=== PATIENT | male | born 1930 | race Caucasian/White ===

== ENCOUNTER 2017-04-20 13:03 | Inpatient (IN) | payer OTHER ==
[~2017-04-20] VITALS: Ht 172.7 cm; Wt 77.1 kg
--- NOTE | 2017-04-20 13:03 | NUR ---
Patient BIBA ACLS from [facility], transferred to bed 11. RN evaluating patient at bedside.
[2017-04-20 13:06] VITALS: BP 107/57
[2017-04-20] MEDS ORDERED: NACL 0.9% 1,000 ML IV ONE ×2 (13:10→14:35)
--- NOTE | 2017-04-20 13:10 | NUR ---
86 M JUSTICE FROM [facility]; ACCORDING TO PRINCIPAL PRODUCT MANAGER, PT NOT RESPONSIVE TO STAFF, NO INJURY/TRAUMA PRIOR; AWAKE, FOLLOWS INSTRUCTIONS, ORIENTED TO NAME PLACE, MOVING ALL EXTREMITIES, NO FACIAL ASYMMETRY, PT DENIES ANY CHEST PAIN OR PAIN IN GENERAL; RR ARE EVEN AND UNLABORED; PT DENIES ANY N/V/D OR ABD PAIN; NAD AT THIS TIME; ER MD PATEL AWARE OF PT STATUS; PT CHANGED IN TO GOWN, POSITIONED FOR COMFORT, BED DOWN. WILL CONTINUE TO MONITOR.
--- NOTE | 2017-04-20 13:15 | NUR ---
Dr. Avery evaluating patient at bedside.
[2017-04-20] MEDS ORDERED: PANT40EC PO (13:33)
[2017-04-20] MEDS ORDERED: CALC-20 PO (13:33)
[2017-04-20] MEDS ORDERED: METO25TA PO (13:33)
[2017-04-20] MEDS ORDERED: ASPI81EC97 PO (13:33)
[2017-04-20] MEDS ORDERED: POTA10CE85 PO (13:33)
[2017-04-20] MEDS ORDERED: BISA-213 RC (13:33)
[2017-04-20] MEDS ORDERED: CAR30 PO (13:33)
[2017-04-20] MEDS ORDERED: FURO-570 PO (13:33)
[2017-04-20 13:37] LABS: BASOPHILS # (AUTO) 0.4 K/uL (0.00-0.22); BASOPHILS % (AUTO) 2.2 % (0.0-2.0); EOSINOPHILS # (AUTO) 0.1 K/uL (0-0.4); EOSINOPHILS % (AUTO) 0.6 % (0.0-4.0); HEMATOCRIT 49.1 % (36-52); LYMPHOCYTES # (AUTO) 0.9 K/uL (2.0-11.5); LYMPHOCYTES % (AUTO) 5.6 % (20.5-51.1); MEAN CORPUSCULAR HEMOGLOBIN 29 pg (27-31); MEAN CORPUSCULAR HGB CONC 33 g/dL (33-37); MEAN CORPUSCULAR VOLUME 88 fL (80-94); MONOCYTES # (AUTO) 1.2 K/uL (0.8-1.0); MONOCYTES % (AUTO) 7.2 % (1.7-9.3); NEUTROPHILS # (AUTO) 14.2 K/uL (1.8-7.7); NEUTROPHILS % (AUTO) 84.4 % (42.2-75.2); PLATELET COUNT (AUTO) 204 K/uL (140-450); RED BLOOD CELL COUNT(AUTO) 5.57 MIL/uL (4.20-6.10); WHITE BLOOD COUNT (AUTO) 16.9 K/uL (4.8-10.8)
[2017-04-20] MEDS ORDERED: WARF3TAB PO ×2 (13:37)
[2017-04-20] MEDS ORDERED: SLIDE SUBQ (13:37)
[2017-04-20 13:46] LABS: ANION GAP 14.9 (8-16); CHLORIDE 101 mmol/L (98-107); CREATININE 1.1 mg/dL (0.7-1.3); GLUCOSE 160 mg/dL (74-106); POTASSIUM 3.9 mmol/L (3.5-5.1); SODIUM SERUM 140 mmol/L (136-145); UREA NITROGEN, BLOOD 25 mg/dL (7-18)
[2017-04-20 13:51] LABS: ALBUMIN 3.1 g/dL (3.4-5.0); ASPARTATE AMINOTRANSFERASE 18 U/L (15-37); TOTAL BILIRUBIN 0.9 mg/dL (0.0-1.0)
[2017-04-20 13:52] LABS: ACETAMINOPHEN < 0.5 ug/ml (10-30); SALICYLATE < 2.8 mg/dL (2.8-20.0)
--- NOTE | 2017-04-20 14:05 | NUR ---
PT TO CT VIA JOSHUA ACCOMPANIED BY JOB TRAINER
--- NOTE | 2017-04-20 14:25 | NUR ---
PT RETURNED FROM CT VIA GURNEY ACCOMPANIED BY MIDDLE OR INTERMEDIATE SCHOOL PRINCIPAL.
[2017-04-20] MEDS ORDERED: VANCOMYCIN 1,000 MG in DEXTROSE 5% 250 ML IV ONE (14:40)
[2017-04-20] MEDS ORDERED: PIPERACILLIN/TAZOBACTAM 3.375 GM in DEXTROSE 5% 50 ML IV ONE (14:40)
[2017-04-20] MEDS ORDERED: PIPERACILLIN/TAZOBACTAM 3.375 GM VIAL IV ONE ×2 (14:53→21:39)
[2017-04-20] MEDS ORDERED: VANCOMYCIN 1,000 MG VIAL ONE (14:53)
[2017-04-20 15:09] LABS: APPEARANCE,URINE CLEAR (CLEAR); BILIRUBIN,URINE NEGATIVE (NEGATIVE); BLOOD, URINE 1+ (NEGATIVE); COLOR,URINE YELLOW (YELLOW); LEUKOCYTE ESTERASE ,URINE NEGATIVE (NEGATIVE); NITRITE, URINE NEGATIVE (NEGATIVE); UGLUCOSE NEGATIVE (NEGATIVE)
[2017-04-20 15:23] LABS: BARBITURATE, URINE NEG. ng/ml (NEG <=200); BENZODIAZEPINE, URINE NEG. ng/mL (NEG <=200); CANNABINOID, URINE NEG. ng/mL (NEG <=50); COCAINE, URINE NEG. ng/mL (NEG <=300); OPIATE, URINE NEG. ng/mL (NEG <=2000); PHENCYCLIDINE SCREEN,URINE NEG. ng/mL (NEG <=25)
[2017-04-20] MEDS ORDERED: NACL 0.9% 500 ML IV ONE (15:30)
[2017-04-20 15:32] LABS: RBC,URINE 3-10 (FEW) /HPF (0-5); WBC,URINE 0-5 (RARE) /HPF (0-5)
[2017-04-20] MEDS ORDERED: HYDROcodone/APAP 7.5/325 MG 1 TAB PO PRN (16:05)
[2017-04-20] MEDS ORDERED: ONDANSETRON 4 MG/2 ML VIAL IVP PRN (16:05)
--- NOTE | 2017-04-20 16:23 | NUR ---
Patient will be admitted to care of [place]. Admited to Tele. Will go to room 107B. Belongings list completed. Report to Carin DILLON.
--- NOTE | 2017-04-20 16:24 | NUR ---
RECEIVED REPORT FROM THE ER NURSE. WILL GET ROOM READY AND AWAIT PT'S ARRIVAL.
--- NOTE | 2017-04-20 16:40 | NUR ---
PT ARRIVED ON THE UNIT WITH 2 ER NURSES ON A GURNEY. PT IS ACCOMPANIED BY HIS GRANDDAUGHTER. PT IS AWAKE AND ORIENTED TO HIS NAME. PT'S SKIN IS INTACT. HAS AN IV ON LFA 22G. OWENS CATH IN PLACE, WITH 600ML PALE, CLEAR URINE. NC AT 3L O2. ADMINISTERED YELLOW GOWN, BAND AND SOCKS. YELLOW SIGN ON DOOR. MRSA SCREENING DONE. APPLIED TELE MONITOR. V/S: 98.3F, 96/49, 78, 96% 20 Addendum: 04/20/17 at 1708 by Carin Sparks RN DENIES PAIN. WILL START ADMISSIONS PROCESS.
[2017-04-20 16:52] LABS: PROTHROMBIN TIME 18.8 secs (10.8-13.4)
[2017-04-20 17:00] VITALS: BP 96/49
[2017-04-20 17:02] LABS: CHOL/HDL RATIO 3.8 (1-4.5); FREE T4 (FREE THYROXINE) 0.95 ng/dL (0.76-1.46); MAGNESIUM 2.2 mg/dL (1.8-2.4); PHOSPHORUS 3.3 mg/dL (2.5-4.9); THYROID STIMULATING HORMONE 2.3 uIU/mL (0.34-3.74)
[2017-04-20] MEDS: NACL 0.9% 1,000 ML IV SCH (18:02)
[2017-04-20] MEDS ORDERED: VANCOMYCIN PER PHARMACY MC PRN (18:30)
--- NOTE | 2017-04-20 19:15 | NUR ---
ENDORSED PT TO THE FREIGHT HUSTLER NURSE AT BEDSIDE FOR CONTINUITY OF CARE. PT IS STABLE. ORDERED DINNER FOR PT W/ SODA REQUESTED BY PT.
--- NOTE | 2017-04-20 19:16 | NUR ---
RECEIVED REPORT FROM DAY SHIFT RN. PT IS A/OX1, ON 3L O2 VIA NASAL CANNULA. PT HAS A LEFT FOREARM 22G IV, INFUSING NS@125ML/HR. SKIN INTACT. PT IS ON BEDREST. SAFETY PRECAUTIONS IN PLACE. UPDATED BOARD. DISCUSSED PLAN OF CARE WITH PT, PT VERBALIZED UNDERSTANDING. VITAL SIGNS WITHIN NORMAL LIMITS. VITAL SIGNS ARE WITHIN NORMAL LIMITS. PT IN STABLE CONDITION, NO SIGNS OF DISTRESS NOTED. BED IN LOW POSITION, CALL LIGHT WITHIN REACH. WILL CONTINUE TO MONITOR.
[2017-04-20] MEDS ORDERED: DEXTROSE 50% 50 ML SYR IVP PRN (19:40)
[2017-04-20] MEDS ORDERED: INSULIN LISPRO SLIDING SCALE 100 UNITS/ML VIAL SUBQ PRN (19:40)
[2017-04-20] MEDS ORDERED: ALBUTEROL SULFATE/IPRATROPIU 3 ML SOL IH PRN (19:40)
[2017-04-20 20:00] VITALS: BP 108/51
[2017-04-20] MEDS: DILTIAZEM 30 MG TAB PO SCH (20:59)
[2017-04-20] MEDS: PIPER/TAZO 3.375GM/D5W PREMIX 50 ML IV SCH (21:00)
[2017-04-20] MEDS: DOCUSATE SODIUM 100 MG GELCAP PO SCH (21:02)
[2017-04-20] MEDS: METOPROLOL 25 MG TAB PO SCH (21:02)
[2017-04-20] MEDS: CALCIUM CARB/VIT-D 500 MG/200 IU 1 TAB PO SCH (21:02)
[2017-04-20] MEDS: BLOOD GLUCOSE MONITORING 1 DEV DEV FS SCH (21:04)
[2017-04-21] VITALS: BP 111/51
[2017-04-21] MEDS: NACL 0.9% 1,000 ML IV SCH ×3 (00:02→15:24)
[2017-04-21 04:00] VITALS: BP 119/44
[2017-04-21] MEDS: PIPER/TAZO 3.375GM/D5W PREMIX 50 ML IV SCH ×3 (05:52→20:53)
[2017-04-21] MEDS: PANTOPRAZOLE 40 MG TABEC PO SCH (05:52)
[2017-04-21] MEDS: DILTIAZEM 30 MG TAB PO SCH ×3 (05:52→20:54)
[2017-04-21 06:43] LABS: HEMATOCRIT 40.1 % (36-52); MEAN CORPUSCULAR HEMOGLOBIN 29 pg (27-31); MEAN CORPUSCULAR HGB CONC 32 g/dL (33-37); MEAN CORPUSCULAR VOLUME 88 fL (80-94); PLATELET COUNT (AUTO) 147 K/uL (140-450); RED BLOOD CELL COUNT(AUTO) 4.54 MIL/uL (4.20-6.10); WHITE BLOOD COUNT (AUTO) 9.6 K/uL (4.8-10.8)
--- NOTE | 2017-04-21 07:09 | NUR ---
RECEIVED PT IN BED. AWAKE. ALERT ORIENTEDX1. NO SOB NOTED ON 02 AT 3LPM. DENIES ANY PAIN OR DISCOMFORT AT THIS TIME. NO SIGNS AND SYMPTOMS OF ACUTE DISTRESS NOTED. SAFETY PRECAUTION IN PLACE. CALL LIGHT WITHIN REACH.
[2017-04-21 07:13] LABS: CARBON DIOXIDE 27.5 mmol/L (21-32); CHLORIDE 106 mmol/L (98-107); CREATININE 1.1 mg/dL (0.7-1.3); GLUCOSE 92 mg/dL (74-106); POTASSIUM 3.5 mmol/L (3.5-5.1); SODIUM SERUM 139 mmol/L (136-145); UREA NITROGEN, BLOOD 19 mg/dL (7-18)
[2017-04-21 07:15] LABS: MAGNESIUM 1.8 mg/dL (1.8-2.4); PHOSPHORUS 2.5 mg/dL (2.5-4.9)
[2017-04-21] MEDS: BLOOD GLUCOSE MONITORING 1 DEV DEV FS SCH ×4 (07:19→20:53)
--- NOTE | 2017-04-21 07:31 | NUR ---
ENDORSED PT TO DAY SHIFT RN FOR CONTINUITY OF CARE. PT IN STABLE CONDITION.
[2017-04-21 07:53] LABS: LYMPHOCYTES % (MANUAL) 20 % (20-46)
[2017-04-21 07:54] LABS: EOSINOPHILS % (MANUAL) 10 % (0-4); MONOCYTES % (MANUAL) 12 % (5-12)
[2017-04-21 08:00] VITALS: BP 108/44
[2017-04-21] MEDS: ALBUTEROL SULFATE/IPRATROPIU 3 ML SOL IH SCH ×3 (08:18→20:26)
[2017-04-21] MEDS: DOCUSATE SODIUM 100 MG GELCAP PO SCH ×2 (08:39→20:54)
[2017-04-21] MEDS: FUROSEMIDE 40 MG TAB PO SCH (08:39)
[2017-04-21] MEDS: ATORVASTATIN 20 MG TAB PO SCH (08:39)
[2017-04-21] MEDS: ECOTRIN 81 MG TABEC PO SCH (08:39)
[2017-04-21] MEDS: CALCIUM CARB/VIT-D 500 MG/200 IU 1 TAB PO SCH ×2 (08:40→20:55)
[2017-04-21] MEDS: METOPROLOL 25 MG TAB PO SCH ×2 (08:43→20:54)
[2017-04-21 10:52] LABS: PROTHROMBIN TIME 15.6 secs (10.8-13.4)
--- NOTE | 2017-04-21 11:49 | NUR ---
PT AWAKE IN BED. COOPERATIVE. SOME CONFUSION NOTED. REORIENTATION DONE NEEDED.
[2017-04-21 12:00] VITALS: BP 111/57
[2017-04-21] MEDS ORDERED: VANCOMYCIN 1GM/DEXT 5% PREMIX 200 ML IV SCH (15:30)
[2017-04-21 16:00] VITALS: BP 94/52
--- NOTE | 2017-04-21 16:26 | NUR ---
VERIFIED WITH PHARMACIST GARY THAT COUMADIN DOSE FOR TODAY OK TO GIVE PER PT/INR RESULT.
[2017-04-21] MEDS ORDERED: WARFARIN 5 MG TAB PO SCH (17:00)
--- NOTE | 2017-04-21 17:49 | NUR ---
* ST NOTE * Pt seen at bedside w/nsg present. Pt initially refusing PO feeding trials at this time secondary to pt being "not hungry". Pt education completed regarding benefits of participating in swallow evaluation w/pt eventually consenting to participate in evaluation. Bedside dysphagia and oral mechanism exams completed. See evaluation report for further details. Pt tolerating 2/2 alternating PO trials of mechanical soft peaches via a spoon as well as 6/6 PO trials of successive sips of thin liquid apple juice via a straw, all w/o s/s of aspiration or choking. Nsg also administering whole pill medication PO w/pt exhibiting no difficulty swallowing whole pill medication as well. Pt and caregiver/nsg education completed regarding aspiration precautions that may aid pt w/swallow function, w/pt and nsg/caregiver verbalizing understanding and agreement. It is thus recommended pt continue current PO diet consistency w/aspiration precautions in place, w/pt and caregiver/nsg verbalizing understanding and agreement as well. No further ST follow up recommended at this time. Pt and caregivers/nsg education completed regarding results of evaluation; benefits of abiding by aspiration precautions and recommended PO diet consistency; and prognosis for improvement; with pt and caregivers/nsg verbalizing understanding and agreement w/clinician's recommendations. Recommend: - Continue PO diet consistency of MECHANICAL SOFT TEXTURES W/THIN LIQUIDS for all meals - If pt demonstrates s/s of aspiration or choking, stop PO intake immediately - Suction PRN - Pt requires assistance w/feeding - Feeder to sit pt up at 70-90 degree angle during PO intake; feed pt slowly, alternating btwn solids & liquids and utilizing small bites/sips - Maintain STRICT aspiration precautions 2/2 to pt's hx of coughing during PO intake No further ST follow up recommended at this time. G8996 CI G8997 CI G8998 CI NOMS Level 2 Time In/Out 17:00 - 17:30
--- NOTE | 2017-04-21 18:40 | NUR ---
PT KEPT CLEAN, DRY AND COMFORTABLE, NEEDS ATTENDED. WILL ENDORSE TO NEXT SHIFT. PT ON STABLE CONDITION. FOR CONTINUITY OF CARE.
[2017-04-21 20:00] VITALS: BP 120/61
--- NOTE | 2017-04-21 20:55 | NUR ---
ADMINISTERED SCHEDULED MEDICATIONS, PT TOLERATED WELL. PT IN STABLE CONDITION, NO SIGNS OF DISTRESS NOTED. BED IN LOW POSITION, CALL LIGHT WITHIN REACH. WILL CONTINUE TO MONITOR.
[2017-04-22] VITALS: BP 101/59
[2017-04-22] MEDS: NACL 0.9% 1,000 ML IV SCH ×4 (00:04→23:44)
--- NOTE | 2017-04-22 02:59 | NUR ---
PT CONFUSED AT THE MOMENT, KEEPS SAYING HE IS TALKING TO HIMSELF ONLY AND "I'M WAITING FOR MY , SHE HAS THE MONEY." ORIENTED PT TO TIME, PLACE, AND SITUATION AND PT NODDED. PT IN STABLE CONDITION.
[2017-04-22 04:00] VITALS: BP 110/57
--- NOTE | 2017-04-22 04:34 | NUR ---
IV ON RIGHT FOREARM STARTED HAVING TOO MUCH RESISTANCE AND STARTED HURTING PT. STARTED NEW 22G IV ON RIGHT FOREARM, DISCONTINUED IV TO LEFT FOREARM.
[2017-04-22] MEDS: DILTIAZEM 30 MG TAB PO SCH ×3 (04:56→21:37)
[2017-04-22] MEDS: PIPER/TAZO 3.375GM/D5W PREMIX 50 ML IV SCH ×3 (04:56→21:38)
[2017-04-22] MEDS: PANTOPRAZOLE 40 MG TABEC PO SCH (06:09)
[2017-04-22] MEDS: BLOOD GLUCOSE MONITORING 1 DEV DEV FS SCH ×4 (06:38→21:53)
[2017-04-22] MEDS: ALBUTEROL SULFATE/IPRATROPIU 3 ML SOL IH SCH ×3 (07:00→19:15)
--- NOTE | 2017-04-22 07:19 | NUR ---
ENDORSED PT TO DAY SHIFT RN FOR CONTINUITY OF CARE. PT IN STABLE CONDITION.
--- NOTE | 2017-04-22 07:19 | NUR ---
RECEIVED REPORT FROM NIGHT RN, PT AWAKE IN BED ON 2L O2 VIA NC, NO S/S OF ACUTE DISTRESS, A/O X1, IV PATENT AND INTACT, SAFETY [id number] TAKEN, CALL LIGHT WITHIN REACH, WILL CONT TO MONITOR.
[2017-04-22 07:53] VITALS: BP 116/50
--- NOTE | 2017-04-22 08:09 | NUR ---
PATIENT HAS BEEN SCREENED AND CATEGORIZED HIGH NUTRITION RISK. PATIENT WILL BE SEEN WITHIN 1-2 DAYS OF ADMISSION. 04/21/17 - 04/22/17 TENZIN OGLESBY MBA, RD
[2017-04-22] MEDS: METOPROLOL 25 MG TAB PO SCH ×2 (08:29→21:00)
[2017-04-22] MEDS: FUROSEMIDE 40 MG TAB PO SCH (08:39)
[2017-04-22] MEDS: ECOTRIN 81 MG TABEC PO SCH (08:39)
[2017-04-22] MEDS: CALCIUM CARB/VIT-D 500 MG/200 IU 1 TAB PO SCH ×2 (08:39→21:37)
[2017-04-22] MEDS: DOCUSATE SODIUM 100 MG GELCAP PO SCH ×2 (08:39→21:37)
[2017-04-22] MEDS: ATORVASTATIN 20 MG TAB PO SCH (08:39)
--- NOTE | 2017-04-22 08:50 | NUR ---
DUE MEDS GIVEN WITH EDUCATION, PT TOLERATED MEDS WELL WITH BREAKFAST, NO S/S OF DISTRESS, PT DENIES PAIN, CALL LIGHT WITHIN REACH, WILL CONT TO MONITOR.
[2017-04-22 08:52] LABS: CARBON DIOXIDE 25.9 mmol/L (21-32); CHLORIDE 107 mmol/L (98-107); GLUCOSE 89 mg/dL (74-106); POTASSIUM 3.9 mmol/L (3.5-5.1); SODIUM SERUM 140 mmol/L (136-145); UREA NITROGEN, BLOOD 11 mg/dL (7-18)
[2017-04-22 08:57] LABS: BASOPHILS # (AUTO) 0.3 K/uL (0.00-0.22); BASOPHILS % (AUTO) 3.6 % (0.0-2.0); EOSINOPHILS # (AUTO) 0.3 K/uL (0-0.4); EOSINOPHILS % (AUTO) 3.3 % (0.0-4.0); HEMATOCRIT 38.2 % (36-52); HEMOGLOBIN 12.6 g/dL (12.0-18.0); LYMPHOCYTES # (AUTO) 1.9 K/uL (2.0-11.5); LYMPHOCYTES % (AUTO) 25.6 % (20.5-51.1); MEAN CORPUSCULAR HEMOGLOBIN 30 pg (27-31); MEAN CORPUSCULAR HGB CONC 33 g/dL (33-37); MEAN CORPUSCULAR VOLUME 89 fL (80-94); MONOCYTES # (AUTO) 0.8 K/uL (0.8-1.0); MONOCYTES % (AUTO) 11.1 % (1.7-9.3); NEUTROPHILS # (AUTO) 4.3 K/uL (1.8-7.7); NEUTROPHILS % (AUTO) 56.4 % (42.2-75.2); PLATELET COUNT (AUTO) 145 K/uL (140-450); RED BLOOD CELL COUNT(AUTO) 4.27 MIL/uL (4.20-6.10); RED CELL DISTRIBUTION WIDTH 13.9 % (11.6-13.7); WHITE BLOOD COUNT (AUTO) 7.6 K/uL (4.8-10.8)
[2017-04-22 09:10] LABS: MAGNESIUM 1.9 mg/dL (1.8-2.4); PHOSPHORUS 2.2 mg/dL (2.5-4.9)
[2017-04-22 09:18] LABS: PROTHROMBIN TIME 15.9 secs (10.8-13.4)
--- NOTE | 2017-04-22 10:02 | NUR ---
04/22/17 RD INITIAL ASSESSMENT COMPLETED PLEASE REFER TO NUTRITION ASSESSMENT UNDER CARE ACTIVITY FOR ESTIMATED NUTRITIONAL NEEDS. RD RECOMMENDATIONS: 1- RECOMMEND CONTINUE 60G CCHO MECHANICAL SOFT DIET 2- ADD DIET HEALTHSHAKES TID 3- ASSIST / ENCOURAGE INCREASED PO INTAKE 4- F/U 2-3 DAYS; HIGH RISK. TENZIN REINA MBA, RD
[2017-04-22] MEDS: SODIUM PHOS / POTASSIUM PHOS 1 PKT PDR PO SCH ×3 (12:11→21:37)
--- NOTE | 2017-04-22 12:43 | NUR ---
PT LYING IN BED ON ROOM AIR, PT DENIES PAIN, NO S/S OF ACUTE DISTRESS, CALL LIGHT WITHIN REACH, WILL CONT TO MONITOR.
--- NOTE | 2017-04-22 13:07 | NUR ---
PT SLEEPING WITH NO SIGNS OF DISTRESS NOTED AT THIS TIME NO HHN GIVEN
--- NOTE | 2017-04-22 13:40 | NUR ---
PT REPORT RECEIVED AT BEDSIDE. PT IN STABLE CONDITION. NO S/S OF DISTRESS NOTED.
--- NOTE | 2017-04-22 13:40 | NUR ---
ENDORSED PLAN OF CARE TO SANTANA WYNNE PT IN STABLE CONDITION.
--- NOTE | 2017-04-22 14:14 | NUR ---
ENDORSED PLAN OF CARE TO SANTANA WILSON AND SEBLE RICH IN STABLE CONDITION.
[2017-04-22 16:00] VITALS: BP 125/65
[2017-04-22] MEDS ORDERED: VANCOMYCIN 750 MG in DEXTROSE 5% 250 ML IV SCH (17:15)
--- NOTE | 2017-04-22 18:00 | NUR ---
PT HAS BEEN SEEN BY RT. BREATHING TX RECEIVED. PT VITALS STABLE. WILL CONTINUE TO MONITOR.
[2017-04-22] MEDS: ACETAMINOPHEN 325 MG TAB PO PRN (18:04)
[2017-04-22] MEDS: WARFARIN 1 MG TAB PO SCH (18:08)
--- NOTE | 2017-04-22 18:20 | NUR ---
VANCO TROUGH DONE TODAY. CALLED PHARM ABOUT VANCO CHANGED FROM 1 GM TO 750MG FROM MD ORDER. WAITING FOR NEW VANCO BAG.
[2017-04-22] MEDS: VANCOMYCIN 750 MG in DEXTROSE 5% 250 ML IV SCH (19:23)
--- NOTE | 2017-04-22 19:35 | NUR ---
ENDORSED PLAN OF CARE TO CAR PORTER RN, PT IN STABLE CONDITION.
--- NOTE | 2017-04-22 19:36 | NUR ---
RECEIVED REPORT FROM DAY NURSE, PT IN STABLE CONDITION. PT AAOX2, IV TO R FA 22G, PATENT AND INTACT. SKIN IS INTACT. PT HAS OWENS CATH IN PLACE PATENT AND DRAINING CLEAR YELLOW URINE. RESPIRATIONS ARE EVEN AND UNLABORED. BOWEL SOUNDS PRESENT. INITIAL ASSESSMENT COMPLETED. PLAN OF CARE DISCUSSED WITH PT AT THE BEDSIDE, REINFORCEMENT NEEDED. ALL SAFETY PRECAUTIONS MET, CALL LIGHT WITHIN REACH, WILL CONTINUE TO MONITOR
--- NOTE | 2017-04-22 21:00 | NUR ---
METOPROLOL HELD AT THIS TIME PTS BP 98/50
[2017-04-23] VITALS: BP 98/50
[2017-04-23] MEDS: PIPER/TAZO 3.375GM/D5W PREMIX 50 ML IV SCH ×3 (05:18→21:52)
[2017-04-23] MEDS: DILTIAZEM 30 MG TAB PO SCH ×3 (05:24→21:52)
[2017-04-23] MEDS: ACETAMINOPHEN 325 MG TAB PO PRN ×2 (05:25→11:47)
--- NOTE | 2017-04-23 05:47 | NUR ---
RECEIVED REPORT FROM DAY NURSE, PT IN STABLE CONDITION. PT AAOX2, IV TO R FA 22G, PATENT AND INTACT. SKIN IS INTACT. PT HAS OWENS CATH IN PLACE PATENT AND DRAINING CLEAR YELLOW URINE. RESPIRATIONS ARE EVEN AND UNLABORED. BOWEL SOUNDS PRESENT. INITIAL ASSESSMENT COMPLETED. PLAN OF CARE DISCUSSED WITH PT AT THE BEDSIDE, REINFORCEMENT NEEDED. ALL SAFETY PRECAUTIONS MET, CALL LIGHT WITHIN REACH, WILL CONTINUE TO MONITOR Addendum: 04/23/17 at 0549 by Kanchan Duffy RN TIME CORRECTION 04/22/17 1936
--- NOTE | 2017-04-23 05:51 | NUR ---
OWENS CARE PROVIDED, PT KEPT CLEAN AND DRY
[2017-04-23] MEDS: VANCOMYCIN 750 MG in DEXTROSE 5% 250 ML IV SCH ×2 (06:08→18:00)
[2017-04-23] MEDS: PANTOPRAZOLE 40 MG TABEC PO SCH (06:08)
[2017-04-23] MEDS: BLOOD GLUCOSE MONITORING 1 DEV DEV FS SCH ×4 (06:51→21:58)
--- NOTE | 2017-04-23 07:20 | NUR ---
RECEIVED BEDSIDE REPORT FROM NIGHT RN, PT AWAKE IN BED, ON 3L O2 VIA NC, NO S/S OF ACUTE DISTRESS, A/O X1, IV NOTED TO THE RIGHT FA 22 GAUGE, PATENT, INTACT, INFUSING WELL. SAFETY [id number] TAKEN, CALL LIGHT WITHIN REACH, WILL CONTINUE TO MONITOR.
--- NOTE | 2017-04-23 07:34 | NUR ---
GAVE REPORT TO DAY NURSE AT THE BEDSIDE FOR CONTINUITY OF CARE, PT REMAINS STABLE
[2017-04-23] MEDS: NACL 0.9% 1,000 ML IV SCH ×3 (07:41→23:35)
[2017-04-23 08:00] VITALS: BP 135/72
--- NOTE | 2017-04-23 08:00 | NUR ---
PT IN BED EATING BREAKFAST, NO S/S OF DISTRESS NOTED. OWENS BAG DRAINING YELLOW CLEAR URINE.
[2017-04-23 08:14] LABS: HEMATOCRIT 41.1 % (36-52); HEMOGLOBIN 13.6 g/dL (12.0-18.0); MEAN CORPUSCULAR HEMOGLOBIN 29 pg (27-31); MEAN CORPUSCULAR HGB CONC 33 g/dL (33-37); MEAN CORPUSCULAR VOLUME 89 fL (80-94); PLATELET COUNT (AUTO) 167 K/uL (140-450); RED BLOOD CELL COUNT(AUTO) 4.64 MIL/uL (4.20-6.10); RED CELL DISTRIBUTION WIDTH 14.2 % (11.6-13.7); WHITE BLOOD COUNT (AUTO) 6.9 K/uL (4.8-10.8)
[2017-04-23 08:21] LABS: PROTHROMBIN TIME 18.5 secs (10.8-13.4)
[2017-04-23 08:27] LABS: PHOSPHORUS 2.2 mg/dL (2.5-4.9)
[2017-04-23 08:38] LABS: ANION GAP 8.9 (8-16); CARBON DIOXIDE 28.7 mmol/L (21-32); CHLORIDE 106 mmol/L (98-107); GLUCOSE 83 mg/dL (74-106); POTASSIUM 3.6 mmol/L (3.5-5.1); SODIUM SERUM 140 mmol/L (136-145); UREA NITROGEN, BLOOD 12 mg/dL (7-18)
[2017-04-23] MEDS: DOCUSATE SODIUM 100 MG GELCAP PO SCH ×2 (09:00→21:00)
[2017-04-23] MEDS: ATORVASTATIN 20 MG TAB PO SCH (09:19)
[2017-04-23] MEDS: METOPROLOL 25 MG TAB PO SCH ×2 (09:19→21:51)
[2017-04-23] MEDS: CALCIUM CARB/VIT-D 500 MG/200 IU 1 TAB PO SCH ×2 (09:19→21:52)
[2017-04-23] MEDS: FUROSEMIDE 40 MG TAB PO SCH (09:20)
[2017-04-23] MEDS: ECOTRIN 81 MG TABEC PO SCH (09:20)
[2017-04-23] MEDS: SODIUM PHOS / POTASSIUM PHOS 1 PKT PDR PO SCH ×4 (09:20→21:53)
[2017-04-23 09:27] LABS: BASOPHILS % (MANUAL) 0 % (0-2); EOSINOPHILS % (MANUAL) 2 % (0-4); LYMPHOCYTES % (MANUAL) 39 % (20-46); MONOCYTES % (MANUAL) 6 % (5-12)
--- NOTE | 2017-04-23 11:00 | NUR ---
PT IN BED WATCHING TV, NO S/S OF DISTRESS NOTED. WILL CONTINUE TO MONITOR.
[2017-04-23] MEDS: ALBUTEROL SULFATE/IPRATROPIU 3 ML SOL IH SCH ×3 (14:00→19:39)
[2017-04-23 16:00] VITALS: BP 130/78
[2017-04-23] MEDS ORDERED: WARFARIN 1 MG TAB PO SCH (17:00)
--- NOTE | 2017-04-23 17:00 | NUR ---
PT'S IV WAS INFILTRATED. REMOVED THE IV CATH, TIP INTACT, PRESSURE APPLIED. INSERT A NEW IV ON THE LEFT HAND, 22 GAUGE, SECURED WITH TAPE AND WRAPPED WITH GAUZE. PT TOLERATE WELL.
--- NOTE | 2017-04-23 18:10 | NUR ---
NOTIFIED DR. POLLARD THAT VANCO TROUGH IS 18.2, REQUESTED DR TO ADJUST THE DOSAGE.
--- NOTE | 2017-04-23 19:30 | NUR ---
ENDORSED PLAN OF CARE TO WEIGHTER RN, PT IN STABLE CONDITION.
--- NOTE | 2017-04-23 19:30 | NUR ---
RECEIVED REPORT FROM DAY NURSE PT IN STABLE CONDITION. NO S/S OF DISTRESS NOTED. PT IS ON 3L O2 VIA NC. IV TO L FA 22G PATENT AND INTACT INFUSING WELL. RESPIRATIONS ARE EVEN AND UNLABORED. SKIN IS INTACT. INITIAL ASSESSMENT COMPLETED, PLAN OF CARE DISCUSSED WITH PT AT THE BEDSIDE, REINFORCEMENT NEEDED. ALL SAFETY PRECAUTIONS MET, CALL LIGHT WITHIN REACH, WILL CONTINUE TO MONITOR
[2017-04-23] MEDS ORDERED: QUEtiapine FUMARATE 100 MG TAB PO SCH (21:00)
[2017-04-24] VITALS: BP 140/82
[2017-04-24] MEDS: PIPER/TAZO 3.375GM/D5W PREMIX 50 ML IV SCH ×2 (05:19→12:44)
[2017-04-24] MEDS: PANTOPRAZOLE 40 MG TABEC PO SCH (05:32)
[2017-04-24] MEDS: DILTIAZEM 30 MG TAB PO SCH ×2 (05:32→12:21)
[2017-04-24] MEDS ORDERED: SODIUM PHOS / POTASSIUM PHOS 1 PKT PDR PO SCH (06:30)
[2017-04-24] MEDS: BLOOD GLUCOSE MONITORING 1 DEV DEV FS SCH ×3 (07:00→16:52)
[2017-04-24] MEDS: ALBUTEROL SULFATE/IPRATROPIU 3 ML SOL IH SCH (07:17)
--- NOTE | 2017-04-24 07:22 | NUR ---
ASSUMED CONTINUITY OF CARE. NO SIGNS AND SYMPTOMS OF ACUTE DISTRESS NOTED. INITIAL ASSESSMENT DONE. RE-ORIENTED TO EVENTS AND SURROUNDINGS. HOD ELEVATED. MATIAS COMFORTABLE ON BED. FALL PRECAUTION APPLIED. CALL LIGHT WITHIN REACH.
--- NOTE | 2017-04-24 07:22 | NUR ---
GAVE REPORT TO DAY NURSE AT THE BEDSIDE FOR CONTINUITY OF CARE, PT IN STABLE CONDITION
[2017-04-24 07:40] LABS: BASOPHILS # (AUTO) 0.3 K/uL (0.00-0.22); BASOPHILS % (AUTO) 3.3 % (0.0-2.0); EOSINOPHILS # (AUTO) 0.5 K/uL (0-0.4); EOSINOPHILS % (AUTO) 6.3 % (0.0-4.0); HEMATOCRIT 38.7 % (36-52); HEMOGLOBIN 12.9 g/dL (12.0-18.0); LYMPHOCYTES # (AUTO) 2.1 K/uL (2.0-11.5); LYMPHOCYTES % (AUTO) 27.3 % (20.5-51.1); MEAN CORPUSCULAR HEMOGLOBIN 29 pg (27-31); MEAN CORPUSCULAR HGB CONC 33 g/dL (33-37); MEAN CORPUSCULAR VOLUME 88 fL (80-94); MONOCYTES # (AUTO) 1.2 K/uL (0.8-1.0); MONOCYTES % (AUTO) 14.9 % (1.7-9.3); NEUTROPHILS # (AUTO) 3.6 K/uL (1.8-7.7); NEUTROPHILS % (AUTO) 48.2 % (42.2-75.2); PLATELET COUNT (AUTO) 167 K/uL (140-450); RED BLOOD CELL COUNT(AUTO) 4.38 MIL/uL (4.20-6.10); WHITE BLOOD COUNT (AUTO) 7.7 K/uL (4.8-10.8)
[2017-04-24 08:00] VITALS: BP 110/64
--- NOTE | 2017-04-24 08:00 | NUR ---
Patient's Plan of Care was discussed and reviewed with CRUSHER FEEDER: DOV
[2017-04-24 08:24] LABS: CARBON DIOXIDE 28.3 mmol/L (21-32); CHLORIDE 106 mmol/L (98-107); CREATININE 1.2 mg/dL (0.7-1.3); GLUCOSE 85 mg/dL (74-106); POTASSIUM 3.3 mmol/L (3.5-5.1); SODIUM SERUM 141 mmol/L (136-145); UREA NITROGEN, BLOOD 9 mg/dL (7-18)
[2017-04-24 08:28] LABS: PHOSPHORUS 3.2 mg/dL (2.5-4.9)
[2017-04-24] MEDS: CALCIUM CARB/VIT-D 500 MG/200 IU 1 TAB PO SCH (09:39)
[2017-04-24] MEDS: DOCUSATE SODIUM 100 MG GELCAP PO SCH (09:39)
[2017-04-24] MEDS: ATORVASTATIN 20 MG TAB PO SCH (09:39)
[2017-04-24] MEDS: METOPROLOL 25 MG TAB PO SCH (09:40)
[2017-04-24] MEDS: ECOTRIN 81 MG TABEC PO SCH (09:40)
[2017-04-24] MEDS: SODIUM PHOS / POTASSIUM PHOS 1 PKT PDR PO SCH ×2 (09:41→12:19)
[2017-04-24] MEDS: FUROSEMIDE 40 MG TAB PO SCH (09:41)
[2017-04-24] MEDS ORDERED: VANCOMYCIN 1GM/DEXT 5% PREMIX 200 ML IV SCH (11:00)
[2017-04-24 11:18] LABS: PROTHROMBIN TIME 22.5 secs (10.8-13.4)
[2017-04-24] MEDS: NACL 0.9% 1,000 ML IV SCH (11:32)
[2017-04-24 12:00] VITALS: BP 115/51
--- NOTE | 2017-04-24 12:00 | NUR ---
VITALS SIGNS STABLE. NO C/O PAIN. WILL MONITOR.
--- NOTE | 2017-04-24 13:25 | NUR ---
PHYSICAL THERAPIST CAME FOR PT. EVAL AND TREATMENT. NO SOB, NOTED.
--- NOTE | 2017-04-24 15:09 | NUR ---
ALLEGRA NOTE FAXED DISCHARGE ORDER AND CLINICAL INFO TO [facility] [phone] ATTN: KIMBERLY. PER KIMBERLY OF [facility] PH# [phone], PATIENT CAN GO BACK ANYTIME TO [address], DR[address] Aidan CARUSO. ALLEGRA ECHEVERRIA Addendum: 04/24/17 at 1522 by Ivon Dobson CM SPOKE WITH JAIME REBOLLEDO [facility] PH# [phone] TO SET UP TRANSPORT, DIFFERENTIAL REPAIRER TIME 1930 TODAY GOING TO [address], DR[address] Aidan CARUSO. NUMBER TO CALL FOR REPORT IN [facility] PH# [phone]. CHARGE NURSE ASHLEY ECHEVERRIA
--- NOTE | 2017-04-24 15:11 | NUR ---
PHYSICAL THERAPY CO-SIGN The Physical Therapy Progress Notes documented by Engine Mechanic have been reviewed. I CONCUR W/BOATSWAIN MATE NOTE; CONT PER TX PLAN Reviewed/Co-Signed by: Rowan hZang PT Documentation Done by: JOELLE WHEELER BOATSWAIN MATE Addendum: 04/24/17 at 1511 by Rowan Zhang PT Amended: Links added.
[2017-04-24] MEDS ORDERED: QUET100T PO (15:49)
[2017-04-24 16:00] VITALS: BP 116/60
[2017-04-24] MEDS ORDERED: POTASSIUM CHLORIDE 10 MEQ TABER PO SCH (16:30)
[2017-04-24] MEDS: WARFARIN 1 MG TAB PO SCH (17:30)
--- NOTE | 2017-04-24 17:45 | NUR ---
CALLED PT. JIM MORATAYA AT , LEFT MESSAGE AND CALL BACK NUMBER REGARDING PT. TRANSFER TO [facility].
--- NOTE | 2017-04-24 18:30 | NUR ---
CALLED MAISHA NEWBERRY FROM [facility] REGARDING REPORT FOR PT. TRANSFER. INFORMED CHARGE NURSE ROBBIE MCBRIDE.
--- NOTE | 2017-04-24 19:14 | NUR ---
BEDSIDE REPORT GIVEN TO LUCERO SAXENA -SANTANA. IVF INFUSING WELL. IN STABLE CONDITION. ALSO ENDORSED ABOUT PT. TRANSFER TO [facility].
--- NOTE | 2017-04-24 20:38 | NUR ---
PT ON STRETCHER BEING TRANSFERRED TO ANOTHER FACILITY
== END 2017-04-24 20:41 | disposition home or self-care (01) | DRG 871 ==
LOC: MED 13:03 → UNDOADMIN 15:03 → MTU 15:03
PROVIDERS: ADMIT Family Medicine; ATTEND Family Medicine
DX: A41.9 Sepsis, unspecified organism (principal); J69.0 Pneumonitis due to inhalation of food and vomit; J96.21 Acute and chronic respiratory failure with hypoxia; G93.41 Metabolic encephalopathy; E11.65 Type 2 diabetes mellitus with hyperglycemia; D68.59 Other primary thrombophilia; E11.51 Type 2 diabetes mellitus with diabetic peripheral angiopathy without gangrene; E83.39 Other disorders of phosphorus metabolism; I48.2 Chronic atrial fibrillation; I25.10 Atherosclerotic heart disease of native coronary artery without angina pectoris; E78.5 Hyperlipidemia, unspecified; Z86.73 Personal history of transient ischemic attack (TIA), and cerebral infarction without residual deficits; F03.90 Unspecified dementia, unspecified severity, without behavioral disturbance, psychotic disturbance, mood disturbance, and anxiety; Z87.891 Personal history of nicotine dependence; Z95.1 Presence of aortocoronary bypass graft; Z99.81 Dependence on supplemental oxygen; Z79.899 Other long term (current) drug therapy; K21.9 Gastro-esophageal reflux disease without esophagitis; Z79.01 Long term (current) use of anticoagulants; I10 Essential (primary) hypertension; I35.1 Nonrheumatic aortic (valve) insufficiency
CPT/HCPCS: 36415; 51702; 70450; 71010; 80048; 80053; 80202; 80305; 81001; 82140; 82150; 82948; 83036; 83605; 83690; 83735; 83880; 84100; 84439; 84443; 84484; 85025; 85610; 85730; 87040; 87081; 87086; 92610; 93005; 94640; 96361; 96365; 96367; 97110; 99285; G0480; G0482; J1815; J2543; J3370; J7030; J7060; J7620; Q0092

== ENCOUNTER 2017-07-06 10:23 | Emergency (ER) | payer OTHER ==
[~2017-07-06] VITALS: Ht 170.2 cm; Wt 72.6 kg
[2017-07-06 10:23] VITALS: BP 117/61
[~2017-07-06 10:23] MED LIST: ASPI81EC97 PO; BISA-213 RC; CALC-20 PO; CAR30 PO; FURO-570 PO; METO25TA PO; PANT40EC PO; POTA10CE85 PO; QUET100T PO; SLIDE SUBQ; WARF3TAB PO
--- NOTE | 2017-07-06 10:23 | NUR ---
PT BIBA TO BED 2.
--- NOTE | 2017-07-06 10:35 | NUR ---
87/M JUSTICE FROM [facility] [place]/O ALOC TODAY. PER [facility], [facility] STAFF STATES PT WAS "UNRESPONSIVE FOR 15 MINUTES"; UPON ARRIVAL, [facility] STATES PT WAS ALERT, AWAKE, FOLLOWING COMMANDS; PT AAOX3. GCS 14. 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 VSS. PT AFEBRILE. PT PLACED ON MONITOR. ER MD MADE AWARE.
--- NOTE | 2017-07-06 10:43 | NUR ---
ePatient being evaluated by physician at bedside.
[2017-07-06] MEDS ORDERED: WARF3TAB PO (10:48)
[2017-07-06 11:11] LABS: BASOPHILS # (AUTO) 0.5 K/uL (0.00-0.22); EOSINOPHILS # (AUTO) 0.3 K/uL (0-0.4); EOSINOPHILS % (AUTO) 2.9 % (0.0-4.0); HEMATOCRIT 44.7 % (36-52); HEMOGLOBIN 14.4 g/dL (12.0-18.0); LYMPHOCYTES # (AUTO) 3.9 K/uL (2.0-11.5); LYMPHOCYTES % (AUTO) 39.3 % (20.5-51.1); MEAN CORPUSCULAR HEMOGLOBIN 28 pg (27-31); MEAN CORPUSCULAR HGB CONC 32 g/dL (33-37); MEAN CORPUSCULAR VOLUME 86 fL (80-94); MONOCYTES # (AUTO) 1.3 K/uL (0.8-1.0); MONOCYTES % (AUTO) 12.9 % (1.7-9.3); NEUTROPHILS % (AUTO) 39.9 % (42.2-75.2); PLATELET COUNT (AUTO) 222 K/uL (140-450); RED BLOOD CELL COUNT(AUTO) 5.21 MIL/uL (4.20-6.10); RED CELL DISTRIBUTION WIDTH 14.2 % (11.6-13.7)
--- NOTE | 2017-07-06 11:11 | NUR ---
# 14 FR Walker catheter utilizing sterile technique. Immediate return of 10 ml urine noted. Bedside drainage bag placed below level of bladder. Urine sample collected and sent to lab. Pt tolerated procedure. Addendum: 07/06/17 at 1253 by MEDAE # 14 FR IN AND OUT catheter utilizing sterile technique. Immediate return of 10 ml urine noted. Bedside drainage bag placed below level of bladder. Urine sample collected and sent to lab. Pt tolerated procedure.
[2017-07-06] MEDS ORDERED: LACT1CAP59 PO (11:16)
[2017-07-06] MEDS ORDERED: ASCO-786 PO (11:16)
[2017-07-06] MEDS ORDERED: NA P133E RC (11:16)
[2017-07-06] MEDS ORDERED: ACET325C3 PO (11:16)
[2017-07-06] MEDS ORDERED: [UNRECOGNIZED DRUG - CODE] PO (11:16)
[2017-07-06] MEDS ORDERED: ACET-2619 PO (11:16)
[2017-07-06] MEDS ORDERED: IPRA3AMP IH (11:16)
[2017-07-06] MEDS ORDERED: DOCU-299 PO (11:16)
[2017-07-06 11:32] LABS: SODIUM SERUM 141 mmol/L (136-145)
[2017-07-06 11:33] LABS: ANION GAP 13.9 (8-16); ASPARTATE AMINOTRANSFERASE 26 U/L (15-37); CARBON DIOXIDE 27.9 mmol/L (21-32); CHLORIDE 103 mmol/L (98-107); CREATININE 1.2 mg/dL (0.7-1.3); GLUCOSE 135 mg/dL (74-106); POTASSIUM 3.8 mmol/L (3.5-5.1); TOTAL BILIRUBIN 0.6 mg/dL (0.0-1.0); UREA NITROGEN, BLOOD 25 mg/dL (7-18)
[2017-07-06 11:34] LABS: ALBUMIN 3.1 g/dL (3.4-5.0)
[2017-07-06 11:37] LABS: APPEARANCE,URINE CLEAR (CLEAR); BILIRUBIN,URINE 1+ (NEGATIVE); BLOOD, URINE NEGATIVE (NEGATIVE); COLOR,URINE YELLOW (YELLOW); LEUKOCYTE ESTERASE ,URINE NEGATIVE (NEGATIVE); NITRITE, URINE NEGATIVE (NEGATIVE); UGLUCOSE NEGATIVE (NEGATIVE)
--- NOTE | 2017-07-06 12:00 | NUR ---
PT TAKEN TO CT VIA GURNEY BY TECH.
[2017-07-06 12:09] LABS: RBC,URINE 0-5 (RARE) /HPF (0-5); WBC,URINE 0-5 (RARE) /HPF (0-5)
--- NOTE | 2017-07-06 12:11 | NUR ---
PT BACK FROM CT. PT PLACED BACK ON MONITOR. PT AWAKE ALERT.
--- NOTE | 2017-07-06 12:54 | NUR ---
CT AND CXR IMPRESSION SHOWS NO CHANGE FROM PREVIOUS SCANS. LABS WNL PER ERMD. PT TO BE READY FOR DISCHAGE. MT MADE AWARE FOR TRANSPORTATION BACK TO [facility].
--- NOTE | 2017-07-06 14:18 | NUR ---
IV removed, catheter intact and site benign. Applied folded 4x4 gauze and tape to stop bleeding. PT TOLERATED PROCEDURE WELL.
[2017-07-06 14:27] VITALS: BP 113/54
--- NOTE | 2017-07-06 14:28 | NUR ---
Patient discharged with v/s stable. Written and verbal after care instructions given and explained. Patient alert, oriented and verbalized understanding of instructions. Ambulatory with steady gait. All questions addressed prior to discharge. ID band removed. Patient advised to follow up with PMD. Opportunity to ask questions provided and answered.
== END 2017-07-06 14:28 | disposition home or self-care (01) ==
LOC: MED 10:23
DX: R41.82 Altered mental status, unspecified (principal); R53.1 Weakness; E11.9 Type 2 diabetes mellitus without complications; Z86.73 Personal history of transient ischemic attack (TIA), and cerebral infarction without residual deficits
CPT/HCPCS: 36415; 70450; 71045; 80053; 81001; 82550; 82948; 84484; 85025; 87040; 93005; 99285; C1758; Q0092

== ENCOUNTER 2017-09-14 08:26 | Inpatient (IN) | payer OTHER ==
[~2017-09-14] VITALS: Ht 170.2 cm; Wt 61.2 kg
[2017-09-14] MEDS: BUDESONIDE 0.25 MG/2 ML NEBU INH SCH (07:15)
[~2017-09-14 08:26] MED LIST changes: +ACET-2619 PO; +ACET325C3 PO; +ASCO-786 PO; +DOCU-299 PO; +IPRA3AMP IH; +LACT1CAP59 PO; +NA P133E RC; +[UNRECOGNIZED DRUG - CODE] PO
[2017-09-14 08:30] VITALS: BP 100/59
--- NOTE | 2017-09-14 08:35 | NUR ---
87Y/M BIB [facility] FROM [facility] WITH C/O PNA, TACHYCARDIA, LOW SPO2.ER MD MADE AWARE OF PT STATUS.
--- NOTE | 2017-09-14 08:36 | NUR ---
DR GUTIERREZ EVALUATING PT AT BEDSIDE
[2017-09-14] MEDS ORDERED: PIPERACILLIN/TAZOBACTAM 3.375 GM in DEXT 5% MINI-BAG PLUS 50 ML IV ONE (08:45)
[2017-09-14] MEDS ORDERED: ALBUTEROL 0.083% 2.5 MG/3 ML NEBU INH ONE (08:45)
[2017-09-14] MEDS ORDERED: NACL 0.9% 1,000 ML IV ONE (08:45)
[2017-09-14] MEDS ORDERED: IPRATROPIUM 0.02% 0.5 MG/2.5 ML NEBU INH ONE (08:45)
[2017-09-14] MEDS ORDERED: LEVOFLOXACIN 750 MG/D5W PREMIX 150 ML IV ONE ×2 (08:45→11:15)
[2017-09-14] MEDS ORDERED: PIPERACILLIN/TAZOBACTAM 3.375 GM VIAL IV ONE (09:21)
[2017-09-14 09:23] LABS: BASOPHILS % (AUTO) 0.3 % (0.0-2.0); HEMATOCRIT 43.4 % (36-52); LYMPHOCYTES # (AUTO) 1.2 K/uL (2.0-11.5); LYMPHOCYTES % (AUTO) 11.1 % (20.5-51.1); MEAN CORPUSCULAR HEMOGLOBIN 27 pg (27-31); MEAN CORPUSCULAR HGB CONC 32 g/dL (33-37); MEAN CORPUSCULAR VOLUME 83.7 fL (80-94); MONOCYTES # (AUTO) 1.3 K/uL (0.8-1.0); NEUTROPHILS # (AUTO) 8.5 K/uL (1.8-7.7); NEUTROPHILS % (AUTO) 76.6 % (42.2-75.2); PLATELET COUNT (AUTO) 207 K/uL (140-450); RED BLOOD CELL COUNT(AUTO) 5.19 MIL/uL (4.20-6.10); RED CELL DISTRIBUTION WIDTH 16.1 % (11.6-13.7); WHITE BLOOD COUNT (AUTO) 11.1 K/uL (4.8-10.8)
[2017-09-14 10:01] LABS: ALBUMIN 3.1 g/dL (3.4-5.0); ANION GAP 16.3 (8-16); ASPARTATE AMINOTRANSFERASE 31 U/L (15-37); CHLORIDE 100 mmol/L (98-107); CREATININE 1.7 mg/dL (0.7-1.3); GLUCOSE 145 mg/dL (74-106); POTASSIUM 3.3 mmol/L (3.5-5.1); SODIUM SERUM 140 mmol/L (136-145); TOTAL BILIRUBIN 0.3 mg/dL (0.0-1.0); UREA NITROGEN, BLOOD 31 mg/dL (7-18)
[2017-09-14] MEDS ORDERED: NACL 0.9% IV ONE (10:05)
[2017-09-14] MEDS ORDERED: HYDROcodone/APAP 7.5/325 MG 1 TAB PO PRN (10:50)
[2017-09-14] MEDS ORDERED: ACETAMINOPHEN 325 MG TAB PO PRN (10:50)
[2017-09-14] MEDS ORDERED: ONDANSETRON 4 MG/2 ML VIAL IM/IVP PRN (10:50)
[2017-09-14] MEDS ORDERED: DOCUSATE SODIUM 100 MG GELCAP PO PRN (10:50)
--- NOTE | 2017-09-14 10:51 | NUR ---
PT IS NOT ABLE TO GIVE URINE AT THIS TIME
[2017-09-14] MEDS ORDERED: ALBUTEROL SULFATE/IPRATROPIU 3 ML SOL IH PRN (11:15)
--- NOTE | 2017-09-14 11:19 | NUR ---
Patient will be admitted to care of DR. GARSIA. Admited to TELE FLOOR. Will go to [facility] [address] A. Belongings list completed. Report to FIDE.
[2017-09-14 11:25] LABS: PROTHROMBIN TIME 19.3 secs (10.8-13.4)
[2017-09-14 11:43] LABS: CHOL/HDL RATIO 2.9 (1-4.5); MAGNESIUM 2.3 mg/dL (1.8-2.4); PHOSPHORUS 4.7 mg/dL (2.5-4.9); THYROID STIMULATING HORMONE 1.25 uIU/mL (0.34-3.74)
[2017-09-14] MEDS ORDERED: methylPREDNISolone SS 80 MG in WATER STERILE 1 ML IV SCH ×2 (11:50→21:00)
--- NOTE | 2017-09-14 11:50 | NUR ---
PT UP FROM ER, REPORT RECEIVED FROM RN, PT AWAKE, ALERT, CONFUSED, MOVES ALL EXT, PLACED ON PARTITION SETTER, INITIAL ASSESSMENT DONE, PT ORIENTED TO ROOM AND FLOOR, IVF INFUSING WELL, SITE CLEAR, CALL [place] WITHIN REACH SIDE RAILS UP, BED LOCKED IN LOW POSITIN WILL CONTINUE TO MONITOR.
[2017-09-14 11:55] VITALS: BP 109/66
[2017-09-14] MEDS ORDERED: methylPREDNISolone SS 125 MG/2 ML VIAL IVP SCH (12:01)
--- NOTE | 2017-09-14 12:10 | NUR ---
PT IN RAPID AFIB ON MONITOR, DR NOVOA AT BEDSIDE, PT IN RAPID A-FIB, EKG ORDERED, RT CALLED
[2017-09-14] MEDS ORDERED: MAGNESIUM HYDROXIDE 2400 MG/30 ML UDC PO PRN (12:20)
[2017-09-14] MEDS ORDERED: BISACODYL 10 MG SUPP RC PRN (12:20)
[2017-09-14] MEDS ORDERED: SODIUM PHOSPHATE 118 ML ENEM RC PRN (12:20)
--- NOTE | 2017-09-14 12:31 | NUR ---
STAT EKG DONE, DR NOVOA MADE AWARE.
[2017-09-14] MEDS: CLINDAMYCIN 600 MG in DEXTROSE 5% 50 ML IV SCH ×2 (12:41→20:24)
[2017-09-14] MEDS: NACL 0.9% 1,000 ML IV SCH (12:42)
[2017-09-14 13:07] VITALS: BP 108/73
[2017-09-14] MEDS ORDERED: DILTIAZEM 25 MG/5 ML VIAL IVP SCH (13:15)
[2017-09-14] MEDS ORDERED: POTASSIUM CHLORIDE 10 MEQ TABER PO SCH (13:30)
[2017-09-14] MEDS: DILTIAZEM 30 MG TAB PO SCH ×3 (15:00→21:00)
--- NOTE | 2017-09-14 15:03 | NUR ---
MEDS WERE GIVEN PER ORDER. PRIMARY NURSE FIDE WAS INFORMED.
--- NOTE | 2017-09-14 15:28 | NUR ---
Initial Assessment on patient when admitted. Asked patient if he uses any Respiratory meds at home and said that he uses QVAR. After that patient became irritable and uncooperative and did not want to answer any further questions. Sputum cup in room and advised to provide a sample if possible.
[2017-09-14 16:00] VITALS: BP 99/52
[2017-09-14] MEDS: WARFARIN 1 MG TAB PO SCH (17:36)
--- NOTE | 2017-09-14 17:50 | NUR ---
PT'S AND DAUGHTER AT BEDSIDE, PLAN OF CARE REVIEWED, PT SITTING UP EATING DINNER WITH DAUGHTER'S ASSIST, SCHEDULED MEDS GIVEN, PT MINDY WELL, IVF INFUSING, IV SITE WNL, ALL SAFETY MEASURES IN PLACE, WILL CONTINUE TO MONITOR.
--- NOTE | 2017-09-14 19:20 | NUR ---
REPORT GIVEN TO TECHNICAL CONSULTANT NURSE, PT SITTING UP RESTING QUIETLY IN NAD.
--- NOTE | 2017-09-14 19:21 | NUR ---
RECEIVED REPORT FROM DAY NURSE. PT IN STABLE CONDITION. NO S/S OF DISTRESS NOTED. PT AAOX1, ON ROOM AIR. SKIN IS WARM AND DRY TO TOUCH, INTACT. IV TO L FA 22G PATENT AND INTACT. BOWEL SOUNDS PRESENT AND ACTIVE. RR EVEN/UNLABORED. INITIAL ASSESSMENT COMPLETED. PLAN OF CARE DISCUSSED WITH PT, REINFORCEMENT NEEDED. ALL SAFETY PRECAUTIONS MET, CALL LIGHT WITHIN REACH, WILL CONTINUE TO MONITOR
[2017-09-14 20:00] VITALS: BP 93/47
[2017-09-14] MEDS: ALBUTEROL SULFATE/IPRATROPIU 3 ML SOL IH SCH (20:11)
[2017-09-14] MEDS ORDERED: CLINDAMYCIN 600 MG/4 ML VIAL ONE (20:17)
[2017-09-14] MEDS: methylPREDNISolone SS 125 MG/2 ML VIAL IVP SCH (20:24)
[2017-09-14] MEDS: CALCIUM CARB/VIT-D 500 MG/200 IU 1 TAB PO SCH ×2 (20:25→21:00)
[2017-09-14] MEDS: METOPROLOL 25 MG TAB PO SCH ×2 (20:25→21:00)
[2017-09-14] MEDS: QUEtiapine FUMARATE 100 MG TAB PO SCH ×2 (20:25→21:00)
--- NOTE | 2017-09-14 20:30 | NUR ---
PT CHANGE IN CONDITION. PT IS LETHARGIC AND AROUSED TO STERNAL RUB, NOT TO VOICE. PTS B/P 83/49 PULSE 88 02 SAT 95% ON RA, TEMP: 98.6. DR. POLANCO MADE AWARE OF CHANGE IN CONDITION. HE STATES HE WILL BE IN TO SEE PT WHEN HE ARRIVES.
[2017-09-14] MEDS ORDERED: DOCUSATE SODIUM 100 MG GELCAP PO SCH (21:00)
--- NOTE | 2017-09-14 21:00 | NUR ---
DR. POLANCO IN TO SEE PT. STATED ITS OKAY TO HOLD MEDS, PT TOO LETHARGIC TO WAKE UP TO TAKE MEDS. INCREASED FLUIDS TO 100ML/HR. DR. POLANCO ALSO MADE AWARE OF PTS CRACKLES IN CHEST. STATED ITS OKAY TO HAVE FLUIDS. DR. POLANCO STATED TO MONITOR PT FOR NOW
--- NOTE | 2017-09-14 21:00 | NUR ---
PTS B/P IS 95/47 PULSE IS 77, TEMP 98.2 02 SAT IS 94% ON RA, WILL CONTINUE TO MONITOR.
--- NOTE | 2017-09-14 22:00 | NUR ---
PTS B/P IS UP 126/56 PULSE 89 TEMP 98.2 O2 SAT:95% PT IS AWAKE SITTING IN BED NO S/S OF DISTRESS NOTED
[2017-09-15] VITALS: BP 126/56
--- NOTE | 2017-09-15 | NUR ---
VSS AT THIS TIME, NO S/S OF DISTRESS NOTED
[2017-09-15] MEDS: ALBUTEROL SULFATE/IPRATROPIU 3 ML SOL IH SCH ×4 (01:00→19:28)
[2017-09-15] MEDS: NACL 0.9% 1,000 ML IV SCH ×5 (01:05→21:05)
[2017-09-15 04:00] VITALS: BP 96/53
[2017-09-15] MEDS: DILTIAZEM 30 MG TAB PO SCH ×3 (05:00→20:13)
[2017-09-15] MEDS: CLINDAMYCIN 600 MG in DEXTROSE 5% 50 ML IV SCH ×3 (05:31→21:58)
[2017-09-15] MEDS: methylPREDNISolone SS 125 MG/2 ML VIAL IVP SCH ×2 (05:31→13:29)
--- NOTE | 2017-09-15 05:40 | NUR ---
PT YELLED, AND WILL NOT OPEN HIS MOUTH WHEN ATTEMPTING TO GIVE MED, PT TURNS HIS HEAD AWAY AND WILL NOT TAKE MEDICATION
[2017-09-15] MEDS: PANTOPRAZOLE 40 MG TABEC PO SCH (05:48)
[2017-09-15 06:22] LABS: T4 (THYROXINE) 6.5 ug/dL (4.5-12.0)
--- NOTE | 2017-09-15 07:24 | NUR ---
GAVE REPORT TO DAY NURSE FOR CONTINUITY OF CARE, PT IN STABLE CONDITION.
--- NOTE | 2017-09-15 07:30 | NUR ---
RECEIVED REPORT FROM BUSINESS RISK CONSULTANT NURSE. PT IS AWAKE, ALERT, OX1. NO S/S OF DISTRESS NOTED. O2 SAT 90% ON ROOM AIR, PLACE PT BACK ON 2L O2 VIA NC. SKIN IS WARM AND DRY TO TOUCH, INTACT. IV TO L FA 22G INFUSING WELL, PATENT AND INTACT. LUNG SOUNDS SHOWS CRACKLES ON EXPIRATORY. BOWEL SOUNDS PRESENT AND ACTIVE. INITIAL ASSESSMENT COMPLETED. PLAN OF CARE DISCUSSED WITH PT, REINFORCEMENT NEEDED. ALL SAFETY PRECAUTIONS MET, CALL LIGHT WITHIN REACH, WILL CONTINUE TO MONITOR
[2017-09-15 08:00] VITALS: BP 129/61
[2017-09-15] MEDS: METOPROLOL 25 MG TAB PO SCH ×2 (08:21→20:19)
[2017-09-15] MEDS: ECOTRIN 81 MG TABEC PO SCH (08:24)
[2017-09-15] MEDS: FUROSEMIDE 40 MG TAB PO SCH (08:25)
[2017-09-15] MEDS: CALCIUM CARB/VIT-D 500 MG/200 IU 1 TAB PO SCH ×3 (08:28→20:20)
[2017-09-15] MEDS: LACTOBACILLUS RHAMNOSUS GG 1 EACH CAP PO SCH (08:29)
[2017-09-15] MEDS: BUDESONIDE 0.25 MG/2 ML NEBU INH SCH ×2 (08:50→19:29)
--- NOTE | 2017-09-15 09:21 | NUR ---
PATIENT HAS BEEN SCREENED AND CATEGORIZED HIGH NUTRITION RISK. PATIENT WILL BE SEEN WITHIN 1-2 DAYS OF ADMISSION. 09/24/17 - 09/15/[address]
--- NOTE | 2017-09-15 09:30 | NUR ---
SPUTUM CULTURE COLLECTED BY RT WITH SUCTION. HAS BEEN SENT TO LAB.
--- NOTE | 2017-09-15 09:35 | NUR ---
UBTAINED SPUTUM FOR C\S SPUTUM GIVEN TO RN
[2017-09-15 09:53] LABS: HEMATOCRIT 38.3 % (36-52); HEMOGLOBIN 12.4 g/dL (12.0-18.0); LYMPHOCYTES % (AUTO) 7.1 % (20.5-51.1); MEAN CORPUSCULAR HEMOGLOBIN 27 pg (27-31); MEAN CORPUSCULAR HGB CONC 32 g/dL (33-37); MEAN CORPUSCULAR VOLUME 82.8 fL (80-94); MONOCYTES # (AUTO) 0.8 K/uL (0.8-1.0); MONOCYTES % (AUTO) 5.4 % (1.7-9.3); NEUTROPHILS # (AUTO) 12.1 K/uL (1.8-7.7); NEUTROPHILS % (AUTO) 87.5 % (42.2-75.2); PLATELET COUNT (AUTO) 185 K/uL (140-450); RED BLOOD CELL COUNT(AUTO) 4.62 MIL/uL (4.20-6.10); RED CELL DISTRIBUTION WIDTH 16.2 % (11.6-13.7); WHITE BLOOD COUNT (AUTO) 13.9 K/uL (4.8-10.8)
--- NOTE | 2017-09-15 10:55 | NUR ---
PT IS RECEIVING A BED BATH, CHUX IS WET WITH URINE. CLEANED PT AND CHANGED CHUX.
[2017-09-15 11:13] LABS: ANION GAP 13.9 (8-16); CARBON DIOXIDE 23.3 mmol/L (21-32); CHLORIDE 107 mmol/L (98-107); CREATININE 1.3 mg/dL (0.7-1.3); GLUCOSE 160 mg/dL (74-106); POTASSIUM 3.2 mmol/L (3.5-5.1); SODIUM SERUM 141 mmol/L (136-145); UREA NITROGEN, BLOOD 28 mg/dL (7-18)
[2017-09-15 11:16] LABS: MAGNESIUM 2.1 mg/dL (1.8-2.4)
[2017-09-15 12:00] VITALS: BP 107/55
--- NOTE | 2017-09-15 15:35 | NUR ---
09/15/17 RD INITIAL ASSESSMENT COMPLETED PLEASE REFER TO NUTRITION ASSESSMENT UNDER CARE ACTIVITY FOR ESTIMATED NUTRITIONAL NEEDS. 1. CONTINUE CCHO 60 GM MECHANICALLY SOFT DIET TOLERATED 2. RD TO FOLLOW-UP 2-3 DAYS, HIGH RISK CHERY ROY RD
[2017-09-15 16:00] VITALS: BP 104/61
--- NOTE | 2017-09-15 16:00 | NUR ---
PT IS AWAKE, ALERT, RESTING IN BED. NO S/S OF ACUTE DISTRESS. ON 2L O2 NC.
[2017-09-15] MEDS: WARFARIN 1 MG TAB PO SCH (17:22)
--- NOTE | 2017-09-15 18:00 | NUR ---
PT IS ABLE TO EAT DINNER WITH MINIMAL ASSISTANCE. NO S/S OF DISTRESS AT THIS TIME.
[2017-09-15] MEDS ORDERED: POTASSIUM CHLORIDE 10 MEQ TABER PO SCH (18:37)
--- NOTE | 2017-09-15 19:30 | NUR ---
ENDORSED PT TO CERTIFIED EMERGENCY VEHICLE TECHNICIAN RN FOR CONTINUITY OF CARE, PT IN STABLE CONDITION.
[2017-09-15 20:00] VITALS: BP 116/62
[2017-09-15] MEDS: methylPREDNISolone SS 40 MG/ML VIAL IVP SCH (20:12)
[2017-09-15] MEDS: QUEtiapine FUMARATE 100 MG TAB PO SCH (20:13)
--- NOTE | 2017-09-15 20:30 | NUR ---
PT REFUSED CALCIUM PILL. PT STATES I WILL TAKE ALL OF THE MEDICATIONS ACCEPT THE GREEN ONE. EDUCATED PT ON MEDICATION AND PT STILL REFUSES, WILL CONTINUE TO MONITOR
--- NOTE | 2017-09-15 20:54 | NUR ---
MADE DR. ALANIS AWARE OF CRITICAL LAB FOR PT 3.8, ORDERS WILL BE PLACED
[2017-09-16] VITALS: BP 106/59
--- NOTE | 2017-09-16 | NUR ---
VSS AT THIS TIME, NO S/S OF DISTRESS NOTED
[2017-09-16] MEDS: ALBUTEROL SULFATE/IPRATROPIU 3 ML SOL IH SCH ×4 (01:33→19:54)
--- NOTE | 2017-09-16 03:15 | NUR ---
VSS AT THIS TIME, NO S/S OF DISTRESS NOTED
--- NOTE | 2017-09-16 03:30 | NUR ---
JOEY ASKED SAMIRAFRIENJohn TO LEAVE BECAUSE THEIR IS A FEMALE ROOMMATE IN THE ROOM AND BOYFRIEND REFUSED TO ACKNOWLEDGE OR LOOK AT US Addendum: 09/16/17 at 0621 by Kanchan Duffy RN WRONG PT PLEASE DISREGARD
[2017-09-16 04:00] VITALS: BP 110/62
--- NOTE | 2017-09-16 04:30 | NUR ---
FLORECITA REFUSES TO LEAVE OR LOOK AT US. PT STATES HE IS WITH ME AND IS NOT LEAVING Addendum: 09/16/17 at 0621 by Kanchan Duffy RN WRONG PT PLEASE DISREGARD
[2017-09-16] MEDS: DILTIAZEM 30 MG TAB PO SCH ×3 (05:25→20:37)
[2017-09-16] MEDS: methylPREDNISolone SS 40 MG/ML VIAL IVP SCH ×2 (05:28→13:42)
[2017-09-16] MEDS: CLINDAMYCIN 600 MG in DEXTROSE 5% 50 ML IV SCH ×2 (05:28→12:12)
[2017-09-16] MEDS: PANTOPRAZOLE 40 MG TABEC PO SCH (06:18)
[2017-09-16] MEDS: NACL 0.9% 1,000 ML IV SCH ×2 (07:05→19:10)
--- NOTE | 2017-09-16 07:25 | NUR ---
RECEIVED REPORT FROM NIGHTSHIFT NURSE AT BEDSIDE. PATIENT ABLE TO RESPOND TO HIS NAME. PATIENT IS CURRENTLY HAVE A BREATHING TREATMENT FROM RESPIRATORY THERAPIST. PATIENT SHOWS NO SIGNS OF RESPIRATORY DEPRESSION AT THIS TIME. RESPIRATORY THERAPIST SUCTIONED PATIENT TO REMOVE EXCESS SECRETIONS. NO COMPLAINTS OF PAIN AT THIS TIME. IV NOTED ON HIS LEFT FOREARM 22G. PATIENT IS CURRENTLY ON 2 LITERS OXYGEN. LOWERED BED OF PATIENT TO LOWEST SETTING. CALL LIGHT WITHIN REACH OF PATIENT. WILL CONTINUE TO MONITOR PATIENT.
[2017-09-16 07:26] LABS: HEMATOCRIT 36.4 % (36-52); HEMOGLOBIN 11.7 g/dL (12.0-18.0); LYMPHOCYTES # (AUTO) 1.1 K/uL (2.0-11.5); LYMPHOCYTES % (AUTO) 8.2 % (20.5-51.1); MEAN CORPUSCULAR HEMOGLOBIN 27 pg (27-31); MEAN CORPUSCULAR HGB CONC 32 g/dL (33-37); MEAN CORPUSCULAR VOLUME 83.2 fL (80-94); MONOCYTES # (AUTO) 0.7 K/uL (0.8-1.0); MONOCYTES % (AUTO) 5.8 % (1.7-9.3); PLATELET COUNT (AUTO) 185 K/uL (140-450); RED BLOOD CELL COUNT(AUTO) 4.38 MIL/uL (4.20-6.10); RED CELL DISTRIBUTION WIDTH 16.2 % (11.6-13.7); WHITE BLOOD COUNT (AUTO) 12.8 K/uL (4.8-10.8)
--- NOTE | 2017-09-16 07:31 | NUR ---
REPORT GIVEN TO DAY NURSE FOR CONTINUITY OF CARE, PT IN STABLE CONDITION. NO S/S OF DISTRESS NOTED
[2017-09-16 07:32] LABS: ANION GAP 11.6 (8-16); CHLORIDE 109 mmol/L (98-107); CREATININE 1.1 mg/dL (0.7-1.3); GLUCOSE 145 mg/dL (74-106); POTASSIUM 3.6 mmol/L (3.5-5.1); SODIUM SERUM 141 mmol/L (136-145); UREA NITROGEN, BLOOD 33 mg/dL (7-18)
[2017-09-16 07:44] LABS: MAGNESIUM 2.2 mg/dL (1.8-2.4); PHOSPHORUS 2.6 mg/dL (2.5-4.9)
[2017-09-16 08:00] VITALS: BP 113/52
[2017-09-16] MEDS: BUDESONIDE 0.25 MG/2 ML NEBU INH SCH ×2 (08:00→19:54)
[2017-09-16 08:10] LABS: PROTHROMBIN TIME 51.1 secs (10.8-13.4)
--- NOTE | 2017-09-16 08:20 | NUR ---
ABLE TO REACH RESIDENT DOCTORS REGARDING PATIENT'S PT AND INR. TO SEE PATIENT.
--- NOTE | 2017-09-16 08:55 | NUR ---
CALLED DR. SESAY [facility] REGARDING PATIENT'S CRITICAL LAB VALUE OF PT - 51.1 AND INR 5.1. NO RESPONSE FROM RESIDENT GROUP. WILL CALL AGAIN. PATIENT IN STABLE CONDITION. Addendum: 09/16/17 at 1000 by Gabe Rodriguez II, RN WRONG TIME NOTED. DOCUMENTATION FOR 08:15.
[2017-09-16] MEDS ORDERED: LEVOFLOXACIN 750 MG/D5W PREMIX 150 ML IV SCH (09:00)
[2017-09-16] MEDS: LACTOBACILLUS RHAMNOSUS GG 1 EACH CAP PO SCH (09:52)
[2017-09-16] MEDS: FUROSEMIDE 40 MG TAB PO SCH (09:53)
[2017-09-16] MEDS: CALCIUM CARB/VIT-D 500 MG/200 IU 1 TAB PO SCH ×2 (09:53→20:38)
[2017-09-16] MEDS: ECOTRIN 81 MG TABEC PO SCH (09:54)
[2017-09-16] MEDS: METOPROLOL 25 MG TAB PO SCH ×2 (09:55→20:37)
[2017-09-16 12:00] VITALS: BP 112/55
--- NOTE | 2017-09-16 12:50 | NUR ---
PATIENT ASLEEP AT THIS TIME. NO COMPLAINTS OF PAIN. NO SIGNS OF RESPIRATORY DEPRESSION. WILL CONTINUE TO MONITOR PATIENT.
[2017-09-16] MEDS ORDERED: MORPHINE SULFATE 4 MG/ML SYR IVP SCH (13:15)
--- NOTE | 2017-09-16 14:46 | NUR ---
PATIENT RESTING IN BED AT THIS TIME. PATIENT PRESENTS IN HIGH FOWLERS POSITION. PATIENT'S FAMILY MEMBERS AT BEDSIDE. PATIENT SHOWS NO SIGNS OF RESPIRATORY DEPRESSION. PATIENT DOES NOT HAVE PAIN AT THIS TIME. WILL CONTINUE TO MONITOR PATIENT.
--- NOTE | 2017-09-16 15:18 | NUR ---
DID NOT ADMINISTER MORPHINE DOSE. RESIDENT DR. MIXON SAID THAT HE INPUT IT FOR THE WRONG PATIENT. PATIENT SHOWS NO SIGNS OF PAIN.
[2017-09-16 16:00] VITALS: BP 121/64
[2017-09-16] MEDS: ACETYLCYSTEINE 10% (100 MG/ML) 100 MG/ML VIAL INH SCH ×2 (16:02→19:54)
--- NOTE | 2017-09-16 17:00 | NUR ---
PATIENT RESTING IN BED. NO COMPLAINTS OF PAIN. WILL CONTINUE TO MONITOR PATIENT.
--- NOTE | 2017-09-16 19:22 | NUR ---
GAVE REPORT TO NIGHTSHIFT NURSE AT BEDSIDE. PATIENT IN STABLE CONDITION.
--- NOTE | 2017-09-16 19:23 | NUR ---
RECEIVED REPORT AT PT BEDSIDE FROM DAY SHIFT RN, FOR CONTINUITY OF CARE. PATIENT IS AWAKE, A/OX1 TO PERSON ONLY AT THE MOMENT, ON 2L O2 VIA NASAL CANNULA. ABLE TO MAKE NEEDS KNOWN, ABLE TO FOLLOW COMMANDS. PT SKIN IS INTACT, WARM AND DRY. PATIENT HAS PERIPHERAL IV SITE TO LEFT HAND 22G, ASYMPTOMATIC, INTACT, PATENT. SR ON MONITOR, RESPIRATIONS EVEN AND UNLABORED. DISCUSSED PLAN OF CARE WITH PT, PT VERBALIZED UNDERSTANDING. PT STABLE, NO SIGNS OF DISTRESS NOTED AT THIS TIME. BED IN LOWEST POSITION, CALL LIGHT WITHIN REACH. WILL CONTINUE TO MONITOR.
[2017-09-16 20:00] VITALS: BP 126/54
[2017-09-16] MEDS: QUEtiapine FUMARATE 100 MG TAB PO SCH (20:38)
--- NOTE | 2017-09-16 20:40 | NUR ---
ADMINISTERED SCHEDULED MEDICATIONS, PT TOLERATED WELL. DID NOT ADMINISTER ZOSYN BECAUSE IT IS NOT IN THE UNIT, PAINT MIXER MACHINE WILL BRING IT TO UNIT.
[2017-09-16] MEDS ORDERED: PIPERACILLIN/TAZOBACTAM 3.375 GM VIAL IV ONE (20:59)
[2017-09-16] MEDS: PIPER/TAZO 3.375GM/D5W PREMIX 50 ML IV SCH (21:20)
--- NOTE | 2017-09-16 21:26 | NUR ---
IVPB ZOSYN NOW INFUSING, PT TOLERATING WELL. PT STABLE, NO SIGNS OF DISTRESS NOTED AT THIS TIME. BED IN LOWEST POSITION, CALL LIGHT WITHIN REACH. WILL CONTINUE TO MONITOR.
[2017-09-17] VITALS: BP 104/60
--- NOTE | 2017-09-17 | NUR ---
VITAL SIGNS WNL. PT STABLE, NO SIGNS OF DISTRESS NOTED AT THIS TIME. BED IN LOWEST POSITION, CALL LIGHT WITHIN REACH. WILL CONTINUE TO MONITOR.
[2017-09-17] MEDS: ALBUTEROL SULFATE/IPRATROPIU 3 ML SOL IH SCH ×4 (01:33→19:33)
--- NOTE | 2017-09-17 02:15 | NUR ---
PT STABLE, NO SIGNS OF DISTRESS NOTED AT THIS TIME. BED IN LOWEST POSITION, CALL LIGHT WITHIN REACH. WILL CONTINUE TO MONITOR.
[2017-09-17 04:00] VITALS: BP 119/60
--- NOTE | 2017-09-17 04:00 | NUR ---
VITAL SIGNS WNL. PT STABLE, NO SIGNS OF DISTRESS NOTED AT THIS TIME. BED IN LOWEST POSITION, CALL LIGHT WITHIN REACH. WILL CONTINUE TO MONITOR.
--- NOTE | 2017-09-17 05:45 | NUR ---
PT STABLE, NO SIGNS OF DISTRESS NOTED AT THIS TIME. BED IN LOWEST POSITION, CALL LIGHT WITHIN REACH. WILL CONTINUE TO MONITOR.
[2017-09-17] MEDS: PANTOPRAZOLE 40 MG TABEC PO SCH (05:56)
[2017-09-17] MEDS: DILTIAZEM 30 MG TAB PO SCH ×3 (05:56→20:48)
[2017-09-17] MEDS: PIPER/TAZO 3.375GM/D5W PREMIX 50 ML IV SCH ×3 (05:57→20:39)
[2017-09-17] MEDS: BUDESONIDE 0.25 MG/2 ML NEBU INH SCH ×2 (06:55→19:33)
--- NOTE | 2017-09-17 07:17 | NUR ---
ENDORSED PT TO DAYS SHIFT RN FOR CONTINUITY OF CARE. PT IN STABLE CONDITION.
--- NOTE | 2017-09-17 07:17 | NUR ---
RECEIVED BEDSIDE REPORT FROM NIGHTSHIFT NURSE AT BEDSIDE. UPDATED ON PATIENT'S CONDITION. PATIENT IS CURRENTLY RECEIVING A BREATHING TREATMENT. O2 SATURATION AT 100%. PATIENT PRESENTS WITH NO RESPIRATORY DEPRESSION. PATIENT DOES NOT HAVE PAIN AT THIS TIME. UPDATED BOARD IN PATIENT'S ROOM AND LOWERED BED TO LOWEST SETTING. ARMED BED WITH BED ALARM. APPROPRIATE SIGNS OUTSIDE OF PATIENT'S ROOM. WILL CONTINUE TO MONITOR PATIENT.
[2017-09-17 08:00] VITALS: BP 132/75
[2017-09-17 08:19] LABS: HEMOGLOBIN 11.7 g/dL (12.0-18.0); LYMPHOCYTES # (AUTO) 1.7 K/uL (2.0-11.5); LYMPHOCYTES % (AUTO) 15.3 % (20.5-51.1); MEAN CORPUSCULAR HEMOGLOBIN 27 pg (27-31); MEAN CORPUSCULAR HGB CONC 33 g/dL (33-37); MEAN CORPUSCULAR VOLUME 82.9 fL (80-94); MONOCYTES % (AUTO) 9.2 % (1.7-9.3); NEUTROPHILS # (AUTO) 8.2 K/uL (1.8-7.7); NEUTROPHILS % (AUTO) 75.5 % (42.2-75.2); PLATELET COUNT (AUTO) 181 K/uL (140-450); RED BLOOD CELL COUNT(AUTO) 4.34 MIL/uL (4.20-6.10); RED CELL DISTRIBUTION WIDTH 16.7 % (11.6-13.7); WHITE BLOOD COUNT (AUTO) 10.8 K/uL (4.8-10.8)
[2017-09-17] MEDS: LACTOBACILLUS RHAMNOSUS GG 1 EACH CAP PO SCH (08:30)
[2017-09-17] MEDS: CALCIUM CARB/VIT-D 500 MG/200 IU 1 TAB PO SCH ×2 (08:31→20:48)
[2017-09-17] MEDS: FUROSEMIDE 40 MG TAB PO SCH (08:31)
[2017-09-17] MEDS: ECOTRIN 81 MG TABEC PO SCH (08:31)
[2017-09-17 08:44] LABS: ANION GAP 11.2 (8-16); CARBON DIOXIDE 25.5 mmol/L (21-32); CHLORIDE 109 mmol/L (98-107); CREATININE 1.2 mg/dL (0.7-1.3); GLUCOSE 122 mg/dL (74-106); POTASSIUM 3.7 mmol/L (3.5-5.1); SODIUM SERUM 142 mmol/L (136-145); UREA NITROGEN, BLOOD 31 mg/dL (7-18)
[2017-09-17] MEDS: METOPROLOL 25 MG TAB PO SCH ×2 (09:00→20:48)
--- NOTE | 2017-09-17 09:39 | NUR ---
PATIENT LAYING IN BED IN HIGH-FOWLERS POSITION. PATIENT SHOWS NO SIGNS OF RESPIRATORY DISTRESS. NO COMPLAINTS OF PAIN. WILL CONTINUE TO MONITOR PATIENT
[2017-09-17] MEDS ORDERED: CLINICAL MONITORING MC PRN (10:05)
--- NOTE | 2017-09-17 10:50 | NUR ---
PT SLEEPING AT THIS TIME IN SEMI-FOWLERS POSITION. PATIENT HAS NO RESPIRATORY DISTRESS OR RESPIRATORY DEPRESSION AT THIS TIME. NO COMPLAINTS OF PAIN. WILL CONTINUE TO MONITOR PATIENT.
[2017-09-17 12:00] VITALS: BP 126/60
--- NOTE | 2017-09-17 12:12 | NUR ---
09/17/17 RD FOLLOW UP COMPLETED PLEASE REFER TO NUTRITION PROGRESS NOTE UNDER CARE ACTIVITY FOR ESTIMATED NUTRITION NEEDS. RD RECOMMENDATIONS: 1. CONTINUE CCHO 60 GM MECHANICALLY SOFT DIET TOLERATED 2. RD TO FOLLOW-UP 3-5 DAYS, MODERATE RISK TENZIN OGLESBY MBA, RD
--- NOTE | 2017-09-17 13:39 | NUR ---
PATIENT RESTING IN BED AT THIS TIME IN SEMI-FOWLERS POSITION. PATIENT PRESENTS WITH NO RESPIRATORY DISTRESS OR RESPIRATORY DEPRESSION. WILL CONTINUE TO MONITOR PATIENT.
--- NOTE | 2017-09-17 14:30 | NUR ---
PATIENT SLEEPING IN BED AT THIS TIME. NO SIGNS OF PAIN. NO SIGNS OF RESPIRATORY DISTRESS OR RESPIRATORY DEPRESSION. WILL CONTINUE TO MONITOR PATIENT.
[2017-09-17 15:20] LABS: PROTHROMBIN TIME 40.6 secs (10.8-13.4)
[2017-09-17 16:00] VITALS: BP 120/54
[2017-09-17] MEDS: NACL 0.9% 1,000 ML IV SCH (17:05)
--- NOTE | 2017-09-17 17:37 | NUR ---
PATIENT RESTING IN BED. PATIENT DOES NOT COMPLAIN OF ANY PAIN. WILL CONTINUE TO MONITOR PATIENT.
--- NOTE | 2017-09-17 19:13 | NUR ---
RECEIVED PATIENT LYING ON BED.FALL PRECAUTION IMPLEMENTED. CALL LIGHT WITHIN REACH. NO S/S OF DISTRESS AT THIS TIME. WILL CONTINUE TO MONITOR.
--- NOTE | 2017-09-17 19:13 | NUR ---
GAVE REPORT TO NIGHTSHIFT NURSE AT BEDSIDE. PATIENT IN STABLE CONDITION.
[2017-09-17 20:00] VITALS: BP 121/59
[2017-09-17] MEDS: QUEtiapine FUMARATE 100 MG TAB PO SCH (20:48)
--- NOTE | 2017-09-17 21:35 | NUR ---
SEEN PATIENT ASLEEP BUT EASILY AROUSABLE. WILL CONTINUE TO MONITOR.
[2017-09-18] VITALS: BP 123/60
[2017-09-18] MEDS: ALBUTEROL SULFATE/IPRATROPIU 3 ML SOL IH SCH ×3 (01:07→13:29)
--- NOTE | 2017-09-18 01:49 | NUR ---
SEEN PATIENT ASLEEP IN COMFORTABLE POSITION. CALL LIGHT WITHIN REACH. NO S/S OF DISTRESS NOTED AT THIS TIME. WILL CONTINUE TO MONITOR.
--- NOTE | 2017-09-18 03:39 | NUR ---
SEEN PATIENT ASLEEP IN BED EASILY AROUSABLE. WILL CONTINUE TO MONITOR.
[2017-09-18 04:00] VITALS: BP 101/65
[2017-09-18] MEDS: PIPER/TAZO 3.375GM/D5W PREMIX 50 ML IV SCH ×2 (05:11→12:51)
[2017-09-18] MEDS: DILTIAZEM 30 MG TAB PO SCH ×2 (05:30→12:50)
[2017-09-18] MEDS: PANTOPRAZOLE 40 MG TABEC PO SCH (05:30)
--- NOTE | 2017-09-18 06:00 | NUR ---
AM AND PERINEAL CARE DONE. LINEN CHANGE AND REPOSITION PATIENT. CALL LIGHT WITHIN REACH. WILL CONTINUE TO MONITOR.
--- NOTE | 2017-09-18 07:10 | NUR ---
ENDORSEMENT GIVEN TO AM SHIFT NURSE FOR CONTINUITY OF CARE. PATIENT IN STABLE CONDITION.
--- NOTE | 2017-09-18 07:30 | NUR ---
RECEIVED BEDSIDE REPORT FROM NIGHTSHIFT NURSE. PT IS SLEEPING, WAKES UP TO LIGHT SHAKING. OX1. IV RIGHT HAND 22G, PATENT, INTACT, AND INFUSING WELL. NO S/S OF ACUTE DISTRESS. ON O2 4L VIA NC. O2 100%. TURNED O2 DOWN TO 2L. VITALS TAKEN, INITIAL ASSESSMENT DONE. WILL RECHECK O2 SAT LATER. UPDATED BOARD. BED IN LOWEST POSITION. SCD ON. BED ALARM ON. CALL LIGHT WITHIN REACH. WILL CONTINUE TO MONITOR PATIENT.
[2017-09-18] MEDS: BUDESONIDE 0.25 MG/2 ML NEBU INH SCH (07:58)
[2017-09-18 08:00] VITALS: BP 125/47
--- NOTE | 2017-09-18 08:00 | NUR ---
PER DR. MEÑO NOVOA POSSIBLE DC TODAY POST HHN THERAPY PLACED ON ROOM AIR FOREMENTIONED REQUESTING INFORMATION ON ROOM AIR SATURATION VEHICLE WASHER TO MONITOR SHERRELL/RN NOTIFIED
--- NOTE | 2017-09-18 08:30 | NUR ---
PT ATE WELL, 90% BREAKFAST. ETL LEAD ASSISTED PT WITH MEAL.
[2017-09-18] MEDS: METOPROLOL 25 MG TAB PO SCH (08:34)
[2017-09-18] MEDS: CALCIUM CARB/VIT-D 500 MG/200 IU 1 TAB PO SCH (08:35)
[2017-09-18] MEDS: FUROSEMIDE 40 MG TAB PO SCH (08:35)
[2017-09-18] MEDS: LACTOBACILLUS RHAMNOSUS GG 1 EACH CAP PO SCH (08:35)
[2017-09-18] MEDS: ECOTRIN 81 MG TABEC PO SCH (08:35)
--- NOTE | 2017-09-18 09:01 | NUR ---
SATURATION 95%-96% ON ROOM AIR SPIN TABLE OPERATOR TO ADVISE DR. MEÑO HODGSON AND SHERRELL/RN
[2017-09-18 12:00] VITALS: BP 111/56
[2017-09-18] MEDS ORDERED: WARF3TAB PO (12:10)
[2017-09-18] MEDS ORDERED: AMOX-999 PO (12:10)
[2017-09-18] MEDS ORDERED: LACT10CA PO (12:12)
--- NOTE | 2017-09-18 13:25 | NUR ---
DURING HHN THERAPY STRONG MOIST COUGH SPUTUM RETAINING SECRETIONS WITHIN OROPHARYNX REGION PATIENT UNABLE TO COUGH REFUSES OROPHARYNX SUCTION
[2017-09-18 13:47] LABS: PROTHROMBIN TIME 35.2 secs (10.8-13.4)
--- NOTE | 2017-09-18 14:03 | NUR ---
ALLEGRA NOTE PATIENT TO BE PICKED UP BY [facility] GOING TO [facility], RM 34A. ETA 1500. AMANDA TAYLOR MADE AWARE. Addendum: 09/18/17 at 1409 by Jitendra Syed RN Jelani KENT RN REPORT: [phone]
--- NOTE | 2017-09-18 14:30 | NUR ---
CALLED DAUGHTER AMRITA [phone], NO ONE PICKED UP, LEFT A MESSAGE TO LET HER KNOW THAT [place]AY[place] [facility] [place]
--- NOTE | 2017-09-18 14:40 | NUR ---
PT HAS BEEN CLEANED. SKIN INTACT. ORANGE GOWN AND BLANKET ON.
--- NOTE | 2017-09-18 14:50 | NUR ---
CALLED [facility], PT REPORT GIVEN TO NURSE IVAN. ACCEPTING DR SHADY SALDANA.
--- NOTE | 2017-09-18 15:40 | NUR ---
PT LEFT WITH EMT IN STABLE CONDITION, PERSONAL BELONGINGS HAND OVER TO EMT. TELE BOX REMOVED, IV CATH REMOVED, TIP INTACT, PRESSURE APPLIED. NO BLEEDING NOTED. NO S/S OF RESPIRATORY DISTRESS NOTED.
== END 2017-09-18 15:40 | disposition home or self-care (01) | DRG 177 ==
LOC: MED 08:26 → MMU 10:51 → MTU 14:22
PROVIDERS: ADMIT Family Medicine Sports Medicine; ATTEND Family Medicine Sports Medicine
DX: J69.0 Pneumonitis due to inhalation of food and vomit (principal); N17.0 Acute kidney failure with tubular necrosis; J96.21 Acute and chronic respiratory failure with hypoxia; G93.41 Metabolic encephalopathy; E44.0 Moderate protein-calorie malnutrition; D68.59 Other primary thrombophilia; E11.22 Type 2 diabetes mellitus with diabetic chronic kidney disease; I48.2 Chronic atrial fibrillation; E11.65 Type 2 diabetes mellitus with hyperglycemia; J44.1 Chronic obstructive pulmonary disease with (acute) exacerbation; E11.69 Type 2 diabetes mellitus with other specified complication; N18.9 Chronic kidney disease, unspecified; E87.8 Other disorders of electrolyte and fluid balance, not elsewhere classified; I25.10 Atherosclerotic heart disease of native coronary artery without angina pectoris; E87.6 Hypokalemia; F03.90 Unspecified dementia, unspecified severity, without behavioral disturbance, psychotic disturbance, mood disturbance, and anxiety; M62.81 Muscle weakness (generalized); K21.9 Gastro-esophageal reflux disease without esophagitis; Z79.01 Long term (current) use of anticoagulants; Z95.1 Presence of aortocoronary bypass graft; Z79.899 Other long term (current) drug therapy; I69.30 Unspecified sequelae of cerebral infarction; Z68.21 Body mass index [BMI] 21.0-21.9, adult
CPT/HCPCS: 36415; 36600; 71045; 80048; 80053; 82150; 82803; 82948; 83036; 83605; 83690; 83735; 83880; 84100; 84436; 84443; 84479; 84484; 85025; 85610; 85730; 87040; 87070; 87081; 87205; 93005; 94640; 96365; 96367; 99285; J1956; J2543; J2920; J2930; J3490; J7030; J7060; J7613; J7620; J7626; J7644; Q0092

== ENCOUNTER 2018-01-12 13:49 | Inpatient (IN) | payer OTHER ==
[~2018-01-12] VITALS: Ht 175.3 cm; Wt 91.6 kg
[2018-01-12 13:49] VITALS: BP 141/71
[~2018-01-12 13:49] MED LIST changes: +ALBU3SOL83 IH; +AMOX-999 PO; -IPRA3AMP IH; +LACT10CA PO; -SLIDE SUBQ
--- NOTE | 2018-01-12 13:50 | NUR ---
PT BIBA ALS TO BED 10
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
[2018-01-12 15:16] LABS: BASOPHILS % (AUTO) 0.4 % (0.0-2.0); EOSINOPHILS # (AUTO) 0.1 K/uL (0-0.4); EOSINOPHILS % (AUTO) 0.9 % (0.0-4.0); HEMATOCRIT 38.4 % (36-52); HEMOGLOBIN 12.1 g/dL (12.0-18.0); LYMPHOCYTES # (AUTO) 1.7 K/uL (2.0-11.5); LYMPHOCYTES % (AUTO) 18.1 % (20.5-51.1); MEAN CORPUSCULAR HEMOGLOBIN 25 pg (27-31); MEAN CORPUSCULAR HGB CONC 32 g/dL (33-37); MEAN CORPUSCULAR VOLUME 80.1 fL (80-94); MONOCYTES # (AUTO) 1.2 K/uL (0.8-1.0); MONOCYTES % (AUTO) 12.3 % (1.7-9.3); NEUTROPHILS # (AUTO) 6.5 K/uL (1.8-7.7); NEUTROPHILS % (AUTO) 68.3 % (42.2-75.2); PLATELET COUNT (AUTO) 201 K/uL (140-450); RED BLOOD CELL COUNT(AUTO) 4.79 MIL/uL (4.20-6.10); RED CELL DISTRIBUTION WIDTH 16.5 % (11.6-13.7); WHITE BLOOD COUNT (AUTO) 9.6 K/uL (4.8-10.8)
[2018-01-12 15:40] LABS: ALBUMIN 2.9 g/dL (3.4-5.0); ANION GAP 7.1 (8-16); ASPARTATE AMINOTRANSFERASE 15 U/L (15-37); CARBON DIOXIDE 30.6 mmol/L (21-32); CHLORIDE 102 mmol/L (98-107); CREATININE 1.1 mg/dL (0.7-1.3); GLUCOSE 158 mg/dL (74-106); POTASSIUM 3.7 mmol/L (3.5-5.1); SODIUM SERUM 136 mmol/L (136-145); TOTAL BILIRUBIN 0.4 mg/dL (0.0-1.0); UREA NITROGEN, BLOOD 32 mg/dL (7-18)
[2018-01-12] MEDS ORDERED: ONDANSETRON 4 MG/2 ML VIAL IM/IVP PRN (16:25)
[2018-01-12] MEDS ORDERED: ACETAMINOPHEN 325 MG TAB PO PRN (17:00)
[2018-01-12] MEDS ORDERED: DOCUSATE SODIUM 100 MG GELCAP PO PRN (17:00)
[2018-01-12] MEDS ORDERED: MECLIZINE 25 MG TAB PO PRN (17:15)
[2018-01-12 17:24] LABS: MAGNESIUM 2.8 mg/dL (1.8-2.4); PHOSPHORUS 3.3 mg/dL (2.5-4.9)
--- NOTE | 2018-01-12 17:27 | NUR ---
PT RESTING IN BED; VITAL SIGNS STABLE. RT AT BEDSIDE
[2018-01-12 18:12] LABS: PROTHROMBIN TIME 65.9 secs (10.8-13.4)
--- NOTE | 2018-01-12 18:13 | NUR ---
CRITICAL LAB VALUE RECEIVED, PT 65.9, PTT 63.4, INR 7.47. ER NOTIFIED. TO SEE PT. Aleisha TSAI RN NOTIFIED.
[2018-01-12] MEDS ORDERED: ALBUTEROL SULFATE/IPRATROPIU 3 ML SOL IH PRN (18:35)
[2018-01-12] MEDS ORDERED: DEXTROSE 50% 50 ML SYR IVP PRN (18:35)
--- NOTE | 2018-01-12 18:54 | NUR ---
PT TAKEN TO FLOOR BY SANTANA LONG AND MOLINA SKELTON
--- NOTE | 2018-01-12 19:03 | NUR ---
RECEIVED REPORT FROM Giacomo NURSE AT BEDSIDE. PATIENT IS ALERT AND ORIENTED X2. PATIENT ON 2L O2 VIA NC. APPLIED PATIENT'S TELE MONITOR. LOWERED BED TO LOWEST SETTING. VITAL SIGNS WITHIN NORMAL LIMITS. NO DISTRESS NOTED FROM PATIENT. NO PAIN NOTED. SWABBED PATIENT'S NOSE WITH MRSA SCREENING TOOL. WILL ENDORSE CARE TO NIGHTSHIFT NURSE.
[2018-01-12] MEDS ORDERED: BISACODYL 10 MG SUPP RC PRN (19:05)
--- NOTE | 2018-01-12 19:07 | NUR ---
GAVE REPORT TO NIGHTSHIFT NURSE AT BEDSIDE. PATIENT IN STABLE CONDITION.
--- NOTE | 2018-01-12 19:13 | NUR ---
Patient will be admitted to care of [facility]. Admited to Tele. Will go to room 108-A. Belongings list completed. Report to Gabe DILLON.
--- NOTE | 2018-01-12 19:13 | NUR ---
Endorsed to med surg nurse, that patient was difficult stick. Unable to start IVF.
--- NOTE | 2018-01-12 19:20 | NUR ---
RECEIVED REPORT FROM DAY SHIFT RN FOR CONTINUITY OF CARE. PT IS A/OX2, ON 2L O2 VIA NASAL CANNULA. PT SKIN IS INTACT. PT HAS 24G IV TO LEFT HAND, ASYMPTOMATIC, INTACT AND PATENT. DISCUSSED PLAN OF CARE WITH PT, PT VERBALIZED UNDERSTANDING. VITAL SIGNS WITHIN NORMAL LIMITS. PT STABLE, NO SIGNS OF DISTRESS NOTED AT THIS TIME. BED IN LOWEST POSITION, BED ALARM ON. CALL LIGHT WITHIN REACH, WILL CONTINUE TO MONITOR.
[2018-01-12] MEDS: ALBUTEROL SULFATE/IPRATROPIU 3 ML SOL IH SCH (19:43)
[2018-01-12 20:00] VITALS: BP 127/57
--- NOTE | 2018-01-12 20:23 | NUR ---
PATIENT WAS ABLE TO DO HIS INSENTIVE SPIROMETER. PT DID 1000 CC TIMES 10 BREATHS . FAIR EFFORT
[2018-01-12] MEDS ORDERED: ECOTRIN 81 MG TABEC PO SCH (21:00)
[2018-01-12] MEDS: BLOOD GLUCOSE MONITORING 1 DEV DEV FS SCH (21:01)
[2018-01-12] MEDS: METOPROLOL 25 MG TAB PO SCH (21:15)
[2018-01-12] MEDS: DOCUSATE SODIUM 100 MG GELCAP PO SCH (21:15)
[2018-01-12] MEDS: NACL 0.9% 1,000 ML IV SCH (21:15)
[2018-01-12] MEDS: QUEtiapine FUMARATE 100 MG TAB PO SCH (21:16)
--- NOTE | 2018-01-12 21:17 | NUR ---
ADMINISTERED SCHEDULED MEDICATIONS, PT TOLERATED WELL. PT REFUSED INSULIN BECAUSE HE JUST FINISHED HAVING DINNER AND A JUICE.
[2018-01-12] MEDS: DILTIAZEM 30 MG TAB PO SCH (22:09)
[2018-01-13] VITALS: BP 104/47
--- NOTE | 2018-01-13 | NUR ---
VITAL SIGNS WITHIN NORMAL LIMITS. PT STABLE, NO SIGNS OF DISTRESS NOTED AT THIS TIME. BED IN LOWEST POSITION, BED ALARM ON. CALL LIGHT WITHIN REACH, WILL CONTINUE TO MONITOR.
[2018-01-13 04:00] VITALS: BP 117/51
[2018-01-13] MEDS: NACL 0.9% 1,000 ML IV SCH ×2 (05:26→13:06)
[2018-01-13] MEDS: ALBUTEROL SULFATE/IPRATROPIU 3 ML SOL IH SCH ×3 (06:28→19:30)
[2018-01-13] MEDS: DILTIAZEM 30 MG TAB PO SCH ×3 (06:35→23:08)
[2018-01-13] MEDS: FAMOTIDINE 20 MG TAB PO SCH (06:35)
[2018-01-13] MEDS: BLOOD GLUCOSE MONITORING 1 DEV DEV FS SCH ×4 (06:36→20:33)
--- NOTE | 2018-01-13 06:38 | NUR ---
ADMINISTERED SCHEDULED MORNING MEDICATIONS, PT TOLERATED WELL.
--- NOTE | 2018-01-13 07:29 | NUR ---
ENDORSED PT TO DAY SHIFT RN FOR CONTINUITY OF CARE. PT IN STABLE CONDITION.
--- NOTE | 2018-01-13 07:30 | NUR ---
RECEIVED REPORT FROM POLE TRUCK DRIVER NURSE AT BEDSIDE FOR CONTINUITY OF CARE. PT IS A/OX2, ON 2L O2 VIA NASAL CANNULA. PT SKIN IS INTACT. PT HAS 24G IV TO LEFT HAND, ASYMPTOMATIC, INTACT AND PATENT INFUSING IVF WELL. DISCUSSED PLAN OF CARE WITH PT, PT VERBALIZED UNDERSTANDING. UPDATED BOARD. VITAL SIGNS WITHIN NORMAL LIMITS. PT STABLE, NO SIGNS OF DISTRESS NOTED AT THIS TIME. PATIENT DENIES PAIN. BED IN LOWEST POSITION, BED ALARM ON. CALL LIGHT WITHIN REACH, WILL CONTINUE TO MONITOR PATIENT.
--- NOTE | 2018-01-13 07:52 | NUR ---
PATIENT HAS BEEN SCREENED AND CATEGORIZED HIGH NUTRITION RISK. PATIENT WILL BE SEEN WITHIN 1-2 DAYS OF ADMISSION. 01/13/18 01/14/18 TENZIN GREEN MBA, RD Addendum: 01/13/18 at [address] PATIENT HAS BEEN PREVIOUSLY CATEGORIZED HR PER NUTRITION CONSULT RECEIVED. PT CRITERIA FOR CONSULT REVISED; MALNUTRITION D/T ALB 2.9 (N/A MALNUTRITION CRITERIA); OTHER CRITERIA (ENERGY INTAKE, WEIGHT LOSS, BODY FAT, MUSCLE MASS... REVISED) PT DID NOT MEET 2+. PT IS ALSO NOT A GOOD CANDIDATE FOR EDUCATION - POOR HISTORIAN, HX OF DEMENTIA, FROM SNF PT IS RE-CATEGORIZED MODERATE NUTRITION RISK. PATIENT WILL BE SEEN WITHIN 3-5 DAYS OF ADMISSION 01/15/18 - 01/17/18 TENZIN GREEN MBA, RD
[2018-01-13 07:59] VITALS: BP 145/60
--- NOTE | 2018-01-13 08:07 | NUR ---
REHAB NOTE 740 ORDER FOR SWALLOW EVAL RECEIVED 01/13 1812. VERIFIED WITH AGRICULTURAL CHEMICALS INSPECTOR (FIDE) THAT EVAL IS NOT URGENT AND CAN BE SEEN FOR MONDAY; Pt WAS ALSO SEEN BY DIETITIAN AND HAD DINNER LAST NIGHT. ST TO SEE Pt FOR SWALLOW EVAL ON MONDAY.
[2018-01-13] MEDS: FUROSEMIDE 40 MG TAB PO SCH (09:10)
[2018-01-13] MEDS: METOPROLOL 25 MG TAB PO SCH (09:10)
[2018-01-13] MEDS: DOCUSATE SODIUM 100 MG GELCAP PO SCH ×2 (09:10→20:30)
--- NOTE | 2018-01-13 09:13 | NUR ---
ORDERED MEDICATIONS GIVEN. PATIENT SITTING UP IN BED EATING BREAKFAST. PATIENT TOLERATED THE MEDICATIONS WELL. NO SIGNS OF DISTRESS OR SOB NOTED ON 2L O2 VIA NC. PATIENT DENIES PAIN. SAFETY PRECAUTION IN PLACE, CALL LIGHT WITHIN REACH, BED IN LOWEST POSITION, BED ALARM ON, CALL LIGHT WITHIN REACH. WILL CONTINUE TO MONITOR PATIENT. DR. CARTER IN TO SEE THE PATIENT.
--- NOTE | 2018-01-13 11:10 | NUR ---
LITHOGRAPH PRESS OPERATOR INFORMED RN PATIENT GOING BRADYCARDIC, LOWEST HEART RATE 42 BPM. PATIENT ASLEEP BUT AROUSABLE. DOCTOR EMMA AWARE. WILL CONTINUE TO MONITOR PATIENT.
[2018-01-13 11:38] LABS: BASOPHILS # (AUTO) 0.1 K/uL (0.00-0.22); BASOPHILS % (AUTO) 0.7 % (0.0-2.0); EOSINOPHILS # (AUTO) 0.3 K/uL (0-0.4); EOSINOPHILS % (AUTO) 3.7 % (0.0-4.0); HEMOGLOBIN 10.8 g/dL (12.0-18.0); LYMPHOCYTES # (AUTO) 2.6 K/uL (2.0-11.5); LYMPHOCYTES % (AUTO) 33.2 % (20.5-51.1); MEAN CORPUSCULAR HEMOGLOBIN 25 pg (27-31); MEAN CORPUSCULAR HGB CONC 32 g/dL (33-37); MEAN CORPUSCULAR VOLUME 79.7 fL (80-94); MONOCYTES # (AUTO) 1.1 K/uL (0.8-1.0); MONOCYTES % (AUTO) 13.9 % (1.7-9.3); NEUTROPHILS # (AUTO) 3.8 K/uL (1.8-7.7); NEUTROPHILS % (AUTO) 48.5 % (42.2-75.2); PLATELET COUNT (AUTO) 176 K/uL (140-450); RED BLOOD CELL COUNT(AUTO) 4.26 MIL/uL (4.20-6.10); RED CELL DISTRIBUTION WIDTH 16.3 % (11.6-13.7); WHITE BLOOD COUNT (AUTO) 7.7 K/uL (4.8-10.8)
[2018-01-13 12:00] VITALS: BP 124/63
--- NOTE | 2018-01-13 13:06 | NUR ---
BLOOD SUGAR 96 NO COVERAGE NEED. PATIENT IN STABLE CONDITION SITTING UP EATING LUNCH. WILL CONTINUE TO MONITOR PATIENT.
[2018-01-13 13:28] LABS: ANION GAP 9.1 (8-16); CARBON DIOXIDE 29.3 mmol/L (21-32); CHLORIDE 110 mmol/L (98-107); CREATININE 0.8 mg/dL (0.7-1.3); GLUCOSE 99 mg/dL (74-106); POTASSIUM 3.4 mmol/L (3.5-5.1); SODIUM SERUM 145 mmol/L (136-145); UREA NITROGEN, BLOOD 26 mg/dL (7-18)
[2018-01-13 13:33] LABS: MAGNESIUM 2.3 mg/dL (1.8-2.4); PHOSPHORUS 2.8 mg/dL (2.5-4.9)
--- NOTE | 2018-01-13 13:40 | NUR ---
PT SLEEPING WITH NO SIGNS OF DISTRESS NOTED AT THIS TIME
[2018-01-13 13:41] LABS: PROTHROMBIN TIME 64.6 secs (10.8-13.4)
[2018-01-13 16:00] VITALS: BP 115/43
[2018-01-13] MEDS ORDERED: POTASSIUM CHLORIDE 10 MEQ TABER PO SCH (16:00)
--- NOTE | 2018-01-13 16:18 | NUR ---
ORDERED MEDICATIONS GIVEN. PATIENT C/O OF HEADACHE, TYLENOL PRN GIVEN. PATIENT TOLERATED THEM WELL. BLOOD SUGAR 102. NO COVERAGE NEEDED. PATIENT RESTING IN BED, NO SIGNS OF DISTRESS OR SOB NOTED ON 2L O2 VIA NC. SAFETY PRECAUTION IN PLACE, BED ON LOWEST SETTING, BED ALARM ON. WILL CONTINUE TO MONITOR PATIENT.
--- NOTE | 2018-01-13 17:45 | NUR ---
NEGRITO ROBBINS AT BEDSIDE. PATIENT RESTING IN BED, NO SIGNS OF DISTRESS OR SOB NOTED ON 2L O2 VIA NC. SAFETY PRECAUTION IN PLACE, CALL LIGHT WITHIN REACH, WILL CONTINUE TO MONITOR PATIENT.
--- NOTE | 2018-01-13 18:25 | NUR ---
SMOKING CESSATION EDUCATION GIVEN TO PATIENT. PATIENT VERBALIZED UNDERSTANDING. Addendum: 01/13/18 at 1915 by Moise Herndon RN WRONG PATIENT.
--- NOTE | 2018-01-13 18:40 | NUR ---
IV FOUND DISLODGED. IV CATHETER INTACT, MINIMAL BLOOD NOTED. URINE SAMPLE OBTAINED. WILL SEND TO LAB. WILL ATTEMPT TO INSERT NEW IV. PATIENT AGREEABLE TO PLAN. NO SIGNS OF DISTRESS OR SOB NOTED ON ROOM AIR. WILL CONTINUE TO MONITOR PATIENT.
--- NOTE | 2018-01-13 18:55 | NUR ---
NEW IV INSERTED ON LEFT FA, 22G, PATENT, INTACT, ASYMPTOMATIC. PATIENT TOLERATED IT WELL. WILL CONTINUE TO MONITOR PATIENT.
--- NOTE | 2018-01-13 19:04 | NUR ---
REPORT GIVEN AT BEDSIDE FOR CONTINUITY OF CARE. PATIENT IN STABLE CONDITION.
[2018-01-13 19:48] VITALS: BP 107/51
[2018-01-13] MEDS: QUEtiapine FUMARATE 100 MG TAB PO SCH (20:31)
[2018-01-13] MEDS: INSULIN LISPRO SLIDING SCALE 100 UNITS/ML VIAL SUBQ PRN (20:33)
--- NOTE | 2018-01-13 20:35 | NUR ---
ADMINISTERED SCHEDULED MEDICATIONS, PT TOLERATED WELL.
[2018-01-13 21:12] LABS: APPEARANCE,URINE CLEAR (CLEAR); BILIRUBIN,URINE NEGATIVE (NEGATIVE); BLOOD, URINE TRACE-I (NEGATIVE); COLOR,URINE YELLOW (YELLOW); LEUKOCYTE ESTERASE ,URINE NEGATIVE (NEGATIVE); NITRITE, URINE NEGATIVE (NEGATIVE); RBC,URINE 0-5 (RARE) /HPF (0-5); UGLUCOSE NEGATIVE (NEGATIVE); WBC,URINE 0-5 (RARE) /HPF (0-5)
[2018-01-13 21:20] LABS: BARBITURATE, URINE NEG. ng/ml (NEG <=200); BENZODIAZEPINE, URINE NEG. ng/mL (NEG <=200); CANNABINOID, URINE NEG. ng/mL (NEG <=50); COCAINE, URINE NEG. ng/mL (NEG <=300); OPIATE, URINE NEG. ng/mL (NEG <=2000); PHENCYCLIDINE SCREEN,URINE NEG. ng/mL (NEG <=25)
--- NOTE | 2018-01-13 23:09 | NUR ---
ADMINISTERED SCHEDULED MEDICATIONS, PT TOLERATED WELL.
[2018-01-14] VITALS: BP 106/42
--- NOTE | 2018-01-14 02:00 | NUR ---
VITAL SIGNS WITHIN NORMAL LIMITS. PT STABLE, NO SIGNS OF DISTRESS NOTED AT THIS TIME. BED IN LOWEST POSITION, BED ALARM ON. CALL LIGHT WITHIN REACH, WILL CONTINUE TO MONITOR. Addendum: 01/14/18 at 0639 by Quynh Adams RN DISREGARD.
--- NOTE | 2018-01-14 02:01 | NUR ---
PT STABLE, NO SIGNS OF DISTRESS NOTED AT THIS TIME. BED IN LOWEST POSITION, BED ALARM ON. CALL LIGHT WITHIN REACH, WILL CONTINUE TO MONITOR.
[2018-01-14] MEDS: NACL 0.9% 1,000 ML IV SCH ×2 (03:15→16:20)
[2018-01-14 04:00] VITALS: BP 112/49
--- NOTE | 2018-01-14 05:35 | NUR ---
PT UNABLE TO FOLLOW COMMANDS FOR INCENTIVE SPIROMETRY. SAT 99 HR 68 RR 16. ON 2LPM NC. WILL CONT TO MONITOR PT.
[2018-01-14] MEDS: ALBUTEROL SULFATE/IPRATROPIU 3 ML SOL IH SCH ×3 (06:31→18:56)
[2018-01-14] MEDS: FAMOTIDINE 20 MG TAB PO SCH (06:34)
[2018-01-14] MEDS: BLOOD GLUCOSE MONITORING 1 DEV DEV FS SCH ×4 (06:34→20:34)
[2018-01-14] MEDS: DILTIAZEM 30 MG TAB PO SCH ×3 (06:34→23:17)
--- NOTE | 2018-01-14 06:37 | NUR ---
ADMINISTERED SCHEDULED MEDICATIONS, PT TOLERATED WELL.
--- NOTE | 2018-01-14 06:45 | NUR ---
SPOKE TO WIRELESS DEVELOPMENT MANAGER ABOUT FAMILY REQUESTING SHOWER OR BED BATH FOR PT THIS MORNING, WIRELESS DEVELOPMENT MANAGER CONFIRMED SHE WILL GIVE BED BATH TODAY.
--- NOTE | 2018-01-14 07:09 | NUR ---
ENDORSED PT TO DAY SHIFT RN FOR CONTINUITY OF CARE. PT IN STABLE CONDITION.
--- NOTE | 2018-01-14 07:10 | NUR ---
RECEIVED REPORT FROM PUPIL PERSONNEL SERVICES DIRECTOR NURSE AT BEDSIDE FOR CONTINUITY OF CARE. PT IS A/OX2, ON 2L O2 VIA NASAL CANNULA. PT SKIN IS INTACT. PT HAS 22G IV TO LEFT FOREARM, ASYMPTOMATIC, INTACT AND PATENT INFUSING NS @ 80 ML/HR WELL. PATIENT ASLEEP BUT AROUSABLE, UPDATED BOARD. NO SIGNS OF DISTRESS NOTED AT THIS TIME. SAFETY PRECAUTION IN PLACE, BED IN LOWEST POSITION, BED ALARM ON. CALL LIGHT WITHIN REACH, WILL CONTINUE TO MONITOR PATIENT.
[2018-01-14 07:52] LABS: BASOPHILS % (AUTO) 0.7 % (0.0-2.0); EOSINOPHILS # (AUTO) 0.4 K/uL (0-0.4); EOSINOPHILS % (AUTO) 4.7 % (0.0-4.0); HEMATOCRIT 30.9 % (36-52); LYMPHOCYTES # (AUTO) 2.4 K/uL (2.0-11.5); LYMPHOCYTES % (AUTO) 31.9 % (20.5-51.1); MEAN CORPUSCULAR HEMOGLOBIN 26 pg (27-31); MEAN CORPUSCULAR HGB CONC 32 g/dL (33-37); MEAN CORPUSCULAR VOLUME 80.3 fL (80-94); MONOCYTES # (AUTO) 0.9 K/uL (0.8-1.0); MONOCYTES % (AUTO) 12.5 % (1.7-9.3); NEUTROPHILS # (AUTO) 3.8 K/uL (1.8-7.7); NEUTROPHILS % (AUTO) 50.2 % (42.2-75.2); PLATELET COUNT (AUTO) 165 K/uL (140-450); RED BLOOD CELL COUNT(AUTO) 3.85 MIL/uL (4.20-6.10); RED CELL DISTRIBUTION WIDTH 16.2 % (11.6-13.7); WHITE BLOOD COUNT (AUTO) 7.6 K/uL (4.8-10.8)
[2018-01-14 07:59] LABS: MAGNESIUM 1.9 mg/dL (1.8-2.4); PHOSPHORUS 2.4 mg/dL (2.5-4.9)
[2018-01-14 08:00] VITALS: BP 126/56
[2018-01-14 08:09] LABS: ANION GAP 11.3 (8-16); CARBON DIOXIDE 27.1 mmol/L (21-32); CHLORIDE 109 mmol/L (98-107); CREATININE 0.9 mg/dL (0.7-1.3); GLUCOSE 92 mg/dL (74-106); POTASSIUM 3.4 mmol/L (3.5-5.1); SODIUM SERUM 144 mmol/L (136-145); UREA NITROGEN, BLOOD 27 mg/dL (7-18)
[2018-01-14] MEDS: DOCUSATE SODIUM 100 MG GELCAP PO SCH ×2 (08:35→20:34)
--- NOTE | 2018-01-14 08:35 | NUR ---
ORDERED MEDICATIONS GIVEN. PATIENT SITTING UP IN BED EATING BREAKFAST. PATIENT TOLERATED THE MEDICATIONS WELL. NO SIGNS OF DISTRESS OR SOB NOTED ON 2L O2 VIA NC. PATIENT DENIES PAIN. SAFETY PRECAUTION IN PLACE, CALL LIGHT WITHIN REACH, BED IN LOWEST POSITION, BED ALARM ON, CALL LIGHT WITHIN REACH. WILL CONTINUE TO MONITOR PATIENT.
[2018-01-14] MEDS: METOPROLOL 25 MG TAB PO SCH (08:36)
[2018-01-14] MEDS: FUROSEMIDE 40 MG TAB PO SCH (08:36)
--- NOTE | 2018-01-14 09:03 | NUR ---
INFORM DOCTOR EMMA ABOUT PATIENT'S POTASSIUM AND PHOSPHOROUS LEVEL. NEW ORDERS IN. WILL WAIT FOR PHARMACY TO VERIFY AND GIVE MEDICATION.
[2018-01-14] MEDS ORDERED: SODIUM PHOS / POTASSIUM PHOS 1 PKT PDR PO SCH (09:30)
[2018-01-14] MEDS ORDERED: POTASSIUM CHLORIDE 10 MEQ TABER PO SCH (09:30)
--- NOTE | 2018-01-14 10:45 | NUR ---
ALKA MERCEDES IN TO GIVE PATIENT SPONGE BATH. PATIENT CLEANED AND CHANGED. PATIENT TOLERATED IT WELL. NO SIGNS OF DISTRESS OR SOB NOTED ON 2L O2 VIA NC. PATIENT DENIES PAIN. WILL CONTINUE TO MONITOR PATIENT.
[2018-01-14 11:04] LABS: PROTHROMBIN TIME 49.1 secs (10.8-13.4)
--- NOTE | 2018-01-14 11:20 | NUR ---
ORDERED MEDICATIONS GIVEN. PATIENT TOLERATED THE MEDICATIONS WELL. NO SIGNS OF DISTRESS OR SOB NOTED ON 2L O2 VIA NC. PATIENT DENIES PAIN. SAFETY PRECAUTION IN PLACE, CALL LIGHT WITHIN REACH, BED IN LOWEST POSITION, BED ALARM ON, CALL LIGHT WITHIN REACH. WILL CONTINUE TO MONITOR PATIENT.
[2018-01-14 11:50] VITALS: BP 104/35
[2018-01-14 11:55] VITALS: BP 113/47
--- NOTE | 2018-01-14 12:00 | NUR ---
ORTHOSTATIC VS TAKEN, PATIENT ONLY ABLE TO DO SUPINE AND SITTING, HE WILL NOT AGREE TO STAND UP, BECAUSE "I'M WEAK, I CAN'T DO IT". BLOOD SUGAR 145, NO COVERAGE NEEDED. SAFETY PRECAUTION IN PLACE, CALL LIGHT WITHIN REACH, WILL CONTINUE TO MONITOR PATIENT.
--- NOTE | 2018-01-14 13:16 | NUR ---
PT SLEEPING WITH NO SIGNS OF DISTRESS NOTED AT THIS TIME
--- NOTE | 2018-01-14 14:03 | NUR ---
PATIENT RESTING IN BED, NO SIGNS OF DISTRESS OR SOB NOTED ON 2L O2 VIA NC. SAFETY PRECAUTION IN PLACE, CALL LIGHT WITHIN REACH, WILL CONTINUE TO MONITOR PATIENT.
[2018-01-14 16:00] VITALS: BP 135/57
--- NOTE | 2018-01-14 16:20 | NUR ---
ORDERED MEDICATIONS GIVEN. PATIENT TOLERATED IT WELL. BLOOD SUGAR 91, NO COVERAGE NEEDED. VITAL SIGNS WNL. PATIENT SITTING UP IN BED WATCHING TV. NO SIGNS OF DISTRESS OR SOB NOTED ON 2L O2 VIA NC. WILL CONTINUE MONITOR PATIENT.
--- NOTE | 2018-01-14 18:15 | NUR ---
PATIENT TAKEN OFF O2 WITH PATIENT'S PERMISSION. TELE MONITOR REMOVED. PATIENT SITTING UP IN BED FINISHING UP HIS DINNER. NO SIGNS OF DISTRESS OR SOB NOTED. WILL CONTINUE TO MONITOR PATIENT.
--- NOTE | 2018-01-14 18:45 | NUR ---
PATIENT O2 SATURATION 94-95%. PATIENT DENIES CHEST PAIN OR SOB. RESPIRATIONS EVEN AND UNLABORED. WILL CONTINUE TO MONITOR PATIENT.
--- NOTE | 2018-01-14 19:05 | NUR ---
REPORT GIVEN AT BEDSIDE TO RIGHT OF WAY MAN NURSE FOR CONTINUITY OF CARE. PATIENT IN STABLE CONDITION. RT AT SIDE. PATIENT O2 SATURATION 94-95% ON ROOM AIR.
--- NOTE | 2018-01-14 19:06 | NUR ---
RECEIVED REPORT FROM DAY SHIFT RN FOR CONTINUITY OF CARE. PT IS A/OX2, ON ROOM AIR. PT IS ABLE TO FOLLOW COMMANDS, AND ABLE TO MAKE NEEDS KNOWN. PT SKIN IS INTACT. PT HAS 22G IV TO LEFT FOREARM, ASYMPTOMATIC, INTACT AND PATENT. DISCUSSED PLAN OF CARE WITH PT, PT VERBALIZED UNDERSTANDING. VITAL SIGNS WITHIN NORMAL LIMITS. PT STABLE, NO SIGNS OF DISTRESS NOTED AT THIS TIME. BED IN LOWEST POSITION, BED ALARM ON. CALL LIGHT WITHIN REACH, WILL CONTINUE TO MONITOR.
[2018-01-14] MEDS: QUEtiapine FUMARATE 100 MG TAB PO SCH (20:34)
--- NOTE | 2018-01-14 20:37 | NUR ---
ADMINISTERED SCHEDULED MEDICATIONS, PT TOLERATED WELL.
--- NOTE | 2018-01-14 23:18 | NUR ---
ADMINISTERED SCHEDULED MEDICATIONS, PT TOLERATED WELL.
[2018-01-15] VITALS: BP 120/59
--- NOTE | 2018-01-15 02:23 | NUR ---
PT RESTING IN BED, STABLE, NO SIGNS OF DISTRESS NOTED AT THIS TIME. BED IN LOWEST POSITION, BED ALARM ON. CALL LIGHT WITHIN REACH, WILL CONTINUE TO MONITOR.
--- NOTE | 2018-01-15 04:24 | NUR ---
PT STABLE, NO SIGNS OF DISTRESS NOTED AT THIS TIME. BED IN LOWEST POSITION, BED ALARM ON. CALL LIGHT WITHIN REACH, WILL CONTINUE TO MONITOR.
[2018-01-15] MEDS: BLOOD GLUCOSE MONITORING 1 DEV DEV FS SCH ×4 (05:49→20:23)
[2018-01-15] MEDS: NACL 0.9% 1,000 ML IV SCH (05:49)
--- NOTE | 2018-01-15 06:08 | NUR ---
PT STABLE, NO SIGNS OF DISTRESS NOTED AT THIS TIME. BED IN LOWEST POSITION, BED ALARM ON. CALL LIGHT WITHIN REACH, WILL CONTINUE TO MONITOR.
[2018-01-15] MEDS: DILTIAZEM 30 MG TAB PO SCH ×3 (06:13→20:34)
[2018-01-15] MEDS: FAMOTIDINE 20 MG TAB PO SCH (06:13)
[2018-01-15 06:23] LABS: BASOPHILS % (AUTO) 0.6 % (0.0-2.0); EOSINOPHILS # (AUTO) 0.3 K/uL (0-0.4); EOSINOPHILS % (AUTO) 4.3 % (0.0-4.0); HEMATOCRIT 32.4 % (36-52); HEMOGLOBIN 10.4 g/dL (12.0-18.0); LYMPHOCYTES # (AUTO) 2.6 K/uL (2.0-11.5); MEAN CORPUSCULAR HEMOGLOBIN 26 pg (27-31); MEAN CORPUSCULAR HGB CONC 32 g/dL (33-37); MEAN CORPUSCULAR VOLUME 79.9 fL (80-94); MONOCYTES % (AUTO) 12.7 % (1.7-9.3); NEUTROPHILS # (AUTO) 3.7 K/uL (1.8-7.7); NEUTROPHILS % (AUTO) 48.4 % (42.2-75.2); PLATELET COUNT (AUTO) 177 K/uL (140-450); RED BLOOD CELL COUNT(AUTO) 4.06 MIL/uL (4.20-6.10); RED CELL DISTRIBUTION WIDTH 16.3 % (11.6-13.7); WHITE BLOOD COUNT (AUTO) 7.7 K/uL (4.8-10.8)
[2018-01-15 06:39] LABS: ANION GAP 9.9 (8-16); CARBON DIOXIDE 26.9 mmol/L (21-32); CHLORIDE 108 mmol/L (98-107); CREATININE 0.9 mg/dL (0.7-1.3); GLUCOSE 94 mg/dL (74-106); POTASSIUM 3.8 mmol/L (3.5-5.1); SODIUM SERUM 141 mmol/L (136-145); UREA NITROGEN, BLOOD 18 mg/dL (7-18)
--- NOTE | 2018-01-15 06:44 | NUR ---
ENDORSED PT TO DAY SHIFT RN FOR CONTINUITY OF CARE. PT IN STABLE CONDITION.
[2018-01-15 06:50] LABS: MAGNESIUM 1.9 mg/dL (1.8-2.4); PHOSPHORUS 2.3 mg/dL (2.5-4.9)
--- NOTE | 2018-01-15 06:52 | NUR ---
ENDORSED PT TO DAY SHIFT RN FOR CONTINUITY OF CARE. PT IN STABLE CONDITION.
[2018-01-15] MEDS: ALBUTEROL SULFATE/IPRATROPIU 3 ML SOL IH SCH ×2 (07:00→13:00)
--- NOTE | 2018-01-15 07:02 | NUR ---
pt sleeping with no signs of distress noted at this time no hhn given
--- NOTE | 2018-01-15 07:05 | NUR ---
ASSUMED CONTINUITY OF CARE. NO SIGNS AND SYMPTOMS OF ACUTE DISTRESS NOTED. INITIAL ASSESSMENT DONE. RE-ORIENTED TO EVENTS AND SURROUNDINGS. KEEP COMFORTABLE ON BED. FALL PRECAUTION APPLIED. CALL LIGHT WITHIN REACH.
[2018-01-15 08:00] VITALS: BP 145/60
[2018-01-15] MEDS: DOCUSATE SODIUM 100 MG GELCAP PO SCH ×2 (08:50→20:35)
[2018-01-15] MEDS: FUROSEMIDE 40 MG TAB PO SCH (08:50)
[2018-01-15] MEDS: METOPROLOL 25 MG TAB PO SCH (08:51)
--- NOTE | 2018-01-15 09:17 | NUR ---
DUE TO RECEIVING A FNS CONSULT, PATIENT HAS BEEN CATEGORIZED HIGH RISK. PATIENT WILL BE SEEN WITHIN 1-2 DAYS OF TODAY 01/15/[address]
--- NOTE | 2018-01-15 10:10 | NUR ---
PHYSICAL THERAPIST CAME FOR PT. EVAL AND TREATMENT.
[2018-01-15 10:22] LABS: PROTHROMBIN TIME 19.5 secs (10.8-13.4)
[2018-01-15] MEDS ORDERED: WARF2TAB99 PO (11:06)
[2018-01-15] MEDS: INSULIN LISPRO SLIDING SCALE 100 UNITS/ML VIAL SUBQ PRN (11:36)
[2018-01-15 12:00] VITALS: BP 122/56
--- NOTE | 2018-01-15 12:30 | NUR ---
Warp Changer Notes: I Faxed to [facility] Patient's Clinical Information and MD order to return to [facility] for Physical Therapy. Cv/Cvn Cv Tsc System Operator Beata was made aware.
--- NOTE | 2018-01-15 14:00 | NUR ---
Patient Safety Officer Notes: I received a call from Nathan in admissions at [facility] stating that he received and review Patient's Clinical Information and MD order. Per Nathan Patient is able to return to the facility at room 49C under MD Avery angel. Nathan Stated that Patient has Medication Seroquel on his list and wanted to know if patient MD at [facility] review if patient still needs medications regiment when coming back to the facility. I thanked Nathan and told him that I will informed bottle caser Дмитрий about his information and concerns and will follow up with and update. He agreed and thanked me.
--- NOTE | 2018-01-15 14:05 | NUR ---
DEHYDRATOR OPERATOR ANDREW CAME AND SPOKE TO PT. AT BEDSIDE.
--- NOTE | 2018-01-15 14:30 | NUR ---
Data Librarian Notes: After discussing Patient status and discharge with I contacted Nathan from [facility] at [phone] let him know that MD Holguin has review and stop Patient's Seroquel medication and Patient will be returning to [facility] with out that medication. Nathan Thanked me for the information and I ended the call.
--- NOTE | 2018-01-15 14:47 | NUR ---
COUNTER ROLLER -MARY CALLED AND WAS TOLD THAT PT. SAP ABAP DEVELOPER TIME IS 1900 TONIGHT BY [facility]. INFORMED CHARGE NURSE EDMUND MCBRIDE.
--- NOTE | 2018-01-15 14:52 | NUR ---
CALLED PT. DAUGHTER -JIM MORATAYA AT AND INFORMED OF PT. D/C BACK TO [facility] AND MANAGER PRODUCE TIME IS 1900.
--- NOTE | 2018-01-15 15:09 | NUR ---
PT. SON -PATRICIA MORATAYA CALLED AND ASKED TO CHANGE PT. NAME OF PERSON TO NOTIFY AND NAME OF NEXT OF KIN DUE TO THOSE PERSON WAS ALREADY. ASKED PATRICIA WILL CALL ADMITTING TO CHANGE INFORMATION REQUESTED, AND ALSO INFORMED THAT PT. WILL BE D/C BACK TO [facility] AT ROOM 49-C AND INSTALLMENT ACCOUNT CHECKER TIME IS 1900.
--- NOTE | 2018-01-15 15:14 | NUR ---
CALLED ADMITTING AND SPOKE TO SHANELLE, ASKED TO CHANGE PT. NAME OF PERSON TO NOTIFY, AND NAME OF NEXT OF KIN INFORMATION FROM PT. ADMISSION/REGISTRATION FORM TO PATRICIA MORATAYA PT. SON AT DUE TO PT. -JIM AND DAUGHTER -YOKASTA WAS ALREADY PER PATRICIA MORATAYA INFORMATION. INFORMED CHARGE NURSE EDMUND MCBRIDE.
--- NOTE | 2018-01-15 15:45 | NUR ---
INFORMED DR. CARTER THAT PT. CANTEEN MANAGER TIME IS 1900 TONIGHT BY [facility].
--- NOTE | 2018-01-15 15:55 | NUR ---
SPOKE WITH MANSI FROM [facility]. [place] FOR TRANSPORT [phone]. I CALLED AND SET UP TRANSPORT FOR 7P.M. I CALLED DOV DILLON AND INFORMED HIM THAT THE PATIENT CAN GO BACK TO ROOM 49C UNDER DR[address] BEACH. W/C PLAQUE MAKER IS 7P.M. SPOKE WITH KIMBERLY AT [place] AND SHE GAVE ME THE ROOM NUMBER AT [place].
--- NOTE | 2018-01-15 15:58 | NUR ---
01/15/18 RD INITIAL ASSESSMENT COMPLETED PLEASE REFER TO NUTRITION ASSESSMENT UNDER CARE ACTIVITY FOR ESTIMATED NUTRITIONAL NEEDS. 1. RECOMMEND RENAL, CCHO 60 DIET TOLERATED. 2. RECOMMEND GLUCERNA BID. 3. RD TO FOLLOW-UP 2-3 DAYS, HIGH RISK. CHERY ROY, RD
[2018-01-15 16:00] VITALS: BP 131/60
--- NOTE | 2018-01-15 16:00 | NUR ---
VITALS SIGNS STABLE. NO C/O PAIN. CONTINUE MONITORING.
[2018-01-15] MEDS ORDERED: WARFARIN 1 MG TAB PO SCH (17:00)
--- NOTE | 2018-01-15 17:42 | NUR ---
CALLED [facility] AT SPOKE TO MAISHA PARKHILL [facility] AND GAVE REPORT REGARDING PT. TRANSFER.
--- NOTE | 2018-01-15 19:14 | NUR ---
REPORT GIVEN TO JOEY BUCKLEY -[employer]ARE[employer] DRIVER NURSE. IN STABLE CONDITION. ALSO ENDORSED ABOUT PT. D/C BACK TO [facility].
[2018-01-15 20:00] VITALS: BP 147/73
--- NOTE | 2018-01-15 20:00 | NUR ---
PT AWAKE,ALERT SPEAKS ENGLISH,NO SIGN OF DISTRESS. AWAITING FOR AMBULANCE TO [facility] FOREM[facility] PT.
[2018-01-15] MEDS: QUEtiapine FUMARATE 100 MG TAB PO SCH (20:35)
--- NOTE | 2018-01-15 21:45 | NUR ---
D/C PT TO [facility]IA [facility] WITH A W/C. PT NO C/O PAIN OR RESPIRATORY DISTRESS.
== END 2018-01-15 22:45 | DRG 73 ==
LOC: MED 13:49 → MTU 16:39
PROVIDERS: ADMIT General Practice; ATTEND General Practice
DX: G90.9 Disorder of the autonomic nervous system, unspecified (principal); I50.43 Acute on chronic combined systolic (congestive) and diastolic (congestive) heart failure; N17.0 Acute kidney failure with tubular necrosis; D68.59 Other primary thrombophilia; E44.0 Moderate protein-calorie malnutrition; J98.11 Atelectasis; E86.0 Dehydration; E11.65 Type 2 diabetes mellitus with hyperglycemia; I25.10 Atherosclerotic heart disease of native coronary artery without angina pectoris; K21.9 Gastro-esophageal reflux disease without esophagitis; D64.9 Anemia, unspecified; E87.6 Hypokalemia; G93.89 Other specified disorders of brain; I11.0 Hypertensive heart disease with heart failure; J44.9 Chronic obstructive pulmonary disease, unspecified; I48.91 Unspecified atrial fibrillation; F03.90 Unspecified dementia, unspecified severity, without behavioral disturbance, psychotic disturbance, mood disturbance, and anxiety; T45.515A Adverse effect of anticoagulants, initial encounter; E78.5 Hyperlipidemia, unspecified; E11.51 Type 2 diabetes mellitus with diabetic peripheral angiopathy without gangrene; E87.8 Other disorders of electrolyte and fluid balance, not elsewhere classified; E83.41 Hypermagnesemia; E83.39 Other disorders of phosphorus metabolism; E66.01 Morbid (severe) obesity due to excess calories; Z68.30 Body mass index [BMI] 30.0-30.9, adult; Z79.01 Long term (current) use of anticoagulants; Z86.73 Personal history of transient ischemic attack (TIA), and cerebral infarction without residual deficits; Y92.89 Other specified places as the place of occurrence of the external cause; Z95.1 Presence of aortocoronary bypass graft; Z86.711 Personal history of pulmonary embolism; Z79.899 Other long term (current) drug therapy; G72.89 Other specified myopathies
CPT/HCPCS: 36415; 70450; 71045; 80048; 80053; 80305; 81001; 82140; 82550; 82948; 83690; 83735; 83880; 84100; 84134; 84484; 85025; 85610; 85730; 87081; 93005; 93880; 94640; 97110; 97116; 97140; 97530; 99285; J1815; J2405; J7030; J7620; Q0092

== ENCOUNTER 2018-05-25 16:48 | Inpatient (IN) | payer OTHER ==
[~2018-05-25] VITALS: Ht 170.2 cm; Wt 81.2 kg
[~2018-05-25 16:48] MED LIST changes: -ACET325C3 PO; -AMOX-999 PO; -LACT10CA PO; -LACT1CAP59 PO; -QUET100T PO; +WARF2TAB99 PO; -WARF3TAB PO
[2018-05-25 17:12] VITALS: BP 113/65
[2018-05-25] MEDS ORDERED: RIVA20TA PO (17:33)
[2018-05-25 18:04] LABS: BASOPHILS % (AUTO) 0.5 % (0.0-2.0); EOSINOPHILS # (AUTO) 0.1 K/uL (0-0.4); HEMATOCRIT 34.4 % (36-52); HEMOGLOBIN 10.5 g/dL (12.0-18.0); LYMPHOCYTES # (AUTO) 2.9 K/uL (2.0-11.5); MEAN CORPUSCULAR HEMOGLOBIN 22 pg (27-31); MEAN CORPUSCULAR HGB CONC 31 g/dL (33-37); MEAN CORPUSCULAR VOLUME 72.1 fL (80-94); MONOCYTES # (AUTO) 0.9 K/uL (0.8-1.0); MONOCYTES % (AUTO) 10.8 % (1.7-9.3); NEUTROPHILS # (AUTO) 4.8 K/uL (1.8-7.7); NEUTROPHILS % (AUTO) 54.7 % (42.2-75.2); PLATELET COUNT (AUTO) 301 K/uL (140-450); RED BLOOD CELL COUNT(AUTO) 4.77 MIL/uL (4.20-6.10); RED CELL DISTRIBUTION WIDTH 18.7 % (11.6-13.7); WHITE BLOOD COUNT (AUTO) 8.8 K/uL (4.8-10.8)
[2018-05-25 18:17] LABS: ANION GAP 11.1 (8-16); CARBON DIOXIDE 26.7 mmol/L (21-32); CHLORIDE 103 mmol/L (98-107); CREATININE 1.1 mg/dL (0.7-1.3); GLUCOSE 114 mg/dL (74-106); POTASSIUM 3.8 mmol/L (3.5-5.1); SODIUM SERUM 137 mmol/L (136-145); UREA NITROGEN, BLOOD 19 mg/dL (7-18)
[2018-05-25 18:22] LABS: PROTHROMBIN TIME 10.6 secs (10.8-13.4)
[2018-05-25 18:23] LABS: ASPARTATE AMINOTRANSFERASE 18 U/L (15-37); TOTAL BILIRUBIN 0.3 mg/dL (0.0-1.0)
[2018-05-25 18:55] LABS: APPEARANCE,URINE SL CLOUDY (CLEAR); BILIRUBIN,URINE NEGATIVE (NEGATIVE); BLOOD, URINE NEGATIVE (NEGATIVE); COLOR,URINE YELLOW (YELLOW); LEUKOCYTE ESTERASE ,URINE 1+ (NEGATIVE); NITRITE, URINE POSITIVE (NEGATIVE); UGLUCOSE NEGATIVE (NEGATIVE)
[2018-05-25] MEDS ORDERED: cefTRIAXone 1,000 MG VIAL ONE (18:58)
[2018-05-25 19:10] LABS: RBC,URINE 0-5 (RARE) /HPF (0-5); WBC,URINE 20-60 /HPF (0-5)
[2018-05-25] MEDS ORDERED: HYDROcodone/APAP 7.5/325 MG 1 TAB PO PRN (20:30)
[2018-05-25] MEDS ORDERED: ACETAMINOPHEN 325 MG TAB PO PRN (20:30)
[2018-05-25] MEDS ORDERED: ONDANSETRON 4 MG/2 ML VIAL IM/IVP PRN (20:30)
[2018-05-25] MEDS ORDERED: DOCUSATE SODIUM 100 MG GELCAP PO PRN (20:30)
[2018-05-25 21:20] VITALS: BP 138/69
[2018-05-25 21:28] LABS: BARBITURATE, URINE NEG. ng/ml (NEG <=200); BENZODIAZEPINE, URINE NEG. ng/mL (NEG <=200); CANNABINOID, URINE NEG. ng/mL (NEG <=50); COCAINE, URINE NEG. ng/mL (NEG <=300); OPIATE, URINE NEG. ng/mL (NEG <=2000); PHENCYCLIDINE SCREEN,URINE NEG. ng/mL (NEG <=25)
[2018-05-25 21:37] LABS: CHOL/HDL RATIO 4.3 (1-4.5); FREE T4 (FREE THYROXINE) 1.15 ng/dL (0.76-1.46); MAGNESIUM 2.4 mg/dL (1.8-2.4); PHOSPHORUS 3.2 mg/dL (2.5-4.9); THYROID STIMULATING HORMONE 2.23 uIU/mL (0.34-3.74)
[2018-05-25] MEDS: NACL 0.9% 1,000 ML IV SCH (22:25)
[2018-05-25] MEDS ORDERED: MECLIZINE 25 MG TAB PO PRN (22:50)
[2018-05-25] MEDS ORDERED: INSULIN LISPRO SLIDING SCALE 100 UNITS/ML VIAL SUBQ PRN (22:55)
[2018-05-25] MEDS ORDERED: SODIUM FERRIC GLUCONATE 125 MG in NACL 0.9% 100 ML IV ONE (22:55)
[2018-05-25] MEDS ORDERED: DEXTROSE 50% 50 ML SYR IVP PRN (22:55)
[2018-05-26] VITALS: BP 140/59
[2018-05-26 04:00] VITALS: BP 147/115
[2018-05-26] MEDS: DILTIAZEM 30 MG TAB PO SCH ×3 (04:24→21:43)
[2018-05-26] MEDS: BLOOD GLUCOSE MONITORING 1 DEV DEV FS SCH ×4 (04:34→21:42)
[2018-05-26] MEDS: PANTOPRAZOLE 40 MG TABEC PO SCH (05:34)
[2018-05-26 07:29] LABS: BASOPHILS % (AUTO) 0.4 % (0.0-2.0); EOSINOPHILS # (AUTO) 0.1 K/uL (0-0.4); EOSINOPHILS % (AUTO) 0.7 % (0.0-4.0); HEMATOCRIT 32.3 % (36-52); LYMPHOCYTES # (AUTO) 2.9 K/uL (2.0-11.5); LYMPHOCYTES % (AUTO) 27.5 % (20.5-51.1); MEAN CORPUSCULAR HEMOGLOBIN 22 pg (27-31); MEAN CORPUSCULAR HGB CONC 31 g/dL (33-37); MEAN CORPUSCULAR VOLUME 72.1 fL (80-94); MONOCYTES % (AUTO) 9.5 % (1.7-9.3); NEUTROPHILS # (AUTO) 6.5 K/uL (1.8-7.7); NEUTROPHILS % (AUTO) 61.9 % (42.2-75.2); PLATELET COUNT (AUTO) 272 K/uL (140-450); RED BLOOD CELL COUNT(AUTO) 4.48 MIL/uL (4.20-6.10); RED CELL DISTRIBUTION WIDTH 18.4 % (11.6-13.7); WHITE BLOOD COUNT (AUTO) 10.5 K/uL (4.8-10.8)
[2018-05-26 07:33] LABS: ANION GAP 11.7 (8-16); CARBON DIOXIDE 27.4 mmol/L (21-32); CHLORIDE 105 mmol/L (98-107); CREATININE 0.9 mg/dL (0.7-1.3); GLUCOSE 97 mg/dL (74-106); POTASSIUM 4.1 mmol/L (3.5-5.1); SODIUM SERUM 140 mmol/L (136-145); UREA NITROGEN, BLOOD 14 mg/dL (7-18)
[2018-05-26 08:00] VITALS: BP 118/50
[2018-05-26] MEDS: LACTOBACILLUS RHAMNOSUS GG 1 EACH CAP PO SCH (09:08)
[2018-05-26] MEDS: FERROUS SULFATE 325 MG TABEC PO SCH (09:09)
[2018-05-26] MEDS: METOPROLOL 25 MG TAB PO SCH ×2 (09:09→21:43)
[2018-05-26] MEDS: ASPIRIN 81 MG TAB.CHEW PO SCH (09:09)
[2018-05-26] MEDS: FUROSEMIDE 40 MG TAB PO SCH (09:09)
[2018-05-26 12:00] VITALS: BP 114/48
[2018-05-26] MEDS: NACL 0.9% 1,000 ML IV SCH (13:46)
[2018-05-26 17:31] VITALS: BP 111/55
[2018-05-26] MEDS: RIVAROXABAN 10 MG TAB PO SCH (17:57)
[2018-05-26 20:00] VITALS: BP 123/55
[2018-05-27] VITALS: BP 121/57
[2018-05-27 04:00] VITALS: BP 134/53
[2018-05-27] MEDS: NACL 0.9% 1,000 ML IV SCH ×2 (04:00→16:07)
[2018-05-27] MEDS: DILTIAZEM 30 MG TAB PO SCH ×3 (05:26→21:26)
[2018-05-27] MEDS: BLOOD GLUCOSE MONITORING 1 DEV DEV FS SCH ×4 (07:01→21:23)
[2018-05-27] MEDS: PANTOPRAZOLE 40 MG TABEC PO SCH (07:02)
[2018-05-27 08:00] VITALS: BP 125/56
[2018-05-27 08:10] LABS: T4 (THYROXINE) 7.8 ug/dL (4.5-12.0)
[2018-05-27 08:23] LABS: BASOPHILS # (AUTO) 0.1 K/uL (0.00-0.22); BASOPHILS % (AUTO) 0.5 % (0.0-2.0); EOSINOPHILS # (AUTO) 0.2 K/uL (0-0.4); EOSINOPHILS % (AUTO) 1.4 % (0.0-4.0); HEMATOCRIT 33.1 % (36-52); MEAN CORPUSCULAR HEMOGLOBIN 22 pg (27-31); MEAN CORPUSCULAR HGB CONC 30 g/dL (33-37); MEAN CORPUSCULAR VOLUME 72.2 fL (80-94); MONOCYTES # (AUTO) 1.1 K/uL (0.8-1.0); MONOCYTES % (AUTO) 9.7 % (1.7-9.3); NEUTROPHILS # (AUTO) 6.8 K/uL (1.8-7.7); NEUTROPHILS % (AUTO) 61.4 % (42.2-75.2); PLATELET COUNT (AUTO) 286 K/uL (140-450); RED BLOOD CELL COUNT(AUTO) 4.58 MIL/uL (4.20-6.10); RED CELL DISTRIBUTION WIDTH 18.8 % (11.6-13.7); WHITE BLOOD COUNT (AUTO) 11.1 K/uL (4.8-10.8)
[2018-05-27] MEDS: FERROUS SULFATE 325 MG TABEC PO SCH (08:52)
[2018-05-27] MEDS: FUROSEMIDE 40 MG TAB PO SCH (08:52)
[2018-05-27] MEDS: METOPROLOL 25 MG TAB PO SCH ×2 (08:52→21:26)
[2018-05-27] MEDS: ASPIRIN 81 MG TAB.CHEW PO SCH (08:52)
[2018-05-27] MEDS: LACTOBACILLUS RHAMNOSUS GG 1 EACH CAP PO SCH (08:52)
[2018-05-27 09:14] LABS: CARBON DIOXIDE 25.1 mmol/L (21-32); CHLORIDE 106 mmol/L (98-107); CREATININE 0.9 mg/dL (0.7-1.3); GLUCOSE 92 mg/dL (74-106); POTASSIUM 4.1 mmol/L (3.5-5.1); SODIUM SERUM 141 mmol/L (136-145); UREA NITROGEN, BLOOD 12 mg/dL (7-18)
[2018-05-27 09:28] LABS: MAGNESIUM 2.1 mg/dL (1.8-2.4); PHOSPHORUS 2.8 mg/dL (2.5-4.9)
[2018-05-27 12:00] VITALS: BP 110/41
[2018-05-27 17:01] VITALS: BP 117/46
[2018-05-27] MEDS: RIVAROXABAN 10 MG TAB PO SCH (17:36)
[2018-05-27 20:00] VITALS: BP 130/51
[2018-05-27] MEDS ORDERED: PIPERACILLIN/TAZOBACTAM 3.375 GM VIAL IV ONE (21:26)
[2018-05-27] MEDS ORDERED: PIPER/TAZO 3.375GM/D5W PREMIX 50 ML IV SCH (22:00)
[2018-05-28] VITALS: BP 115/45
[2018-05-28 04:00] VITALS: BP 133/60
[2018-05-28] MEDS ORDERED: PIPER/TAZO 3.375GM/D5W PREMIX 50 ML IV SCH (05:00)
[2018-05-28] MEDS: DILTIAZEM 30 MG TAB PO SCH ×2 (05:27→13:11)
[2018-05-28] MEDS: PANTOPRAZOLE 40 MG TABEC PO SCH (05:28)
[2018-05-28] MEDS ORDERED: PIPERACILLIN/TAZOBACTAM 3.375 GM VIAL IV ONE (05:30)
[2018-05-28] MEDS: PIPER/TAZO 3.375GM/D5W PREMIX 50 ML IV SCH ×2 (05:30→13:11)
[2018-05-28] MEDS: NACL 0.9% 1,000 ML IV SCH (05:33)
[2018-05-28] MEDS: BLOOD GLUCOSE MONITORING 1 DEV DEV FS SCH ×3 (06:10→16:35)
[2018-05-28 08:00] VITALS: BP 105/43
[2018-05-28] MEDS: FUROSEMIDE 40 MG TAB PO SCH (08:43)
[2018-05-28] MEDS: METOPROLOL 25 MG TAB PO SCH (08:44)
[2018-05-28] MEDS: ASPIRIN 81 MG TAB.CHEW PO SCH (08:44)
[2018-05-28] MEDS: FERROUS SULFATE 325 MG TABEC PO SCH (08:44)
[2018-05-28] MEDS: LACTOBACILLUS RHAMNOSUS GG 1 EACH CAP PO SCH (08:48)
[2018-05-28 12:00] VITALS: BP 98/35
[2018-05-28] MEDS ORDERED: ZOS3.375PM IV (14:51)
[2018-05-28 16:00] VITALS: BP 96/53
[2018-05-28] MEDS: RIVAROXABAN 10 MG TAB PO SCH (17:31)
== END 2018-05-28 20:00 | DRG 689 ==
LOC: MED 16:48 → MTU 20:31
PROVIDERS: ADMIT General Practice; ATTEND General Practice
DX: N39.0 Urinary tract infection, site not specified (principal); G93.41 Metabolic encephalopathy; E44.0 Moderate protein-calorie malnutrition; I13.0 Hypertensive heart and chronic kidney disease with heart failure and stage 1 through stage 4 chronic kidney disease, or unspecified chronic kidney disease; I50.42 Chronic combined systolic (congestive) and diastolic (congestive) heart failure; E86.0 Dehydration; K21.9 Gastro-esophageal reflux disease without esophagitis; D50.9 Iron deficiency anemia, unspecified; I48.91 Unspecified atrial fibrillation; J44.9 Chronic obstructive pulmonary disease, unspecified; F03.90 Unspecified dementia, unspecified severity, without behavioral disturbance, psychotic disturbance, mood disturbance, and anxiety; E78.00 Pure hypercholesterolemia, unspecified; N18.9 Chronic kidney disease, unspecified; E11.22 Type 2 diabetes mellitus with diabetic chronic kidney disease; E78.2 Mixed hyperlipidemia; J32.2 Chronic ethmoidal sinusitis; J32.0 Chronic maxillary sinusitis; Z68.28 Body mass index [BMI] 28.0-28.9, adult; Z79.01 Long term (current) use of anticoagulants; Z79.82 Long term (current) use of aspirin; Z79.899 Other long term (current) drug therapy; Z86.73 Personal history of transient ischemic attack (TIA), and cerebral infarction without residual deficits; Z86.711 Personal history of pulmonary embolism
CPT/HCPCS: 36415; 70450; 71045; 80048; 80053; 80305; 81001; 82150; 82550; 82607; 82728; 82746; 82948; 83036; 83540; 83605; 83690; 83735; 83880; 84100; 84436; 84439; 84443; 84479; 84484; 85025; 85045; 85610; 85730; 87040; 87081; 87086; 87186; 93005; 96365; 97116; 97530; 99285; C1758; J0696; J1815; J2543; J7030; J7060; Q0092

== ENCOUNTER 2019-02-20 14:45 | Inpatient (IN) | payer OTHER ==
[~2019-02-20] VITALS: Ht 162.6 cm; Wt 65.8 kg
[~2019-02-20 14:45] MED LIST changes: -ACET-2619 PO; -ALBU3SOL83 IH; -BISA-213 RC; -CALC-20 PO; -NA P133E RC; +RIVA20TA PO; -WARF2TAB99 PO; +ZOS3.375PM IV; -[UNRECOGNIZED DRUG - CODE] PO
[2019-02-20 14:48] VITALS: BP 115/52
[2019-02-20] MEDS ORDERED: CRAN450T5 PO (14:56)
[2019-02-20] MEDS ORDERED: LACT1CAP94 PO (14:56)
[2019-02-20 15:35] LABS: HEMATOCRIT 22.9 % (36-52); MEAN CORPUSCULAR HEMOGLOBIN 16 pg (27-31); MEAN CORPUSCULAR HGB CONC 28 g/dL (33-37); MEAN CORPUSCULAR VOLUME 58.1 fL (80-94); PLATELET COUNT (AUTO) 306 K/uL (140-450); RED BLOOD CELL COUNT(AUTO) 3.95 MIL/uL (4.20-6.10); RED CELL DISTRIBUTION WIDTH 21.5 % (11.6-13.7); WHITE BLOOD COUNT (AUTO) 21.9 K/uL (4.8-10.8)
[2019-02-20 15:48] LABS: ANION GAP 14.3 (8-16); CARBON DIOXIDE 24.5 mmol/L (21-32); CHLORIDE 105 mmol/L (98-107); CREATININE 1.7 mg/dL (0.7-1.3); GLUCOSE 144 mg/dL (74-106); POTASSIUM 3.8 mmol/L (3.5-5.1); PROTHROMBIN TIME 11.5 secs (10.8-13.4); SODIUM SERUM 140 mmol/L (136-145); UREA NITROGEN, BLOOD 43 mg/dL (7-18)
[2019-02-20 15:59] LABS: HEMOGLOBIN 6.4 g/dL (12.0-18.0)
[2019-02-20 16:02] LABS: BASOPHILS % (MANUAL) 0 % (0-2); EOSINOPHILS % (MANUAL) 0 % (0-4); LYMPHOCYTES % (MANUAL) 10 % (20-46); MONOCYTES % (MANUAL) 6 % (5-12)
[2019-02-20] MEDS: NACL 0.9% 1,000 ML IV SCH (16:07)
[2019-02-20] MEDS ORDERED: MEDICATION REC. PHARMACY CONS. 1 EA MISC MC PRN (16:10)
[2019-02-20] MEDS ORDERED: DOCUSATE SODIUM 100 MG GELCAP PO PRN (16:10)
[2019-02-20] MEDS ORDERED: HYDROcodone/APAP 7.5/325 MG 1 TAB PO PRN (16:10)
[2019-02-20] MEDS ORDERED: MORPHINE SULFATE 2 MG/ML SYR IVP PRN (16:10)
[2019-02-20] MEDS ORDERED: ACETAMINOPHEN 325 MG TAB PO PRN (16:10)
[2019-02-20] MEDS ORDERED: ONDANSETRON 4 MG/2 ML VIAL IM/IVP PRN (16:10)
[2019-02-20 16:22] LABS: APPEARANCE,URINE CLOUDY (CLEAR); BILIRUBIN,URINE NEGATIVE (NEGATIVE); BLOOD, URINE 2+ (NEGATIVE); COLOR,URINE YELLOW (YELLOW); LEUKOCYTE ESTERASE ,URINE 3+ (NEGATIVE); NITRITE, URINE POSITIVE (NEGATIVE); UGLUCOSE NEGATIVE (NEGATIVE)
[2019-02-20 16:25] LABS: WBC,URINE TOO MANY TO COUNT /HPF (0-5)
[2019-02-20 16:26] LABS: URIC ACID CRYSTALS,URINE 0-10 /HPF (None Seen)
[2019-02-20 17:20] VITALS: BP 97/40
[2019-02-20 18:08] LABS: CHOL/HDL RATIO 2.2 (1-4.5); MAGNESIUM 2.5 mg/dL (1.8-2.4); PHOSPHORUS 4.2 mg/dL (2.5-4.9); THYROID STIMULATING HORMONE 1.98 uIU/mL (0.34-3.74)
[2019-02-20 18:12] LABS: ALBUMIN 2.7 g/dL (3.4-5.0); TOTAL BILIRUBIN 0.5 mg/dL (0.0-1.0)
[2019-02-20 20:00] VITALS: BP 114/43
[2019-02-20] MEDS: DOCUSATE SODIUM 100 MG GELCAP PO SCH (20:51)
[2019-02-20] MEDS: DILTIAZEM 30 MG TAB PO SCH (20:53)
[2019-02-20] MEDS: METOPROLOL 25 MG TAB PO SCH (21:00)
[2019-02-21] VITALS: BP 114/61
[2019-02-21 04:00] VITALS: BP 113/50
[2019-02-21] MEDS ORDERED: DEXTROSE 50% 50 ML SYR IVP PRN (04:55)
[2019-02-21] MEDS: DILTIAZEM 30 MG TAB PO SCH ×3 (05:12→21:00)
[2019-02-21] MEDS ORDERED: cefTRIAXone 1,000 MG VIAL ONE (05:52)
[2019-02-21] MEDS: BLOOD GLUCOSE MONITORING 1 DEV DEV FS SCH ×4 (06:13→21:59)
[2019-02-21 07:37] LABS: BASOPHILS # (AUTO) 0.1 K/uL (0.00-0.22); BASOPHILS % (AUTO) 0.4 % (0.0-2.0); EOSINOPHILS # (AUTO) 0.2 K/uL (0-0.4); HEMATOCRIT 24.7 % (36-52); HEMOGLOBIN 7.3 g/dL (12.0-18.0); LYMPHOCYTES % (AUTO) 12.6 % (20.5-51.1); MEAN CORPUSCULAR HEMOGLOBIN 18 pg (27-31); MEAN CORPUSCULAR HGB CONC 30 g/dL (33-37); MEAN CORPUSCULAR VOLUME 60.9 fL (80-94); MONOCYTES # (AUTO) 1.8 K/uL (0.8-1.0); MONOCYTES % (AUTO) 11.5 % (1.7-9.3); NEUTROPHILS # (AUTO) 11.7 K/uL (1.8-7.7); NEUTROPHILS % (AUTO) 74.5 % (42.2-75.2); PLATELET COUNT (AUTO) 258 K/uL (140-450); RED BLOOD CELL COUNT(AUTO) 4.05 MIL/uL (4.20-6.10); RED CELL DISTRIBUTION WIDTH 24.6 % (11.6-13.7); WHITE BLOOD COUNT (AUTO) 15.7 K/uL (4.8-10.8)
[2019-02-21 07:53] LABS: ANION GAP 12.9 (8-16); CARBON DIOXIDE 26.1 mmol/L (21-32); CHLORIDE 107 mmol/L (98-107); CREATININE 1.2 mg/dL (0.7-1.3); GLUCOSE 86 mg/dL (74-106); SODIUM SERUM 142 mmol/L (136-145); UREA NITROGEN, BLOOD 37 mg/dL (7-18)
[2019-02-21 08:00] VITALS: BP 116/50
[2019-02-21] MEDS ORDERED: FERROUS SULFATE 325 MG TABEC PO SCH (08:00)
[2019-02-21 08:01] LABS: MAGNESIUM 2.3 mg/dL (1.8-2.4); PHOSPHORUS 2.8 mg/dL (2.5-4.9)
[2019-02-21] MEDS: FUROSEMIDE 40 MG TAB PO SCH (08:38)
[2019-02-21] MEDS: DOCUSATE SODIUM 100 MG GELCAP PO SCH (08:39)
[2019-02-21] MEDS: METOPROLOL 25 MG TAB PO SCH ×2 (08:40→21:00)
[2019-02-21] MEDS: NACL 0.9% 1,000 ML IV SCH (08:41)
[2019-02-21] MEDS: LACTULOSE 20 GM/30 ML UDC PO SCH ×2 (08:41→21:00)
[2019-02-21] MEDS: SODIUM FERRIC GLUCONATE 125 MG in NACL 0.9% 100 ML IV SCH (09:00)
[2019-02-21] MEDS ORDERED: NON-FORMULARY ITEM (Potassium Chloride 1 CAP) PO SCH (09:00)
[2019-02-21] MEDS ORDERED: ASCORBIC ACID 500 MG TAB PO SCH (09:00)
[2019-02-21] MEDS ORDERED: POTASSIUM CHLORIDE 10 MEQ TABER PO ONE (09:00)
[2019-02-21] MEDS ORDERED: MAGNESIUM CITRATE 300 ML BTL PO SCH (10:00)
[2019-02-21] MEDS: PIPERACILLIN/TAZOBACTAM 2.25 GM in DEXTROSE 5% 50 ML IV SCH ×2 (11:14→17:27)
[2019-02-21] MEDS ORDERED: PIPERACILLIN/TAZOBACTAM 3.375 GM in DEXTROSE 5% 50 ML IV SCH (12:00)
[2019-02-21] MEDS: SENNA 8.6 MG TAB PO SCH ×2 (12:54→17:00)
[2019-02-21] MEDS ORDERED: fentaNYL 0.05 MG/ML VIAL ONE (14:29)
[2019-02-21] MEDS ORDERED: diphenhydrAMINE 50 MG/ML VIAL ONE (14:30)
[2019-02-21] MEDS ORDERED: MIDAZOLAM 2 MG/2 ML VIAL ONE (14:30)
[2019-02-21] MEDS ORDERED: fentaNYL 0.05 MG/ML VIAL IVP ONE (14:55)
[2019-02-21] MEDS ORDERED: MIDAZOLAM 2 MG/2 ML VIAL IVP ONE (14:58)
[2019-02-21] MEDS: METOCLOPRAMIDE 10 MG TAB PO SCH (16:30)
[2019-02-21] MEDS: FERROUS SULFATE 325 MG TABEC PO SCH (17:00)
[2019-02-21 20:00] VITALS: BP 140/70
[2019-02-22] MEDS: PIPERACILLIN/TAZOBACTAM 2.25 GM in DEXTROSE 5% 50 ML IV SCH ×5 (00:38→23:28)
[2019-02-22 04:00] VITALS: BP 110/65
[2019-02-22] MEDS: DILTIAZEM 30 MG TAB PO SCH ×3 (05:33→21:35)
[2019-02-22] MEDS: BLOOD GLUCOSE MONITORING 1 DEV DEV FS SCH ×4 (06:05→21:53)
[2019-02-22 08:08] LABS: BASOPHILS # (AUTO) 0.1 K/uL (0.00-0.22); BASOPHILS % (AUTO) 0.5 % (0.0-2.0); EOSINOPHILS % (AUTO) 0.1 % (0.0-4.0); HEMOGLOBIN 7.5 g/dL (12.0-18.0); LYMPHOCYTES # (AUTO) 1.4 K/uL (2.0-11.5); LYMPHOCYTES % (AUTO) 13.8 % (20.5-51.1); MEAN CORPUSCULAR HEMOGLOBIN 18 pg (27-31); MEAN CORPUSCULAR HGB CONC 30 g/dL (33-37); MEAN CORPUSCULAR VOLUME 60.5 fL (80-94); MONOCYTES # (AUTO) 1.1 K/uL (0.8-1.0); MONOCYTES % (AUTO) 10.6 % (1.7-9.3); NEUTROPHILS # (AUTO) 7.5 K/uL (1.8-7.7); PLATELET COUNT (AUTO) 277 K/uL (140-450); RED BLOOD CELL COUNT(AUTO) 4.13 MIL/uL (4.20-6.10); RED CELL DISTRIBUTION WIDTH 24.7 % (11.6-13.7)
[2019-02-22] MEDS: METOPROLOL 25 MG TAB PO SCH ×2 (08:53→21:36)
[2019-02-22] MEDS: FERROUS SULFATE 325 MG TABEC PO SCH ×3 (08:53→17:01)
[2019-02-22] MEDS: FUROSEMIDE 40 MG TAB PO SCH (08:53)
[2019-02-22] MEDS: METOCLOPRAMIDE 10 MG TAB PO SCH ×3 (08:53→17:01)
[2019-02-22] MEDS: PANTOPRAZOLE 40 MG INJ VIAL IVP SCH (08:54)
[2019-02-22] MEDS: SENNA 8.6 MG TAB PO SCH ×3 (08:54→17:01)
[2019-02-22] MEDS: SODIUM FERRIC GLUCONATE 125 MG in NACL 0.9% 100 ML IV SCH (09:01)
[2019-02-22] MEDS: INSULIN LISPRO SLIDING SCALE 100 UNITS/ML VIAL SUBQ PRN (12:19)
[2019-02-22 16:00] VITALS: BP 104/44
[2019-02-22 16:15] LABS: CARBON DIOXIDE 25.4 mmol/L (21-32); CHLORIDE 109 mmol/L (98-107); CREATININE 1.1 mg/dL (0.7-1.3); GLUCOSE 90 mg/dL (74-106); POTASSIUM 4.4 mmol/L (3.5-5.1); SODIUM SERUM 145 mmol/L (136-145); UREA NITROGEN, BLOOD 27 mg/dL (7-18)
[2019-02-23] VITALS: BP 110/59
[2019-02-23 00:10] LABS: FOLIC ACID 12.4 ng/mL (>3.0); T4 (THYROXINE) 5.8 ug/dL (4.5-12.0)
[2019-02-23] MEDS: DILTIAZEM 30 MG TAB PO SCH ×3 (05:00→20:56)
[2019-02-23] MEDS: DEXT 5% /NACL 0.9% 1,000 ML IV SCH ×3 (05:11→21:13)
[2019-02-23] MEDS: PIPERACILLIN/TAZOBACTAM 2.25 GM in DEXTROSE 5% 50 ML IV SCH ×4 (05:12→23:20)
[2019-02-23] MEDS: BLOOD GLUCOSE MONITORING 1 DEV DEV FS SCH ×4 (06:55→21:04)
[2019-02-23] MEDS: METOCLOPRAMIDE 10 MG TAB PO SCH ×3 (06:57→17:35)
[2019-02-23 08:00] VITALS: BP 102/51
[2019-02-23] MEDS ORDERED: ECOTRIN 81 MG TABEC PO SCH (09:00)
[2019-02-23] MEDS: FUROSEMIDE 40 MG TAB PO SCH (09:00)
[2019-02-23] MEDS: METOPROLOL 25 MG TAB PO SCH ×2 (09:00→21:00)
[2019-02-23] MEDS: SENNA 8.6 MG TAB PO SCH ×3 (09:17→17:34)
[2019-02-23] MEDS: FERROUS SULFATE 325 MG TABEC PO SCH ×3 (09:17→17:34)
[2019-02-23] MEDS: PANTOPRAZOLE 40 MG INJ VIAL IVP SCH (09:19)
[2019-02-23] MEDS: LACTULOSE 20 GM/30 ML UDC PO SCH (09:19)
[2019-02-23] MEDS ORDERED: fentaNYL 0.05 MG/ML VIAL ONE (09:56)
[2019-02-23] MEDS ORDERED: MIDAZOLAM 2 MG/2 ML VIAL ONE ×2 (09:56)
[2019-02-23] MEDS: fentaNYL 0.05 MG/ML VIAL IVP ONE ×2 (11:07→11:55)
[2019-02-23] MEDS: MIDAZOLAM 2 MG/2 ML VIAL IVP ONE ×2 (11:07→11:55)
[2019-02-23] MEDS: SODIUM FERRIC GLUCONATE 125 MG in NACL 0.9% 100 ML IV SCH (11:52)
[2019-02-23 14:15] LABS: BASOPHILS # (AUTO) 0.1 K/uL (0.00-0.22); BASOPHILS % (AUTO) 0.6 % (0.0-2.0); EOSINOPHILS # (AUTO) 0.1 K/uL (0-0.4); HEMATOCRIT 28.3 % (36-52); HEMOGLOBIN 8.2 g/dL (12.0-18.0); LYMPHOCYTES # (AUTO) 2.2 K/uL (2.0-11.5); LYMPHOCYTES % (AUTO) 24.2 % (20.5-51.1); MEAN CORPUSCULAR HEMOGLOBIN 18 pg (27-31); MEAN CORPUSCULAR HGB CONC 29 g/dL (33-37); MONOCYTES # (AUTO) 1.3 K/uL (0.8-1.0); MONOCYTES % (AUTO) 14.7 % (1.7-9.3); NEUTROPHILS # (AUTO) 5.3 K/uL (1.8-7.7); NEUTROPHILS % (AUTO) 59.5 % (42.2-75.2); PLATELET COUNT (AUTO) 280 K/uL (140-450); RED BLOOD CELL COUNT(AUTO) 4.57 MIL/uL (4.20-6.10); RED CELL DISTRIBUTION WIDTH 24.7 % (11.6-13.7)
[2019-02-23 14:35] LABS: ANION GAP 13.9 (8-16); CARBON DIOXIDE 24.4 mmol/L (21-32); CHLORIDE 109 mmol/L (98-107); CREATININE 1.3 mg/dL (0.7-1.3); GLUCOSE 152 mg/dL (74-106); POTASSIUM 3.3 mmol/L (3.5-5.1); SODIUM SERUM 144 mmol/L (136-145); UREA NITROGEN, BLOOD 18 mg/dL (7-18)
[2019-02-23 14:40] LABS: MAGNESIUM 2.4 mg/dL (1.8-2.4); PHOSPHORUS 2.3 mg/dL (2.5-4.9)
[2019-02-23 16:00] VITALS: BP 118/52
[2019-02-23] MEDS ORDERED: POTASSIUM CHLORIDE 10 MEQ TABER PO SCH (16:00)
[2019-02-23] MEDS ORDERED: RIVAROXABAN 10 MG TAB PO SCH (17:00)
[2019-02-23] MEDS: INSULIN LISPRO SLIDING SCALE 100 UNITS/ML VIAL SUBQ PRN ×2 (17:57→21:05)
[2019-02-23] MEDS: SODIUM PHOS / POTASSIUM PHOS 1 PKT PDR PO SCH (20:56)
[2019-02-24] VITALS: BP 113/55
[2019-02-24] MEDS: DILTIAZEM 30 MG TAB PO SCH (04:25)
[2019-02-24] MEDS: PIPERACILLIN/TAZOBACTAM 2.25 GM in DEXTROSE 5% 50 ML IV SCH (05:58)
[2019-02-24] MEDS: METOCLOPRAMIDE 10 MG TAB PO SCH (06:31)
[2019-02-24] MEDS: BLOOD GLUCOSE MONITORING 1 DEV DEV FS SCH (06:37)
[2019-02-24 08:00] VITALS: BP 133/50
[2019-02-24] MEDS: FUROSEMIDE 40 MG TAB PO SCH (08:33)
[2019-02-24] MEDS: FERROUS SULFATE 325 MG TABEC PO SCH (08:33)
[2019-02-24] MEDS: METOPROLOL 25 MG TAB PO SCH (08:35)
[2019-02-24] MEDS: SENNA 8.6 MG TAB PO SCH (08:45)
[2019-02-24] MEDS: LACTULOSE 20 GM/30 ML UDC PO SCH (08:46)
[2019-02-24] MEDS: SODIUM PHOS / POTASSIUM PHOS 1 PKT PDR PO SCH (08:46)
[2019-02-24] MEDS: PANTOPRAZOLE 40 MG INJ VIAL IVP SCH (08:46)
[2019-02-24] MEDS ORDERED: OMEP20TC12 PO (09:06)
[2019-02-24] MEDS ORDERED: FER325 PO (09:06)
[2019-02-24] MEDS ORDERED: PIPE1PDS26 IV (09:31)
== END 2019-02-24 11:05 | DRG 377 ==
LOC: MED 14:45 → MTU 16:10 → MMU 18:48
PROVIDERS: ADMIT General Practice; ATTEND General Practice
PROC: 30233N1 Transfusion of Nonautologous Red Blood Cells into Peripheral Vein, Percutaneous Approach (ICD-10-PCS; principal; 2019-02-21 15:20)
PROC: 0DJ08ZZ Inspection of Upper Intestinal Tract, Via Natural or Artificial Opening Endoscopic (ICD-10-PCS; 2019-02-22)
PROC: 0DJD8ZZ Inspection of Lower Intestinal Tract, Via Natural or Artificial Opening Endoscopic (ICD-10-PCS; 2019-02-23)
DX: K29.71 Gastritis, unspecified, with bleeding (principal); N17.0 Acute kidney failure with tubular necrosis; G93.41 Metabolic encephalopathy; E43 Unspecified severe protein-calorie malnutrition; J69.0 Pneumonitis due to inhalation of food and vomit; I50.43 Acute on chronic combined systolic (congestive) and diastolic (congestive) heart failure; N12 Tubulo-interstitial nephritis, not specified as acute or chronic; I13.0 Hypertensive heart and chronic kidney disease with heart failure and stage 1 through stage 4 chronic kidney disease, or unspecified chronic kidney disease; D50.9 Iron deficiency anemia, unspecified; F01.50 Vascular dementia, unspecified severity, without behavioral disturbance, psychotic disturbance, mood disturbance, and anxiety; I48.91 Unspecified atrial fibrillation; K21.9 Gastro-esophageal reflux disease without esophagitis; E11.22 Type 2 diabetes mellitus with diabetic chronic kidney disease; K44.9 Diaphragmatic hernia without obstruction or gangrene; J45.909 Unspecified asthma, uncomplicated; N18.9 Chronic kidney disease, unspecified; K72.90 Hepatic failure, unspecified without coma; K59.00 Constipation, unspecified; Z68.24 Body mass index [BMI] 24.0-24.9, adult; Z79.82 Long term (current) use of aspirin; Z95.1 Presence of aortocoronary bypass graft; Z79.899 Other long term (current) drug therapy; Z86.73 Personal history of transient ischemic attack (TIA), and cerebral infarction without residual deficits
CPT/HCPCS: 36415; 71045; 74018; 76700; 80048; 81001; 82040; 82140; 82150; 82247; 82272; 82607; 82728; 82746; 82948; 82977; 83036; 83540; 83605; 83690; 83735; 83880; 84100; 84155; 84436; 84443; 84450; 84460; 84484; 85025; 85045; 85610; 85730; 86886; 86900; 86901; 86920; 87040; 87045; 87081; 87086; 87186; 89055; 92610; 93005; 97110; 97161-GP; 97530; 99285; C1758; C9113; J0696; J1200; J2250; J2543; J2916; J3010; J7030; J7042; J7060; J8597; P9016; Q0092

== ENCOUNTER 2020-01-20 00:25 | Inpatient (IN) | payer OTHER ==
[~2020-01-20] VITALS: Ht 172.7 cm; Wt 68.0 kg
[~2020-01-20 00:25] MED LIST changes: -ASCO-786 PO; -ASPI81EC97 PO; +CRAN450T5 PO; +FER325 PO; +LACT1CAP94 PO; +OMEP20TC12 PO; -PANT40EC PO; +PIPE1PDS26 IV; -RIVA20TA PO; -ZOS3.375PM IV
--- NOTE | 2020-01-20 00:25 | NUR ---
89 YO M BIBA FROM [facility] [place] FOR C/C OF O2 DESATURATION OF 85% ON ROOM AIR. PT PRESENTS TO ER WITH A 15L NRB IN PLACE SATING AT 96%. PT PRESENTS A&O X1 AND NON VERBAL WHEN NORMALLY A&O X4/VERBAL. PT TESTED + FOR COVID TODAY. PT IS AFEBRILE AND TACCHYCARDIC AT 118. S1S2 HEARD. CRACKLES AUSCULTATED IN BILATERAL LOWER LUNG BASES. BOWEL SOUNDS NORMOACTIVE THROUGHOUT. BED LOCKED AND IN LOWEST POSITION. TITLE CURATOR IN PLACE. [facility] HX: BYPASS SURGERY, A FIB, DEMENTIA, DM2
--- NOTE | 2020-01-20 00:25 | NUR ---
PT JUSTICE ALS. TAKEN TO BED 10
[2020-01-20 00:30] VITALS: BP 106/72
[2020-01-20] MEDS ORDERED: AZITHROMYCIN 500 MG in DEXTROSE 5% 250 ML IV ONE (00:50)
[2020-01-20] MEDS ORDERED: DEXAMETHASONE 10 MG/ML VIAL IVP ONE (00:50)
[2020-01-20] MEDS ORDERED: AZITHROMYCIN 500 MG INJ VIAL IV ONE (00:55)
[2020-01-20 00:57] LABS: APPEARANCE,URINE SL CLOUDY (CLEAR); BILIRUBIN,URINE NEGATIVE (NEGATIVE); BLOOD, URINE NEGATIVE (NEGATIVE); COLOR,URINE YELLOW (YELLOW); LEUKOCYTE ESTERASE ,URINE NEGATIVE (NEGATIVE); NITRITE, URINE NEGATIVE (NEGATIVE); UGLUCOSE NEGATIVE (NEGATIVE)
[2020-01-20 00:58] LABS: BASOPHILS % (AUTO) 0.4 % (0.0-2.0); EOSINOPHILS % (AUTO) 0.1 % (0.0-4.0); HEMATOCRIT 46.2 % (36-52); HEMOGLOBIN 15.5 g/dL (12.0-18.0); LYMPHOCYTES # (AUTO) 1.8 K/uL (2.0-11.5); LYMPHOCYTES % (AUTO) 18.7 % (20.5-51.1); MEAN CORPUSCULAR HEMOGLOBIN 31 pg (27-31); MEAN CORPUSCULAR HGB CONC 34 g/dL (33-37); MEAN CORPUSCULAR VOLUME 93.1 fL (80-94); MONOCYTES # (AUTO) 0.7 K/uL (0.8-1.0); NEUTROPHILS # (AUTO) 6.8 K/uL (1.8-7.7); NEUTROPHILS % (AUTO) 72.8 % (42.2-75.2); PLATELET COUNT (AUTO) 152 K/uL (140-450); RED BLOOD CELL COUNT(AUTO) 4.96 MIL/uL (4.20-6.10); RED CELL DISTRIBUTION WIDTH 14.2 % (11.6-13.7); WHITE BLOOD COUNT (AUTO) 9.4 K/uL (4.8-10.8)
--- NOTE | 2020-01-20 01:01 | NUR ---
Jana vazquez in [facility] - 01/20/[address] at [address] Brown examining patient.
--- NOTE | 2020-01-20 01:01 | NUR ---
X-Ray at bedside.
[2020-01-20 01:08] LABS: C-REACTIVE PROTEIN QUANT 9.7 mg/dL (0.0-0.9)
[2020-01-20 01:14] LABS: LACTATE DEHYDROGENASE 417 U/L (85-227)
[2020-01-20 01:21] LABS: ALBUMIN 2.6 g/dL (3.4-5.0); ANION GAP 16.7 (8-16); ASPARTATE AMINOTRANSFERASE 80 U/L (15-37); CARBON DIOXIDE 23.2 mmol/L (21-32); CHLORIDE 108 mmol/L (98-107); GLUCOSE 133 mg/dL (74-106); POTASSIUM 3.9 mmol/L (3.5-5.1); SODIUM SERUM 144 mmol/L (136-145); TOTAL BILIRUBIN 0.5 mg/dL (0.0-1.0); UREA NITROGEN, BLOOD 39 mg/dL (7-18)
[2020-01-20] MEDS ORDERED: NA P133E RC (01:22)
[2020-01-20] MEDS ORDERED: MULT-1328 PO (01:22)
[2020-01-20] MEDS ORDERED: BISA-218 RC (01:22)
[2020-01-20] MEDS ORDERED: MAGN400S60 PO (01:22)
[2020-01-20] MEDS ORDERED: [UNRECOGNIZED DRUG - CODE] PO (01:22)
[2020-01-20 01:23] LABS: PROTHROMBIN TIME 9.3 secs (10.8-13.4)
--- NOTE | 2020-01-20 01:43 | NUR ---
SPOKE TO PTS DAUGHTER OLGA TO GIVE AN UPDATE ON PT. OLGA YEE
--- NOTE | 2020-01-20 01:44 | NUR ---
PT RESTING IN BED. EQUAL CHEST RISE AND FALL. MARKET DEVELOPMENT MANAGER AND PULSE OX IN PLACE. BED LOCKED AND IN LOWEST POSITION.
--- NOTE | 2020-01-20 01:50 | NUR ---
covering primary SANTANA Moody for lunch. assumed pt care at this time.
[2020-01-20 02:06] LABS: RSV NEGATIVE (NEGATIVE)
--- NOTE | 2020-01-20 02:48 | NUR ---
Note george in [facility] - 01/20/20 at 0248 by [facility] heparin protocol initiated. please refer to [facility] for dosing.
--- NOTE | 2020-01-20 03:07 | NUR ---
PT ADMIT TO TELEMETRY ROOM-116.
--- NOTE | 2020-01-20 03:10 | NUR ---
PT ROOM WAS CHANGE TO ROOM 117.
--- NOTE | 2020-01-20 03:32 | NUR ---
LAB AT BEDSIDE
--- NOTE | 2020-01-20 03:33 | NUR ---
PT RESTING IN BED. EQUAL CHEST RISE AND FALL. FINANCIAL INVESTMENT ADVISER AND PULSE OX IN PLACE. BED LOCKED AND IN LOWEST POSITION.
--- NOTE | 2020-01-20 03:55 | NUR ---
Patient will be admitted to care of [facility]. Admited to TELE. Will go to room 117. Belongings list completed. Report to SANTANA BUENROSTRO.
--- NOTE | 2020-01-20 03:55 | NUR ---
RECEIVED REPORT FROM ER NURSE. PATIENT IS AWAKE AND NON-VERBAL, ABLE TO FOLLOW COMMAND. RESPIRATION EVEN UNLABORED ON NON-REBREATHER MASK 15L O2. NO DISTRESS NOTED. SKIN IS WARM AND DRY. IV PATENT AND INTACT. HEART RATE REGULAR. LUNGS SOUNDS DIMINISHED BILATERALLY. BOWEL SOUNDS PRESENT IN ALL QUADRANTS. ABDOMEN SOFT AND NON-TENDER TO TOUCH. MRSA SCREEN DONE. VITALS WERE TAKEN. ORIENT PATIENT TO THE ROOM, STAFF, AND CALL LIGHT. PLAN OF CARE WAS DISCUSSED. ALL SAFETY MEASURES IN PLACE. BED IS AT LOW POSITION. CALL LIGHT WITHIN REACH. WILL CONTINUE TO MONITOR.
[2020-01-20 04:00] VITALS: BP 132/73
--- NOTE | 2020-01-20 04:10 | NUR ---
CALLED DR. BAIRES FOR CRITICAL LAB VALUE. ALSO ASKED FOR ANY NEW ADMISSION ORDERS. PER DR. BAIRES NO NEW ORDERS FROM NOW. HE WILL SEE THE PATIENT LATER TODAY.
[2020-01-20] MEDS ORDERED: HYDROcodone/APAP 7.5/325 MG 1 TAB PO PRN (06:20)
[2020-01-20] MEDS ORDERED: ZOLPIDEM 5 MG TAB PO PRN (06:20)
[2020-01-20] MEDS ORDERED: guaiFENesin DM 200/20 MG-10 ML 10 ML UDC PO PRN (06:20)
[2020-01-20] MEDS ORDERED: DOCUSATE SODIUM 100 MG GELCAP PO PRN (06:20)
[2020-01-20] MEDS ORDERED: POTASSIUM CHLORIDE 10 MEQ TABER PO PRN (06:20)
[2020-01-20] MEDS ORDERED: ACETAMINOPHEN 325 MG TAB PO PRN (06:20)
[2020-01-20] MEDS ORDERED: ONDANSETRON 4 MG/2 ML VIAL IM/IVP PRN (06:20)
[2020-01-20] MEDS ORDERED: ALBUTEROL HFA MDI 90 MCG/ACTUATION 8 GM INH PRN (06:25)
[2020-01-20] MEDS: NACL 0.9% 1,000 ML IV SCH ×2 (06:55→20:16)
--- NOTE | 2020-01-20 07:13 | NUR ---
ENDORSED PATIENT TO DAY SHIFT NURSE. PATIENT IN STABLE CONDITION.
--- NOTE | 2020-01-20 07:15 | NUR ---
RECEIVED REPORT FROM PM RNPORTER. PT CAME FROM [facility]. POSITIVE FOR COVID19. CO: LOW O2 SAT. DX: HYPOXIA, PNEUMONIA, RENAL AZOTEMIA. HX: AFIB, COPD, DM, DEMENTIA, AND HTN. NKA. FULL CODE. IV: LT HAND 20G SL, RT AC 20G RUNNING NS AT 80. PT ON NON REBREATHER 15L. SKIN IS INTACT. PT HAS A HEALED SACRAL WOUND. PT IS NONVERBAL BUT THAT IS NOT HIS NORMAL BASELINE. PLAN: MONITOR LACTIC ACID, COLLECT MRSA, OBTAIN CONSENT, MONITOR O2 SAT, AND BLOOD SUGAR.
[2020-01-20 07:31] LABS: CHOL/HDL RATIO 3.6 (1-4.5); FREE T4 (FREE THYROXINE) 1.03 ng/dL (0.76-1.46); MAGNESIUM 2.3 mg/dL (1.8-2.4); THYROID STIMULATING HORMONE 1.71 uIU/mL (0.34-3.74)
[2020-01-20 08:00] VITALS: BP 130/84
--- NOTE | 2020-01-20 08:45 | NUR ---
PERSON OF CONTACT. OLGA (PTS SISTER) [phone]
[2020-01-20] MEDS ORDERED: COMMUNICATION ORDER MC SCH (09:00)
[2020-01-20] MEDS ORDERED: DEXAMETHASONE 4 MG TAB PO SCH (09:00)
--- NOTE | 2020-01-20 09:00 | NUR ---
PASSED MEDICATIONS CRUSHED AND MIXED IN APPLE SAUCE. PT TOLERATED WELL. PT RESTING IN BED. RESPIRATIONS ARE EVEN AND UNLABORED. WILL CONTINUE TO MONITOR. MRSA COLLECTED. WALKED TO LAB
--- NOTE | 2020-01-20 09:24 | NUR ---
PATIENT HAS BEEN SCREENED AND CATEGORIZED MODERATE NUTRITION RISK. PATIENT WILL BE SEEN WITHIN 3-5 DAYS OF ADMISSION. 01/22/20 01/24/[address]
[2020-01-20] MEDS: PANTOPRAZOLE 40 MG TABEC PO SCH (09:28)
[2020-01-20] MEDS: ASCORBIC ACID 500 MG TAB PO SCH (09:29)
[2020-01-20] MEDS: ZINC SULF 220 MG CAP PO SCH (09:29)
[2020-01-20] MEDS: DILTIAZEM 30 MG TAB PO SCH ×3 (09:29→17:12)
[2020-01-20] MEDS: METOPROLOL 25 MG TAB PO SCH ×2 (09:57→21:17)
--- NOTE | 2020-01-20 10:00 | NUR ---
PT IS RESTING IN BED. RESPIRATIONS ARE EVEN AND UNLABORED. NO SIGNS OF DISTRESS. WILL CONTINUE TO MONITOR.
--- NOTE | 2020-01-20 11:05 | NUR ---
ACCOUNT MANAGER RELIEF NOTE: Patient's Orientation Unable To Assess Information Provided By MIRANDA - AYALA Comments SW WAS UNABLE TO MEET PATIENT AT BEDSIDE DUE TO MEDICAL CONDITION. PER MIRANDA, PATIENT IS ALERT/ORIENTED. PER MIRANDA, PATIENT IS ABLE TO MAKE HIS NEEDS KNOWN. Geological Survey Field Assistant, Realtionship and Phone Number OLGA YEE DAUGHTER/HEALTHCARE DECISION MAKER [phone] Healthcare Power of Boiler Room Helper No Does Patient Have a POLST No Identifying Problems No Social Work Triggers Is A Social Work Consult Needed No Mandate Report Filed No Explanation Of Identifying Problems PATIENT IS AN 89-YEAR-OLD MALE ADMITTED FOR HYPOXIA. PATIENT HAS PMHX OF CVA, AFIB, HYPERTENSION, DIABETES TYPE 2, CHF, AND DEMENTIA. Admitted From Intermediate Facility Intermediate Facility [facility] - [phone] Pre-Admission Level Of Functioning Status Total Care Prior Resources/Services Used In Last 12 Months SNF Long-Term Care Prior DME Hospital Bed Wheelchair Patient Had Caregiver No Home Support No Caregiver Issues Financial Issues No Known Financial Issue Referral To The Financial Counselor Needed No Factors/Needs SNF/NH Placement Explanation And Or Other Factors Affecting/Possible DC Needs PER MIRANDA, PATIENT IS [facility] AND ON A BED HOLD. Discharge Plan Comments TENTATIVE DISCHARGE PLAN IS FOR PATIENT TO RETURN TO [facility]. DC Plan Status Initiated
[2020-01-20 12:00] VITALS: BP 122/64
--- NOTE | 2020-01-20 12:18 | NUR ---
DC PLANNIN YRS OLD MALE PATIENT WAS ADMITTED FROM [facility] WITH A DX OF. HYPOXIA COVID POSITIVE AND PNEUMONIA . PATIENT HAS A HX OF CVA, A-FIB ,HTN, DM, CHF, DEMENTIA ,CKD AND GERD. CXR SHOWED CONSULTED WITH LIGHTNING ROD ERECTOR, NOLAN AND ID DR NULL. STARTED COVID PROTOCOL, ON BIPAP, RT PROTOCOL CONTINUED HOME MEDS. DC PLAN TO GO BACK TO [facility] WHEN STABLE CM TO FOLLOW. Addendum: 01/23/20 at 1342 by Carol Ann Torres CM DC PLANNING: SEEN BY NOLAN GILLIAM AND ID. CONTINUE TO ON 15L NON-REBREATHER , ADMINISTERED CONVALESCENT PLASMA AND RAMDISIVER IV AND PLAN TO WEAN OF OXYGEN. DC PLAN TO GO BACK TO [facility] WHEN STABLE CM TO FOLLOW Addendum: 01/24/20 at 1232 by Padmini Banegas CM DC SLIMER: PER DR. BAIRES POSSIBLE D/C BACK TO [facility] MONDAY. FAXED CLINICALS TO [facility]. WILL FOLLOW UP, NO CHILD PROTECTIVE SERVICES SPECIALIST WORKING ON MONDAY Addendum: 01/24/20 at 1557 by Padmini Banegas CM FOLLOWED UP WITH [facility]. PER TEHRESA THEY ARE WORKING ON ROOM SWITCHES AND DO NOT HAVE AN AVAILABLE ROOM NUMBER FOR ME YET Addendum: 01/24/20 at 1625 by Padmini Banegas CM THERESA PROVIDED ROOM NUMBER [id number] UNDER DR. BAIRES TO RETURN TO. PENDING AUTH FROM HIRAL FROM [facility] FOR TRANSPORTATION.
--- NOTE | 2020-01-20 13:00 | NUR ---
PASSED MEDICATIONS CRUSHED IN APPLESAUCE. PT TOLERATED WELL. PTS IS STILL NON VERBAL
[2020-01-20] MEDS ORDERED: remdesivir COMMUNICATION ORDER 1 EA MISC MC PRN (15:50)
[2020-01-20 16:00] VITALS: BP 132/77
[2020-01-20] MEDS ORDERED: CLINICAL MONITORING MC PRN (16:05)
[2020-01-20] MEDS ORDERED: REMDESIVIR (EUA) 200 MG in NACL 0.9% 100 ML IV SCH (17:00)
--- NOTE | 2020-01-20 17:00 | NUR ---
STARTED REMDESIVER. COLLECTED CONSENT FROM OLGA (DAUGHTER) FOR PLASMA THERAPY. NO SIGNS OF A REACTION FROM IV ANTIVIRAL.
--- NOTE | 2020-01-20 19:10 | NUR ---
TRANSFER OF CARE TO PM TANVI DILLON. PT IS RESTING IN BED. VS STABLE. NO SIGNS OF DISTRESS.
--- NOTE | 2020-01-20 19:11 | NUR ---
RECEIVED REPORT FROM AM SHIFT POSITIVE FOR COVID19. PT LETHARGIC, AWAKENED BY VERBAL AND TACTILE STIMULI. WITH IV LT HAND 20G SL, RT AC 20G RUNNING NS AT 80. PT ON NON REBREATHER 15L. SKIN IS INTACT. PT HAS A HEALED SACRAL WOUND.PT ON NON-REBREATHER 15 LPM., SAT OF 92%. PLACED ON LOW BED, FALL RISK PRECAUTION IN PLACE. WILL CONTINUE TO MONITOR.
[2020-01-20 20:00] VITALS: BP 135/67
[2020-01-20] MEDS: ENOXAPARIN 80 MG/0.8 ML SYR SUBQ SCH (20:19)
--- NOTE | 2020-01-20 21:33 | NUR ---
CALLED DR. NULL'S EXCHANGE. AWAITING ORDERS FOR GRAM POSITIVE COCCI IN CLUSTER (BLOOD CULTURE)
--- NOTE | 2020-01-20 21:38 | NUR ---
RECEIVED TENNILLE ORELLANA'S ORDER FOR GRAM POSITIVE COCCI IN CLUSTER (BLOOD CULTURE). ORDERED VANCOMYCIN PHARMACY TO DOSE
[2020-01-20] MEDS ORDERED: VANCOMYCIN 1GM/DEXT 5% PREMIX 200 ML IV SCH (22:25)
--- NOTE | 2020-01-20 23:00 | NUR ---
CALLED DR. Alejandra BAIRES REGARDING PLASMA THAT IS ALREADY READY FOR TRANSFUSION, SAID HE WILL SIGN TOMORROW. WILL ENDORSE TO NEXT SHIFT PLASMA CONVALESCENT CARE. SINCE I COULD NOT TRANSFUSE THE PLASMA W/O THE DR'S SIGNATURE. LAB DOES NOT RELEASE W/O SIGNATURE ON THE FORM.
[2020-01-20] MEDS ORDERED: VANCOMYCIN 1,000 MG VIAL ONE (23:12)
--- NOTE | 2020-01-20 23:30 | NUR ---
INFORMED OLGA YEE, DAUGHTER THAT PT'S PLASMA WILL BE TRANSFUSED ADALBERTO AM PENDING DR'S SIGATURE ON CONSENT AND EXPLANATION TO PT REGARDING THE PLASMA CONVALESCENT CARE. 1 UNIT PLASMA IS ALREADY READY FOR TRANSFUSION. 2 UNITS WERE ORDERED.
[2020-01-21] VITALS: BP 129/61
--- NOTE | 2020-01-21 01:00 | NUR ---
PT TURNED TO ONE SIDE, OFFLOADING DONE, NO SIGNS OD DISTRESS; PT ALERT TO VERBAL AND TACTILE STIMULI,
--- NOTE | 2020-01-21 02:43 | NUR ---
PT TURNED AND CLEANED; CHECKED ON THE SACRAL HEALED WOUND; NO SIGNS OF REDNESS; NO INFLAMMATION; CLEANED PERINEAL AREA GENTLY AND HANDLED THE PT GENTLY.
[2020-01-21 04:00] VITALS: BP 140/60
--- NOTE | 2020-01-21 04:03 | NUR ---
PT'S 02 LEVEL CHECKED, 91% AT 15 LPM NON REBREATHER
[2020-01-21 06:45] LABS: BASOPHILS % (AUTO) 0.1 % (0.0-2.0); HEMOGLOBIN 14.4 g/dL (12.0-18.0); LYMPHOCYTES # (AUTO) 1.5 K/uL (2.0-11.5); LYMPHOCYTES % (AUTO) 21.2 % (20.5-51.1); MEAN CORPUSCULAR HEMOGLOBIN 31 pg (27-31); MEAN CORPUSCULAR HGB CONC 33 g/dL (33-37); MEAN CORPUSCULAR VOLUME 93.6 fL (80-94); MONOCYTES # (AUTO) 0.8 K/uL (0.8-1.0); NEUTROPHILS # (AUTO) 4.7 K/uL (1.8-7.7); NEUTROPHILS % (AUTO) 66.7 % (42.2-75.2); PLATELET COUNT (AUTO) 136 K/uL (140-450); RED CELL DISTRIBUTION WIDTH 14.2 % (11.6-13.7); WHITE BLOOD COUNT (AUTO) 7.1 K/uL (4.8-10.8)
[2020-01-21 07:01] LABS: ANION GAP 12.5 (8-16); CARBON DIOXIDE 25.5 mmol/L (21-32); CHLORIDE 111 mmol/L (98-107); CREATININE 0.9 mg/dL (0.6-1.3); GLUCOSE 132 mg/dL (74-106); SODIUM SERUM 145 mmol/L (136-145); UREA NITROGEN, BLOOD 37 mg/dL (7-18)
[2020-01-21] MEDS: NACL 0.9% 1,000 ML IV SCH ×2 (07:19→13:28)
--- NOTE | 2020-01-21 07:20 | NUR ---
PT LETHARGIC, WITH 15 LPM NON REBREATHER MASK POSITIVE COVID WITH 02 SAT OF 92%.WILL ENDORSE TO NEXT SHIFT
--- NOTE | 2020-01-21 07:30 | NUR ---
RECEIVED PATIENT FROM NIGHT NURSE. PATIENT IS COMFORTABLE IN BED. RESP EVEN AND UNLABORED ON NONREBREATHER AT 15L, O2SAT 93%. NO NOTED DISTRESS BY FACIAL EXPRESSION. DROPLET PRECAUTION IN PLACE. SAFETY MEASURE IN PLACE. CALL LIGHT WITHIN REACH. WILL CONTINUE TO MONITOR.
[2020-01-21 08:00] VITALS: BP 157/77
[2020-01-21 08:08] LABS: T4 (THYROXINE) 6.9 ug/dL (4.5-12.0)
--- NOTE | 2020-01-21 08:25 | NUR ---
CALLED LAB ABOUT PLASMA CONVALESCENT. LAB STATED UNIT WILL BE AVAILABLE IN ANOTHER HOUR. WILL CONTINUE TO MONITOR.
[2020-01-21] MEDS ORDERED: VANCOMYCIN PER PHARMACY MC SCH (09:00)
[2020-01-21] MEDS ORDERED: AZITHROMYCIN 250 MG TAB PO SCH (09:00)
[2020-01-21] MEDS: PANTOPRAZOLE 40 MG TABEC PO SCH (09:15)
[2020-01-21] MEDS: METOPROLOL 25 MG TAB PO SCH ×2 (09:15→20:34)
[2020-01-21] MEDS: ZINC SULF 220 MG CAP PO SCH (09:15)
[2020-01-21] MEDS: ASCORBIC ACID 500 MG TAB PO SCH (09:15)
[2020-01-21] MEDS: DILTIAZEM 30 MG TAB PO SCH ×3 (09:15→17:00)
[2020-01-21] MEDS: ENOXAPARIN 80 MG/0.8 ML SYR SUBQ SCH ×2 (09:16→20:33)
--- NOTE | 2020-01-21 09:43 | NUR ---
MORNING ROUTINE MEDICATIONS GIVEN PER ORDERED. PATIENT TOLERATED WELL. ADDITIONAL FLUIDS GIVEN. RESP EVEN AND UNLABORED ON 15L NON REBREATHER, O2SAT 94%. PATIENT RESPONSIVE TO NAME AND IS ABLE TO MAKE NEEDS KNOWN BY NODDING. IV ACCESS PATENT AND INTACT. SKIN IS WARM TO TOUCH. VITALS WNL. WILL CONTINUE TO MONITOR.
--- NOTE | 2020-01-21 11:15 | NUR ---
FIRST UNIT PLASMA CONVALESCENT STARTED. PRE VITALS 136/67 70 18 96.5 91% 15L NONREBREATHER. WILL CONTINUE TO MONITOR.
[2020-01-21 12:00] VITALS: BP 118/60
--- NOTE | 2020-01-21 12:40 | NUR ---
PLASMA CONVALESCENT COMPLETED OVER [id number]. NO REACTION NOTED THROUGHOUT THERAPY. RESP EVEN AND UNLABORED ON 15L NONREBREATHER, O2 SAT 91-94%. PATIENT WAS ASSISTED WITH LUNCH AND CONSUMED MODERATE AMOUNT. FLUIDS ALSO GIVEN. CALL LIGHT WITHIN REACH. WILL CONTINUE TO MONITOR.
[2020-01-21] MEDS: REMDESIVIR (EUA) 100 MG in NACL 0.9% 100 ML IV SCH (13:27)
[2020-01-21 16:00] VITALS: BP 106/66
--- NOTE | 2020-01-21 17:23 | NUR ---
PARTIAL REBREATHER AT 15 LPM SATURATION 94%
--- NOTE | 2020-01-21 17:25 | NUR ---
2ND UNIT OF PLASMA CONVALESCENT INFUSING. PRE VITALS 97.3 72 18 116/63 94%. NO NOTED DISTRESS. WILL CONTINUE TO MONITOR.
--- NOTE | 2020-01-21 18:45 | NUR ---
2ND UNIT OF PLASMA CONVALESCENT COMPLETED AT 1830. NO NOTED REACTION. PATIENT IS COMFORTABLY IN BED. 97.6 79 16 121/57 94%. WILL CONTINUE TO MONITOR. RESP EVEN AND UNLABORED ON 15L NONREBREATHER
--- NOTE | 2020-01-21 19:07 | NUR ---
ENDORSED PATIENT TO NIGHT NURSE. PATIENT IN STABLE CONDITION.
--- NOTE | 2020-01-21 19:08 | NUR ---
RECEIVED REPORT FROM AM SHIFT POSITIVE FOR COVID19. PT LETHARGIC, AWAKENED BY VERBAL AND TACTILE STIMULI. WITH IV LT HAND 20G SL, RT AC 20G RUNNING NS AT 80. PT ON NON REBREATHER 15L. SKIN IS INTACT. PT HAS A HEALED SACRAL WOUND.PT ON NON-REBREATHER 15 LPM., SAT OF 91%. PLACED ON LOW BED, FALL RISK PRECAUTION IN PLACE. WILL CONTINUE TO MONITOR.
[2020-01-21 20:00] VITALS: BP 130/60
--- NOTE | 2020-01-21 21:50 | NUR ---
PT IS RESTING IN BED TRACH TO VENT WITH 98% O2 SAT. RESPIRATIONS ARE EVEN AND UNLABORED. NO SIGNS OF DISTRESS. WILL CONTINUE TO MONITOR.
[2020-01-22] VITALS (7 sets, daily range): BP systolic 111–148; BP diastolic 58–80
--- NOTE | 2020-01-22 01:00 | NUR ---
PT TURNED TO ONE SIDE, OFFLOADING DONE, WOUND CARE DONE
--- NOTE | 2020-01-22 01:45 | NUR ---
PT'S 2ND BAG OF POTASSIUM HANGED AND RUNNING AT 50 ML/ HR RATE (20 MEQ'S/ 100 ML). CHECKED ON SITE, NO BURNING, NO REDNESS NOTED. CONTINUED KCL.
--- NOTE | 2020-01-22 02:14 | NUR ---
PT'S AGAIN TURNED TO ONE SIDE, PT DOES NOT WANT TO BE BOTHERED, BUT EXPLAINED TO HIM. PT IS ALREADY MORE AWAKE NOW.
--- NOTE | 2020-01-22 03:19 | NUR ---
CHECKED ON PATIENT;S IV SINCE PT KEEP ON FLEXING HIS ELBOW AND KINKING THE LINE, EXPLAINED THE RISK AND BENEFITS, PT MORE AWAKE AND ABLE TO UNDERSTAND BUT STILL UNABLE TO COMMUNICATE.
--- NOTE | 2020-01-22 04:14 | NUR ---
O2 SAT IS 91 % AT 15 LPM NON-REBREATHER, TOLERATING WELL
--- NOTE | 2020-01-22 05:30 | NUR ---
PT STABLE AT THIS TIME, WITH 15 LPM NON REBREATHER MASK AT 92% O2, WILL ENDORSE TO NEXT SHIFT FOR CONTINUITY OF CARE.
--- NOTE | 2020-01-22 06:20 | NUR ---
PT A, A O X 1 MORE AWAKE COMPARED TO YESTERDAY,PATIENT ALSO STRONGER UPPER EXTREMITIES NOTED. WILL ENDORSE TO NEXT SHIFT FOR CONTINUITY OF CARE.
[2020-01-22 06:50] LABS: HEMATOCRIT 45.1 % (36-52); HEMOGLOBIN 14.8 g/dL (12.0-18.0); LYMPHOCYTES # (AUTO) 1.4 K/uL (2.0-11.5); LYMPHOCYTES % (AUTO) 19.4 % (20.5-51.1); MEAN CORPUSCULAR HEMOGLOBIN 31 pg (27-31); MEAN CORPUSCULAR HGB CONC 33 g/dL (33-37); MEAN CORPUSCULAR VOLUME 93.9 fL (80-94); MONOCYTES # (AUTO) 1.1 K/uL (0.8-1.0); MONOCYTES % (AUTO) 14.3 % (1.7-9.3); NEUTROPHILS # (AUTO) 4.9 K/uL (1.8-7.7); NEUTROPHILS % (AUTO) 66.3 % (42.2-75.2); PLATELET COUNT (AUTO) 162 K/uL (140-450); RED CELL DISTRIBUTION WIDTH 14.6 % (11.6-13.7); WHITE BLOOD COUNT (AUTO) 7.4 K/uL (4.8-10.8)
[2020-01-22 07:10] LABS: ALBUMIN 2.4 g/dL (3.4-5.0); ANION GAP 12.2 (8-16); CARBON DIOXIDE 27.1 mmol/L (21-32); CHLORIDE 111 mmol/L (98-107); CREATININE 0.9 mg/dL (0.6-1.3); GLUCOSE 114 mg/dL (74-106); POTASSIUM 3.3 mmol/L (3.5-5.1); SODIUM SERUM 147 mmol/L (136-145); TOTAL BILIRUBIN 0.5 mg/dL (0.0-1.0); UREA NITROGEN, BLOOD 37 mg/dL (7-18)
--- NOTE | 2020-01-22 07:54 | NUR ---
PT HAD PNRB OFF AND REPLACED BACK ON PT AT 15L
[2020-01-22 08:07] LABS: ASPARTATE AMINOTRANSFERASE 67 U/L (15-37)
[2020-01-22] MEDS: PANTOPRAZOLE 40 MG TABEC PO SCH (09:11)
[2020-01-22] MEDS: DILTIAZEM 30 MG TAB PO SCH ×3 (09:11→17:00)
[2020-01-22] MEDS: ASCORBIC ACID 500 MG TAB PO SCH (09:11)
[2020-01-22] MEDS: METOPROLOL 25 MG TAB PO SCH ×2 (09:11→21:02)
[2020-01-22] MEDS: ZINC SULF 220 MG CAP PO SCH (09:12)
[2020-01-22] MEDS: ENOXAPARIN 80 MG/0.8 ML SYR SUBQ SCH ×2 (09:27→21:05)
[2020-01-22] MEDS: REMDESIVIR (EUA) 100 MG in NACL 0.9% 100 ML IV SCH (14:41)
[2020-01-22] MEDS: NACL 0.9% 1,000 ML IV SCH ×2 (14:50→21:02)
--- NOTE | 2020-01-22 18:41 | NUR ---
MORE ALERT TODAY COMPARED TO REPORT. LESS PULLING OUT OF NRB. USED NASAL CANNULA WHEN EATING TO CONTINUE WITH OXYGEN THERAPY. SATURATING FROM 94-97 % WITH NRB. DROP TO MID 80'S ON RA. FREQUENT ROUNDS FOR O2 MONITORING.
[2020-01-23] VITALS: BP 125/65
[2020-01-23 04:00] VITALS: BP 138/74
[2020-01-23 06:16] LABS: BASOPHILS % (AUTO) 0.2 % (0.0-2.0); HEMATOCRIT 46.2 % (36-52); LYMPHOCYTES # (AUTO) 2.5 K/uL (2.0-11.5); MEAN CORPUSCULAR HEMOGLOBIN 30 pg (27-31); MEAN CORPUSCULAR HGB CONC 33 g/dL (33-37); MEAN CORPUSCULAR VOLUME 93.3 fL (80-94); MONOCYTES # (AUTO) 2.1 K/uL (0.8-1.0); MONOCYTES % (AUTO) 15.3 % (1.7-9.3); NEUTROPHILS # (AUTO) 9.2 K/uL (1.8-7.7); NEUTROPHILS % (AUTO) 66.5 % (42.2-75.2); PLATELET COUNT (AUTO) 211 K/uL (140-450); RED BLOOD CELL COUNT(AUTO) 4.95 MIL/uL (4.20-6.10); RED CELL DISTRIBUTION WIDTH 14.7 % (11.6-13.7); WHITE BLOOD COUNT (AUTO) 13.8 K/uL (4.8-10.8)
[2020-01-23 07:04] LABS: ALBUMIN 2.5 g/dL (3.4-5.0); ANION GAP 14.9 (8-16); ASPARTATE AMINOTRANSFERASE 88 U/L (15-37); CARBON DIOXIDE 23.9 mmol/L (21-32); CHLORIDE 110 mmol/L (98-107); GLUCOSE 85 mg/dL (74-106); POTASSIUM 3.8 mmol/L (3.5-5.1); SODIUM SERUM 145 mmol/L (136-145); TOTAL BILIRUBIN 0.7 mg/dL (0.0-1.0); UREA NITROGEN, BLOOD 34 mg/dL (7-18)
--- NOTE | 2020-01-23 07:24 | NUR ---
AWAKE, NBR OFF FACE, SATURATING 90, ARRANGED NRM ON FACE AND O2 SAT AT 93. WILL CONTINUE TO MONITOR CLOSELY.
[2020-01-23 08:31] VITALS: BP 151/68
[2020-01-23] MEDS: ASCORBIC ACID 500 MG TAB PO SCH (08:31)
[2020-01-23] MEDS: ZINC SULF 220 MG CAP PO SCH (08:31)
[2020-01-23] MEDS: PANTOPRAZOLE 40 MG TABEC PO SCH (08:31)
[2020-01-23] MEDS: DILTIAZEM 30 MG TAB PO SCH ×3 (08:37→16:55)
[2020-01-23] MEDS: METOPROLOL 25 MG TAB PO SCH ×2 (08:38→21:24)
[2020-01-23] MEDS: ENOXAPARIN 80 MG/0.8 ML SYR SUBQ SCH ×2 (08:39→21:23)
--- NOTE | 2020-01-23 10:00 | NUR ---
ASLEEP ON RIGHT SIDE, FACING WINDOW, O2 AT 10 L VIA NC WITH O2 SAT 95%. WILL CONTINUE TO MONITOR
[2020-01-23 12:15] VITALS: BP 136/71
[2020-01-23] MEDS: NACL 0.9% 1,000 ML IV SCH ×2 (13:03→21:49)
[2020-01-23] MEDS: REMDESIVIR (EUA) 100 MG in NACL 0.9% 100 ML IV SCH (13:03)
--- NOTE | 2020-01-23 14:03 | NUR ---
SUSTAINING AT 95 % ON 10 L VIA NC, NO SIGNS OF SOB.
--- NOTE | 2020-01-23 14:52 | NUR ---
01/23/20 RD INITIAL ASSESSMENT COMPLETED PLEASE REFER TO NUTRITION ASSESSMENT UNDER CARE ACTIVITY FOR ESTIMATED NUTRITIONAL NEEDS. 1. CONTINUE MECHANICAL SOFT CCHO 60GM DIET TOLERATED 2. RECOMMEND GLUCERNA TID 3. CONTINUE TO ASSIST WITH MEALS AND ENCOURAGE PO INTAKE 4. RD TO FOLLOW-UP 2-3 DAYS, HIGH RISK CHERY ROY RD
[2020-01-23 16:00] VITALS: BP 119/69
--- NOTE | 2020-01-23 17:20 | NUR ---
O2 TITRATED 8L, PT SUSTAINING SATURATION OF 93%.
--- NOTE | 2020-01-23 19:10 | NUR ---
RECEIVED BEDSIDE ENDORSEMENT FROM AM SHIFT RN. PATIENT IS NOT IN ANY DISTRESS, NO SOB, ON O2 VIA NC AT 8LPM WITH O2 SAT AT 92%. ON BILATERAL SOFT WRIST RESTRAIN DUE TO PULLING OF O2 TUBING. WILL CONTINUE MONITOR. FALL RISK PROTOCOL IN PLACE. ISOLATION PRECAUTION FOR COVID 19 OBSERVED. SAFETY MEASURES IN PLACE. CALL LIGHT WITHIN REACH.
--- NOTE | 2020-01-23 19:48 | NUR ---
SOFT WRIST RESTRAINTS RENEWED PER MD ORDER DUE TO PULLING OF O2 TUBING. NOTED AND CARRIED OUT. WILL MONITOR.
[2020-01-23 20:00] VITALS: BP 128/99
--- NOTE | 2020-01-23 21:24 | NUR ---
DUE MEDS GIVEN ORDERED, TOLERATED WELL. REPOSITIONED, PATIENT CARE DONE WITH SECURITIES ANALYST HELP. NO SOB.
--- NOTE | 2020-01-23 23:30 | NUR ---
REPOSITIONED. KEPT COMFORTABLE.
[2020-01-24] VITALS: BP 121/65
--- NOTE | 2020-01-24 02:51 | NUR ---
PATIENT IS SLEEPING, NO SOB.
[2020-01-24 04:00] VITALS: BP 139/78
--- NOTE | 2020-01-24 04:30 | NUR ---
PATIENT CARE DONE, REPOSITIONED, ALL NEEDS ATTENDED, KEPT CLEAN, DRY AND COMFORTABLE.
[2020-01-24] MEDS: NACL 0.9% 1,000 ML IV SCH ×2 (04:38→17:11)
--- NOTE | 2020-01-24 07:00 | NUR ---
PATIENT IS IN STABLE CONDITION. NO SOB. ENDORSED TO SANTANA IRELAND FOR CONTINUITY OF CARE.
[2020-01-24 07:05] LABS: ALBUMIN 2.2 g/dL (3.4-5.0); ANION GAP 10.7 (8-16); ASPARTATE AMINOTRANSFERASE 57 U/L (15-37); CARBON DIOXIDE 25.4 mmol/L (21-32); CHLORIDE 112 mmol/L (98-107); CREATININE 0.9 mg/dL (0.6-1.3); GLUCOSE 122 mg/dL (74-106); POTASSIUM 4.1 mmol/L (3.5-5.1); SODIUM SERUM 144 mmol/L (136-145); TOTAL BILIRUBIN 0.7 mg/dL (0.0-1.0); UREA NITROGEN, BLOOD 31 mg/dL (7-18)
[2020-01-24 08:14] VITALS: BP 141/59
[2020-01-24] MEDS: DILTIAZEM 30 MG TAB PO SCH ×3 (08:15→17:25)
[2020-01-24] MEDS: METOPROLOL 25 MG TAB PO SCH ×2 (08:16→20:48)
[2020-01-24] MEDS: ASCORBIC ACID 500 MG TAB PO SCH (08:16)
[2020-01-24] MEDS: PANTOPRAZOLE 40 MG TABEC PO SCH (08:16)
[2020-01-24] MEDS: ZINC SULF 220 MG CAP PO SCH (08:18)
[2020-01-24] MEDS: ENOXAPARIN 80 MG/0.8 ML SYR SUBQ SCH ×2 (08:21→21:01)
[2020-01-24 09:20] LABS: BASOPHILS % (AUTO) 0.4 % (0.0-2.0); HEMATOCRIT 42.3 % (36-52); HEMOGLOBIN 13.8 g/dL (12.0-18.0); LYMPHOCYTES # (AUTO) 1.6 K/uL (2.0-11.5); LYMPHOCYTES % (AUTO) 20.1 % (20.5-51.1); MEAN CORPUSCULAR HEMOGLOBIN 31 pg (27-31); MEAN CORPUSCULAR HGB CONC 33 g/dL (33-37); MEAN CORPUSCULAR VOLUME 93.6 fL (80-94); MONOCYTES # (AUTO) 1.1 K/uL (0.8-1.0); NEUTROPHILS # (AUTO) 5.1 K/uL (1.8-7.7); NEUTROPHILS % (AUTO) 65.5 % (42.2-75.2); PLATELET COUNT (AUTO) 190 K/uL (140-450); RED BLOOD CELL COUNT(AUTO) 4.52 MIL/uL (4.20-6.10); RED CELL DISTRIBUTION WIDTH 14.4 % (11.6-13.7); WHITE BLOOD COUNT (AUTO) 7.8 K/uL (4.8-10.8)
--- NOTE | 2020-01-24 10:09 | NUR ---
DR BAIRES INFORMED BY ALEJANDRA RAMIREZ PATIENT HAS RECEIVED TOTAL OF 2 UNITS CONVASCENT PLASMA.
[2020-01-24 12:00] VITALS: BP 145/84
[2020-01-24] MEDS: REMDESIVIR (EUA) 100 MG in NACL 0.9% 100 ML IV SCH (12:58)
[2020-01-24 16:30] VITALS: BP 130/81
--- NOTE | 2020-01-24 19:30 | NUR ---
RECEIVED PT AWAKE , COMMUNICATING BY EYE CONTACT , MUMBLING SOUNDS , FLACC 0 , W/ HX OF DEMENTIA , SKIN INTACT , ON NON BEHAVIORAL SOFT WRIST RESTRAINT - RENEWAL ON 1944 TONIGHT - WILL CALL TO THE DR. MONAE SITE INTACT AND PATENT SAFETY MEASURS IN PLACE - . FALL RISK - BED ALARM ON . PLAN OF CARE DISCUSSED BU TPOOR UNDERSTANDING DUE TO MENTAL STATUS . WILL TURN SIDE TO SIDE TO PREVENT SKIN BREAKDOWN . ON TELE MONITOR . ON O2 SAT MONITOR - O2 SAT WNL - NO S/SX OF ACUTE DISTRESS NOTED AT THIE TIME . FOR CLOSELY WATCH .
--- NOTE | 2020-01-24 19:30 | NUR ---
CONTINUITY OF CARE ENDORSED TO SANTANA SLATER
[2020-01-24 20:00] VITALS: BP 132/57
--- NOTE | 2020-01-24 22:00 | NUR ---
O2 SAT WNL , NO S/SX OF ACUTE DISTRESS NOTED AT THIS TIME , WILL CONT. TO MONITOR .
--- NOTE | 2020-01-24 23:41 | NUR ---
PT'S RELATIVE CALL - BUT THEY DROP THE CALL .
[2020-01-25] VITALS: BP 131/70
--- NOTE | 2020-01-25 | NUR ---
MADE ROUNDS , NO S/SX OF ACUTE DISTRES NOTED AT THIS TIME , O2 SAT WNL . ON TELE MONITOR , ON O2 OXIMIZER AT 5LMP - WILL CONT. TO MONITOR .
[2020-01-25 04:00] VITALS: BP 123/69
[2020-01-25 06:42] LABS: BASOPHILS % (AUTO) 0.2 % (0.0-2.0); HEMATOCRIT 41.2 % (36-52); HEMOGLOBIN 13.8 g/dL (12.0-18.0); LYMPHOCYTES # (AUTO) 1.6 K/uL (2.0-11.5); LYMPHOCYTES % (AUTO) 12.6 % (20.5-51.1); MEAN CORPUSCULAR HEMOGLOBIN 31 pg (27-31); MEAN CORPUSCULAR HGB CONC 34 g/dL (33-37); MEAN CORPUSCULAR VOLUME 92.6 fL (80-94); MONOCYTES # (AUTO) 1.3 K/uL (0.8-1.0); MONOCYTES % (AUTO) 9.9 % (1.7-9.3); NEUTROPHILS # (AUTO) 9.8 K/uL (1.8-7.7); NEUTROPHILS % (AUTO) 77.3 % (42.2-75.2); PLATELET COUNT (AUTO) 192 K/uL (140-450); RED BLOOD CELL COUNT(AUTO) 4.45 MIL/uL (4.20-6.10); RED CELL DISTRIBUTION WIDTH 14.4 % (11.6-13.7); WHITE BLOOD COUNT (AUTO) 12.7 K/uL (4.8-10.8)
[2020-01-25 06:53] LABS: ANION GAP 14.6 (8-16); CARBON DIOXIDE 18.2 mmol/L (21-32); CHLORIDE 111 mmol/L (98-107); CREATININE 0.6 mg/dL (0.6-1.3); GLUCOSE 122 mg/dL (74-106); POTASSIUM 3.8 mmol/L (3.5-5.1); SODIUM SERUM 140 mmol/L (136-145); UREA NITROGEN, BLOOD 29 mg/dL (7-18)
--- NOTE | 2020-01-25 07:05 | NUR ---
ENDORSED - PT - STABLE
--- NOTE | 2020-01-25 07:05 | NUR ---
RECEIVED REPORT FROM NIGHT NURSE FOR CONTINUITY OF CARE, PT IS AWAKE IN BED, PT IS AAOX1, PT IS ON 5L OXIMIZER, PT HAS LH 20G INFUSING NS AT 100 ML/H, SKIN INTACT, PER NIGHT NURSE PT IS CONSTIPATED, PT IS A FEEDER, WILL INTRODUCE SELF, BED IN LOW POSITION, SAFETY MEASURES IN PLACE, CALL LIGHT WITHIN REACH., WILL CONTINUE TO MONITOR.
[2020-01-25 08:00] VITALS: BP 158/85
--- NOTE | 2020-01-25 08:39 | NUR ---
01/25/20 RD FOLLOW UP COMPLETED PLEASE REFER TO NUTRITION ASSESSMENT UNDER CARE ACTIVITY FOR ESTIMATED NUTRITIONAL NEEDS. 1. CONTINUE MECHANICAL SOFT CCHO 60GM DIET TOLERATED 2. CONTINUE GLUCERNA TID 3. CONTINUE TO ASSIST WITH MEALS AND ENCOURAGE PO INTAKE 4. RD TO FOLLOW-UP 3-5 DAYS, MODERATE RISK JIN SOTO RD
[2020-01-25] MEDS ORDERED: VITC500 PO (09:45)
[2020-01-25] MEDS ORDERED: DEXA6TAB1 PO (09:45)
[2020-01-25] MEDS ORDERED: LOV80I SUBQ (09:45)
[2020-01-25] MEDS: ZINC SULF 220 MG CAP PO SCH (09:56)
[2020-01-25] MEDS: ASCORBIC ACID 500 MG TAB PO SCH (09:56)
[2020-01-25] MEDS: DILTIAZEM 30 MG TAB PO SCH ×2 (09:57→13:21)
[2020-01-25] MEDS: PANTOPRAZOLE 40 MG TABEC PO SCH (09:57)
[2020-01-25] MEDS: METOPROLOL 25 MG TAB PO SCH (09:57)
[2020-01-25] MEDS: NACL 0.9% 1,000 ML IV SCH (09:58)
[2020-01-25] MEDS: ENOXAPARIN 80 MG/0.8 ML SYR SUBQ SCH (09:59)
--- NOTE | 2020-01-25 10:03 | NUR ---
ADMINISTERED SCHEDULED MEDICATION WITH APPLESAUCE, PT TOLERATED WELL, PT IS STABLE, SERVICE SHOP FOREMAN CHANGING THE PT, ALL NEEDS MET, WILL CONTINUE TO MONITOR.
[2020-01-25 12:00] VITALS: BP 126/60
--- NOTE | 2020-01-25 12:30 | NUR ---
RIGHT HAND IV INSERTED GUAGE 22, PT TOLERATED WELL, ONE ATTEMPT, INFUSING NS AT 80 ML/HR
--- NOTE | 2020-01-25 13:04 | NUR ---
@12 NOON: ANTHONY FROM [facility] CALLED BACK FOR TRANSPORT AUTH ([id number]), STATED TO SET UP [facility]. @1220: PER [facility], THEY CAN NOT ALLIED HEALTH PROFESSIONAL PT SINCE PT CANNOT SELF MONITOR HIS OXYGEN SATURATIONS DURING TRANSPORT. PT IS CONFUSED. ANTHONY FROM [facility] MADE AWARE AND STATED TO CALL FOR [facility] INSTEAD FOR BLS TRANSPORT @1240: SET UP TRANSPORTATION THRU [facility], SPOKE WITH JOSSY, TRANSPORT AUTH GIVEN TO [facility]. PT WILL BE ALLIED HEALTH PROFESSIONAL AT 4PM TODAY. SANTANA PUTNAM ASSIGNED MADE AWARE. @1300: SPOKE WITH NURSING DISPLAY TRIMMER AT [facility] TO CONFIRM PT'S ROOM NUMBER [id number].
--- NOTE | 2020-01-25 13:24 | NUR ---
ADMINISTERED SCHEDULED MEDICATION, MEDICATION EDUCATION GIVEN, PT TOLERATED WELL, PT IS STABLE, CALL LIGHT WITHIN REACH.
--- NOTE | 2020-01-25 13:50 | NUR ---
GAVE REPORT TO [facility] FOR PT, REPORT GIVEN TO VISHAL CERON, ADMITTING DR EV BAIRES, NOTIFIED PT DAUGHTER PT DISCHARGE BACK TO [facility].
--- NOTE | 2020-01-25 15:03 | NUR ---
PT ASLEEP IN BED, NO SIGNS OF DISTRESS NOTED, OXYGEN SATS 93, CALL LIGHT WITHIN REACH.
--- NOTE | 2020-01-25 16:20 | NUR ---
PT DISCHARGED VIA [facility], PT ON 5L OXIMIZER, PT IS STABLE, FLU AND PNA UP-TO-DATE, PT LEFT WITH RH 22G IV FOR IV THERAPY, PT DISCHARGED TO [facility].
== END 2020-01-25 16:25 | DRG 177 ==
LOC: MED 00:25 → MTU 02:59
PROVIDERS: ADMIT Family Medicine; ATTEND Family Medicine
PROC: XW033E5 Introduction of Remdesivir Anti-infective into Peripheral Vein, Percutaneous Approach, New Technology Group 5 (ICD-10-PCS; principal; 2020-01-20)
PROC: XW033E5 Introduction of Remdesivir Anti-infective into Peripheral Vein, Percutaneous Approach, New Technology Group 5 (ICD-10-PCS; 2020-01-21)
PROC: XW13325 Transfusion of Convalescent Plasma (Nonautologous) into Peripheral Vein, Percutaneous Approach, New Technology Group 5 (ICD-10-PCS; 2020-01-21)
PROC: XW033E5 Introduction of Remdesivir Anti-infective into Peripheral Vein, Percutaneous Approach, New Technology Group 5 (ICD-10-PCS; 2020-01-22)
PROC: XW033E5 Introduction of Remdesivir Anti-infective into Peripheral Vein, Percutaneous Approach, New Technology Group 5 (ICD-10-PCS; 2020-01-23)
PROC: XW033E5 Introduction of Remdesivir Anti-infective into Peripheral Vein, Percutaneous Approach, New Technology Group 5 (ICD-10-PCS; 2020-01-24)
DX: U07.1 COVID-19 (principal); J96.21 Acute and chronic respiratory failure with hypoxia; E43 Unspecified severe protein-calorie malnutrition; J12.89 Other viral pneumonia; I13.0 Hypertensive heart and chronic kidney disease with heart failure and stage 1 through stage 4 chronic kidney disease, or unspecified chronic kidney disease; J44.0 Chronic obstructive pulmonary disease with (acute) lower respiratory infection; E87.0 Hyperosmolality and hypernatremia; E86.0 Dehydration; I48.91 Unspecified atrial fibrillation; E11.22 Type 2 diabetes mellitus with diabetic chronic kidney disease; F03.90 Unspecified dementia, unspecified severity, without behavioral disturbance, psychotic disturbance, mood disturbance, and anxiety; I50.9 Heart failure, unspecified; N18.9 Chronic kidney disease, unspecified; K21.9 Gastro-esophageal reflux disease without esophagitis; E87.6 Hypokalemia; K59.00 Constipation, unspecified; D50.9 Iron deficiency anemia, unspecified; Z86.73 Personal history of transient ischemic attack (TIA), and cerebral infarction without residual deficits; Z79.899 Other long term (current) drug therapy; Z68.22 Body mass index [BMI] 22.0-22.9, adult; I25.10 Atherosclerotic heart disease of native coronary artery without angina pectoris; Z95.1 Presence of aortocoronary bypass graft
CPT/HCPCS: 36415; 36430; 71045; 80048; 80053; 81003; 82140; 82150; 82550; 82728; 82948; 83036; 83605; 83615; 83690; 83735; 83880; 84100; 84436; 84439; 84443; 84479; 84484; 85025; 85379; 85384; 85610; 85651; 85730; 86140; 86886; 86900; 86901; 87040; 87081; 87086; 87420; 87804; 93005; 96365; 96375; 99291; J0456; J0696; J1100; J1644; J1650; J3370; J7030; J7060; P9017; Q0092

== ENCOUNTER 2020-12-09 14:03 | Inpatient (IN) | payer OTHER, SELFPAY ==
[~2020-12-09] VITALS: Ht 172.7 cm; Wt 77.1 kg
[~2020-12-09 14:03] MED LIST changes: +BISA-218 RC; -CAR30 PO; +DEXA6TAB1 PO; +DILT30TA18 PO; -LACT1CAP94 PO; +LOV80I SUBQ; +MAGN400S60 PO; +MULT-1328 PO; +NA P133E RC; +OMEP-278 PO; -OMEP20TC12 PO; +VITC500 PO; +[UNRECOGNIZED DRUG - CODE] PO
--- NOTE | 2020-12-09 14:03 | NUR ---
Patient BIBA BLS from [facility], transferred to bed 8. RN evaluating the patient at bedside.
[2020-12-09 14:05] VITALS: BP 120/65
--- NOTE | 2020-12-09 14:11 | NUR ---
Dr. Yung is evaluating the patient at bedside.
[2020-12-09] MEDS ORDERED: DOCU-299 PO (14:13)
[2020-12-09] MEDS ORDERED: MEMA10TA PO (14:16)
--- NOTE | 2020-12-09 14:26 | NUR ---
89YO M BIBA FROM [facility] FOR EVALUATION. PT FAILED SWALLOW TEST THIS AM AND REFERRED TO ED FOR EVALUATION FOR G-TUBE PLACEMENT. IN ED, VSS. PT NONVERBAL. COURSE BREATH SOUNDS ON ALL LUNG MORGAN. ABDOMEN SOFT, NONTENDER. HYPOACTIVE BOWEL SOUNDS. ERMD MADE AWARE OF PT STATUS. HX COPD, CHF, HTN, CHRONIC KINDEY DISEASE, HEPATIC FILAURE, A. FIB, DEMENTIA, GERD, DM MEDS: SEE LIST NKA
[2020-12-09 14:41] LABS: BASOPHILS # (AUTO) 0.1 K/uL (0.00-0.22); BASOPHILS % (AUTO) 0.9 % (0.0-2.0); EOSINOPHILS # (AUTO) 0.4 K/uL (0-0.4); EOSINOPHILS % (AUTO) 3.3 % (0.0-4.0); HEMATOCRIT 44.3 % (36-52); HEMOGLOBIN 14.7 g/dL (12.0-18.0); LYMPHOCYTES % (AUTO) 27.6 % (20.5-51.1); MEAN CORPUSCULAR HEMOGLOBIN 30 pg (27-31); MEAN CORPUSCULAR HGB CONC 33 g/dL (33-37); MEAN CORPUSCULAR VOLUME 90.6 fL (80-94); MONOCYTES # (AUTO) 1.2 K/uL (0.8-1.0); MONOCYTES % (AUTO) 10.8 % (1.7-9.3); NEUTROPHILS # (AUTO) 6.3 K/uL (1.8-7.7); NEUTROPHILS % (AUTO) 57.4 % (42.2-75.2); PLATELET COUNT (AUTO) 250 K/uL (140-450); RED BLOOD CELL COUNT(AUTO) 4.88 MIL/uL (4.20-6.10); RED CELL DISTRIBUTION WIDTH 14.6 % (11.6-13.7); WHITE BLOOD COUNT (AUTO) 10.9 K/uL (4.8-10.8)
[2020-12-09 14:54] LABS: PROTHROMBIN TIME 9.8 secs (10.8-13.4)
[2020-12-09 14:55] LABS: ALBUMIN 2.9 g/dL (3.4-5.0); ANION GAP 10.8 (8-16); ASPARTATE AMINOTRANSFERASE 16 U/L (15-37); CARBON DIOXIDE 26.2 mmol/L (21-32); CHLORIDE 105 mmol/L (98-107); CREATININE 0.9 mg/dL (0.6-1.3); GLUCOSE 134 mg/dL (74-106); LIPASE 97 U/L (73-393); SODIUM SERUM 138 mmol/L (136-145); TOTAL BILIRUBIN 0.4 mg/dL (0.0-1.0); UREA NITROGEN, BLOOD 19 mg/dL (7-18)
--- NOTE | 2020-12-09 14:55 | NUR ---
.COVID SWAB DONE. WALKED TO LAB
[2020-12-09] MEDS: DEXT 5% /NACL 0.9% 1,000 ML IV SCH (15:27)
--- NOTE | 2020-12-09 15:35 | NUR ---
RECEIVED REPORT FROM ELISA IN ER REGARDING PT STATUS AND POC.
--- NOTE | 2020-12-09 15:35 | NUR ---
REPORT CALLED TO SANTANA VEGA
--- NOTE | 2020-12-09 15:50 | NUR ---
PT TRANSPORTED FROM ED VIA GURNEY. PT ON 2L O2 VIA NC. VITALS: 147/47, 02 98%, HR 78, TEMP 98.2, RR 18. PT STABLE, ORIENTED TO ROOM. PT NONVERBAL. ALL SAFETY MEASURES IN PLACE. CALL LIGHT WITHIN REACH.
--- NOTE | 2020-12-09 15:50 | NUR ---
Patient will be admitted to care of DR BAIRES. Admited to [facility]. Will go to room 121B. Belongings list completed. Report to SILVIA/SANTANA PEÑA.
[2020-12-09 16:10] VITALS: BP 147/47
[2020-12-09] MEDS: BLOOD GLUCOSE MONITORING 1 DEV DEV FS SCH (16:30)
[2020-12-09] MEDS ORDERED: DEXTROSE 50% 50 ML SYR IVP PRN (17:25)
--- NOTE | 2020-12-09 17:36 | NUR ---
BG IS 101. NO INSULIN COVERAGE NEEDED PER SLIDING SCALE.
[2020-12-09] MEDS ORDERED: guaiFENesin DM 200/20 MG-10 ML 10 ML UDC PO PRN (17:50)
[2020-12-09] MEDS ORDERED: POTASSIUM CHLORIDE 10 MEQ TABER PO PRN (17:50)
[2020-12-09] MEDS ORDERED: ZOLPIDEM 5 MG TAB PO PRN (17:50)
[2020-12-09] MEDS ORDERED: ACETAMINOPHEN 325 MG TAB PO PRN (17:50)
[2020-12-09] MEDS ORDERED: DOCUSATE SODIUM 100 MG GELCAP PO PRN (17:50)
[2020-12-09] MEDS ORDERED: ONDANSETRON 4 MG/2 ML VIAL IM/IVP PRN (17:50)
[2020-12-09] MEDS ORDERED: HYDROcodone/APAP 7.5/325 MG 1 TAB PO PRN (17:50)
--- NOTE | 2020-12-09 18:20 | NUR ---
PT APPEARS TO BE ASLEEP. EVEN CHEST EXPANSION, UNLABORED BREATHING. NO S/S OF DISTRESS. ALL SAFETY MEASURES IN PLACE.
[2020-12-09 18:37] LABS: CHOL/HDL RATIO 5.1 (1-4.5); FREE T4 (FREE THYROXINE) 0.85 ng/dL (0.76-1.46); MAGNESIUM 1.9 mg/dL (1.8-2.4); PHOSPHORUS 3.1 mg/dL (2.5-4.9); THYROID STIMULATING HORMONE 2.93 uIU/mL (0.34-3.74)
--- NOTE | 2020-12-09 19:17 | NUR ---
GAVE REPORT TO DRONE PILOT NURSE FOR CONTINUITY OF PLAN. PT ASLEEP AND STABLE.
[2020-12-09 20:00] VITALS: BP 100/67
--- NOTE | 2020-12-09 20:00 | NUR ---
RECEIVED PATIENT IN BED NON VERBAL, AWAKE NO S/S OF DISTRESS
--- NOTE | 2020-12-09 21:00 | NUR ---
RN MADE ROUNDS PATIENT WAS ASLEEP, NO S/S OF DISTRESS
--- NOTE | 2020-12-09 23:00 | NUR ---
RN MADE ROUNDS PATIENT WAS ASLEEP, NO S/S OF DISTRESS
--- NOTE | 2020-12-10 | NUR ---
PATIENT WAS AWAKE SOILED AND WET, BEDDINGS AND CHALK WERE CHANGE, PATIENT WAS CLEANSED THOROUGHLY.
[2020-12-10] MEDS: DEXT 5% /NACL 0.9% 1,000 ML IV SCH ×2 (02:46→14:32)
--- NOTE | 2020-12-10 03:00 | NUR ---
PATIENT WAS ASLEEP, NO S/S OF DISTRESS
[2020-12-10 04:00] VITALS: BP 136/79
[2020-12-10 04:55] LABS: BASOPHILS % (AUTO) 0.5 % (0.0-2.0); EOSINOPHILS # (AUTO) 0.3 K/uL (0-0.4); EOSINOPHILS % (AUTO) 3.2 % (0.0-4.0); HEMATOCRIT 42.8 % (36-52); HEMOGLOBIN 14.1 g/dL (12.0-18.0); LYMPHOCYTES # (AUTO) 3.4 K/uL (2.0-11.5); LYMPHOCYTES % (AUTO) 35.1 % (20.5-51.1); MEAN CORPUSCULAR HEMOGLOBIN 30 pg (27-31); MEAN CORPUSCULAR HGB CONC 33 g/dL (33-37); MEAN CORPUSCULAR VOLUME 89.6 fL (80-94); MONOCYTES # (AUTO) 1.3 K/uL (0.8-1.0); MONOCYTES % (AUTO) 13.1 % (1.7-9.3); NEUTROPHILS # (AUTO) 4.6 K/uL (1.8-7.7); NEUTROPHILS % (AUTO) 48.1 % (42.2-75.2); PLATELET COUNT (AUTO) 228 K/uL (140-450); RED BLOOD CELL COUNT(AUTO) 4.78 MIL/uL (4.20-6.10); RED CELL DISTRIBUTION WIDTH 14.9 % (11.6-13.7); WHITE BLOOD COUNT (AUTO) 9.6 K/uL (4.8-10.8)
--- NOTE | 2020-12-10 06:00 | NUR ---
REPORTS WERE GIVEN., BS= WAS CHECKED =93 NEED NO INSULIN COVERAGE, TRANSFER OF CARE ENDORSED
[2020-12-10 06:53] LABS: ANION GAP 11.5 (8-16); CARBON DIOXIDE 26.4 mmol/L (21-32); CHLORIDE 106 mmol/L (98-107); CREATININE 0.9 mg/dL (0.6-1.3); GLUCOSE 105 mg/dL (74-106); POTASSIUM 3.9 mmol/L (3.5-5.1); SODIUM SERUM 140 mmol/L (136-145); UREA NITROGEN, BLOOD 15 mg/dL (7-18)
--- NOTE | 2020-12-10 07:20 | NUR ---
RECEIVED REPORT FROM NIGHT NURSE. PER NIGHT NURSE PT CAME FROM [facility]. PT IS A&OX1. PT IS ON 2LNC. PT HAD A BM YESTERDAY 12/09/20. PT IS INCONTINENT. PT'S SKIN IS INTACT. PT HAS A RH 24 G RUNNING NS AT 85ML/HR. PT IS NPO PENDING PEG TUBE PLACEMENT DUE TO FAILED SWALLOW EVAL. CONSENT HAS NOT BE SIGNED DUE TO PT BEING UNABLE TO SIGN. INTRODUCED MYSELF TO PT. CALL LIGHT IS WITHIN REACH. WILL CONTINUE PLAN OF CARE.
[2020-12-10] MEDS: BLOOD GLUCOSE MONITORING 1 DEV DEV FS SCH ×4 (07:40→21:37)
[2020-12-10 08:00] VITALS: BP 174/69
[2020-12-10] MEDS ORDERED: PANTOPRAZOLE 40 MG TABEC PO SCH (09:00)
--- NOTE | 2020-12-10 09:05 | NUR ---
PATIENT HAS BEEN SCREENED AND CATEGORIZED HIGH NUTRITION RISK. PATIENT WILL BE SEEN WITHIN 1-2 DAYS OF ADMISSION. 12/10/20-12/11/[address]
--- NOTE | 2020-12-10 11:23 | NUR ---
BLOOD SUGAR 102 MG/DL NO INSULIN COVERAGE PT IS RESTING NO DISTRESS NOTED. SAFETY MEASURES IN PLACE AND CALL LIGHT WITHIN REACH. WILL CONTINUE TO MONITOR.
--- NOTE | 2020-12-10 13:14 | NUR ---
PT WAS SEEN FOR DYSPHAGIA. PT WAS POCKETING FOR TRIALS OF PUREE DIET AND WET VOICE NOTED. hIGH RISK OF ASPIRATION. RECOMMENDATION NOTHING BY MOUTH
[2020-12-10] MEDS: PIPERACILLIN/TAZOBACTAM 2.25 GM in DEXTROSE 5% 50 ML IV SCH ×2 (13:20→21:37)
--- NOTE | 2020-12-10 13:22 | NUR ---
ADMINISTERED SCHEDULED MEDICATIONS PER MD ORDER. IV INFUSION IS RUNNING WELL. SAFETY PRECAUTIONS ARE IN PLACE. CALL LIGHT IS WITHIN REACH. WILL CONTINUE TO MONITOR.
--- NOTE | 2020-12-10 13:28 | NUR ---
DC PLANNING: SPOKE WITH PATIENTS DAUGHTER OLGA BY PHONE. PATIENT HAS BEEN AT [facility] FOR 4 YEARS, IS TOTAL CARE AND BEDBOUND. WAITING FOR G-TUBE PLACEMENT, WILL THEN DC BACK TO SN[facility]. NO OTHER FAMILY FOR DECISION MAKING, OLGA HAD NO FURTHER QUESTIONS OR CONCERNS. CM WILL CONTINUE TO FOLLOW FOR NEEDS.
--- NOTE | 2020-12-10 13:45 | NUR ---
PT FOR EGD WITH PEG PLACEMENT. PT DAUGHTER OLGA LEBRON GAVE THE CONSENT FOR EGD WITH PEG PLACEMENT THROUGH TELEPHONE CONSENT, PROCEDURES, RISK WHERE EXPLAINED TO THE DAUGHTER. AND ALL QUESTIONS ANSWERED BY DR PALACIOS. DAUGHTER VERBALIZES UNDERSTANDING AND AGREED TO THE PROCEDURE.
[2020-12-10] MEDS ORDERED: fentaNYL citrate 0.05 MG/ML VIAL ONE (14:34)
[2020-12-10] MEDS ORDERED: MIDAZOLAM 5 MG/5 ML VIAL ONE (14:34)
--- NOTE | 2020-12-10 14:46 | NUR ---
12/10/20 RD INITIAL ASSESSMENT COMPLETED PLEASE REFER TO NUTRITION ASSESSMENT UNDER CARE ACTIVITY FOR ESTIMATED NUTRITIONAL NEEDS. 1. CONSIDER GLUCERNA 1.2 @ 60 ML/HR. AVOID REFEEDING SYNDROME BY STARTING AT 10 ML/HR AND ADVANCE BY 10 ML/HR Q4H. FREE WATER FLUSH OF 140 ML Q6H -THIS WILL PROVIDE 1728 KCAL AND 86 GM OF PROTEIN. MEETING ADEQUATE NUTRIENT NEEDS. 2. RD TO FOLLOW-UP 2-3 DAYS, HIGH RISK CHERY ROY RD
[2020-12-10] MEDS ORDERED: ceFAZolin 1,000 MG VIAL ONE (14:50)
--- NOTE | 2020-12-10 15:17 | NUR ---
PT IS OUT THE ROOM HEADING TO OR FOR EGD WITH PEG TUBE PLACEMENT.
[2020-12-10] MEDS: MIDAZOLAM 2 MG/2 ML VIAL IVP ONE ×2 (15:45→17:31)
[2020-12-10] MEDS: fentaNYL citrate 0.05 MG/ML VIAL IVP ONE ×2 (15:46→17:31)
--- NOTE | 2020-12-10 16:24 | NUR ---
PT ARRIVED FROM OR. EGD WAS DONE AND PEG TUBE WAS INSERTED ON RIGHT SIDE ABDOMEN WITH THE PORT OPEN W/ ABDOMINAL BINDER. PT WAS GIVEN IN THE OR VERSED 3MG, FENTANYL 75MCG. PT'S VS UPON ARRIVAL AFTER OR WERE: B/P126/61, ME:94, TEMP.97.9, RR:12 AND PAIN LEVEL OF 0. PT IS SLEEPING AND IS NOT UNDER DISTRESS. WILL CONTINUE TO MONITOR VS AND PT Q15MIN. SAFETY PRECAUTIONS ARE IN PLACE AND CALL LIGHT IS WITHIN REACH.
--- NOTE | 2020-12-10 16:37 | NUR ---
BLOOD SUGAR 104 MG/DL NO INSULIN COVERAGE GIVEN.
[2020-12-10] MEDS: METOCLOPRAMIDE 10 MG/10 ML SYRP UDC GT SCH (16:48)
--- NOTE | 2020-12-10 17:09 | NUR ---
ADMINISTERED SCHEDULED MEDICATIONS PER MD ORDER. PEG TUBE HAD NO RESISTANCE AND WAS IMPECCABLE. CALL LIGHT IS WITHIN REACH. WILL CONTINUE TO MONITOR. PT SHOWED NO SIGNS OF DISTRESS.
--- NOTE | 2020-12-10 18:18 | NUR ---
STARTED JEVITI 1.2 TUBE FEEDING AT 30ML/HR. THE GOAL IS 50ML/HR.PT IS SLEEPING AND NOT UNDER DISTRESS. SAFETY PRECAUTIONS ARE IN PLACE. WILL CONTINUE TO MONITOR.
--- NOTE | 2020-12-10 19:35 | NUR ---
ENDORSED TO NIGHT NURSE FOR CONTINUITY OF CARE.
--- NOTE | 2020-12-10 19:36 | NUR ---
RECEIVED REPORT FROM DAY SHIFT NURSE ON BEDSIDE. PT AWAKE, ALERT, APHASIC, 2L NC, NO SIGNS OF DISTRESS, PEG TUBE IN PLACE RIGHT ABD, SAFETY MEASURES IMPLEMENTED, CALL LIGHT WITHIN REACH.
[2020-12-10 20:00] VITALS: BP 127/77
[2020-12-10] MEDS: INSULIN LISPRO SLIDING SCALE 100 UNITS/ML VIAL SUBQ PRN (21:39)
[2020-12-11 04:30] VITALS: BP 144/54
[2020-12-11 05:27] LABS: BASOPHILS % (AUTO) 0.2 % (0.0-2.0); HEMATOCRIT 43.8 % (36-52); HEMOGLOBIN 14.3 g/dL (12.0-18.0); LYMPHOCYTES # (AUTO) 1.8 K/uL (2.0-11.5); LYMPHOCYTES % (AUTO) 10.5 % (20.5-51.1); MEAN CORPUSCULAR HEMOGLOBIN 30 pg (27-31); MEAN CORPUSCULAR HGB CONC 33 g/dL (33-37); MEAN CORPUSCULAR VOLUME 90.7 fL (80-94); MONOCYTES # (AUTO) 1.5 K/uL (0.8-1.0); NEUTROPHILS # (AUTO) 13.8 K/uL (1.8-7.7); NEUTROPHILS % (AUTO) 80.3 % (42.2-75.2); PLATELET COUNT (AUTO) 237 K/uL (140-450); RED BLOOD CELL COUNT(AUTO) 4.83 MIL/uL (4.20-6.10); RED CELL DISTRIBUTION WIDTH 15.2 % (11.6-13.7); WHITE BLOOD COUNT (AUTO) 17.1 K/uL (4.8-10.8)
[2020-12-11 06:03] LABS: ANION GAP 10.3 (8-16); CARBON DIOXIDE 27.9 mmol/L (21-32); CHLORIDE 105 mmol/L (98-107); GLUCOSE 163 mg/dL (74-106); POTASSIUM 4.2 mmol/L (3.5-5.1); SODIUM SERUM 139 mmol/L (136-145); UREA NITROGEN, BLOOD 15 mg/dL (7-18)
[2020-12-11] MEDS: METOCLOPRAMIDE 10 MG/10 ML SYRP UDC GT SCH ×3 (06:31→17:02)
[2020-12-11] MEDS: LANSOPRAZOLE 30 MG CAPDR PO SCH (06:31)
[2020-12-11] MEDS: PIPERACILLIN/TAZOBACTAM 2.25 GM in DEXTROSE 5% 50 ML IV SCH (06:32)
[2020-12-11] MEDS: DEXT 5% /NACL 0.9% 1,000 ML IV SCH (06:32)
[2020-12-11] MEDS: BLOOD GLUCOSE MONITORING 1 DEV DEV FS SCH ×4 (06:36→21:06)
[2020-12-11] MEDS: INSULIN LISPRO SLIDING SCALE 100 UNITS/ML VIAL SUBQ PRN ×2 (06:44→12:07)
--- NOTE | 2020-12-11 07:30 | NUR ---
PT REPORT GIVEN AT BEDSIDE. PT IN STABLE CONDITION
--- NOTE | 2020-12-11 07:38 | NUR ---
RECEIVED REPORT FROM VP PRODUCT RN FOR CONTINUITY OF CARE. PATIENT AWAKE IN BED. BREATHING IS EVEN AND UNLABORED. NO DISTRESS NOTED. ALL SAFETY MEASURES IN PLACE. WILL CONTINUE TO MONITOR.
[2020-12-11] MEDS: LACTULOSE 20 GM/30 ML UDC PO SCH (09:23)
--- NOTE | 2020-12-11 09:23 | NUR ---
PATIENT IN BED WATCHING TV. BREATHING IS EVEN AND UNLABORED. ROUTINE MEDICATION GIVEN. PATIENT HAD 70 ML RESIDUAL. TOLERATING FEEDING WELL. NO EMESIS. ALL SAFETY MEASURES IN PLACE. WILL CONTINUE TO MONITOR.
[2020-12-11 10:59] LABS: T4 (THYROXINE) 6.7 ug/dL (4.5 - 12.0)
--- NOTE | 2020-12-11 11:35 | NUR ---
PATIENT AWAKE SITTING UP IN BED. NO ACUTE DISTRESS NOTED. ALL SAFETY MEASURES IN PLACE. WILL CONTINUE TO MONITOR.
[2020-12-11 12:00] VITALS: BP 130/60
--- NOTE | 2020-12-11 13:55 | NUR ---
PATIENT SLEEPING. BREATHING IS EVEN AND UNLABORED. NO DISTRESS NOTED. ALL SAFETY MEASURES IN PLACE. WILL CONTINUE TO MONITOR.
[2020-12-11] MEDS: PIPERACILLIN/TAZOBACTAM 3.375 GM in DEXTROSE 5% 50 ML IV SCH ×2 (14:05→21:07)
--- NOTE | 2020-12-11 15:29 | NUR ---
PATIENT SLEEPING IN BED. NO ACUTE DISTRESS NOTED. BREATHING EVEN AND UNLABORED. ALL SAFETY MEASURES IN PLACE. WILL CONTINUE TO MONITOR.
--- NOTE | 2020-12-11 17:46 | NUR ---
PATIENT IN BED SLEEPING. BREATHING EVEN AND UNLABORED. ALL SAFETY MEASURES IN PLACE WILL CONTINUE TO MONITOR.
--- NOTE | 2020-12-11 19:17 | NUR ---
ENDORSED TO WORLD HISTORY TEACHER NURSE FOR CONTINUITY OF CARE. PATIENT STABLE. ALL SAFETY MEASURES IN PLACE.
[2020-12-11 23:12] VITALS: BP 118/65
[2020-12-12 04:00] VITALS: BP 129/63
[2020-12-12] MEDS: PIPERACILLIN/TAZOBACTAM 3.375 GM in DEXTROSE 5% 50 ML IV SCH ×2 (04:36→12:45)
[2020-12-12 05:27] LABS: ANION GAP 11.6 (8-16); CARBON DIOXIDE 24.6 mmol/L (21-32); CHLORIDE 105 mmol/L (98-107); GLUCOSE 144 mg/dL (74-106); POTASSIUM 4.2 mmol/L (3.5-5.1); SODIUM SERUM 137 mmol/L (136-145); UREA NITROGEN, BLOOD 16 mg/dL (7-18)
[2020-12-12 05:38] LABS: BASOPHILS % (AUTO) 0.4 % (0.0-2.0); EOSINOPHILS # (AUTO) 0.2 K/uL (0-0.4); EOSINOPHILS % (AUTO) 1.6 % (0.0-4.0); HEMATOCRIT 41.3 % (36-52); HEMOGLOBIN 13.6 g/dL (12.0-18.0); LYMPHOCYTES # (AUTO) 2.8 K/uL (2.0-11.5); LYMPHOCYTES % (AUTO) 28.7 % (20.5-51.1); MEAN CORPUSCULAR HEMOGLOBIN 30 pg (27-31); MEAN CORPUSCULAR HGB CONC 33 g/dL (33-37); MEAN CORPUSCULAR VOLUME 90.4 fL (80-94); MONOCYTES # (AUTO) 1.5 K/uL (0.8-1.0); MONOCYTES % (AUTO) 15.9 % (1.7-9.3); NEUTROPHILS # (AUTO) 5.1 K/uL (1.8-7.7); NEUTROPHILS % (AUTO) 53.4 % (42.2-75.2); PLATELET COUNT (AUTO) 216 K/uL (140-450); RED BLOOD CELL COUNT(AUTO) 4.57 MIL/uL (4.20-6.10); RED CELL DISTRIBUTION WIDTH 15.5 % (11.6-13.7); WHITE BLOOD COUNT (AUTO) 9.6 K/uL (4.8-10.8)
[2020-12-12] MEDS: LANSOPRAZOLE 30 MG CAPDR PO SCH (06:03)
[2020-12-12] MEDS: BLOOD GLUCOSE MONITORING 1 DEV DEV FS SCH ×2 (06:04→11:32)
[2020-12-12] MEDS: METOCLOPRAMIDE 10 MG/10 ML SYRP UDC GT SCH ×2 (06:18→12:11)
--- NOTE | 2020-12-12 07:20 | NUR ---
RECEIVED REPORT FROM FILAMENT WELDER RN FOR CONTINUITY OF CARE. PATIENT AWAKE IN BED, APHASIC. RESPIRATIONS EVEN AND UNLABORED. ON ROOM AIR AND NO DISTRESS NOTED. SKIN IS WARM AND DRY. S/P G-TUBE PLACEMENT 12/11. IV SITE ON RFA 24 G INTACT AND PATENT. IV FLUIDS INFUSING WELL. FLACC 0. PLAN OF CARE DISCUSSED. ALL SAFETY MEASURES IN PLACE. CALL LIGHT WITHIN REACH. WILL CONTINUE TO MONITOR. Addendum: 12/12/20 at 1013 by David Hogan RN RN ON 2L NC NOT ROOM AIR. O2 SATURATION AT 97%
[2020-12-12 08:00] VITALS: BP 147/63
[2020-12-12] MEDS: LACTULOSE 20 GM/30 ML UDC PO SCH (09:50)
--- NOTE | 2020-12-12 09:55 | NUR ---
ALL SCHEDULED MEDS GIVEN. PT IS STABLE. NO DISTRESS NOTED. WILL CONTINUE TO MONITOR.
[2020-12-12] MEDS ORDERED: PIPE1SOL IV (11:06)
--- NOTE | 2020-12-12 11:32 | NUR ---
BLOOD GLUCOSE CHECK WAS 127. NO INSULIN COVERAGE NEEDED.
--- NOTE | 2020-12-12 12:04 | NUR ---
TALKED TO THERESA [facility], AND FAXED DISCHARGE NOTES, LABS , VITALS, WAITING FOR CALL BACK FOR ROOM NUMBER.
--- NOTE | 2020-12-12 12:26 | NUR ---
REACHED OUT TO [facility] FOR IEHP, NEED TRANSPORT AUTHORIZATION, WAITING FOR CALL BACK
--- NOTE | 2020-12-12 12:29 | NUR ---
NOTIFIED BY CHARGE NURSE THAT PATIENT WILL BE GETTING DISCHARGE TO [facility]. WILL CONTACT [facility] AND GIVE REPORT TO THE ASSIGNED NURSE.
--- NOTE | 2020-12-12 12:52 | NUR ---
TALKED TO AN[facility]ON[facility] FOR TRANSPORT AUTHORIZATION, WILL CALL ME BACK.
--- NOTE | 2020-12-12 12:59 | NUR ---
12/12/20 RD FOLLOW UP COMPLETED PLEASE REFER TO NUTRITION PROGRESS NOTE UNDER CARE ACTIVITY FOR ESTIMATED NUTRITION NEEDS. RD RECOMMENDATIONS: 1. RECOMMEND SWITCHING TUBE FEEDING FORMULA TO GLUCERNA 1.2 @ 60 ML/HR DUE TO DM AND GLUCOSE LEVELS TRENDING UP. -THIS WILL PROVIDE 1728 KCAL AND 86 GM OF PROTEIN, MEETING ADEQUATE NUTRIENT NEEDS. 2. CONSIDER FREE WATER FLUSH OF [address] TO FOLLOW-UP 2-3 DAYS, HIGH RISK SHAHRZAD ELIZABETH, RD
--- NOTE | 2020-12-12 13:50 | NUR ---
FAXED TRANSPORTATION REQUEST FORM [phone], CALL PLACE TO [facility] LEAVE MESSAGE.
--- NOTE | 2020-12-12 14:30 | NUR ---
CHECKED ON PATIENT. PATIENT IS STABLE. NO DISTRESS NOTED. WILL CONTINUE TO MONITOR.
--- NOTE | 2020-12-12 14:32 | NUR ---
LEAVE MESSAGE TO [facility] REGARDING THE TRANSPORT
[2020-12-12] MEDS: DEXT 5% /NACL 0.9% 1,000 ML IV SCH (14:41)
--- NOTE | 2020-12-12 15:05 | NUR ---
RECEIVED A CALL FROM [facility], PICKED UP TIME 1 AND 1/2 HR [facility] [phone]
[2020-12-12 15:19] VITALS: BP 147/63
--- NOTE | 2020-12-12 15:30 | NUR ---
CONTACTED [facility] AND GAVE REPORT TO SANTANA GALEANO. NOTIFIED THEM THAT PATIENT WILL BE TRANSFERRED AT 1600 BY [facility].
--- NOTE | 2020-12-12 15:40 | NUR ---
ENDORSED DISCHARGE INSTRUCTIONS TO PATIENT BUT PATIENT IS NOT ABLE TO SIGN OR COMPREHEND DISCHARGE INSTRUCTIONS.
--- NOTE | 2020-12-12 15:45 | NUR ---
PATIENT DISCHARGED OFF THE UNIT. [facility] WILL BE TRANSFERRING PATIENT TO [facility] IN ROOM 9B UNDER DR. BAIRES. PATIENT WAS STABLE PRIOR TO DISCHARGE
== END 2020-12-12 15:40 | DRG 871 ==
LOC: MED 14:03 → MTU 15:02
PROVIDERS: ADMIT Family Medicine; ATTEND Family Medicine
PROC: 0DH63UZ Insertion of Feeding Device into Stomach, Percutaneous Approach (ICD-10-PCS; principal; 2020-12-10 15:40)
DX: A41.9 Sepsis, unspecified organism (principal); J96.01 Acute respiratory failure with hypoxia; J69.0 Pneumonitis due to inhalation of food and vomit; E44.0 Moderate protein-calorie malnutrition; I42.9 Cardiomyopathy, unspecified; I48.20 Chronic atrial fibrillation, unspecified; I13.0 Hypertensive heart and chronic kidney disease with heart failure and stage 1 through stage 4 chronic kidney disease, or unspecified chronic kidney disease; G93.40 Encephalopathy, unspecified; J98.11 Atelectasis; R13.10 Dysphagia, unspecified; R62.7 Adult failure to thrive; Z68.25 Body mass index [BMI] 25.0-25.9, adult; K21.9 Gastro-esophageal reflux disease without esophagitis; D63.8 Anemia in other chronic diseases classified elsewhere; E11.22 Type 2 diabetes mellitus with diabetic chronic kidney disease; E78.2 Mixed hyperlipidemia; F03.90 Unspecified dementia, unspecified severity, without behavioral disturbance, psychotic disturbance, mood disturbance, and anxiety; I50.9 Heart failure, unspecified; K44.9 Diaphragmatic hernia without obstruction or gangrene; N18.9 Chronic kidney disease, unspecified; Z86.73 Personal history of transient ischemic attack (TIA), and cerebral infarction without residual deficits; Z93.1 Gastrostomy status; Z20.822 Contact with and (suspected) exposure to COVID-19; Z79.01 Long term (current) use of anticoagulants; I25.10 Atherosclerotic heart disease of native coronary artery without angina pectoris; Z95.1 Presence of aortocoronary bypass graft; I48.91 Unspecified atrial fibrillation; D63.1 Anemia in chronic kidney disease
CPT/HCPCS: 36415; 71045; 80048; 80053; 82150; 82948; 83036; 83690; 83735; 83880; 84100; 84436; 84439; 84443; 84479; 84484; 85025; 85610; 85730; 87040; 87081; 92610; 92700; 99285; J0690; J2250; J2543; J3010; J7030; J7060; J8597

== ENCOUNTER 2021-03-28 03:28 | Inpatient (IN) | payer OTHER, SELFPAY ==
[~2021-03-28] VITALS: Ht 177.8 cm; Wt 72.1 kg
[~2021-03-28 03:28] MED LIST changes: -DEXA6TAB1 PO; -FER325 PO; -FURO-570 PO; -LOV80I SUBQ; +MEMA10TA PO; -PIPE1PDS26 IV; +PIPE1SOL IV; -[UNRECOGNIZED DRUG - CODE] PO
--- NOTE | 2021-03-28 03:28 | NUR ---
PT JUSTICE ALS. TAKEN TO BED 10. DR. PORRAS AND RT AT BEDSIDE
[2021-03-28 03:29] VITALS: BP 97/48
[2021-03-28] MEDS ORDERED: DEXAMETHASONE 4 MG/ML VIAL IVP ONE (03:45)
[2021-03-28] MEDS ORDERED: NALOXONE PFS 2 MG/2 ML SYR IVP ONE (03:45)
[2021-03-28] MEDS ORDERED: LEVOFLOXACIN 750 MG/D5W PREMIX 150 ML IV ONE (03:45)
--- NOTE | 2021-03-28 04:15 | NUR ---
MADE ROUNDS ON PT, NO S/S OF DISTRESS. RESPIRATIONS EVEN AND UNLABORED. O2 SAT98%. CLEANED AND CHANGED PT DIAPER. REPOSITIONED PT. ALL SAFETY MEASURES IN PLACE. WILL CONTINUE TO MONITOR. Addendum: 03/29/21 at 0707 by Daina Blue RN RN THIS NOTE IS FOR 03/29/21 0415.
--- NOTE | 2021-03-28 04:42 | NUR ---
BLOOD WALKED TO LAB AND GIVEN TO [facility].
--- NOTE | 2021-03-28 04:50 | NUR ---
PT TAKEN TO CT VIA JOSHUA
--- NOTE | 2021-03-28 05:04 | NUR ---
PT RETURN FROM CT
--- NOTE | 2021-03-28 05:16 | NUR ---
X-Ray at bedside.
[2021-03-28 05:22] LABS: BASOPHILS % (AUTO) 0.2 % (0.0-2.0); HEMATOCRIT 49.5 % (36-52); HEMOGLOBIN 16.6 g/dL (12.0-18.0); LYMPHOCYTES # (AUTO) 2.4 K/uL (2.0-11.5); LYMPHOCYTES % (AUTO) 12.1 % (20.5-51.1); MEAN CORPUSCULAR HEMOGLOBIN 31 pg (27-31); MEAN CORPUSCULAR HGB CONC 34 g/dL (33-37); MEAN CORPUSCULAR VOLUME 91.9 fL (80-94); MONOCYTES # (AUTO) 2.2 K/uL (0.8-1.0); NEUTROPHILS % (AUTO) 76.7 % (42.2-75.2); PLATELET COUNT (AUTO) 214 K/uL (140-450); RED BLOOD CELL COUNT(AUTO) 5.38 MIL/uL (4.20-6.10); RED CELL DISTRIBUTION WIDTH 16.2 % (11.6-13.7); WHITE BLOOD COUNT (AUTO) 19.5 K/uL (4.8-10.8)
[2021-03-28] MEDS ORDERED: NALOXONE PFS 2 MG/2 ML SYR ONE (05:40)
[2021-03-28] MEDS ORDERED: DEXAMETHASONE 4 MG/ML VIAL ONE (05:40)
[2021-03-28 05:49] LABS: BARBITURATE, URINE NEGATIVE ng/ml (NEG <=200)
[2021-03-28 05:50] LABS: BENZODIAZEPINE, URINE NEGATIVE ng/mL (NEG <=200); CANNABINOID, URINE NEGATIVE ng/mL (NEG <=50); COCAINE, URINE NEGATIVE ng/mL (NEG <=300); OPIATE, URINE NEGATIVE ng/mL (NEG <=2000); PHENCYCLIDINE SCREEN,URINE NEGATIVE ng/mL (NEG <=25)
--- NOTE | 2021-03-28 05:52 | NUR ---
IV ABX STARTED PER ORDERS PT CONT WITH AUDIBLE RHONCHI. O2 SATS WITHIN DEFINED LIMITS @95 ON 2LPM VIA NC. PT TO BE ADMITTED PER ERMD
[2021-03-28 06:06] LABS: ACETAMINOPHEN 5.9 ug/ml (10-30); ALBUMIN 2.6 g/dL (3.4-5.0); ASPARTATE AMINOTRANSFERASE 21 U/L (15-37); CARBON DIOXIDE 25.9 mmol/L (21-32); CHLORIDE 107 mmol/L (98-107); CREATININE 1.2 mg/dL (0.6-1.3); GLUCOSE 144 mg/dL (74-106); POTASSIUM 3.9 mmol/L (3.5-5.1); SODIUM SERUM 142 mmol/L (136-145); TOTAL BILIRUBIN 0.7 mg/dL (0.0-1.0); UREA NITROGEN, BLOOD 37 mg/dL (7-18)
--- NOTE | 2021-03-28 06:39 | NUR ---
CONTINUES IN DEPT NO CHANGES IN NEURO STATUS OR HEALTH STATUS, CONT WITH DIAPHORESIS. PT PLACED IN TRENDELENBERG TO FACILITE BLOOD RETURN TO HEART-BP LOW BUT WITHIN DEFINED LIMITS. PENDING ADMIT.
[2021-03-28] MEDS ORDERED: VANCOMYCIN 1,000 MG in DEXTROSE 5% 250 ML IV ONE (06:55)
[2021-03-28] MEDS ORDERED: NACL 0.9% 1,000 ML IV ONE (07:05)
--- NOTE | 2021-03-28 07:13 | NUR ---
REPROT TO TEX ALL QUESTIONS ANSWERED
--- NOTE | 2021-03-28 07:17 | NUR ---
REPORT RECIEVED FROM SANTANA FLOWERS FOR TRANSFER OF CARE
[2021-03-28] MEDS ORDERED: VANCOMYCIN 1,000 MG VIAL ONE (07:46)
--- NOTE | 2021-03-28 07:50 | NUR ---
RT BEDSIDE CURRENTLY WITH PATIENT
--- NOTE | 2021-03-28 07:56 | NUR ---
DR. SWAIN SPOKE WITH PT DAUGHTER OLGA. PER FAMILY AND ER MD DR. SWAIN CODE STATUS HAS CHANGED FROM FULL CODE TO DNR/DNI
--- NOTE | 2021-03-28 07:57 | NUR ---
REVIEWED WITH DR. SWAIN PATIENT ASSOCIATE SOFTWARE DEVELOPMENT ENGINEER ASSESSMENT, PULMONARY AND OXYGEN STATUS V.O. ERMD PLACE PATIENT ON HIGH FLOW NASAL CANNULA
--- NOTE | 2021-03-28 07:57 | NUR ---
LOC ASLEEP EASILY AWAKENS SUPPLEMENTAL OXYGEN AT 3 LPM VIA NC SATURATION 97% HR 89 RR 20 BPM GOOD CHEST RISE BREATH SOUNDS COARSE RHONCHI BILATERAL
--- NOTE | 2021-03-28 07:59 | NUR ---
NASOTRACHEAL SUCTION REQUIRED DURING PROCEDURE PRE AND POST OXYGEN AT 8LPM VIA SIMPLE MASK USING STERILE TECHNIQUE APPLIED STERILE KY LUBRICANT AT THE DISTAL END OF A 14 FR SUCTION CATHETER INSERTED INTO LEFT AND RIGHT NASAL SEPTUM WITH STRONG COUGH THEN THROUGH VOCAL CHORDS AND BRONCHIAL TREE WHILE ENDING AT BIFURCATION OBTAINED LARGE THIN MANNING WITH BLOOD TINGE SECRETIONS PATIENT TOLERATED PROCEDURE WELL SPUTUM FINDINGS REVIEWED WITH DR. SWAIN SPECIMEN SAMPLE FORWARDED TO LAB PATIENT
[2021-03-28 08:00] VITALS: BP 94/56
[2021-03-28 08:28] LABS: APPEARANCE,URINE CLEAR (CLEAR); BILIRUBIN,URINE NEGATIVE (NEGATIVE); BLOOD, URINE NEGATIVE (NEGATIVE); COLOR,URINE YELLOW (YELLOW); LEUKOCYTE ESTERASE ,URINE NEGATIVE (NEGATIVE); NITRITE, URINE NEGATIVE (NEGATIVE); UGLUCOSE NEGATIVE (NEGATIVE)
[2021-03-28 08:29] LABS: RBC,URINE 0-5 /HPF (0-5); WBC,URINE 0-5 /HPF (0-5)
--- NOTE | 2021-03-28 08:46 | NUR ---
Patient appears to be resting comfortably in bed. Vital Signs within normal limits. Respirations even and unlabored.
--- NOTE | 2021-03-28 09:00 | NUR ---
PLACED PATIENT ON A VAPOTHERM HIGH FLOW NASAL CANNULA PLUGGED INTO RED OUTLET TOLERATING WELL WITHOUT COMPLICATIONS NOTED FIO2 32% FLOW 20 LPM TEMP. 36.0 C SATURATION 96% HR 90 RR 20 BPM B/P / DR. WILIAM PARDO AWARE OF HIGH FLOW SETTINGS Addendum: 03/28/21 at 0925 by NUSRAT ACTUAL XIANG TIME IS 0800
[2021-03-28] MEDS ORDERED: MORPHINE SULFATE 4 MG/ML SYR IVP PRN (09:45)
--- NOTE | 2021-03-28 10:05 | NUR ---
PT ADMITTED TO TELE UNDER DR. BAIRES. PT TELE HOLD IN ED BED 10 AT THIS TIME
[2021-03-28] MEDS: NACL 0.9% 1,000 ML IV SCH (10:43)
[2021-03-28] MEDS ORDERED: OMEG1CAP65 GT (10:52)
[2021-03-28] MEDS ORDERED: ASCO500T95 GT (11:01)
[2021-03-28] MEDS ORDERED: MULT-2112 GT (11:01)
[2021-03-28] MEDS ORDERED: MEMA10TA GT (11:01)
[2021-03-28] MEDS ORDERED: POTA10TA70 GT (11:01)
[2021-03-28] MEDS ORDERED: METO25TE2 GT (11:01)
[2021-03-28] MEDS ORDERED: DILT30TA18 GT (11:01)
[2021-03-28] MEDS ORDERED: CRAN450T5 GT (11:01)
--- NOTE | 2021-03-28 11:01 | NUR ---
MED REC COMPLETED FOR PATIENT
--- NOTE | 2021-03-28 12:13 | NUR ---
PT PROVIDED WITH FRESH DIAPER AND LINEN. PT ALSO REPOSITIONED AT THIS TIME. PT DAUGHTER CARLOS ENRIQUE RONNI CURRENTLY
[2021-03-28 12:50] VITALS: BP 90/40
--- NOTE | 2021-03-28 12:50 | NUR ---
TOLERATING VAPOTHERM HIGH FLOW NASAL CANNULA WELL WITHOUT ANY COMPLICATIONS NOTED EQUAL CHEST RISE OROPHARYNGEAL SUCTION VIA YANKUER FOR LARGE THIN MANNING SECRETIONS AIRWAY PATENT
--- NOTE | 2021-03-28 14:02 | NUR ---
PT DAUGHTER JOEY ROMÁN FOR ANY MEDICAL DECISIONS. ALSO PT DAUGHTER REQUESTED TO ONLY SPEAK WITH HER AND SISTER CARLOS ENRIQUE IN REGARDS TO PT CARE Addendum: 03/28/21 at 1709 by [email or web address] PT DAUGHTER NAME IS SULAIMAN ESPINOZA
--- NOTE | 2021-03-28 14:03 | NUR ---
Patient appears to be resting comfortably in bed. Vital Signs within normal limits. Respirations even and unlabored.
[2021-03-28] MEDS ORDERED: ACETAMINOPHEN 325 MG TAB PO PRN (16:10)
[2021-03-28] MEDS ORDERED: ONDANSETRON 4 MG/2 ML VIAL IM/IVP PRN (16:10)
[2021-03-28] MEDS ORDERED: HYDROcodone/APAP 7.5/325 MG 1 TAB PO PRN (16:10)
[2021-03-28] MEDS ORDERED: ZOLPIDEM 5 MG TAB PO PRN (16:10)
[2021-03-28] MEDS ORDERED: POTASSIUM CHLORIDE 40 MEQ, LIDOCAINE MPF 1% 25 MG in NACL 0.9% 250 ML IV PRN (16:10)
[2021-03-28] MEDS ORDERED: guaiFENesin DM 200/20 MG-10 ML 10 ML UDC PO PRN (16:10)
[2021-03-28] MEDS ORDERED: DOCUSATE SODIUM 100 MG GELCAP PO PRN (16:10)
[2021-03-28] MEDS ORDERED: ALBUTEROL SULFATE/IPRATROPIU 3 ML SOL IH PRN (16:15)
[2021-03-28 16:53] LABS: PROTHROMBIN TIME 10.4 secs (10.8-13.4)
[2021-03-28 16:57] LABS: CHOL/HDL RATIO 2.9 (1-4.5); FREE T4 (FREE THYROXINE) 0.87 ng/dL (0.76-1.46); MAGNESIUM 2.6 mg/dL (1.8-2.4); PHOSPHORUS 3.9 mg/dL (2.5-4.9); THYROID STIMULATING HORMONE 1.07 uIU/mL (0.34-3.74)
--- NOTE | 2021-03-28 17:05 | NUR ---
SPOKE WITH RAJIV FROM [email or web address]. WAS TOLD WOULD BE HERE AROUND 1900
[2021-03-28] MEDS: DEXT 5% /NACL 0.9% 1,000 ML IV SCH (17:14)
--- NOTE | 2021-03-28 17:50 | NUR ---
Patient appears to be resting comfortably in bed with eyes closed. Vital Signs within normal limits and charted. Respirations even and unlabored. will continue to monitor
--- NOTE | 2021-03-28 18:06 | NUR ---
SPOKE WITH PT DAUGHTER OLGA AND REQUESTED FOR CODE TO BE GIVEN TO RELEASE ANY INFORM INREGARDS TO PT CARE. CODE: [id number]
[2021-03-28] MEDS ORDERED: PIPERACILLIN/TAZOBACTAM 2.25 GM VIAL IV ONE (18:16)
[2021-03-28] MEDS: PIPERACILLIN/TAZOBACTAM 2.25 GM in DEXTROSE 5% 50 ML IV SCH (18:20)
[2021-03-28] MEDS: ALBUTEROL SULFATE/IPRATROPIU 3 ML SOL IH SCH (19:00)
--- NOTE | 2021-03-28 19:24 | NUR ---
Pt report given to SANTANA HORNER. Transfer of care at this time.
--- NOTE | 2021-03-28 20:43 | NUR ---
PT TAKEN TO RADIOLOGY AND WILL BE ADMITTED TO ROOM 115 AFTER
--- NOTE | 2021-03-28 20:45 | NUR ---
Patient will be admitted to care of MD BAIRES. Admited to TELEMETRY. Will go to room. Belongings list completed. Report to .
--- NOTE | 2021-03-28 22:01 | NUR ---
PT TRANSPORTED FROM ED THEN TO RADIOLOGY FOR VQ SCAN AND SENT TO 115 PT TOLERATED WELL PT WAS REPLACED ON HFNC HF WAS PLUGGED INTO RED OUTLET WILL CONTINUE TO MONITOR
[2021-03-28 22:02] VITALS: BP 132/58
--- NOTE | 2021-03-28 22:02 | NUR ---
PT ARRIVED TO UNIT VIA GURNEY, NON VERBAL. NO S/S OF ANY DISTRESS. RESPIRATIONS IS EVEN AND UNLABORED. SKIN IS WARM, DRY AND INTACT. IV ON R ARM 20G, L AC 22G. NS @60MLS/HR INFUSING WELL. G-TUBE INTACT AND PATENT. PT IS INCONTINENT. ALL SAFETY MEASURES IN PLACE. WILL CONTINUE TO MONITOR.
[2021-03-29] MEDS ORDERED: PIPERACILLIN/TAZOBACTAM 2.25 GM VIAL IV ONE ×2 (00:13→05:25)
[2021-03-29] MEDS: PIPERACILLIN/TAZOBACTAM 2.25 GM in DEXTROSE 5% 50 ML IV SCH ×5 (00:35→23:00)
--- NOTE | 2021-03-29 00:35 | NUR ---
SCHEDULED MEDICATION GIVEN, PT TOLERATED IT WELL.
--- NOTE | 2021-03-29 02:00 | NUR ---
STARTED ON G-TUBE FEEDING GLUCERNA 1.2, PT TOLERATED THE FEEDING.
[2021-03-29] MEDS: NACL 0.9% 1,000 ML IV SCH ×2 (02:55→19:35)
[2021-03-29 04:00] VITALS: BP 126/74
[2021-03-29 04:01] VITALS: BP 132/58
[2021-03-29] MEDS: DEXT 5% /NACL 0.9% 1,000 ML IV SCH ×2 (04:40→17:47)
--- NOTE | 2021-03-29 05:33 | NUR ---
SCHEDULED MEDICATION GIVEN ORDERED. PT TOLERATED IT WELL.
[2021-03-29 06:25] LABS: BASOPHILS % (AUTO) 0.1 % (0.0-2.0); HEMATOCRIT 40.3 % (36-52); HEMOGLOBIN 13.4 g/dL (12.0-18.0); LYMPHOCYTES # (AUTO) 2.3 K/uL (2.0-11.5); LYMPHOCYTES % (AUTO) 16.5 % (20.5-51.1); MEAN CORPUSCULAR HEMOGLOBIN 31 pg (27-31); MEAN CORPUSCULAR HGB CONC 33 g/dL (33-37); MEAN CORPUSCULAR VOLUME 92.2 fL (80-94); MONOCYTES # (AUTO) 1.5 K/uL (0.8-1.0); NEUTROPHILS # (AUTO) 10.1 K/uL (1.8-7.7); NEUTROPHILS % (AUTO) 72.4 % (42.2-75.2); PLATELET COUNT (AUTO) 177 K/uL (140-450); RED BLOOD CELL COUNT(AUTO) 4.38 MIL/uL (4.20-6.10); RED CELL DISTRIBUTION WIDTH 16.4 % (11.6-13.7); WHITE BLOOD COUNT (AUTO) 13.9 K/uL (4.8-10.8)
[2021-03-29 06:56] LABS: ANION GAP 13.7 (8-16); CARBON DIOXIDE 23.3 mmol/L (21-32); CHLORIDE 110 mmol/L (98-107); CREATININE 1.1 mg/dL (0.6-1.3); GLUCOSE 110 mg/dL (74-106); SODIUM SERUM 143 mmol/L (136-145); UREA NITROGEN, BLOOD 33 mg/dL (7-18)
--- NOTE | 2021-03-29 07:39 | NUR ---
BED SIDE REPORT RECEIVED FROM FISHER NET NURSE. PT RESTING ON HIGH HIGH ROSY NC ON PT 02 AT 94%
--- NOTE | 2021-03-29 07:40 | NUR ---
ENDORSED TO AM SHIFT NURSE FOR CONTINUITY OF CARE. PT IS STABLE.
[2021-03-29] MEDS: ALBUTEROL SULFATE/IPRATROPIU 3 ML SOL IH SCH ×3 (07:45→20:10)
--- NOTE | 2021-03-29 07:45 | NUR ---
RECEIVED ON A VAPOTHERM HIGH FLOW NASAL CANNULA WITH COMPRESSOR ON PLUGGED INTO RED OUTLET TOLERATING WELL WITHOUT COMPLICATIONS NOTED GOOD CHEST RISE OROPHARYNGEAL SUCTION VIA YANKUER FOR MODERATE THIN YELLOW SECRETIONS NOTED
[2021-03-29 08:00] VITALS: BP 134/76
[2021-03-29 08:07] LABS: T4 (THYROXINE) 5.5 ug/dL (4.5-12.0)
--- NOTE | 2021-03-29 08:08 | NUR ---
CRITICAL VALUE LACTIC ACID 2.6. NOTIFIED . AWAITING ORDERS
[2021-03-29] MEDS ORDERED: PANTOPRAZOLE 40 MG TABEC PO SCH (09:00)
--- NOTE | 2021-03-29 09:00 | NUR ---
PT TUBE FEEDINT RATE CHANGED TO 20 MLS PER HR. PT TOLERATING WELL NO RESIDUALS
--- NOTE | 2021-03-29 09:08 | NUR ---
PATIENT HAS BEEN SCREENED AND CATEGORIZED HIGH NUTRITION RISK. PATIENT WILL BE SEEN WITHIN 1-2 DAYS OF ADMISSION. 03/29/[address]
--- NOTE | 2021-03-29 09:45 | NUR ---
MEDICATIONS GIVEN PER MD ORDER. PT EDUCATED AND VERBALIZED UNDERSTANDING ALL SAFETY MEASURES IN PLACE.
[2021-03-29] MEDS ORDERED: PANTOPRAZOLE 40 MG INJ VIAL IVP SCH (10:09)
--- NOTE | 2021-03-29 10:15 | NUR ---
SPOKE TO OLGA (DAUGHTER) PIN VERIFIED [phone] . UPDATED ON PLAN OF CARE FOR PT AND GIVEN LATEST VITALS SIGNS. DAUGHTER VERBALIZED UNDERSTANDING , AND HAD NO FURTHER QUESTIONS ALL SAFETY MEASURES ARE IN PLACE.
--- NOTE | 2021-03-29 11:38 | NUR ---
patient changed repositioned, no bm at this time
[2021-03-29 12:00] VITALS: BP 152/57
--- NOTE | 2021-03-29 12:00 | NUR ---
MEDICATIONS GIVEN PER MD ORDER. PT EDUCATED AND VERBALIZED UNDERSTANDING ALL SAFETY MEASURES IN PLACE. Addendum: 03/29/21 at 1923 by Tressa Urias RN RN UNABLE TO VERBALIZE
--- NOTE | 2021-03-29 12:56 | NUR ---
DC PLANN[age] YRS OLD MALE PATIENT [place] [facility] [place] OF PNEUMONIA. PATIENT HAS A HX OF CVA, A-FIB, HTN , DM, CHF, DEMENTIA AND CHRONIC ANEMIA. CXR SHOWED MILD CHF AND LEFT BASILAR SUBSEGMENTAL ATELECTASIS. CT HEAD NO ACUTE ABNORMALITY IS SEEN. VQ SCAN NO SEGMENTAL DEFECTS. RAPID COVID TEST NEGATIVE. CONSULTED WITH PULMO, CARDIO AND GI. DC PLAN TO GO BACK [place] [facility] [place] STABLE CM TO FOLLOW Addendum: 03/31/21 at 1514 by Carol Ann Torres RN DC PLANNING: SEEN BY GI NOLAN AND CARDIO CONTINUE IN ABX Z[facility] BP IMPROVED . DC PLAN TO GO BACK [place] [facility] [place] ST[place] CM TO FOLLOW Addendum: 04/01/21 at 1414 by Carol Ann Torres RN DC PLANNING: PATIENT HAS A DC ORDER TO GO BACK TO [facility] , FAXED ALL PAPERWORK TO [facility] , SPOKE WITH MIRANDA REQUESTING AUTH FROM [facility] FOR IV ABX. CALLED AND FAXED THE REQUEST, PATIENT CAN GO TO ROOM 50A #TO GIVE REPORT [phone]. ARRANGE TRANSPORT WITH [facility], STATED THEY ARRANGED WITH [employer] [phone]. BOARD HAMMER OPERATOR TIME AROUND 3 PM. NOTIFIED TORRES PORTILLO CM TO FOLLOW
--- NOTE | 2021-03-29 13:30 | NUR ---
STABLE AWAKE TOLERATING VAPOTHERM HIGH NASAL CANNULA WITHOUT ADVERSE REACTIONS NOTED GOOD CHEST RISE NASOTRACHEAL SUCTION FOR LARGE SEMI THICK TO THIN YELLOW SECRETIONS AIRWAY PATENT TOLERATED PROCEDURE WELL WITHOUT COMPLICATIONS NOTED
--- NOTE | 2021-03-29 14:25 | NUR ---
PT CHANGED AND REPOSITIONED , PT TOLERATED WELL
--- NOTE | 2021-03-29 14:58 | NUR ---
PT CHECKED TOLERATING TUBE FEEDING WELL , TUBE FEEDING RATE CHANGED PER PROTOCOL PT AT 30 / PER HOUR.
--- NOTE | 2021-03-29 15:18 | NUR ---
RECEIVED TORB FROM DR. PEDRAZA FOR GLUCERNA 1.2 @ 75 ML/HR WITH FLUSH 40 ML Q4H
--- NOTE | 2021-03-29 15:36 | NUR ---
03/29/21 RD INITIAL ASSESSMENT COMPLETED PLEASE REFER TO NUTRITION ASSESSMENT UNDER CARE ACTIVITY FOR ESTIMATED NUTRITIONAL NEEDS. 1. RECOMMEND INCREASING GLUCERNA 1.2 GOAL RATE TO 75 ML/HR -THIS WILL PROVIDE 2160 KCAL/DAY AND 108 GM OF PROTEIN/DAY, MEETING ADEQUATE NUTRIENT NEEDS 2. RECOMMEND FREE WATER FLUSH OF 40 ML Q4H OR PER MD 3. RD TO FOLLOW-UP 2-3 DAYS, HIGH RISK CHERY ROY RD
[2021-03-29 16:00] VITALS: BP 139/64
--- NOTE | 2021-03-29 16:04 | NUR ---
LATE ENTRY- LEVOFLOXACIN IVPB DISCONTINUED 2044.
--- NOTE | 2021-03-29 16:25 | NUR ---
BG CHECKED , PT HAS NO FURTHER QUESTIONS AT THIS TIME
--- NOTE | 2021-03-29 18:00 | NUR ---
MEDICATIONS GIVEN PER MD ORDER. PT EDUCATED AND UNABLE TO VERBALIZE UNDERSTANDING ALL SAFETY MEASURES IN PLACE.
--- NOTE | 2021-03-29 19:24 | NUR ---
RECEIVED BEDSIDE REPORT FROM DAY RN. PT IS AAOX4. RESPIRATIONS ARE EQUAL AND UNLABORED ON H FLOW 20L SAT WELL 97%. PT APPEARS TO BE ASLEEP WITH EYES CLOSE. GRANDDAUGHTER IS AT BEDSIDE. PT IS APHASIC PER REPORT. G TUBE WITH TUBE FEEDING GLUCERNA AT 30ML/H H2O 40ML/Q4H. GOAL OF 75ML/H WILL INCREASE BY TEN PER ORDERS AT 2100. SKIN IS INTACT WITH SACRAL REDNESS. PT IS INCONTINENT OF BOWEL/BLADDER. IV ON R AC 20G INFUSING D5NS AT 80ML/H. POC REVIEWED PT UNABLE TO COMPREHEND. SAFETY MEASURES ARE IN PLACE. WILL CONTINUE TO MONITOR.
--- NOTE | 2021-03-29 19:24 | NUR ---
BEDSIDE REPORT GIVEN TO SALT REFINER NURSE. PT IN BED RESTING IN STABLE CONDITION
[2021-03-29 20:00] VITALS: BP 134/61
--- NOTE | 2021-03-29 20:30 | NUR ---
PATIENT WITH 30CC OF GASTRIC RESIDUALS. NO MED KAREN AT THIS TIME. FEEDING RATE INCREASED TO 40ML/H PER ORDERS. PT RESTING COMFORTABLY NO S/SX OF DISTRESS. SAFETY MEASURES ARE IN PLACE. WILL CONTINUE TO MONITOR.
--- NOTE | 2021-03-29 21:11 | NUR ---
PT NOW ON RA SAT WELL 94% GAVE UPDATE TO PT'S DAUGHTER OLGA. ALL QUESTIONS AND CONCERNS ANSWERED. WILL CONTINUE TO MONITOR.
--- NOTE | 2021-03-29 22:03 | NUR ---
PT OBSERVED RESTING IN BED APPEARS TO BE ASLEEP. CHEST RISE AND FALL NOTED. WILL CONTINUE TO MONITOR
--- NOTE | 2021-03-29 22:18 | NUR ---
TOOK PT OFF HIGH FLOW AND PLACED ON ROOM AIR. PT TOLERATING WELL SPO2 98%. NO NOTED DISTRESS, WILL CONT TO MONITOR.
[2021-03-30] VITALS: BP 143/65
--- NOTE | 2021-03-30 00:37 | NUR ---
VITAL SIGNS ARE WITHIN NORMAL LIMITS. PT SAT WELL ON ROOM AIR. NO S/SX OF DISTRESS. SAFETY MEASURES ARE IN PLACE. WILL CONTINUE TO MONITOR.
--- NOTE | 2021-03-30 02:01 | NUR ---
ROUNDS MADE. PT OBSERVED IN BED APPEARS TO BE ASLEEP. CHEST RISE AND FALL NOTED. WILL CONTINUE TO MONITOR.
--- NOTE | 2021-03-30 02:23 | NUR ---
PT WITH 10CC OF GASTRIC RESIDUALS. FEEDING RATE INCREASED PER ORDERS NOW INFUSING AT 50ML/H. WILL CONTINUE TO MONITOR.
[2021-03-30 04:00] VITALS: BP 136/61
--- NOTE | 2021-03-30 04:00 | NUR ---
VITAL SIGNS ARE WITHIN NORMAL LIMITS. ALL SAFETY MEASURES ARE IN PLACE. WILL CONTINUE TO MONITOR.
[2021-03-30] MEDS: DEXT 5% /NACL 0.9% 1,000 ML IV SCH ×2 (05:06→18:10)
[2021-03-30] MEDS: PIPERACILLIN/TAZOBACTAM 2.25 GM in DEXTROSE 5% 50 ML IV SCH ×3 (05:14→18:22)
[2021-03-30 06:23] LABS: BASOPHILS % (AUTO) 0.3 % (0.0-2.0); EOSINOPHILS % (AUTO) 0.2 % (0.0-4.0); HEMOGLOBIN 13.1 g/dL (12.0-18.0); LYMPHOCYTES % (AUTO) 23.6 % (20.5-51.1); MEAN CORPUSCULAR HEMOGLOBIN 31 pg (27-31); MEAN CORPUSCULAR HGB CONC 34 g/dL (33-37); MEAN CORPUSCULAR VOLUME 91.9 fL (80-94); MONOCYTES % (AUTO) 11.9 % (1.7-9.3); NEUTROPHILS # (AUTO) 5.3 K/uL (1.8-7.7); PLATELET COUNT (AUTO) 169 K/uL (140-450); RED BLOOD CELL COUNT(AUTO) 4.25 MIL/uL (4.20-6.10); WHITE BLOOD COUNT (AUTO) 8.3 K/uL (4.8-10.8)
[2021-03-30 06:29] LABS: ANION GAP 9.6 (8-16); CARBON DIOXIDE 26.1 mmol/L (21-32); CHLORIDE 110 mmol/L (98-107); GLUCOSE 110 mg/dL (74-106); POTASSIUM 3.7 mmol/L (3.5-5.1); SODIUM SERUM 142 mmol/L (136-145); UREA NITROGEN, BLOOD 30 mg/dL (7-18)
--- NOTE | 2021-03-30 07:28 | NUR ---
GAVE BEDSIDE REPORT TO DAY RN. PT ENDORSED IN STABLE CONDITION.
--- NOTE | 2021-03-30 07:31 | NUR ---
RECEIVED BEDSIDE REPORT FROM HEAD OF PHYSICS RN. PATIENT IS RESTING IN BED. NO S/S OF DISTRESS. RESPIRATIONS EVEN AND UNLABORED ON ROOM AIR. IV SITE AT THE RIGHT HAND 22G, DRY, PATIENT, INTACT, AND RUNNING IVF WELL. ALL SAFETY PRECAUTIONS IN PLACE.
[2021-03-30] MEDS: ALBUTEROL SULFATE/IPRATROPIU 3 ML SOL IH SCH ×3 (07:40→19:40)
[2021-03-30 08:00] VITALS: BP 141/63
[2021-03-30] MEDS: PANTOPRAZOLE 40 MG INJ VIAL IVP SCH (09:26)
--- NOTE | 2021-03-30 09:32 | NUR ---
RESIDUAL NOTED AT 10ML. INCREASED FEEDING TO 65 ML/HR PER DR ORDER. WILL CONTINUE TO MONITOR. ALL SAFETY PRECAUTIONS IN PLACE.
--- NOTE | 2021-03-30 11:40 | NUR ---
PATIENT RESTING IN BED. NO S/S OF DISTRESS. ALL SAFETY PRECAUTIONS IN PLACE.
[2021-03-30 12:00] VITALS: BP 134/64
[2021-03-30] MEDS: NACL 0.9% 1,000 ML IV SCH (12:15)
--- NOTE | 2021-03-30 15:46 | NUR ---
PATIENT RESTING IN BED. RESPIRATIONS EVEN AND UNLABORED ON ROOM AIR. O2 SAT IS AT 93%. PATIENT REMAINS TO HAVE A PRODUCTIVE COUGH. SUCTIONING NEEDED. ALL SAFETY PRECAUTIONS IN PLACE.
[2021-03-30 16:00] VITALS: BP 134/64
--- NOTE | 2021-03-30 16:25 | NUR ---
RN CONTACTED RT TO NASAL TRACHEAL SXN PATIENT DUE TO WEAK LOOSE COUGH. WAS ABLE TO SXN SMALL THICK PALE YELLOW WITH A 10 LAO SXN CATH. PT YELLED IN CHINESE STOP THAT HURTS WHEN RT STOPPED. PT HAD BETTER PRODUCTIVE COUGHS AFTER SXN.
--- NOTE | 2021-03-30 16:45 | NUR ---
NO RESIDUAL NOTED. INCREASED TUBE FEEDING TO 75 ML/HR. ALL SAFETY PRECAUTIONS IN PLACE. WILL CONTINUE TO MONITOR.
--- NOTE | 2021-03-30 18:30 | NUR ---
ADMINISTERED SCHEDULED MEDICATIONS. PATIENT REMAINS RESTING. RESPIRATIONS EVEN AND UNLABORED ON ROOM AIR. O2 SAT IS AT 95%. ALL SAFETY PRECAUTIONS IN PLACE.
--- NOTE | 2021-03-30 19:14 | NUR ---
ENDORSED PATIENT TO STRUCTURES ASSEMBLER RN FOR CONTINUITY OF CARE. PATIENT IS STABLE.
--- NOTE | 2021-03-30 19:30 | NUR ---
PATIENT RECEIVED IN BED, APHASIC, ALERT AND ORIENTED X 1. PT SEEN AND EVALUATED PER RT. SUCTIONED PER RT. DX PNEUMONIA. ABT THERAPY CONTINUED. NO SIDE EFFECTS NOTED. AFEBRILE. NO S/S OF ANY DISTRESS. RESPIRATIONS IS EVEN AND UNLABORED. SKIN IS WARM, DRY AND INTACT. INCONTINENT OF BOWEL AND BLADDER. IV ON R ARM 20G, L AC 22G. NS @60MLS/HR INFUSING WELL. G-TUBE INTACT AND PATENT. GLUCERNA 1.2 AT 75CC/HR, FLUSH 40ML WATER Q 4HOUR. PT IS INCONTINENT. SKIN REMAINS INTACT. MAXIMAL CARE RENDERED. REQUIRES 2 PERSON ASSISTANCE. FALL ALL SAFETY MEASURES IN PLACE. WILL CONTINUE TO MONITOR. NO ACUTE DISTRESS NOTED. VSS.
[2021-03-30 20:00] VITALS: BP 138/68
[2021-03-31] VITALS: BP 134/70
[2021-03-31] MEDS: PIPERACILLIN/TAZOBACTAM 2.25 GM in DEXTROSE 5% 50 ML IV SCH ×5 (00:36→23:45)
[2021-03-31 03:59] VITALS: BP 132/68
[2021-03-31] MEDS: NACL 0.9% 1,000 ML IV SCH ×2 (04:04→21:35)
--- NOTE | 2021-03-31 04:40 | NUR ---
PATIENT RESTING IN BED. MAXIMAL CARE RENDERED. RESPIRATIONS EVEN AND UNLABORED ON ROOM AIR. O2 SAT IS AT 94%. PATIENT REMAINS TO HAVE A PRODUCTIVE COUGH. SUCTIONING NEEDED. ALL SAFETY PRECAUTIONS IN PLACE.
[2021-03-31] MEDS: DEXT 5% /NACL 0.9% 1,000 ML IV SCH ×2 (05:22→18:50)
[2021-03-31 06:23] LABS: BASOPHILS % (AUTO) 0.3 % (0.0-2.0); EOSINOPHILS % (AUTO) 0.3 % (0.0-4.0); HEMOGLOBIN 12.8 g/dL (12.0-18.0); LYMPHOCYTES # (AUTO) 2.2 K/uL (2.0-11.5); LYMPHOCYTES % (AUTO) 26.4 % (20.5-51.1); MEAN CORPUSCULAR HEMOGLOBIN 31 pg (27-31); MEAN CORPUSCULAR HGB CONC 34 g/dL (33-37); MEAN CORPUSCULAR VOLUME 91.4 fL (80-94); MONOCYTES # (AUTO) 1.2 K/uL (0.8-1.0); MONOCYTES % (AUTO) 14.7 % (1.7-9.3); NEUTROPHILS # (AUTO) 4.9 K/uL (1.8-7.7); NEUTROPHILS % (AUTO) 58.3 % (42.2-75.2); PLATELET COUNT (AUTO) 176 K/uL (140-450); RED BLOOD CELL COUNT(AUTO) 4.16 MIL/uL (4.20-6.10); RED CELL DISTRIBUTION WIDTH 16.5 % (11.6-13.7); WHITE BLOOD COUNT (AUTO) 8.4 K/uL (4.8-10.8)
[2021-03-31 06:39] LABS: MAGNESIUM 2.1 mg/dL (1.8-2.4); PHOSPHORUS 2.2 mg/dL (2.5-4.9)
[2021-03-31 06:40] LABS: CARBON DIOXIDE 24.1 mmol/L (21-32); CHLORIDE 110 mmol/L (98-107); CREATININE 0.9 mg/dL (0.6-1.3); GLUCOSE 116 mg/dL (74-106); POTASSIUM 4.1 mmol/L (3.5-5.1); SODIUM SERUM 142 mmol/L (136-145); UREA NITROGEN, BLOOD 24 mg/dL (7-18)
--- NOTE | 2021-03-31 07:30 | NUR ---
RECEIVED REPORT FROM ASSOCIATE RESEARCH SCIENTIST RN FOR CONTINUITY OF CARE. PATIENT IS RESTING IN BED. RESPIRATIONS EVEN AND UNLABORED ON ROOM AIR. NO S/S OF DISTRESS. ALL SAFETY PRECAUTIONS IN PLACE.
[2021-03-31] MEDS: ALBUTEROL SULFATE/IPRATROPIU 3 ML SOL IH SCH ×3 (07:44→19:40)
[2021-03-31 08:00] VITALS: BP 146/81
--- NOTE | 2021-03-31 09:25 | NUR ---
PT JENNIFER AT BESIDE WITH PATIENT FOR ASSESSMENT. PATIENT IS MORE VERBALLY RESPONSIVE TODAY. HE DOES NOT TOLERATE ARMS BEING LIFTED. JENNIFER SAID HE REQUESTED A TOWEL TO WASH HIS HANDS AND WAS ABLE TO COMPLETE THIS WITH STANDBY ASSISTANCE.
[2021-03-31] MEDS: SODIUM PHOS / POTASSIUM PHOS 1 PKT PDR PO SCH ×3 (10:29→17:51)
[2021-03-31] MEDS: PANTOPRAZOLE 40 MG INJ VIAL IVP SCH (10:29)
--- NOTE | 2021-03-31 10:30 | NUR ---
ADMINISTERED SCHEDULED MEDICATIONS. PATIENT'S GRANDDAUGHTER AT BEDSIDE. PATIENT IS STABLE. NO S/S OF DISTRESS. RESPIRATIONS CONTINUE TO BE EVEN AND UNLABORED ON ROOM AIR WITH 02 SAT 96%. ALL SAFETY PRECAUTIONS IN PLACE.
[2021-03-31 12:00] VITALS: BP 159/70
--- NOTE | 2021-03-31 13:57 | NUR ---
03/31/21 RD FOLLOW UP COMPLETED PLEASE REFER TO NUTRITION ASSESSMENT UNDER CARE ACTIVITY FOR ESTIMATED NUTRITIONAL NEEDS. 1. CONTINUE GLUCERNA 1.2 GOAL RATE TO 75 ML/HR -THIS WILL PROVIDE 2160 KCAL/DAY AND 135 GM OF PROTEIN/DAY, MEETING ADEQUATE NUTRIENT NEEDS 2. CONTINUE FREE WATER FLUSH OF 40 ML Q4H OR PER MD 3. RD TO FOLLOW-UP 2-3 DAYS, HIGH RISK CHERY ROY RD
[2021-03-31 16:00] VITALS: BP 160/70
--- NOTE | 2021-03-31 19:30 | NUR ---
ENDORSED PATIENT TO CONCRETE PAVEMENT INSTALLER RN FOR CONTINUITY OF CARE. PATIENT IS STABLE.
--- NOTE | 2021-03-31 19:40 | NUR ---
Pt received on room air. No SOB noted. Pt assessed and given hhn tx. No adverse rxn noted post tx.
[2021-03-31 20:00] VITALS: BP 158/65
--- NOTE | 2021-03-31 23:46 | NUR ---
ZOSYN GIVEN SCHEDULED PER MD ORDERED.
[2021-04-01] VITALS: BP 140/65
[2021-04-01 04:00] VITALS: BP 133/70
[2021-04-01] MEDS: PIPERACILLIN/TAZOBACTAM 2.25 GM in DEXTROSE 5% 50 ML IV SCH ×2 (05:58→11:43)
--- NOTE | 2021-04-01 06:50 | NUR ---
HANGED A NEW BOTTLE OF GLUCERNA 1.2
[2021-04-01 06:51] LABS: BASOPHILS % (AUTO) 0.2 % (0.0-2.0); EOSINOPHILS # (AUTO) 0.2 K/uL (0-0.4); EOSINOPHILS % (AUTO) 2.4 % (0.0-4.0); HEMATOCRIT 37.5 % (36-52); HEMOGLOBIN 12.7 g/dL (12.0-18.0); LYMPHOCYTES # (AUTO) 2.4 K/uL (2.0-11.5); LYMPHOCYTES % (AUTO) 23.3 % (20.5-51.1); MEAN CORPUSCULAR HEMOGLOBIN 31 pg (27-31); MEAN CORPUSCULAR HGB CONC 34 g/dL (33-37); MEAN CORPUSCULAR VOLUME 91.2 fL (80-94); MONOCYTES # (AUTO) 1.7 K/uL (0.8-1.0); MONOCYTES % (AUTO) 16.3 % (1.7-9.3); NEUTROPHILS # (AUTO) 5.9 K/uL (1.8-7.7); NEUTROPHILS % (AUTO) 57.8 % (42.2-75.2); PLATELET COUNT (AUTO) 167 K/uL (140-450); RED BLOOD CELL COUNT(AUTO) 4.11 MIL/uL (4.20-6.10); RED CELL DISTRIBUTION WIDTH 16.2 % (11.6-13.7); WHITE BLOOD COUNT (AUTO) 10.3 K/uL (4.8-10.8)
[2021-04-01 06:55] LABS: CARBON DIOXIDE 24.1 mmol/L (21-32); CHLORIDE 108 mmol/L (98-107); CREATININE 0.8 mg/dL (0.6-1.3); GLUCOSE 126 mg/dL (74-106); POTASSIUM 4.1 mmol/L (3.5-5.1); SODIUM SERUM 141 mmol/L (136-145); UREA NITROGEN, BLOOD 18 mg/dL (7-18)
[2021-04-01 06:59] LABS: MAGNESIUM 2.1 mg/dL (1.8-2.4); PHOSPHORUS 2.7 mg/dL (2.5-4.9)
[2021-04-01] MEDS: ALBUTEROL SULFATE/IPRATROPIU 3 ML SOL IH SCH ×2 (07:00→12:53)
--- NOTE | 2021-04-01 07:26 | NUR ---
ENDORSED PATIENT TO AM NURSE FOR CONTINUITY OF CARE. PT. IS STABLE.
--- NOTE | 2021-04-01 07:30 | NUR ---
RECEIVED BEDSIDE REPORT FROM FIELD MARKETER NURSE FOR CONTINUITY OF CARE. PT IS AOX1, AWAKES TO TOUCH OR NAME. RESPIRATIONS EVEN AND UNLABORED. ON ROOM AIR AND NO DISTRESS NOTED. SKIN IS WARM, DRY, AND INTACT. IV SITE ON LEFT WRIST 22G, INTACT AND PATENT INFUSING FLUIDS WELL. G-TUBE IN PLACE AND INTACT. NO RESIDUAL NOTED. PLAN OF CARE DISCUSSED. SAFETY PRECAUTIONS IN PLACE. CALL LIGHT WITHIN REACH. WILL CONTINUE TO MONITOR.
[2021-04-01 08:00] VITALS: BP 137/66
[2021-04-01] MEDS: DEXT 5% /NACL 0.9% 1,000 ML IV SCH (08:25)
[2021-04-01] MEDS: SODIUM PHOS / POTASSIUM PHOS 1 PKT PDR PO SCH (09:08)
[2021-04-01] MEDS: PANTOPRAZOLE 40 MG INJ VIAL IVP SCH (09:08)
--- NOTE | 2021-04-01 09:15 | NUR ---
ALL SCHEDULED MEDS GIVEN. PT IS STABLE. NO DISTRESS NOTED. WILL CONTINUE TO MONITOR.
[2021-04-01] MEDS ORDERED: DOCU-299 PO (10:40)
[2021-04-01] MEDS ORDERED: ZOS3.375PM IV (10:40)
[2021-04-01 12:00] VITALS: BP 119/55
--- NOTE | 2021-04-01 12:00 | NUR ---
ALL SCHEDULED MEDS GIVEN. PT IS STABLE. NO DISTRESS NOTED. WILL CONTINUE TO MONITOR.
--- NOTE | 2021-04-01 12:15 | NUR ---
INFORMED BY ALLEGRA PATEL THAT [place] [facility] [place]
--- NOTE | 2021-04-01 13:30 | NUR ---
ENDORSED PATIENT REPORT TO DEONTE I[place] [facility] [place] INFORMED HER THAT PATIENT WILL BE PICKED UP AT 1400. PATIENT WILL BE GOING TO ROOM 50A UNDER DR[address] BAIRES
[2021-04-01 14:13] VITALS: BP 119/55
--- NOTE | 2021-04-01 15:38 | NUR ---
PATIENT DISCHARGED OFF THE UNIT AND TRANSP[place]ED [place] [facility] [place]. PT DISCHARGED WITH IV IN PLACE FOR CONTINUATION OF AABX AT [facility] [place]. PICKED UP BY [facility]. PT STABLE PRIOR TO DISCHARGE
== END 2021-04-01 15:35 | DRG 871 ==
LOC: MED 03:28 → MTU 10:04
PROVIDERS: ADMIT Family Medicine; ATTEND Family Medicine
DX: A41.9 Sepsis, unspecified organism (principal); J69.0 Pneumonitis due to inhalation of food and vomit; J96.01 Acute respiratory failure with hypoxia; N17.0 Acute kidney failure with tubular necrosis; E44.0 Moderate protein-calorie malnutrition; E87.2 Acidosis; E83.39 Other disorders of phosphorus metabolism; E78.5 Hyperlipidemia, unspecified; R13.10 Dysphagia, unspecified; I25.10 Atherosclerotic heart disease of native coronary artery without angina pectoris; I48.91 Unspecified atrial fibrillation; F03.90 Unspecified dementia, unspecified severity, without behavioral disturbance, psychotic disturbance, mood disturbance, and anxiety; D64.9 Anemia, unspecified; I11.0 Hypertensive heart disease with heart failure; I50.9 Heart failure, unspecified; E88.09 Other disorders of plasma-protein metabolism, not elsewhere classified; E83.51 Hypocalcemia; Z20.822 Contact with and (suspected) exposure to COVID-19; Z95.1 Presence of aortocoronary bypass graft; Z68.22 Body mass index [BMI] 22.0-22.9, adult
CPT/HCPCS: 36415; 70450; 71045; 78582; 80048; 80053; 80305; 81001; 82150; 83036; 83605; 83690; 83735; 83880; 84100; 84436; 84439; 84443; 84479; 84484; 85025; 85379; 85610; 85730; 87040; 87070; 87081; 87205; 89220; 94640; 96365; 96368; 96375; 97110; 97163-GP; 97530; 99291; C9113; G0480; G0482; J1100; J1644; J1956; J2310; J2543; J3370; J7060; Q0092

== ENCOUNTER 2021-04-15 01:20 | Inpatient (IN) | payer OTHER, SELFPAY ==
[~2021-04-15] VITALS: Ht 167.6 cm; Wt 59.7 kg
[~2021-04-15 01:20] MED LIST changes: +ASCO500T95 GT; +CRAN450T5 GT; -CRAN450T5 PO; +DILT30TA18 GT; -DILT30TA18 PO; -MAGN400S60 PO; +MEMA10TA GT; -MEMA10TA PO; -METO25TA PO; +METO25TE2 GT; -MULT-1328 PO; +MULT-2112 GT; -NA P133E RC; +OMEG1CAP65 GT; -OMEP-278 PO; -PIPE1SOL IV; -POTA10CE85 PO; +POTA10TA70 GT; -VITC500 PO; +ZOS3.375PM IV
--- NOTE | 2021-04-15 01:21 | NUR ---
PT JUSTICE ALS. TAKEN TO BED 10
[2021-04-15] MEDS ORDERED: cefTRIAXone 1,000 MG in DEXT 5% MINI-BAG PLUS 50 ML IV ONE (01:25)
[2021-04-15 01:28] VITALS: BP 146/71
--- NOTE | 2021-04-15 01:30 | NUR ---
89 Y/O MALE BROUGHT IN BY EMS [place] [facility] [place]/O OF SOB. +CRACKLE PRESENT BILAT LUNGS ON EXPIRATION. +MOIST COUGH. GCS 7 PER EMS PATIENT BASELINE. +HOT TO TOUCH. PMH: AFIB, HTN, DIABETES, AND DEMENTIA NKA
--- NOTE | 2021-04-15 01:36 | NUR ---
X-Ray at bedside.
--- NOTE | 2021-04-15 01:45 | NUR ---
PATIENT PLACED ON NASAL CANUAL AT 4L. O2 SAT IMPROVED TO 90%.
[2021-04-15 01:47] LABS: BASOPHILS # (AUTO) 0.1 K/uL (0.00-0.22); BASOPHILS % (AUTO) 0.4 % (0.0-2.0); HEMATOCRIT 47.1 % (36-52); HEMOGLOBIN 15.5 g/dL (12.0-18.0); LYMPHOCYTES # (AUTO) 3.5 K/uL (2.0-11.5); LYMPHOCYTES % (AUTO) 18.4 % (20.5-51.1); MEAN CORPUSCULAR HEMOGLOBIN 31 pg (27-31); MEAN CORPUSCULAR HGB CONC 33 g/dL (33-37); MEAN CORPUSCULAR VOLUME 93.1 fL (80-94); MONOCYTES # (AUTO) 2.9 K/uL (0.8-1.0); MONOCYTES % (AUTO) 15.1 % (1.7-9.3); NEUTROPHILS # (AUTO) 12.7 K/uL (1.8-7.7); NEUTROPHILS % (AUTO) 66.1 % (42.2-75.2); PLATELET COUNT (AUTO) 263 K/uL (140-450); RED BLOOD CELL COUNT(AUTO) 5.06 MIL/uL (4.20-6.10); RED CELL DISTRIBUTION WIDTH 16.4 % (11.6-13.7); WHITE BLOOD COUNT (AUTO) 19.2 K/uL (4.8-10.8)
[2021-04-15] MEDS ORDERED: cefTRIAXone 1,000 MG VIAL ONE (01:55)
--- NOTE | 2021-04-15 01:55 | NUR ---
# 15 FR Urinary catheter inserted utilizing sterile technique. Immediate return of 20 ml RAGHAV urine noted. Urine sample collected and sent to lab. Pt tolerated procedure WELL.
--- NOTE | 2021-04-15 02:00 | NUR ---
[facility]ICARE PROVIDED. SKIN WAS DRY AND INTACT. NO WOUNDS NOTED.
[2021-04-15 02:01] LABS: ALBUMIN 2.4 g/dL (3.4-5.0); ANION GAP 13.9 (8-16); ASPARTATE AMINOTRANSFERASE 18 U/L (15-37); CARBON DIOXIDE 29.3 mmol/L (21-32); CHLORIDE 114 mmol/L (98-107); CREATININE 1.2 mg/dL (0.6-1.3); GLUCOSE 168 mg/dL (74-106); POTASSIUM 4.2 mmol/L (3.5-5.1); SODIUM SERUM 153 mmol/L (136-145); TOTAL BILIRUBIN 0.6 mg/dL (0.0-1.0)
[2021-04-15 02:02] LABS: UREA NITROGEN, BLOOD 64 mg/dL (7-18)
[2021-04-15 02:05] LABS: APPEARANCE,URINE CLEAR (CLEAR); BILIRUBIN,URINE NEGATIVE (NEGATIVE); BLOOD, URINE TRACE-I (NEGATIVE); COLOR,URINE YELLOW (YELLOW); LEUKOCYTE ESTERASE ,URINE NEGATIVE (NEGATIVE); NITRITE, URINE NEGATIVE (NEGATIVE); UGLUCOSE NEGATIVE (NEGATIVE)
[2021-04-15 02:14] LABS: RBC,URINE 0-5 /HPF (0-5); WBC,URINE 0-5 /HPF (0-5)
[2021-04-15] MEDS ORDERED: ACETAMINOPHEN 650 MG SUPP RC ONE (02:35)
[2021-04-15] MEDS ORDERED: NACL 0.9% 1,000 ML IV ONE (02:40)
--- NOTE | 2021-04-15 02:50 | NUR ---
PATIENT TAKEN TO CT VIA JOSHUA
[2021-04-15] MEDS ORDERED: OMEP20EC11 GT (03:01)
[2021-04-15] MEDS ORDERED: MAGN400S60 GT (03:01)
--- NOTE | 2021-04-15 04:10 | NUR ---
TEMP AT 98.7 VIA AXILLARY. PATIENT RR UNCHANGED AT 25. O2 MAINTINED BETWEEN 88-90% ON 4L [employer] CANNULA. WILL CONTINUE TO MONITOR.
--- NOTE | 2021-04-15 05:07 | NUR ---
PATIENT O2 SAT INCREASED TO 92% ON 4L NASAL CANNULA. HR LOWERING TO 104. PATIENT LAYING SUPINE WITH EYES CLOTHES. BED LOCKED AND IN LOWEST POSTION. WILL CONTINUE TO MONITOR.
--- NOTE | 2021-04-15 05:18 | NUR ---
LAB AT BEDSIDE
--- NOTE | 2021-04-15 07:16 | NUR ---
REPORT RECIEVED FROM SANTANA ABREU FOR CONTUNITY OF CARE
--- NOTE | 2021-04-15 07:16 | NUR ---
TRANSFER OF CARE TO SANTANA NICE. PATIENT STABLE.
[2021-04-15] MEDS ORDERED: ACETAMINOPHEN 325 MG TAB PO PRN (07:35)
[2021-04-15] MEDS ORDERED: POTASSIUM CHLORIDE 40 MEQ, LIDOCAINE MPF 1% 25 MG in NACL 0.9% 250 ML IV PRN (07:35)
[2021-04-15] MEDS ORDERED: MAGNESIUM OXIDE 400 MG TAB PO PRN (07:35)
[2021-04-15] MEDS ORDERED: VANCOMYCIN PER PHARMACY MC PRN (07:35)
[2021-04-15] MEDS ORDERED: ONDANSETRON 4 MG/2 ML VIAL IM/IVP PRN (07:35)
[2021-04-15] MEDS ORDERED: MAG SULF 2000 MG/WATER PREMIX 50 ML IV PRN (07:35)
[2021-04-15] MEDS ORDERED: MORPHINE SULFATE 2 MG/ML SYR IVP PRN (07:35)
[2021-04-15] MEDS ORDERED: bisacodyL 10 MG SUPP RC PRN (07:35)
[2021-04-15] MEDS: NACL 0.45% 1,000 ML IV SCH (07:35)
[2021-04-15] MEDS ORDERED: HYDROcodone/APAP 5/325 MG 1 TAB TAB PO PRN (07:35)
--- NOTE | 2021-04-15 08:03 | NUR ---
RECEIVED REPORT FROM ER NURSE, PATIENT ADMITTED DUE TO SOD AND PNA , PATIENT HAS CHF, DM, A.FIB AND CABAG IN HISTORY, PATIENT HAS NO KNOWN ALERGIEDS, HE IS FULL CODE, ON TELE. WAITING FOR PATIENT TO COME TO [facility] UNIT
--- NOTE | 2021-04-15 08:08 | NUR ---
PATIENT HAS BEEN SCREENED AND CATEGORIZED HIGH NUTRITION RISK. PATIENT WILL BE SEEN WITHIN 1-2 DAYS OF ADMISSION. 04/15/21-04/16/21 CONSULT RECEIVED FOR TUBE FEEDING [address]
--- NOTE | 2021-04-15 08:10 | NUR ---
RECEIVED PATIENT FROM ER NURSE, PATIENT ADMITTED DUE TO SOD AND PNA , PATIENT HAS CHF, DM, A.FIB AND CABAG IN HISTORY, PATIENT HAS NO KNOWN ALERGIEDS, HE IS FULL CODE, ON TELE. BREATHING EVEN UNLABORED, PATHENT IN NAASAL CANULA 4L PATIENT HAS AN IV IN HIS RIGHT HAND AND LEFT HAND 20G AND RIGHT AC 20G, SKIN INTACT, NO SOD NOTED,PATENT IS AWAKE NON VERBAL PATHENT HAS PEG IN PLACE, VITAL SIGNS 140/69 HEART RATE 81 BREATHING 20 SAT 96%, CALLS LIGHT WITHIN RREACH, ALL SAFETY MEASURES IN P[LACE
--- NOTE | 2021-04-15 08:14 | NUR ---
Patient will be admitted to care of DR. CARTER. Admited to TELE. Will go to room 122B. Belongings list completed. Report to SANTANA PENG. PT TAKEN VIA [facility] WITH EMT ALEXANDRE
[2021-04-15 08:39] LABS: MAGNESIUM 3.1 mg/dL (1.8-2.4); PHOSPHORUS 2.2 mg/dL (2.5-4.9)
[2021-04-15] MEDS ORDERED: VANCOMYCIN 750 MG in DEXTROSE 5% 250 ML IV SCH (09:00)
[2021-04-15] MEDS ORDERED: METOPROLOL SUCCINATE 50 MG TABER PO SCH (09:00)
[2021-04-15] MEDS ORDERED: VANCOMYCIN 1,000 MG in DEXTROSE 5% 250 ML IV SCH (09:00)
[2021-04-15] MEDS: PANTOPRAZOLE 40 MG INJ VIAL IVP SCH (09:33)
[2021-04-15] MEDS: DOCUSATE 100 MG/10 ML UDC GT SCH (09:34)
[2021-04-15] MEDS: MEMANTINE 10 MG TAB GT SCH ×2 (09:34→20:32)
[2021-04-15] MEDS: ASCORBIC ACID 500 MG/5 ML ORASYR GT SCH (09:36)
[2021-04-15 09:45] VITALS: BP 140/69
--- NOTE | 2021-04-15 09:54 | NUR ---
PATIENT IN BED NO SOD NOTED, GOT MORNING MEDICATION ADMINSTRATED TOLERATED WELL, ALL SAFETY MEASURES ON PLACE
--- NOTE | 2021-04-15 11:26 | NUR ---
PATIENT IN BED NO COMPLAINS NO SOD NOTED PATIENT CHINMAY MENDOZA CALLED TO ASK ABOUT PATIENT, ALL QUESTIONS WERE ANSWERED, PATIENT SISTER STAT THAT SHE IS THE GUARDIAN FOR THE PATIENT AND HE IS FULL CODE CALLS LIGHT WITHIN [facility], ALL SAFETY MEASURES ON PLACE
[2021-04-15] MEDS: PIPERACILLIN/TAZOBACTAM 2.25 GM in DEXTROSE 5% 50 ML IV SCH ×2 (11:36→17:21)
[2021-04-15 12:00] VITALS: BP 133/82
[2021-04-15] MEDS ORDERED: DEXTROSE 50% 50 ML SYR IVP PRN (13:40)
[2021-04-15] MEDS ORDERED: INSULIN LISPRO SLIDING SCALE 100 UNITS/ML VIAL SUBQ PRN (13:40)
--- NOTE | 2021-04-15 13:40 | NUR ---
PATIENT IN BED NO COMPLAINS NO SOD NOTED , GOT CLEANED AND CHANGED NO COMPLAINS AT THIS MOMENT. CALLS LIGHT WITHIN RUPAL, ALL SAFETY MEASURES ON PLACE
[2021-04-15] MEDS: DILTIAZEM 30 MG TAB GT SCH ×2 (13:45→20:31)
--- NOTE | 2021-04-15 15:20 | NUR ---
DC PLANNING: THE PATIENT ADMITTED THROUGH THE ER FROM [facility] WITH SOB AND HYPOXIA WITH RA SATS AT 86% IN THE ER. D-DIMER ELEVATED TO [address] CHEST NEGATIVE FOR PE. WBC'S 19.2, BNP 483, CXR SHOWS PULMONARY EDEMA, INFILTRATES, LEFT ATELECTASIS AND EFFUSION. PULMONOLOGY CONSULT ORDERED, ON O2 4L NC, ONE TIME DOSING OF VANCO AND ROCEPHIN, NOW ON ZOSYN. BLOOD AND URINE CULTURES PENDING, S/P PEG PLACEMENT ON HIS LAST ADMISSION. CM SPOKE WITH HIS DAUGHTER OLGA BY PHONE, SHE STATES THAT HE'S BEEN MORE FRAIL AND LESS RESPONSIVE IN THE PAST MONTH. HE IS STILL TOTAL CARE AND NON-VERBAL, OLGA STATES THAT SHE WANTS HIM TO RETURN TO [facility] WHEN HE'S CLINICALLY STABLE. HE WILL REQUIRE TRANSPORT THROUGH [facility], CM WILL CONTINUE TO FOLLOW FOR NEEDS. Addendum: 04/20/21 at 1121 by Carol Ann Torres RN DC PLANNING: PATIENT IS GOING BACK TO [facility] ROOM NUMBER [id number] #TO GIVE REPORT [phone] ARRANGED TRANSPORT WITH [facility] TRANSPORT SW TO CONTACT THE TRANSPORT. CM TO FOLLOW
[2021-04-15 16:27] VITALS: BP 136/73
--- NOTE | 2021-04-15 16:33 | NUR ---
PATIENT IN BED NO COMPLAINS NO SOD NOTD, CALLS LIGHT WITHIN REACH, ALL SAFETY MEASURES ON PLACE
[2021-04-15] MEDS: BLOOD GLUCOSE MONITORING 1 DEV DEV FS SCH ×2 (17:16→20:32)
--- NOTE | 2021-04-15 17:38 | NUR ---
PATIENT IN BED NO COMPLAINS NO SOD NOTED , NO COMPLAINS AT THIS MOMENT. CALLS LIGHT WITHIN RUPAL, ALL SAFETY MEASURES ON PLACE
--- NOTE | 2021-04-15 19:22 | NUR ---
full bed side report given to fast food shift lead nurse
[2021-04-15 20:00] VITALS: BP 134/48
--- NOTE | 2021-04-15 20:00 | NUR ---
RECEIVED BEDSIDE REPORT REGARDING PATIENT FROM DAY RN FOR CONTINUITY OF CARE. PATIENT AWAKE, ALERT, NON VERBAL. VSS, AFEBRILE, SATING 96% ON 4L/NC. IVF INFUSING ORDERED. STARTED G TUBE FEEDING ORDERED. NO RESIDUAL NOTED. HOB ELEVATED TO PREVENT ASPIRATION. FALL PRECAUTION IMPLEMENTED. SIDE RAILS UP X2. BED IN LOW POSITION, BED ALARM AND BRAKES ON. WILL CONTINUE POC.
--- NOTE | 2021-04-15 22:00 | NUR ---
ALL DUE MEDS GIVEN THROUGH THE G TUBE. PT TOLERATED IT WELL NO ADVERSE DRUG REACTION NOTED. WILL CONTINUE TO OBSERVE THE PATIENT.
[2021-04-16] VITALS: BP 110/52
--- NOTE | 2021-04-16 | NUR ---
VITAL SIGNS STABLE, AFEBRILE SATING 95% ON 4L/NC. UNCONTROLLED A FIB ON DIVERSIFIED CROPS SUPERVISOR, HR- 118. NOT IN ANY DISTRESS. WILL CONTINUE POC AND MONITORING.
[2021-04-16] MEDS: PIPERACILLIN/TAZOBACTAM 2.25 GM in DEXTROSE 5% 50 ML IV SCH ×3 (01:08→11:49)
--- NOTE | 2021-04-16 02:00 | NUR ---
PATIENT ASLEEP AT THIS TIME. VISIBLE CHEST RISE AND FALL NOTED. NOT IN ANY DISTRESS. SAFETY MEASURES IN PLACED. WILL CONTINUE OBSERVATION.
[2021-04-16 04:00] VITALS: BP 123/56
--- NOTE | 2021-04-16 04:00 | NUR ---
VITAL SIGNS STABLE, AFEBRILE SATING 96% ON 4L/NC. UNCONTROLLED AFIB ON DELIVERY TECH, HR- 109. NOT IN ANY DISTRESS. WILL CONTINUE POC AND MONITORING.
[2021-04-16] MEDS: DILTIAZEM 30 MG TAB GT SCH ×3 (04:46→20:09)
--- NOTE | 2021-04-16 06:17 | NUR ---
NO ACUTE EVENTS THROUGHOUT THE NIGHT. PATIENT STABLE. PATIENT NOT IN ANY DISTRESS. ALL NEEDS ATTENDED. CALL LIGHT WITHIN REACH. WILL ENDORSE THE PATIENT TO THE ONCOMING RN FOR CONTINUITY OF CARE.
[2021-04-16 06:48] LABS: CARBON DIOXIDE 27.4 mmol/L (21-32); CHLORIDE 118 mmol/L (98-107); CREATININE 1.1 mg/dL (0.6-1.3); GLUCOSE 139 mg/dL (74-106); POTASSIUM 3.4 mmol/L (3.5-5.1); SODIUM SERUM 154 mmol/L (136-145); UREA NITROGEN, BLOOD 46 mg/dL (7-18)
[2021-04-16 07:10] LABS: BASOPHILS % (AUTO) 0.4 % (0.0-2.0); EOSINOPHILS % (AUTO) 0.3 % (0.0-4.0); HEMATOCRIT 40.5 % (36-52); HEMOGLOBIN 13.2 g/dL (12.0-18.0); LYMPHOCYTES % (AUTO) 25.7 % (20.5-51.1); MEAN CORPUSCULAR HEMOGLOBIN 30 pg (27-31); MEAN CORPUSCULAR HGB CONC 33 g/dL (33-37); MEAN CORPUSCULAR VOLUME 93.4 fL (80-94); MONOCYTES # (AUTO) 1.3 K/uL (0.8-1.0); MONOCYTES % (AUTO) 11.1 % (1.7-9.3); NEUTROPHILS # (AUTO) 7.3 K/uL (1.8-7.7); NEUTROPHILS % (AUTO) 62.5 % (42.2-75.2); PLATELET COUNT (AUTO) 235 K/uL (140-450); RED BLOOD CELL COUNT(AUTO) 4.33 MIL/uL (4.20-6.10); WHITE BLOOD COUNT (AUTO) 11.7 K/uL (4.8-10.8)
--- NOTE | 2021-04-16 07:29 | NUR ---
ENDORSED PATIENT TO DAY RN FOR CONTINUITY OF CARE. PATIENT STABLE. SIGNING OFF.
--- NOTE | 2021-04-16 07:30 | NUR ---
RECEIVED BEDSIDE REPORT FROM ICU TECH NURSE FOR CONTINUITY OF CARE. PATIENT AWAKE, ALERT, NON VERBAL. VSS, AFEBRILE, SATING 94% ON 4L/NC. SKIN IS WARM, DRY, AND INTACT. IV ON RH AND LH 20G, AND RAC 20G. INTACT AND PATENT. IVF INFUSING ORDERED. G-TUBE IN PLACE. NO RESIDUAL. HOB ELEVATED TO PREVENT ASPIRATION. FALL PRECAUTION IMPLEMENTED. PLAN OF CARE DISCUSSED. SIDE RAILS UP X2. BED IN LOW POSITION, WILL CONTINUE TO MONITOR.
[2021-04-16 08:00] VITALS: BP 112/64
[2021-04-16] MEDS: BLOOD GLUCOSE MONITORING 1 DEV DEV FS SCH ×4 (08:30→21:21)
--- NOTE | 2021-04-16 08:30 | NUR ---
BLOOD GLUCOSE CHECK WAS 140. NO INSULIN COVERAGE NEEDED.
[2021-04-16] MEDS: NACL 0.45% 1,000 ML IV SCH (08:35)
[2021-04-16] MEDS: VANCOMYCIN 1,000 MG in DEXTROSE 5% 250 ML IV SCH (08:54)
[2021-04-16] MEDS: DOCUSATE 100 MG/10 ML UDC GT SCH (08:58)
[2021-04-16] MEDS: MEMANTINE 10 MG TAB GT SCH ×2 (08:59→20:09)
[2021-04-16] MEDS: METOPROLOL 25 MG TAB GT SCH (08:59)
[2021-04-16] MEDS: ASCORBIC ACID 500 MG/5 ML ORASYR GT SCH (09:00)
[2021-04-16] MEDS: PANTOPRAZOLE 40 MG INJ VIAL IVP SCH (09:03)
--- NOTE | 2021-04-16 09:15 | NUR ---
ALL SCHEDULED MEDS GIVEN. PT IS STABLE. NO DISTRESS NOTED. WILL CONTINUE TO MONITOR.
--- NOTE | 2021-04-16 11:06 | NUR ---
04/16/21 RD INITIAL ASSESSMENT COMPLETED PLEASE REFER TO NUTRITION ASSESSMENT UNDER CARE ACTIVITY FOR ESTIMATED NUTRITIONAL NEEDS. 1. RECOMMEND VITAL AF 1.2 @ 55 ML/HR WITH WATER FLUSH 150 ML Q6H -WILL PROVIDE 1584 KCAL, 99 GM PROTEIN AND 1670 ML WATER, MEETING ESTIMATED NUTRIENT NEEDS -RECOMMEND START WITH 20 ML/HR AND INCREASE BY 20 ML/HR Q4H 2. RD TO FOLLOW-UP 2-3 DAYS, HIGH RISK BRIONNA TUCKER RD
--- NOTE | 2021-04-16 11:43 | NUR ---
BLOOD GLUCOSE CHECK WAS 117. NO INSULIN COVERAGE NEEDED.
[2021-04-16 12:00] VITALS: BP 121/82
--- NOTE | 2021-04-16 13:30 | NUR ---
ALL SCHEDULED MEDS GIVEN. PT IS STABLE. NO DISTRESS NOTED. WILL CONTINUE TO MONITOR.
--- NOTE | 2021-04-16 15:25 | NUR ---
CHECKED ON PATIENT. PT IS STABLE. NO DISTRESS NOTED. WILL CONTINUE TO MONITOR.
[2021-04-16 16:00] VITALS: BP 126/60
--- NOTE | 2021-04-16 17:46 | NUR ---
BLOOD GLUCOSE CHECK WAS 107. NO INSULIN COVERAGE NEEDED.
[2021-04-16] MEDS ORDERED: POTASSIUM CHLORIDE 20% 40 MEQ/15 ML UDC GT PRN (18:50)
--- NOTE | 2021-04-16 19:16 | NUR ---
ENDORSED TO CERTIFIED REGISTERED DENTAL ASSISTANT NURSE FOR CONTINUITY OF CARE. PT IS STABLE.
--- NOTE | 2021-04-16 19:17 | NUR ---
RECEIVED REPORT FROM AM NURSE FOR CONTINUITY OF CARE. PT IN BED AND STABLE.
--- NOTE | 2021-04-16 19:32 | NUR ---
LOWERED FIO2 TO 2LNC. SATS ARE 100%
[2021-04-16 20:00] VITALS: BP 112/64
--- NOTE | 2021-04-16 20:09 | NUR ---
PT IN BED ON 2L OF NASAL CANNULA. SHOWS NO SIGNS OF DISTRESS. VITAL SIGNS FOLLOW: BP: 129/74, HR: 94, RR:20, O2:97, TEMP:98.4. PT A&OX1. RUNNING 0.45% NS AT 40ML/HR ON RAC 20G. SKIN IS INTACT. PT FEEDING TUBE RUNNING AT 55. BLOOD SUGAR 116. PT RECEIVED SCHEDULED MEDICATION ORDER. ALL SAFETY MEASURES IN PLACE. CALL LIGHT WITHIN REACH. WILL CONTINUE TO MONITOR.
[2021-04-16] MEDS: MEROPENEM 1,000 MG in NACL 0.9% 100 ML IV SCH (20:10)
--- NOTE | 2021-04-16 22:11 | NUR ---
2200 SXNED PT FOR SPUTUM SAMPLE AND WAS TAKEN TO LAB
--- NOTE | 2021-04-16 22:20 | NUR ---
PT LAYING IN BED. PERFORMED HYGIENE CARE AND CHANGED THE PT. PT IS REPOSITION. AUSCULTATION ON UPPER LOBES INFILTRATED WITH MUCOUS AND LOWER LOBES DIMINISHED.
[2021-04-17] VITALS: BP 94/53
--- NOTE | 2021-04-17 00:26 | NUR ---
PT IN BED SLEEPING. SHOWS NO SIGNS OF DISTRESS. CONTINUES TO BE ON 2/L NA. CALL LIGHT WITHIN REACH. SAFETY MEASURES IN PLACE. WILL CONTINUE TO MONITOR.
--- NOTE | 2021-04-17 02:25 | NUR ---
PT COUGHING. ASSISTED THE PT WITH SUCTION AND REPOSITION. SAFETY MEASURES IN PLACE. WILL CONTINUE TO MONITOR.
[2021-04-17 04:00] VITALS: BP 117/82
--- NOTE | 2021-04-17 04:05 | NUR ---
PT FEEDING TUBE REPLACED. REPOSITION PT. ASSISTED WITH KENYETTA CARE. PERFORMED ORAL CARE. SAFETY MEASURES IN PLACE. WILL CONTINUE TO MONITOR.
[2021-04-17 05:21] LABS: BASOPHILS # (AUTO) 0.1 K/uL (0.00-0.22); BASOPHILS % (AUTO) 0.5 % (0.0-2.0); EOSINOPHILS # (AUTO) 0.2 K/uL (0-0.4); EOSINOPHILS % (AUTO) 1.9 % (0.0-4.0); HEMATOCRIT 38.6 % (36-52); HEMOGLOBIN 12.6 g/dL (12.0-18.0); LYMPHOCYTES # (AUTO) 2.5 K/uL (2.0-11.5); LYMPHOCYTES % (AUTO) 24.9 % (20.5-51.1); MEAN CORPUSCULAR HEMOGLOBIN 31 pg (27-31); MEAN CORPUSCULAR HGB CONC 33 g/dL (33-37); MEAN CORPUSCULAR VOLUME 93.7 fL (80-94); MONOCYTES # (AUTO) 1.1 K/uL (0.8-1.0); MONOCYTES % (AUTO) 11.5 % (1.7-9.3); NEUTROPHILS # (AUTO) 6.1 K/uL (1.8-7.7); NEUTROPHILS % (AUTO) 61.2 % (42.2-75.2); PLATELET COUNT (AUTO) 211 K/uL (140-450); RED BLOOD CELL COUNT(AUTO) 4.12 MIL/uL (4.20-6.10); RED CELL DISTRIBUTION WIDTH 16.2 % (11.6-13.7)
[2021-04-17 05:28] LABS: ANION GAP 13.4 (8-16); CARBON DIOXIDE 24.2 mmol/L (21-32); CHLORIDE 118 mmol/L (98-107); CREATININE 0.8 mg/dL (0.6-1.3); GLUCOSE 117 mg/dL (74-106); POTASSIUM 3.6 mmol/L (3.5-5.1); SODIUM SERUM 152 mmol/L (136-145); UREA NITROGEN, BLOOD 41 mg/dL (7-18)
[2021-04-17] MEDS: DILTIAZEM 30 MG TAB GT SCH ×3 (05:32→21:07)
--- NOTE | 2021-04-17 05:32 | NUR ---
PT RECEIVED DILTIAZEM ORDERED. NO RESISTANCE WHEN PUSHING MEDICATION VIA G-TUBE. SAFETY MEASURES IN PLACE AND WILL CONTINUE TO MONITOR.
[2021-04-17] MEDS: BLOOD GLUCOSE MONITORING 1 DEV DEV FS SCH ×4 (06:33→21:28)
--- NOTE | 2021-04-17 07:31 | NUR ---
ENDORSED TO MORNING NURSE FOR CONTINUITY OF CARE. PT IS STABLE.
--- NOTE | 2021-04-17 07:40 | NUR ---
RECEIVED BEDSIDE REPORT FROM CRAYON MOLDING MACHINE OPERATOR NURSE FOR CONTINUITY OF CARE. PATIENT AWAKE, ALERT, NON VERBAL. VSS, AFEBRILE, SATING 96% ON ROOM AIR. SKIN IS WARM, DRY, AND INTACT. IV ON RAC 20G. INTACT AND PATENT. IVF INFUSING ORDERED. G-TUBE IN PLACE. NO RESIDUAL. HOB ELEVATED TO PREVENT ASPIRATION. FALL PRECAUTION IMPLEMENTED. PLAN OF CARE DISCUSSED. SIDE RAILS UP X2. BED IN LOW POSITION, WILL CONTINUE TO MONITOR.
[2021-04-17] MEDS: NACL 0.45% 1,000 ML IV SCH (07:46)
[2021-04-17 08:00] VITALS: BP 107/54
[2021-04-17] MEDS: MEROPENEM 1,000 MG in NACL 0.9% 100 ML IV SCH (09:08)
[2021-04-17] MEDS: METOPROLOL 25 MG TAB GT SCH (10:03)
[2021-04-17] MEDS: VANCOMYCIN 1,000 MG in DEXTROSE 5% 250 ML IV SCH (10:14)
[2021-04-17] MEDS: ASCORBIC ACID 500 MG/5 ML ORASYR GT SCH (10:15)
[2021-04-17] MEDS: PANTOPRAZOLE 40 MG INJ VIAL IVP SCH (10:16)
[2021-04-17] MEDS: MEMANTINE 10 MG TAB GT SCH ×2 (10:16→21:08)
[2021-04-17] MEDS: DOCUSATE 100 MG/10 ML UDC GT SCH (10:17)
--- NOTE | 2021-04-17 10:30 | NUR ---
ALL SCHEDULED MEDS GIVEN. PT IS STABLE. NO DISTRESS NOTED. WILL CONTINUE TO MONITOR.
[2021-04-17 12:00] VITALS: BP 125/60
--- NOTE | 2021-04-17 12:27 | NUR ---
BLOOD GLUCOSE WAS 129. NO INSULIN COVERAGE NEEDED.
--- NOTE | 2021-04-17 14:30 | NUR ---
ASSISTED SENIOR DYNAMICS CRM DEVELOPER CHANGING PATIENT'S SHEETS AND CHUCKS. KEPT CLEAN AND DRY.
[2021-04-17 16:00] VITALS: BP 134/64
--- NOTE | 2021-04-17 16:46 | NUR ---
BLOOD GLUCOSE CHECK WAS 102. NO INSULIN COVERAGE NEEDED.
--- NOTE | 2021-04-17 19:15 | NUR ---
ENDORSED TO COMMODITIES TRADER NURSE FOR CONTINUITY OF CARE. PT IS STABLE.
--- NOTE | 2021-04-17 19:20 | NUR ---
RECEIVED BEDSIDE REPORT FROM AM NURSE. PATIENT IS AWAKE RESTING COMFORTABLY. NON VERBAL. SKIN WARM AND DRY TO THE TOUCH. NO DISTRESS NOTED. BREATHING REGULAR NON LABORED. IVF 1/2 NS INFUSING AT 40 ML. G-TUBE FEEDING RUNNING AT 55 ML TOLERATING WELL. ALL SAFETY PRECAUTIONS ARE IN PLACE. CALL LIGHT WITHIN REACH. WILL CONTINUE TO MONITOR.
[2021-04-17 20:00] VITALS: BP 132/58
[2021-04-17] MEDS: PIPERACILLIN/TAZOBACTAM 3.375 GM in DEXTROSE 5% 50 ML IV SCH (21:08)
--- NOTE | 2021-04-17 21:08 | NUR ---
ADMINISTERED ALL 2100 MEDICATIONS PER MD ORDERED.
[2021-04-18] VITALS: BP 115/54
--- NOTE | 2021-04-18 | NUR ---
NEW FEEDING BOTTLE HANGED.
--- NOTE | 2021-04-18 00:35 | NUR ---
PATIENT WITH EPISODE OF LOW HEART RATE, 38. PLACED A CALL TO DR. AGUIAR, ORDERED TO HOLD CARDIZEM IF SBP LESS THAN 100 OR HR LESS THAN 60.
--- NOTE | 2021-04-18 02:19 | NUR ---
ROUNDED PATIENT. PT IS ASLEEP, NO DISTRESS NOTED. CALL LIGHT WITHIN REACH. SAFETY MEASURES IN PLACE.
[2021-04-18 04:00] VITALS: BP 128/64
[2021-04-18] MEDS: PIPERACILLIN/TAZOBACTAM 3.375 GM in DEXTROSE 5% 50 ML IV SCH ×3 (05:06→21:00)
[2021-04-18] MEDS: DILTIAZEM 30 MG TAB GT SCH ×3 (05:13→21:00)
[2021-04-18 05:28] LABS: BASOPHILS % (AUTO) 0.3 % (0.0-2.0); EOSINOPHILS # (AUTO) 0.4 K/uL (0-0.4); EOSINOPHILS % (AUTO) 4.2 % (0.0-4.0); HEMATOCRIT 40.1 % (36-52); HEMOGLOBIN 13.1 g/dL (12.0-18.0); LYMPHOCYTES # (AUTO) 2.5 K/uL (2.0-11.5); LYMPHOCYTES % (AUTO) 25.5 % (20.5-51.1); MEAN CORPUSCULAR HEMOGLOBIN 30 pg (27-31); MEAN CORPUSCULAR HGB CONC 33 g/dL (33-37); MEAN CORPUSCULAR VOLUME 93.2 fL (80-94); MONOCYTES # (AUTO) 1.3 K/uL (0.8-1.0); MONOCYTES % (AUTO) 13.5 % (1.7-9.3); NEUTROPHILS # (AUTO) 5.5 K/uL (1.8-7.7); NEUTROPHILS % (AUTO) 56.5 % (42.2-75.2); PLATELET COUNT (AUTO) 213 K/uL (140-450); RED CELL DISTRIBUTION WIDTH 15.9 % (11.6-13.7); WHITE BLOOD COUNT (AUTO) 9.8 K/uL (4.8-10.8)
[2021-04-18 05:38] LABS: ANION GAP 12.2 (8-16); CARBON DIOXIDE 24.6 mmol/L (21-32); CHLORIDE 115 mmol/L (98-107); CREATININE 0.7 mg/dL (0.6-1.3); GLUCOSE 117 mg/dL (74-106); POTASSIUM 3.8 mmol/L (3.5-5.1); SODIUM SERUM 148 mmol/L (136-145); UREA NITROGEN, BLOOD 35 mg/dL (7-18)
[2021-04-18] MEDS: BLOOD GLUCOSE MONITORING 1 DEV DEV FS SCH ×4 (06:38→21:00)
--- NOTE | 2021-04-18 07:27 | NUR ---
ENDORSED TO AM NURSE FOR CONTINUITY OF CARE. PATIENT IS STABLE.
--- NOTE | 2021-04-18 07:30 | NUR ---
RECEIVED BEDSIDE REPORT FROM AUDIOLOGY DIRECTOR NURSE FOR CONTINUITY OF CARE. PATIENT AWAKE, ALERT, NON VERBAL. VSS, AFEBRILE, SATING 96% ON ROOM AIR. SKIN IS WARM, DRY, AND INTACT. IV ON RAC 20G. INTACT AND PATENT. IVF INFUSING ORDERED. G-TUBE IN PLACE. NO RESIDUAL. HOB ELEVATED TO PREVENT ASPIRATION. FALL PRECAUTION IMPLEMENTED. PLAN OF CARE DISCUSSED. SIDE RAILS UP X2. BED IN LOW POSITION, WILL CONTINUE TO MONITOR.
[2021-04-18] MEDS: NACL 0.45% 1,000 ML IV SCH (07:46)
[2021-04-18 08:00] VITALS: BP 112/52
[2021-04-18] MEDS: METOPROLOL 25 MG TAB GT SCH (09:00)
[2021-04-18] MEDS: MEMANTINE 10 MG TAB GT SCH ×2 (09:14→21:00)
[2021-04-18] MEDS: ASCORBIC ACID 500 MG/5 ML ORASYR GT SCH (09:15)
[2021-04-18] MEDS: PANTOPRAZOLE 40 MG INJ VIAL IVP SCH (09:16)
[2021-04-18] MEDS: DOCUSATE 100 MG/10 ML UDC GT SCH (09:16)
--- NOTE | 2021-04-18 09:24 | NUR ---
ALL SCHEDULED MEDS GIVEN. PT IS STABLE. NO DISTRESS NOTED. WILL CONTINUE TO MONITOR.
[2021-04-18 12:00] VITALS: BP 125/54
--- NOTE | 2021-04-18 12:14 | NUR ---
BLOOD GLUCOSE CHECK WAS 102. NO INSULIN COVERAGE NEEDED
--- NOTE | 2021-04-18 13:46 | NUR ---
ALL SCHEDULED MEDICATIONS GIVEN. PT IS STABLE. NO DISTRESS NOTED. WILL CONTINUE TO MONITOR.
--- NOTE | 2021-04-18 14:59 | NUR ---
CHECKED ON PATIENT. PT IS STABLE. NO DISTRESS NOTED. WILL CONTINUE TO MONITOR.
[2021-04-18 16:00] VITALS: BP 109/42
--- NOTE | 2021-04-18 17:15 | NUR ---
ASSISTED SENIOR MANAGER QUALITY ASSURANCE IN CHANGING PATIENT'S SHEETS. KEPT CLEAN AND DRY. Addendum: 04/18/21 at 1806 by David Hogan RN RN WRONG TIMESTAMP
--- NOTE | 2021-04-18 17:30 | NUR ---
ASSISTED ACCOUNTING SYSTEMS MANAGER IN CHANGING PATIENT'S SHEETS. KEPT CLEAN AND DRY.
--- NOTE | 2021-04-18 19:45 | NUR ---
ENDORSED TO LOCOMOTIVE ENGINEER NURSE FOR CONTINUITY OF CARE. PT IS STABLE.
[2021-04-18 20:00] VITALS: BP 129/63
[2021-04-19] VITALS: BP 121/62
--- NOTE | 2021-04-19 02:18 | NUR ---
PATIENT ALERT X3 LYING IN BED IV INFILTRATED RESTART IV IN LEFT FA WITH 22GA PATIENT.INFUSING 1/2 NS 40 HOUR PATIENT HAS G-TUBE PATIENT NO RESIDUAL AT 2000 WATER FLUSH EVERY SIX HOURS VITALS 55 HOURS. ABDOMEN SOFT WITH ACTIVE BOWEL SOUND. LUNGS DIMINISH PATIENT INCONTINENT SKIN INTACT. TEMP.97.7 PATIENT ON MONITOR A-FIB. BLOOD SUGAR 112 NO INSULIN GIVEN. NO DISTRESS NOTED.
[2021-04-19 04:00] VITALS: BP 116/58
[2021-04-19] MEDS: DILTIAZEM 30 MG TAB GT SCH ×3 (05:00→20:51)
[2021-04-19] MEDS: PIPERACILLIN/TAZOBACTAM 3.375 GM in DEXTROSE 5% 50 ML IV SCH ×3 (05:00→20:51)
[2021-04-19 05:35] LABS: BASOPHILS % (AUTO) 0.3 % (0.0-2.0); EOSINOPHILS # (AUTO) 0.5 K/uL (0-0.4); HEMATOCRIT 38.1 % (36-52); HEMOGLOBIN 12.5 g/dL (12.0-18.0); LYMPHOCYTES # (AUTO) 3.3 K/uL (2.0-11.5); LYMPHOCYTES % (AUTO) 28.7 % (20.5-51.1); MEAN CORPUSCULAR HEMOGLOBIN 31 pg (27-31); MEAN CORPUSCULAR HGB CONC 33 g/dL (33-37); MEAN CORPUSCULAR VOLUME 92.6 fL (80-94); MONOCYTES # (AUTO) 1.5 K/uL (0.8-1.0); MONOCYTES % (AUTO) 13.1 % (1.7-9.3); NEUTROPHILS # (AUTO) 6.2 K/uL (1.8-7.7); NEUTROPHILS % (AUTO) 53.9 % (42.2-75.2); PLATELET COUNT (AUTO) 207 K/uL (140-450); RED BLOOD CELL COUNT(AUTO) 4.11 MIL/uL (4.20-6.10); RED CELL DISTRIBUTION WIDTH 15.7 % (11.6-13.7); WHITE BLOOD COUNT (AUTO) 11.5 K/uL (4.8-10.8)
[2021-04-19 06:04] LABS: ANION GAP 11.7 (8-16); CARBON DIOXIDE 24.1 mmol/L (21-32); CHLORIDE 111 mmol/L (98-107); CREATININE 0.8 mg/dL (0.6-1.3); GLUCOSE 114 mg/dL (74-106); POTASSIUM 3.8 mmol/L (3.5-5.1); SODIUM SERUM 143 mmol/L (136-145); UREA NITROGEN, BLOOD 31 mg/dL (7-18)
[2021-04-19] MEDS: BLOOD GLUCOSE MONITORING 1 DEV DEV FS SCH ×4 (06:40→20:50)
--- NOTE | 2021-04-19 07:10 | NUR ---
RECEIVED REPORT FROM INSTRUMENT REPAIRER HELPER NURSE FOR CONTINUITY OF CARE. PATIENT IS IN BED SLEEPING AT THIS TIME. PATIENT IS NON VERBAL. RESPIRATIONS ARE EVEN AND UNLABORED, NO SIGNS OF DISTRESS NOTED. PATIENT ON ROOM AIR, SATING 96% ON SKIN IS WARM, DRY, AND INTACT. IV ON L WRIST 22G. INTACT AND PATENT. IVF INFUSING ORDERED. G-TUBE IN PLACE. HOB ELEVATED TO PREVENT ASPIRATION. FALL PRECAUTION IMPLEMENTED. ALL SAFETY MEASURES IN PLACE. BED IN LOWEST POSITION. CALL LIGHT WITHIN REACH. WILL CONTINUE TO MONITOR.
[2021-04-19] MEDS: NACL 0.45% 1,000 ML IV SCH (07:49)
[2021-04-19 08:00] VITALS: BP 117/52
[2021-04-19] MEDS: DOCUSATE 100 MG/10 ML UDC GT SCH (09:26)
[2021-04-19] MEDS: ASCORBIC ACID 500 MG/5 ML ORASYR GT SCH (09:27)
[2021-04-19] MEDS: METOPROLOL 25 MG TAB GT SCH (09:27)
[2021-04-19] MEDS: MEMANTINE 10 MG TAB GT SCH ×2 (09:27→20:51)
--- NOTE | 2021-04-19 09:27 | NUR ---
ADMINISTERED ALL SCHEDULED MEDICATIONS. EDUCATED PATIENT ON MEDICATIONS BEING ADMINISTERED, WELL SIDE EFFECTS OF MEDICATIONS. PATIENT TOLERATED WELL. WILL CONTINUE TO MONITOR.
[2021-04-19] MEDS: PANTOPRAZOLE 40 MG INJ VIAL IVP SCH (09:51)
--- NOTE | 2021-04-19 10:24 | NUR ---
KAREN IV MEDICATION ADMINISTERED PER MD ORDER, PT TOLERATED ADMINISTRATION. POC HAS BEEN DISCUSSED WITH PTS NURSE, CHERY. ALL SAFETY MEASURES IN PLACE, CALL LIGHT WITHIN REACH.
[2021-04-19] MEDS ORDERED: IV Zosyn IV (11:37)
--- NOTE | 2021-04-19 11:49 | NUR ---
PATIENT BLOOD GLUCOSE 115. NO INSULIN COVERAGE NEEDED PER MD ORDER. WILL CONTINUE TO MONITOR.
[2021-04-19 12:00] VITALS: BP 141/60
--- NOTE | 2021-04-19 13:34 | NUR ---
IV ANTIBIOTIC ADMINISTERED BY RN. WILL CONTINUE TO MONITOR.
--- NOTE | 2021-04-19 15:15 | NUR ---
ASSISTED WITH CHANGING AND REPOSITIONING PATIENT. PATIENT TOLERATED WELL. NO COMPLAINTS OF PAIN OR DISCOMFORT. NO SIGNS OF DISTRESS NOTED. WILL CONTINUE TO MONITOR.
--- NOTE | 2021-04-19 15:59 | NUR ---
04/19/21 RD INITIAL ASSESSMENT COMPLETED PLEASE REFER TO NUTRITION ASSESSMENT UNDER CARE ACTIVITY FOR ESTIMATED NUTRITIONAL NEEDS. 1. CONTINUE VITAL AF 1.2 @ 55 ML/HR WITH WATER FLUSH 150 ML Q6H -PROVIDES 1584 KCAL, 99 GM PROTEIN AND 1670 ML WATER, MEETING ESTIMATED NUTRIENT NEEDS 2. RD TO FOLLOW-UP 2-3 DAYS, HIGH RISK BRIONNA TUCKER RD
[2021-04-19 16:00] VITALS: BP 137/67
--- NOTE | 2021-04-19 16:25 | NUR ---
PATIENT BLOOD GLUCOSE WAS 110. PER MD ORDER, NO INSULIN COVERAGE NEEDED. WILL CONTINUE TO MONITOR.
--- NOTE | 2021-04-19 19:10 | NUR ---
ENDORSED PATIENT TO LEATHER BELT MAKER NURSE. PATIENT STABLE.
--- NOTE | 2021-04-19 19:11 | NUR ---
RECEIVED REPORT FROM AM SHIFT NURSE FOR CONTINUITY OF CARE. PATIENT IS IN BED AWAKE, A&OX1. PATIENT IS NON VERBAL. NO S/S OF DISTRESS. PT ON ROOM AIR, RESPIRATIONS ARE EVEN AND UNLABORED. SKIN IS WARM, DRY, AND INTACT. IV ON L WRIST 22G RUNNING 0.45 NS @40MLS/HR. G-TUBE IN PLACE RUNNING VITAL AF 1.2 @55MLS/HR WITH WATER FLUSH 150 @Q6. HOB ELEVATED TO PREVENT ASPIRATION. ALL SAFETY MEASURES IN PLACE. BED IN LOWEST POSITION. CALL LIGHT WITHIN REACH. WILL CONTINUE TO MONITOR.
[2021-04-19 20:00] VITALS: BP 125/63
--- NOTE | 2021-04-19 20:50 | NUR ---
BLOOD GLUCOSE CHECKED 89, NO COVERAGE NEEDED. SCHEDULED MEDICATION ADMINISTERED ORDERED. PT TOLERATED IT WELL. WILL CONTINUE TO MONITOR.
--- NOTE | 2021-04-19 23:05 | NUR ---
CHECKED ON PT, NO S/S OF ANY DISTRESS. RESPIRATIONS EVEN AND UNLABORED. CLEANED AND CHANGED PT DIAPER BY BOX ANNEALER. CALL LIGHT WITHIN REACH. ALL SAFETY MEASURES IN PLACE. WILL CONTINUE TO MONITOR.
[2021-04-20] VITALS: BP 113/74
--- NOTE | 2021-04-20 01:15 | NUR ---
MADE ROUNDS ON PT, NO S/S OF ANY DISTRESS. CHEST RISE AND FALL IS SYMMETRICAL. REPOSITIONED PT. BED ON LOW/LOCKED POSITION. ALL SAFETY MEASURES IN PLACE. WILL CONTINUE TO MONITOR.
--- NOTE | 2021-04-20 03:30 | NUR ---
MADE ROUNDS ON PT, NO S/S OF ANY DISTRESS. RESPIRATIONS EVEN AND NON LABORED. CLEANED AND CHANGED PT DIAPER WITH ELECTRONIC ENGRAVER. CALL LIGHT WITHIN REACH. ALL SAFETY MEASURES IN PLACE.
[2021-04-20 04:00] VITALS: BP 133/58
[2021-04-20] MEDS: DILTIAZEM 30 MG TAB GT SCH ×2 (04:52→14:00)
[2021-04-20] MEDS: PIPERACILLIN/TAZOBACTAM 3.375 GM in DEXTROSE 5% 50 ML IV SCH ×2 (04:52→14:00)
[2021-04-20 05:58] LABS: BASOPHILS % (AUTO) 0.4 % (0.0-2.0); EOSINOPHILS # (AUTO) 0.5 K/uL (0-0.4); EOSINOPHILS % (AUTO) 4.7 % (0.0-4.0); HEMATOCRIT 39.8 % (36-52); HEMOGLOBIN 13.2 g/dL (12.0-18.0); LYMPHOCYTES # (AUTO) 2.8 K/uL (2.0-11.5); LYMPHOCYTES % (AUTO) 27.5 % (20.5-51.1); MEAN CORPUSCULAR HEMOGLOBIN 31 pg (27-31); MEAN CORPUSCULAR HGB CONC 33 g/dL (33-37); MEAN CORPUSCULAR VOLUME 92.5 fL (80-94); MONOCYTES # (AUTO) 1.4 K/uL (0.8-1.0); MONOCYTES % (AUTO) 13.6 % (1.7-9.3); NEUTROPHILS # (AUTO) 5.6 K/uL (1.8-7.7); NEUTROPHILS % (AUTO) 53.8 % (42.2-75.2); PLATELET COUNT (AUTO) 207 K/uL (140-450); RED CELL DISTRIBUTION WIDTH 15.9 % (11.6-13.7); WHITE BLOOD COUNT (AUTO) 10.4 K/uL (4.8-10.8)
[2021-04-20 06:25] LABS: ANION GAP 16.3 (8-16); CARBON DIOXIDE 21.5 mmol/L (21-32); CHLORIDE 107 mmol/L (98-107); CREATININE 0.8 mg/dL (0.6-1.3); GLUCOSE 119 mg/dL (74-106); POTASSIUM 3.8 mmol/L (3.5-5.1); SODIUM SERUM 141 mmol/L (136-145); UREA NITROGEN, BLOOD 28 mg/dL (7-18)
[2021-04-20] MEDS: BLOOD GLUCOSE MONITORING 1 DEV DEV FS SCH ×2 (06:45→11:51)
--- NOTE | 2021-04-20 06:45 | NUR ---
BLOOD GLUCOSE CHECKED 113. NO COVERAGE NEEDED. ORAL CARE PROVIDED. WILL CONTINUE TO MONITOR.
--- NOTE | 2021-04-20 07:30 | NUR ---
RECEIVED REPORT FROM CORPORATE ASSOCIATE ATTORNEY NURSE FOR CONTINUITY OF CARE. PATIENT IS IN BED AWAKE, A&OX1. RESPIRATIONS EVEN AND UNLABORED. NO S/S OF DISTRESS. PT ON ROOM AIR, RESPIRATIONS ARE EVEN AND UNLABORED. SKIN IS WARM, DRY, AND INTACT. IV ON L WRIST 22G INFUSING 0.45 NS @40MLS/HR. G-TUBE IN PLACE RUNNING VITAL AF 1.2 @55MLS/HR WITH WATER FLUSH 150 @Q6. PLAN OF CARE DISCUSSED. HOB ELEVATED TO PREVENT ASPIRATION. ALL SAFETY MEASURES IN PLACE. BED IN LOWEST POSITION. CALL LIGHT WITHIN REACH. WILL CONTINUE TO MONITOR.
[2021-04-20] MEDS: NACL 0.45% 1,000 ML IV SCH (07:44)
[2021-04-20 08:00] VITALS: BP 141/68
[2021-04-20] MEDS: PANTOPRAZOLE 40 MG INJ VIAL IVP SCH (09:01)
[2021-04-20] MEDS: ASCORBIC ACID 500 MG/5 ML ORASYR GT SCH (09:01)
[2021-04-20] MEDS: MEMANTINE 10 MG TAB GT SCH (09:02)
[2021-04-20] MEDS: DOCUSATE 100 MG/10 ML UDC GT SCH (09:02)
[2021-04-20] MEDS: METOPROLOL 25 MG TAB GT SCH (09:02)
--- NOTE | 2021-04-20 10:15 | NUR ---
ALL SCHEDULED MEDICATIONS GIVEN. PT IS STABLE. NO DISTRESS NOTED. WILL CONTINUE TO MONITOR.
--- NOTE | 2021-04-20 11:30 | NUR ---
WAS NOTIFIED BY ATTENDING PATHOLOGIST JERAD THAT PATIENT WILL BE DISCHARGED TODAY TO [facility] [place] AT 1700.
--- NOTE | 2021-04-20 11:51 | NUR ---
BLOOD GLUCOSE CHECK 104. NO INSULIN COVERAGE NEEDED.
[2021-04-20 12:00] VITALS: BP 131/47
--- NOTE | 2021-04-20 15:10 | NUR ---
ENDORSED DISCHARGE INSTRUCTIONS TO PATIENT. PATIENT WAS NOT ABLE TO COMPREHEND AND SIGN DISCHARGE FORM. FAMILY IS AWARE THAT PATIENT IS BEING TRANSFERRED [place] [facility]
[2021-04-20 15:40] VITALS: BP 131/47
--- NOTE | 2021-04-20 15:50 | NUR ---
PATIENT DISCHARGED OFF THE UNIT. PT WAS TRANSFERRED TO [facility] [place] WITH [facility]. PT WAS STABLE PRIOR TO DISCHARGE
== END 2021-04-20 15:45 | DRG 871 ==
LOC: MED 01:20 → MTU 07:06 → MED 07:06 → MTU 07:32
PROVIDERS: ADMIT Hospitalist; ATTEND Hospitalist
DX: A41.9 Sepsis, unspecified organism (principal); J69.0 Pneumonitis due to inhalation of food and vomit; J96.01 Acute respiratory failure with hypoxia; E43 Unspecified severe protein-calorie malnutrition; I50.43 Acute on chronic combined systolic (congestive) and diastolic (congestive) heart failure; J44.0 Chronic obstructive pulmonary disease with (acute) lower respiratory infection; E87.0 Hyperosmolality and hypernatremia; E78.5 Hyperlipidemia, unspecified; F03.90 Unspecified dementia, unspecified severity, without behavioral disturbance, psychotic disturbance, mood disturbance, and anxiety; I11.0 Hypertensive heart disease with heart failure; I25.10 Atherosclerotic heart disease of native coronary artery without angina pectoris; I48.91 Unspecified atrial fibrillation; K44.9 Diaphragmatic hernia without obstruction or gangrene; R65.20 Severe sepsis without septic shock; E83.41 Hypermagnesemia; E83.39 Other disorders of phosphorus metabolism; R62.7 Adult failure to thrive; E86.0 Dehydration; E78.2 Mixed hyperlipidemia; R73.03 Prediabetes; R13.10 Dysphagia, unspecified; Z20.822 Contact with and (suspected) exposure to COVID-19; Z86.16 Personal history of COVID-19; Z86.73 Personal history of transient ischemic attack (TIA), and cerebral infarction without residual deficits; Z95.1 Presence of aortocoronary bypass graft; Z79.899 Other long term (current) drug therapy; Z93.1 Gastrostomy status; Z79.2 Long term (current) use of antibiotics; Z68.21 Body mass index [BMI] 21.0-21.9, adult
CPT/HCPCS: 36415; 71045; 71275; 80048; 80053; 80202; 81001; 82948; 83036; 83605; 83735; 83880; 84100; 84484; 85025; 85379; 87040; 87086; 87205; 87804; 96361; 96365; 99285; C9113; J0696; J2185; J2543; J3370; J7060; Q0092; Q9967

== ENCOUNTER 2021-04-30 02:37 | Inpatient (IN) | payer OTHER, SELFPAY ==
[~2021-04-30] VITALS: Ht 182.9 cm; Wt 77.1 kg
[~2021-04-30 02:37] MED LIST changes: -DOCU-299 PO; +IV Zosyn IV; +MAGN400S60 GT; +OMEP20EC11 GT; -ZOS3.375PM IV
[2021-04-30 02:40] VITALS: BP 134/76
--- NOTE | 2021-04-30 02:40 | NUR ---
BIBA TO BED 7 [place] [facility] [place]/O SOB AND DESATURATING. PT RECENTLY DX WITH PNEUMONIA. O2 SAT = 95% ON R/A. LUNGS ARE DIMINISHED WITH CRACKLES THROUGHOUT. SKIN IS WARM AND DRY. PT IS NON-VERBAL CM = A-FIB PMH :A-FIB, SD NKDA Addendum: 04/30/21 at 0321 [address] PEG IN PL[address] PMH: SD, DYSPHAGIA, PNA, A-FIB, HTN, DM2
--- NOTE | 2021-04-30 02:49 | NUR ---
X-RAY AT BEDSIDE
[2021-04-30] MEDS ORDERED: METO25TA PO (03:19)
[2021-04-30] MEDS ORDERED: CEFEPIME 1,000 MG in DEXTROSE 5% 50 ML IV ONE (03:30)
[2021-04-30] MEDS ORDERED: VANCOMYCIN 1GM/DEXT 5% PREMIX 200 ML IV SCH (03:30)
[2021-04-30] MEDS ORDERED: VANCOMYCIN PER PHARMACY MC PRN (03:30)
[2021-04-30 03:35] LABS: BASOPHILS % (AUTO) 0.1 % (0.0-2.0); HEMATOCRIT 44.5 % (36-52); HEMOGLOBIN 14.7 g/dL (12.0-18.0); LYMPHOCYTES # (AUTO) 3.7 K/uL (2.0-11.5); MEAN CORPUSCULAR HEMOGLOBIN 30 pg (27-31); MEAN CORPUSCULAR HGB CONC 33 g/dL (33-37); MEAN CORPUSCULAR VOLUME 91.5 fL (80-94); NEUTROPHILS # (AUTO) 18.8 K/uL (1.8-7.7); NEUTROPHILS % (AUTO) 76.9 % (42.2-75.2); PLATELET COUNT (AUTO) 293 K/uL (140-450); RED BLOOD CELL COUNT(AUTO) 4.87 MIL/uL (4.20-6.10); RED CELL DISTRIBUTION WIDTH 16.1 % (11.6-13.7); WHITE BLOOD COUNT (AUTO) 24.4 K/uL (4.8-10.8)
[2021-04-30] MEDS ORDERED: CEFEPIME 1,000 MG VIAL ONE (03:44)
[2021-04-30] MEDS ORDERED: VANCOMYCIN 1,000 MG VIAL ONE (03:44)
[2021-04-30 03:50] LABS: ANION GAP 11.9 (8-16); CARBON DIOXIDE 29.3 mmol/L (21-32); CHLORIDE 109 mmol/L (98-107); GLUCOSE 176 mg/dL (74-106); POTASSIUM 4.2 mmol/L (3.5-5.1); SODIUM SERUM 146 mmol/L (136-145); UREA NITROGEN, BLOOD 49 mg/dL (7-18)
[2021-04-30 03:55] LABS: ALBUMIN 2.5 g/dL (3.4-5.0); BILIRUBIN,DIRECT 0.1 mg/dL (0.0-0.3); TOTAL BILIRUBIN 0.6 mg/dL (0.0-1.0)
--- NOTE | 2021-04-30 04:00 | NUR ---
TO CT VIA [facility]
[2021-04-30] MEDS ORDERED: NACL 0.9% 500 ML IV ONE (04:20)
--- NOTE | 2021-04-30 07:22 | NUR ---
REPORT RECEVIED FROM SANTANA MANNING FOR TRANSFER OF CARE
--- NOTE | 2021-04-30 07:29 | NUR ---
SPOKE WITH SANTANA RAMSAY FROM PATIENT FACILITY IN REGARDS TO PATIENT DIET. WAS INFORMED PATIENT IS GIVEN PUREED DIET WITH HONEY THICKENED LIQUIDS AT FACILITY.
--- NOTE | 2021-04-30 07:31 | NUR ---
SPOKE WITH PATIENT DAUGHTER OLGA AND PROVIDED UPDATE ON PATIENT STATUS
--- NOTE | 2021-04-30 07:39 | NUR ---
PT REPOSITIONED FOR COMFORT AT THIS TIME. NO WOUNDS NOTED ON PATIENT AT THIS TIME
--- NOTE | 2021-04-30 08:06 | NUR ---
RECEIVED PHONE REPORT FROM ER NURSE. WAITING PATIENT TO TRANSFER TO UNIT.
[2021-04-30] MEDS ORDERED: ACETAMINOPHEN 325 MG TAB PO PRN (08:10)
[2021-04-30] MEDS ORDERED: HYDROcodone/APAP 5/325 MG 1 TAB TAB PO PRN (08:10)
[2021-04-30] MEDS ORDERED: ONDANSETRON 4 MG/2 ML VIAL IM/IVP PRN (08:10)
[2021-04-30] MEDS ORDERED: MORPHINE SULFATE 2 MG/ML SYR IVP PRN (08:10)
[2021-04-30] MEDS ORDERED: POTASSIUM CHLORIDE 10 MEQ TABER PO PRN (08:10)
[2021-04-30] MEDS ORDERED: MAG SULF 2000 MG/WATER PREMIX 50 ML IV PRN (08:10)
[2021-04-30] MEDS ORDERED: DOCUSATE SODIUM 100 MG GELCAP PO PRN (08:10)
[2021-04-30] MEDS ORDERED: SODIUM PHOS / POTASSIUM PHOS 1 PKT PDR PO PRN (08:10)
--- NOTE | 2021-04-30 08:24 | NUR ---
Patient will be admitted to care of DR. CARTER. Admited to TELE. Will go to room 123A. Belongings list completed. Report to SANTANA ALLISON.
[2021-04-30 08:30] VITALS: BP 120/56
--- NOTE | 2021-04-30 08:30 | NUR ---
RECEIVED PATIENT FROM ER. PATIENT IS SLEEPING, CHEST RISE AND FALL NOTED, EYE OPEN WITH STERNAL RUB. RESPIRATORY EVEN AND UNLABORED, ON 6L SIMPLE MASK, O2 SAT 99%, NO SIGN OF DISTRESS NOTED. LUNG SOUNDS ARE DIMINISHED WITH CRACKLES THROUGHOUT. S1 AND S2 NOTED. ABDOMINAL SOFT, NON TENDER. BOWEL SOUNDS ACTIVE TO ALL QUADRANTS. G-TUBE IN PLACE, LOCKED. SKIN WARM, DRY, NON DIAPHORETIC, CAP REFILL LESS THAN 3 SEC. IV ON RIGHT HAND 22G, INTACT AND PATENT, SALINE LOCK. NO SIGN OF PAIN OR DISCOMFORT. NO SIGN OF SOB. ORIENT PATIENT TO ROOM AND UNIT ROUTINE. MRSA COLLECTED. PLAN OF CARE DISCUSSED. PRECAUTION IN PLACE. CALL LIGHT WITHIN REACH. WILL CONTINUE TO MONITOR.
--- NOTE | 2021-04-30 08:55 | NUR ---
PATIENT HAS BEEN SCREENED AND CATEGORIZED MODERATE NUTRITION RISK. PATIENT WILL BE SEEN WITHIN 3-5 DAYS OF ADMISSION. 04/30/21 05/04/[address] Addendum: 04/30/21 at [address] PATIENT HAS BEEN SCREENED AND CATEGORIZED HIGH NUTRITION RISK. PATIENT WILL BE SEEN WITHIN 1-2 DAYS OF ADMISSION. 04/30/21-05/01/21 REFERRAL RECEIVED FOR TUBE FEEDING SASHA TUCKER RD
[2021-04-30] MEDS: PANTOPRAZOLE 40 MG INJ VIAL IVP SCH (09:51)
--- NOTE | 2021-04-30 09:51 | NUR ---
SCHEDULE MEDICATION GIVEN WITH EDUCATION. PATIENT TOLERATED WELL, NO SIGN OF DISTRESS NOTED. O2 SAT 98%. PRECAUTION IN PLACE. CALL LIGHT WITHIN REACH. WILL CONTINUE TO MONITOR.
[2021-04-30 10:49] LABS: MAGNESIUM 2.8 mg/dL (1.8-2.4); PHOSPHORUS 3.1 mg/dL (2.5-4.9)
--- NOTE | 2021-04-30 11:54 | NUR ---
CALLED [facility], UNABLE TO REACH NURSE. WILL CALL BACK ANOTHER TIME.
[2021-04-30 12:00] VITALS: BP 150/73
[2021-04-30] MEDS ORDERED: INSULIN LISPRO SLIDING SCALE 100 UNITS/ML VIAL SUBQ PRN (12:30)
[2021-04-30] MEDS ORDERED: DEXTROSE 50% 50 ML SYR IVP PRN (12:30)
--- NOTE | 2021-04-30 13:00 | NUR ---
SPOKE WITH PSYCHOLOGICAL OPERATIONS SPECIALIST REGARDING FEEDING PUMP. PSYCHOLOGICAL OPERATIONS SPECIALIST AWARE.
[2021-04-30] MEDS ORDERED: MAGNESIUM HYDROXIDE 2400 MG/30 ML UDC GT PRN (13:55)
[2021-04-30] MEDS ORDERED: bisacodyL 10 MG SUPP RC PRN (13:55)
[2021-04-30] MEDS ORDERED: POTASSIUM CHLORIDE 20% 40 MEQ/15 ML UDC GT PRN (14:15)
--- NOTE | 2021-04-30 14:30 | NUR ---
CHANGE AND REPOSITION PATIENT. PATIENT TOLERATED WELL. EYE OPEN SPONTANEOUSLY, NO SIGN OF DISTRESS NOTED. PRECAUTION IN PLACE. CALL LIGHT WITHIN REACH. WILL CONTINUE TO MONITOR.
[2021-04-30 16:00] VITALS: BP 135/67
--- NOTE | 2021-04-30 16:12 | NUR ---
DC PLANNING: THE PATIENT WAS [place] [facility] [place] C/O ALOC AND SOB. H/O REPEATED ASPIRATION PNA, PATIENT IS BEDBOUND AND TOTAL CARE AT [facility], ALSO NON VERBAL. ALLEGRA SPOKE WITH HIS DAUGHTER OLGA BY PHONE TO DISCUSS CODE STATUS AND PLAN OF CARE. ASKED IF OLGA WANTED THE PATIENT TO REMAIN FULL CODE, OLGA STATED THAT SHE DOESN'T WANT HIM INTUBATED OR SHOCKED. SHE THEN ASKED ABOUT HOSPICE CARE, CM DISCUSSED PATIENT HISTORY AND CURRENT ACUITIES AND ENDORSED THAT HE WOULD BE APPROPRIATE FOR END OF LIFE MANAGEMENT. OLGA STATES THAT SHE WILL BE HERE TOMORROW MORNING TO SEE HER FATHER AND SPEAK WITH THE ATTENDING MD REGARDING HOSPICE AND WILL MAKE A DECISION AT THAT TIME. ALLEGRA SPOKE WITH DR CARTER TO LET HIM KNOW, HE STATES HE WILL SPEAK WITH OLGA TOMORROW. ALLEGRA WILL FOLLOW FOR NEEDS. Addendum: 05/03/21 at 0837 by Loretta Cohen CM DC PLANNING: ORDER RECEIVED FOR PATIENT TO BE ON SERVICE WITH [facility], ALLEGRA SPOKE WITH RANJAN AT THE AGENCY WHO STATES SHE IS WORKING ON SETTING EVERYTHING UP FOR HIM TO RETURN TO [facility]. ALLEGRA WILL FOLLOW FOR NEEDS. Addendum: 05/03/21 at 0918 by Loretta Cohen CM DC PLANNING: CLINICAL PACKET FAXED TO RANJAN AT [facility]. CM WILL FOLLOW FOR NEEDS.
[2021-04-30] MEDS: BLOOD GLUCOSE MONITORING 1 DEV DEV FS SCH ×2 (17:50→21:11)
--- NOTE | 2021-04-30 17:51 | NUR ---
BLOOD SUGAR CHECK 96, NO INSULIN NEED TO COVER. PATIENT IS SLEEPING, CHEST RISE AND FALL, O2 SAT 98% ON SIMPLE MASK 6L. NO SIGN OF DISTRESS NOTED. PRECAUTION IN PLACE. CALL LIGHT WITHIN REACH. WILL CONTINUE TO MONITOR.
--- NOTE | 2021-04-30 18:30 | NUR ---
SPOKE WITH SPINNING DOFFER REGARDING FEEDING PUMP. SPINNING DOFFER AWARE.
--- NOTE | 2021-04-30 19:22 | NUR ---
ENDORSED PATIENT TO RN PATIENT CARE TO CONTINUE OF CARE. PATIENT IS STABLE.
--- NOTE | 2021-04-30 19:23 | NUR ---
RECEIVED REPORT FROM AM RN. PATIENT IS AWAKE WITH O2 AT 6L SIMPLE MASK TOLERATING WELL. NO ACUTE DISTRESS NOTED. RESPIRATION EVEN UNLABORED. HEAD OF BED ELEVATED. G-TUBE FEEDING GLUCERNA 1.2 RUNNING AT 60 ML/HR. ALL SAFETY PRECAUTIONS ARE IN PLACE. CALL LIGHT WITHIN REACH. WILL CONTINUE TO MONITOR.
[2021-04-30 20:00] VITALS: BP 120/51
[2021-04-30] MEDS: DILTIAZEM 30 MG TAB GT SCH (20:50)
--- NOTE | 2021-04-30 21:11 | NUR ---
ADMINISTERED 2100 MEDS ORDERED.
[2021-04-30] MEDS: MEMANTINE 10 MG TAB GT SCH (21:12)
[2021-05-01] VITALS: BP 134/64
--- NOTE | 2021-05-01 00:20 | NUR ---
PATIENT ROUNDED. NO SOB NOTED. CHEST RISE AND FALL. ALL SAFETY MEASURES IN PLACE.
[2021-05-01 04:00] VITALS: BP 138/63
[2021-05-01 05:20] LABS: BASOPHILS # (AUTO) 0.1 K/uL (0.00-0.22); BASOPHILS % (AUTO) 0.5 % (0.0-2.0); EOSINOPHILS # (AUTO) 0.1 K/uL (0-0.4); EOSINOPHILS % (AUTO) 0.9 % (0.0-4.0); HEMOGLOBIN 13.8 g/dL (12.0-18.0); LYMPHOCYTES # (AUTO) 3.6 K/uL (2.0-11.5); LYMPHOCYTES % (AUTO) 34.6 % (20.5-51.1); MEAN CORPUSCULAR HEMOGLOBIN 31 pg (27-31); MEAN CORPUSCULAR HGB CONC 34 g/dL (33-37); MEAN CORPUSCULAR VOLUME 92.1 fL (80-94); MONOCYTES # (AUTO) 1.4 K/uL (0.8-1.0); MONOCYTES % (AUTO) 13.2 % (1.7-9.3); NEUTROPHILS # (AUTO) 5.3 K/uL (1.8-7.7); NEUTROPHILS % (AUTO) 50.8 % (42.2-75.2); PLATELET COUNT (AUTO) 262 K/uL (140-450); RED BLOOD CELL COUNT(AUTO) 4.46 MIL/uL (4.20-6.10); RED CELL DISTRIBUTION WIDTH 16.1 % (11.6-13.7)
[2021-05-01 05:21] LABS: ANION GAP 9.5 (8-16); CARBON DIOXIDE 30.5 mmol/L (21-32); CHLORIDE 109 mmol/L (98-107); CREATININE 0.9 mg/dL (0.6-1.3); GLUCOSE 136 mg/dL (74-106); SODIUM SERUM 145 mmol/L (136-145); UREA NITROGEN, BLOOD 38 mg/dL (7-18)
[2021-05-01] MEDS: DILTIAZEM 30 MG TAB GT SCH ×3 (05:26→21:00)
--- NOTE | 2021-05-01 05:26 | NUR ---
DUE MEDS GIVEN PER MD ORDERED.
[2021-05-01 06:09] LABS: WHITE BLOOD COUNT (AUTO) 10.5 K/uL (4.8-10.8)
[2021-05-01] MEDS: BLOOD GLUCOSE MONITORING 1 DEV DEV FS SCH ×4 (06:42→21:00)
--- NOTE | 2021-05-01 06:42 | NUR ---
BLOOD GLUCOSE 142 NO COVERAGE GIVEN
--- NOTE | 2021-05-01 07:25 | NUR ---
BEDSIDE ENDORSEMENT GIVEN TO AM RN. PATIENT IS STABLE.
--- NOTE | 2021-05-01 07:27 | NUR ---
RECEIVED REPORT FROM NIGHT NURSE PT IS ON 6LITERS SIMPLE MASK, ON TUBE FEEDING GLUCERNA 1.2 AT 60 WATER FLUSH 150 Q6H, LAST BLOOD SUGAR 142 MG/DL, INCONTINENT, NON VERBAL. SKIN INTACT IV INTACT ON RIGJHT HAND SALINE LOCK. SAFETY MEASURES IN PLACE AND CALL LIGHT WITHIN REACH. WILL CONTINUE TO MONITOR.
--- NOTE | 2021-05-01 07:47 | NUR ---
PT ON 4LITERRS HUMIDIFIER PER RT.
[2021-05-01 08:00] VITALS: BP 125/61
[2021-05-01] MEDS: METOPROLOL 25 MG TAB GT SCH (09:02)
[2021-05-01] MEDS: DOCUSATE 100 MG/10 ML UDC GT SCH (09:02)
[2021-05-01] MEDS: PANTOPRAZOLE 40 MG INJ VIAL IVP SCH (09:03)
[2021-05-01] MEDS: MEMANTINE 10 MG TAB GT SCH ×2 (09:03→21:00)
[2021-05-01] MEDS: ASCORBIC ACID 500 MG/5 ML ORASYR GT SCH (09:03)
--- NOTE | 2021-05-01 09:22 | NUR ---
SCHEDULED MEDICATION GIVEN 50 ML RESIDUAL VOLUME. ABLE TO TOLERATE AND AWAKE. SAFETY MEASURES IN PLACE AND CALL LIGHT WITHIN REACH. WILL CONTINUE TO MONITOR.
[2021-05-01 12:00] VITALS: BP 145/70
--- NOTE | 2021-05-01 12:58 | NUR ---
05/01/21 RD INITIAL ASSESSMENT COMPLETED PLEASE REFER TO NUTRITION ASSESSMENT UNDER CARE ACTIVITY FOR ESTIMATED NUTRITIONAL NEEDS. RD RECOMMENDATIONS: 1. RECOMMEND INCREASING GLUCERNA 1.2 TO GOAL RATE OF 70 ML/HR. -AT GOAL RATE, GLUCERNA 1.2 WILL PROVIDED 2016 KCAL AND 101 GM OF PROTEIN, ADEQUATE TO MEET 100% ENERGY NEEDS AND 88% OF ESTIMATED PROTEIN NEEDS. 2. RECOMMEND ADDING PROSOURCE BID TO HELP MEET 100% OF ESTIMATED PROTEIN NEEDS. 3. CONSIDER FREE WATER FLUSH PER MD D/T CHF. 4. IF PT IS MEDICALLY APPROPRIATE FOR ORAL INTAKE, CONSIDER TEXTURE RECOMMENDATIONS PER VOCATIONAL TRAINING INSTRUCTOR. 5. RD WILL FOLLOW UP 2-3 DAYS; HIGH RISK SHAHRZAD [address]IZ[address] RD
--- NOTE | 2021-05-01 15:52 | NUR ---
LAB CALLED FOR CRITICAL VALUE BLOOD CULTURE POSITIVE AND DR CARTER AWARE.
[2021-05-01 16:00] VITALS: BP 152/73
[2021-05-01] MEDS ORDERED: VANCOMYCIN PER PHARMACY MC PRN (16:55)
[2021-05-01] MEDS ORDERED: VANCOMYCIN 1,000 MG in DEXTROSE 5% 250 ML IV ONE (17:30)
--- NOTE | 2021-05-01 17:31 | NUR ---
SPOKE WITH DR CARTER VANCOMYCIN 1000 MG NOT AVAILABLE IN THE [facility] CLOSE. CAN START VANCOMYCIN TOMORROW PER DR BERRIOS.
[2021-05-01] MEDS ORDERED: PIPERACILLIN/TAZOBACTAM 3.375 GM in DEXTROSE 5% 50 ML IV SCH (18:00)
--- NOTE | 2021-05-01 18:30 | NUR ---
PT SEEN BY [facility] AND RECOMMENDED ON NPO PATIENT IS NON RESPONSIVE AND POCKETTING.
--- NOTE | 2021-05-01 18:31 | NUR ---
PT WAS SEEN FOR DYSPHAGIA. PT WAS POCKETING FOR TRIALS OF APPLE SAUCE. RECOMMENDATION NOTHING BY MOUTH
--- NOTE | 2021-05-01 19:30 | NUR ---
ENDORSED TO NIGHT NURSE FOR CONTINUITY OF CARE.
--- NOTE | 2021-05-01 19:31 | NUR ---
RECEIVED REPORT FROM AM NURSE. PATIENT IS SLEEPING. ON 4L O2 NC SATTING AT 100%. NO S/S OF RESPIRATORY DISTRESS. BREATHING REGULAR UNLABORED. G-TUBE FEEDING GLUCERNA 1.2 AT 60 ML/HR, NO RESIDUAL NOTED AT THIS TIME. ALL SAFETY PRECAUTIONS ARE IN PLACE. CALL LIGHT WITHIN REACH. WILL CONTINUE TO MONITOR.
[2021-05-01 20:00] VITALS: BP 120/63
[2021-05-01] MEDS ORDERED: CEFEPIME 1,000 MG VIAL ONE ×3 (20:31→20:58)
[2021-05-01] MEDS ORDERED: VANCOMYCIN 1,000 MG VIAL ONE (20:45)
[2021-05-01] MEDS: CEFEPIME 2,000 MG in DEXTROSE 5% 100 ML IV SCH (22:00)
--- NOTE | 2021-05-01 22:00 | NUR ---
CEFEPIME ADMINISTERED PER MD ORDERED.
--- NOTE | 2021-05-01 22:40 | NUR ---
JAMES FROM LAB CALLED FOR CRITICAL LAB VALUE, BLOOD CULTURE GRAM POSITIVE COCCI AND WILL BE SENDING TO [facility] FOR IDENTIFICATION. CALLED TO DR. CARTER HE SAID HE KNEW IT. I WOULD LIKE TO DOCUMENT IN CRITICAL LAB VALUE REPORTING BUT IT'S ALREADY DOCUMENTED. PATIENT STARTED ON CEFEPIME AND VANCOMYCIN ORDERED.
[2021-05-01] MEDS ORDERED: VANCOMYCIN 1GM/DEXT 5% PREMIX 200 ML IV SCH (23:00)
--- NOTE | 2021-05-01 23:20 | NUR ---
VANCOMYCIN 1GM IVPB GIVEN AT 2320.
[2021-05-02] VITALS: BP 121/65
--- NOTE | 2021-05-02 02:12 | NUR ---
ROUNDED PATIENT. PT ASLEEP, NO SOB NOTED.
[2021-05-02 04:00] VITALS: BP 161/82
[2021-05-02] MEDS ORDERED: CEFEPIME 2,000 MG VIAL IV ONE (05:03)
[2021-05-02] MEDS: DILTIAZEM 30 MG TAB GT SCH ×3 (05:28→21:35)
--- NOTE | 2021-05-02 05:29 | NUR ---
SCHEDULED DUE MED GIVEN.
--- NOTE | 2021-05-02 05:31 | NUR ---
PATIENT CLEANED, CHANGED AND REPOSITIONED.
[2021-05-02 05:37] LABS: BASOPHILS # (AUTO) 0.1 K/uL (0.00-0.22); BASOPHILS % (AUTO) 0.5 % (0.0-2.0); EOSINOPHILS # (AUTO) 0.2 K/uL (0-0.4); EOSINOPHILS % (AUTO) 2.1 % (0.0-4.0); HEMATOCRIT 40.2 % (36-52); HEMOGLOBIN 13.4 g/dL (12.0-18.0); LYMPHOCYTES # (AUTO) 3.3 K/uL (2.0-11.5); LYMPHOCYTES % (AUTO) 31.7 % (20.5-51.1); MEAN CORPUSCULAR HEMOGLOBIN 31 pg (27-31); MEAN CORPUSCULAR HGB CONC 33 g/dL (33-37); MEAN CORPUSCULAR VOLUME 92.3 fL (80-94); MONOCYTES # (AUTO) 1.2 K/uL (0.8-1.0); MONOCYTES % (AUTO) 11.7 % (1.7-9.3); NEUTROPHILS # (AUTO) 5.7 K/uL (1.8-7.7); PLATELET COUNT (AUTO) 246 K/uL (140-450); RED BLOOD CELL COUNT(AUTO) 4.36 MIL/uL (4.20-6.10); RED CELL DISTRIBUTION WIDTH 15.7 % (11.6-13.7); WHITE BLOOD COUNT (AUTO) 10.5 K/uL (4.8-10.8)
[2021-05-02 05:40] LABS: ANION GAP 9.6 (8-16); CARBON DIOXIDE 30.3 mmol/L (21-32); CHLORIDE 109 mmol/L (98-107); CREATININE 0.8 mg/dL (0.6-1.3); GLUCOSE 128 mg/dL (74-106); POTASSIUM 3.9 mmol/L (3.5-5.1); SODIUM SERUM 145 mmol/L (136-145); UREA NITROGEN, BLOOD 34 mg/dL (7-18)
--- NOTE | 2021-05-02 06:15 | NUR ---
PATIENT IV WAS PULLED OUT. UNABLE TO FIND A VEIN ON BOTH ARM. PLACE A CALL TO DR CARTER TO GET AN ORDER TO INSERT ON THE LOWER EXTREMITIES. INSERTED NEW IV LINE ON THE RIGHT LOWER LEG TOLERATED WELL.
[2021-05-02] MEDS: BLOOD GLUCOSE MONITORING 1 DEV DEV FS SCH ×4 (06:41→21:00)
[2021-05-02] MEDS: CEFEPIME 2,000 MG in DEXTROSE 5% 100 ML IV SCH ×3 (06:56→21:33)
--- NOTE | 2021-05-02 07:21 | NUR ---
RECEIVED REPORT FROM ASSEMBLER TYPE BAR AND SEGMENT NURSE FOR CONTINUITY OF CARE, POC DISCUSSED. PT POSITIVE FOR GRAM POSITIVE COCCI. PT IS APHASIC. RESTING IN BED ON 4L HUMIDIFIED NC WITH CHEST RISING AND FALLING EVEN AND UNLABORED. PT ON TELE MONITOR SHOWING AFIB WITH HX OF AFIB. PT IS INCONTINENT BUT CURRENT CLEAN. SKIN REPORTEDLY INTACT. PT HAS A RIGHT FOOT 22G RUNNING TKO. ALL SAFETY MEASURES IN PLACE, WILL CONTINUE TO MONITOR.
--- NOTE | 2021-05-02 07:35 | NUR ---
ENDORSED TO AM NURSE FOR CONTINUITY OF CARE. PT IS STABLE
[2021-05-02 08:00] VITALS: BP 146/77
[2021-05-02] MEDS: ASCORBIC ACID 500 MG/5 ML ORASYR GT SCH (08:48)
[2021-05-02] MEDS: PANTOPRAZOLE 40 MG INJ VIAL IVP SCH (08:49)
[2021-05-02] MEDS: MEMANTINE 10 MG TAB GT SCH ×2 (08:49→21:36)
[2021-05-02] MEDS: DOCUSATE 100 MG/10 ML UDC GT SCH (08:49)
[2021-05-02] MEDS: METOPROLOL 25 MG TAB GT SCH (08:49)
--- NOTE | 2021-05-02 09:20 | NUR ---
KAREN MEDICATION ADMINISTERED PER MD ORDER, PT TOLERATED ADMINISTRATION. PT IS RESTING IN BED ON 2L NC WITH CHEST RISING AND FALLING EVEN AND UNLABORED. NO RESIDUAL NOTED ON PEG TUBE. FLUSHED WITH 10 CC PRIOR TO AND AFTER ADMINISTRATION. IV IN RIGHT FOOT IS PATENT AND INTACT. PT TOLERATED ADMINISTRATION. ALL SAFETY MEASURES IN PLACE, CALL LIGHT WITHIN REACH. WILL CONTINUE TO MONITOR.
--- NOTE | 2021-05-02 11:05 | NUR ---
PT HAS BEEN CLEANED, REPOSITIONED AND PROVIDED WITH ALL NEEDS.
[2021-05-02] MEDS: VANCOMYCIN 750 MG in DEXTROSE 5% 250 ML IV SCH ×2 (11:29→23:25)
--- NOTE | 2021-05-02 11:38 | NUR ---
KAREN ABX ADMINISTERED PER MD ORDER, PT TOLERATED ADMINISTRATION. BLOOD GLUCOSE IS 106, NO INSULIN NEEDED PER MD SLIDING SCALE. ALL SAFETY MEASURES IN PLACE. WILL CONTINUE TO MONITOR.
[2021-05-02 12:00] VITALS: BP 121/87
--- NOTE | 2021-05-02 12:40 | NUR ---
KAREN MEDICATION ADMINISTERED PER MD ORDER, PT TOLERATED ADMINISTRATION. PT IS STABLE. NEW FEEDING STARTED. ALL SAFETY MEASURES IN PLACE, CALL LIGHT WITHIN REACH. WILL CONTINUE TO MONITOR.
--- NOTE | 2021-05-02 14:01 | NUR ---
PT IS RESTING IN BED WITH NO ACUTE S/S OF DISTRESS. PT IS STABLE. ALL SAFETY MEASURES IN PLACE. WILL CONTINUE TO MONITOR.
--- NOTE | 2021-05-02 15:58 | NUR ---
PT HAS EYES CLOSED IN BED, PT LOOKS COMFORTABLE. ON 2L NC WITH CHEST RISING AND FALLING EVEN AND UNLABORED. ALL SAFETY MEASURES IN PLACE. CALL LIGHT WITHIN REACH. WILL CONTINUE TO MONITOR.
[2021-05-02 16:00] VITALS: BP 140/60
--- NOTE | 2021-05-02 16:16 | NUR ---
PT HAS BEEN CHANGED, BM NOTED. PT REPOSITIONED. ALL SAFETY MEASURES IN PLACE.
--- NOTE | 2021-05-02 16:56 | NUR ---
BLOOD GLUCOSE IS 115, NO INSULIN NEEDED PER SLIDING SCALE.
--- NOTE | 2021-05-02 17:35 | NUR ---
PT IS RESTING IN BED WITH NO ACUTE S/S OF DISTRESS. ALL SAFETY MEASURES IN PLACE. CALL LIGHT WITHIN REACH. WILL CONTINUE TO MONITOR.
--- NOTE | 2021-05-02 18:32 | NUR ---
PT HAS REMAINED STABLE THROUGH OUT THE SHIFT, ALL SAFETY MEASURES IN PLACE. WILL CONTINUE TO MONITOR.
--- NOTE | 2021-05-02 19:04 | NUR ---
PT BEEN ENDORSED TO NURSERY SCHOOL ATTENDANT IN STABLE CONDITION. POC DISCUSSED.
--- NOTE | 2021-05-02 19:06 | NUR ---
RECEIVED ENDORSEMENT FROM AM RN. PATIENT IS NON VERBAL, AWAKE IN LOW FOWLERS POSITION. NO ACUTE DISTRESS NOTED. RESPIRATION EVEN UNLABORED. FLACC 0. TUBE FEEDING GLUCERNA RUNNING AT 70 ML/HR TOLERATING WELL. NO RESIDUAL NOTED. SKIN WARM AND DRY TO THE TOUCH. ALL SAFETY PRECAUTIONS ARE IN PLACE. CALL LIGHT WITHIN REACH.
[2021-05-02 20:00] VITALS: BP 139/63
--- NOTE | 2021-05-02 20:33 | NUR ---
ALL SCHEDULED 2100 MEDS ADMINISTERED. PT IS KEPT CLEAN AND DRY.
[2021-05-03] VITALS: BP 130/50
--- NOTE | 2021-05-03 03:00 | NUR ---
ROUNDED PATIENT, SLEEPING,. NO SOB NOTED. SAFETY MEASURES IN PLACE.
[2021-05-03 04:00] VITALS: BP 151/63
[2021-05-03] MEDS: DILTIAZEM 30 MG TAB GT SCH ×2 (04:51→13:01)
[2021-05-03] MEDS: CEFEPIME 2,000 MG in DEXTROSE 5% 100 ML IV SCH ×2 (04:51→13:01)
--- NOTE | 2021-05-03 04:51 | NUR ---
ADMINISTERED 0500 MEDS ORDERED.
[2021-05-03 06:03] LABS: BASOPHILS # (AUTO) 0.1 K/uL (0.00-0.22); BASOPHILS % (AUTO) 0.6 % (0.0-2.0); EOSINOPHILS # (AUTO) 0.3 K/uL (0-0.4); EOSINOPHILS % (AUTO) 3.5 % (0.0-4.0); HEMATOCRIT 39.6 % (36-52); HEMOGLOBIN 13.3 g/dL (12.0-18.0); LYMPHOCYTES # (AUTO) 2.9 K/uL (2.0-11.5); LYMPHOCYTES % (AUTO) 31.6 % (20.5-51.1); MEAN CORPUSCULAR HEMOGLOBIN 31 pg (27-31); MEAN CORPUSCULAR HGB CONC 34 g/dL (33-37); MEAN CORPUSCULAR VOLUME 91.3 fL (80-94); MONOCYTES # (AUTO) 1.2 K/uL (0.8-1.0); MONOCYTES % (AUTO) 13.6 % (1.7-9.3); NEUTROPHILS # (AUTO) 4.6 K/uL (1.8-7.7); NEUTROPHILS % (AUTO) 50.7 % (42.2-75.2); PLATELET COUNT (AUTO) 224 K/uL (140-450); RED BLOOD CELL COUNT(AUTO) 4.34 MIL/uL (4.20-6.10); RED CELL DISTRIBUTION WIDTH 15.9 % (11.6-13.7); WHITE BLOOD COUNT (AUTO) 9.1 K/uL (4.8-10.8)
--- NOTE | 2021-05-03 06:10 | NUR ---
FEEDING CONSUMED, HANGED A NEW BOTTLE
[2021-05-03 06:20] LABS: ANION GAP 10.1 (8-16); CARBON DIOXIDE 28.9 mmol/L (21-32); CHLORIDE 104 mmol/L (98-107); CREATININE 0.8 mg/dL (0.6-1.3); GLUCOSE 110 mg/dL (74-106); SODIUM SERUM 139 mmol/L (136-145); UREA NITROGEN, BLOOD 29 mg/dL (7-18)
[2021-05-03] MEDS: BLOOD GLUCOSE MONITORING 1 DEV DEV FS SCH ×2 (06:33→11:30)
--- NOTE | 2021-05-03 07:35 | NUR ---
ENDORSED TO AM NURSE FOR CONTINUITY OF CARE. PT IS IN STABLE CONDITION.
--- NOTE | 2021-05-03 07:36 | NUR ---
RECEIVED BEDSIDE REPORT FROM EQUIPMENT DETAILER NURSE FOR CONTINUITY OF CARE. POC DISCUSSED. PT RESTING ON 2L OF NC O2. BREATHING IS EVEN AND UNLABORED. NO S/S OF DISTRESS. PT IS ON TELE ON SR. ALL SAFETY MEASURES IN PLACE, CALL LIGHT WITHIN REACH. PT IS STABLE.
[2021-05-03] MEDS: DOCUSATE 100 MG/10 ML UDC GT SCH (09:00)
[2021-05-03] MEDS: MEMANTINE 10 MG TAB GT SCH (09:00)
[2021-05-03] MEDS: ASCORBIC ACID 500 MG/5 ML ORASYR GT SCH (09:00)
[2021-05-03] MEDS: PANTOPRAZOLE 40 MG INJ VIAL IVP SCH (09:00)
[2021-05-03] MEDS: METOPROLOL 25 MG TAB GT SCH (09:00)
--- NOTE | 2021-05-03 09:00 | NUR ---
PT RESTING ON 2L NC. BREATHING IS EVEN AND UNLABORED. NO S/S OF DISTRESS. PT IS ON TELE ON SR. ALL SAFETY MEASURES IN PLACE, CALL LIGHT WITHIN REACH. PT IS STABLE.
[2021-05-03] MEDS ORDERED: COL100L GT (10:20)
[2021-05-03] MEDS ORDERED: CEFE2SOL IV (10:20)
[2021-05-03] MEDS: VANCOMYCIN 750 MG in DEXTROSE 5% 250 ML IV SCH (11:00)
--- NOTE | 2021-05-03 11:00 | NUR ---
PT IS NEGATIVE FOR PCR , CHANGED FROM DROPLET TO CONTACT PRECAUTIONS.
--- NOTE | 2021-05-03 11:00 | NUR ---
PT IS NOW DNR. NOT FULL CODE ANYMORE. TRANSITIONING TO HOSPICE.
--- NOTE | 2021-05-03 11:30 | NUR ---
PT BLOOD SUGAR IS 133. NO COVERAGE NEEDED. PT RESTING ON 2L NC. BREATHING IS EVEN AND UNLABORED. NO S/S OF DISTRESS. PT IS ON TELE ON SR. ALL SAFETY MEASURES IN PLACE, CALL LIGHT WITHIN REACH. PT IS STABLE.
--- NOTE | 2021-05-03 13:00 | NUR ---
JANA FROM [facility] INFORMED ME ABOUT TRANSPORT FOR PT.
--- NOTE | 2021-05-03 13:30 | NUR ---
GAVE REPORT TO JANA FROM HOSPICE FOR PT FOR CONTINUITY OF CARE.
[2021-05-03 15:19] VITALS: BP 135/56
--- NOTE | 2021-05-03 16:30 | NUR ---
PT PICKED UP BY [facility] TO TRANSFER TO [facility] [place] TO CONTINUE CARE WITH JANA AND HOSPICE. PT IV LEFT INTACT IN LEG SO THAT [facility] MAY CONTINUE IV MEDICATIONS PRESCRIBED PER MD.
== END 2021-05-03 16:35 | disposition hospice, inpatient (51) | DRG 871 ==
LOC: MED 02:37 → MTU 07:33
PROVIDERS: ADMIT Hospitalist; ATTEND Hospitalist
DX: A41.9 Sepsis, unspecified organism (principal); J69.0 Pneumonitis due to inhalation of food and vomit; J96.01 Acute respiratory failure with hypoxia; G93.41 Metabolic encephalopathy; I50.43 Acute on chronic combined systolic (congestive) and diastolic (congestive) heart failure; E43 Unspecified severe protein-calorie malnutrition; E87.0 Hyperosmolality and hypernatremia; F03.90 Unspecified dementia, unspecified severity, without behavioral disturbance, psychotic disturbance, mood disturbance, and anxiety; I11.0 Hypertensive heart disease with heart failure; R13.10 Dysphagia, unspecified; R73.03 Prediabetes; E86.0 Dehydration; E83.41 Hypermagnesemia; I48.91 Unspecified atrial fibrillation; Z20.822 Contact with and (suspected) exposure to COVID-19; K44.9 Diaphragmatic hernia without obstruction or gangrene; E78.2 Mixed hyperlipidemia; I25.10 Atherosclerotic heart disease of native coronary artery without angina pectoris; Z95.1 Presence of aortocoronary bypass graft; Z86.73 Personal history of transient ischemic attack (TIA), and cerebral infarction without residual deficits; Z79.899 Other long term (current) drug therapy; Z93.1 Gastrostomy status; Z68.23 Body mass index [BMI] 23.0-23.9, adult
CPT/HCPCS: 36415; 70450; 71045; 80048; 80076; 80202; 82948; 83605; 83690; 83735; 83880; 84100; 84484; 85025; 87040; 87081; 92610; 93005; 96361; 96365; 96367; 99291; C9113; J0692; J1815; J2543; J3370; J7060; Q0092; U0003